=== PATIENT | female | born 1985 | race Caucasian/White ===

== ENCOUNTER 2020-11-16 13:54 | Outpatient (REF) | payer OTHER, SELFPAY | END 2020-11-16 13:55 | disposition home or self-care (01) | LOC: HO.LAB 13:54 | PROVIDERS: PCP Internal Medicine; Visit Provider Internal Medicine | DX: Z20.822 Contact with and (suspected) exposure to COVID-19 (principal) | CPT/HCPCS: 36415; C9803; U0003 ==

== ENCOUNTER 2021-06-13 11:34 | Outpatient (REF) | payer OTHER, SELFPAY ==
--- NOTE | ~2021-06-13 | XR_ITS ---
EXAMINATION: XR LUMBOSACRAL SPINE CLINICAL INFORMATION: Low back pain. COMPARISON: None TECHNIQUE: Three views of the lumbosacral spine. FINDINGS: No significant scoliosis. No listhesis or compression injury. The disc heights and vertebral heights are fairly well preserved. Some mild early degeneration at the thoracolumbar junction. The SI joints are grossly patent. XR/XR lumbar spine 2-3V IMPRESSION: No acute finding. No listhesis or compression injury. Vertebral heights and disc heights are fairly well preserved. Some mild degeneration at the thoracolumbar junction.
[2021-06-13 13:20] LABS: Alanine Aminotransferase 16 U/L (0-31); Albumin Level 4.4 g/dL (3.5-5.0); Alkaline Phosphatase 98 U/L (39-117); Anion Gap 11 (12-20); Aspartate Amino Transferase 15 U/L (5-31); Bilirubin Total < 0.2 mg/dL (0.0-1.0); Blood Urea Nitrogen 9 mg/dL (9-16); Calcium 9.5 mg/dL (8.4-10.2); Carbon Dioxide 26 mmol/L (22-29); Chloride 107 mmol/L (96-108); Cholesterol 145 mg/dL; Estimated Glomerular Filt Rate > 60; Glucose Fasting 92 mg/dL (60-99); HDL Cholesterol 42 mg/dL; LDL Cholesterol Calculated 92 mg/dl; Potassium 4.4 mmol/L (3.3-5.1); Sodium 140 mmol/L (135-145); Total Protein 7.4 g/dL (6.5-8.0); Triglycerides 59 mg/dL
== END 2021-06-13 11:35 | disposition home or self-care (01) ==
LOC: HO.XRAY 11:34
PROVIDERS: PCP Internal Medicine; Visit Provider Internal Medicine
DX: M54.5 Low back pain (principal); E66.9 Obesity, unspecified; R21 Rash and other nonspecific skin eruption; E78.5 Hyperlipidemia, unspecified
CPT/HCPCS: 36415; 72100; 80053; 80061

== ENCOUNTER 2021-07-13 09:00 | Outpatient (RCR) | payer OTHER, SELFPAY ==
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
--- NOTE | 2021-09-07 08:39 | MHC.PT.DC ---
[facility] [place] Office [place] Office [place] Office [address] Karyn Marcus [address] [phone] F: [phone] F: [phone] F: [phone] F: [phone] Physical Therapy Discharge Report Diagnosis: LUMBAR PAIN Date of Surgery: NA Date of Evaluation: 07/06/21 Date of Discharge: 09/07/21 Treatments to Date: 2 Cancellations to Date: No Shows to Date: Discharge Status: Patient Elected to Stop Visit Non-compliance Discharge Summary: Pt SEEN FOR INIT EVAL AND 1 FU VISIT THEN NO SHOWED. Pt THEN RESTARTED PT AT ANOTHER CLINIC ([place] [facility]) WILL DC THIS RECORD/ACCOUNT. AT LAST VISIT HERE IN [place] [facility] ON 07/20/21 PER ASSESSMENT 'NEEDED CUES FOR PROP EX PERF (HAD NOT STARTED THEM BUT REPORTS IS GOING TO WORK ON THEM NOW)RELIEF WITH MH AND ST WORK CHALLENGED WITH ABD BRACING' Electronically signed by: AURORA LEE PT Please sign and return to therapist. Thank you for your referral.
== END 2021-09-07 08:39 | disposition home or self-care (01) ==
LOC: HO.PTWFD 09:00
PROVIDERS: PCP Internal Medicine; Visit Provider Internal Medicine
DX: M54.5 Low back pain (principal)
CPT/HCPCS: 97110; 97140; 97162

== ENCOUNTER 2021-09-26 14:00 | Outpatient (RCR) | payer OTHER, SELFPAY ==
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
--- NOTE | 2021-09-26 15:13 | MHC.PT.DC ---
[facility] [place] Office [place] Office [place] Office [address] Karyn Marcus [address] [phone] F: [phone] F: [phone] F: [phone] F: [phone] Physical Therapy Discharge Report Diagnosis: low back pain Date of Surgery: n/a Date of Evaluation: 08/24/21 Date of Discharge: 09/26/21 Treatments to Date: 6 Cancellations to Date: 3 No Shows to Date: 1 Discharge Status: Achieved Goals Improved Function Discharge Summary: Pt has made some progress since beginning skilled PT in pain, lumbar ROM, core strength, and hip strength. She continues to have some pain at times with activities but also first thing in the morning. She continues to have some functional limitations at times as a result of some continued pain but overall this is better. Advised pt on changes to sleeping posture to help reduce pain further as well as continue with HEP. Pt with good understanding. At this point max benefits of PT have been provided and skilled PT is no longer indicated at this time. Pt is in agreement with d/c today. Electronically signed by: Chely Wakefield, PT, DPT, ATC Please sign and return to therapist. Thank you for your referral.
== END 2021-09-26 15:13 | disposition home or self-care (01) ==
LOC: HO.PT 14:00
PROVIDERS: PCP Internal Medicine; Visit Provider Internal Medicine
DX: M54.50 Low back pain, unspecified (principal)
CPT/HCPCS: 97110; 97140; 97161; 97530

== ENCOUNTER 2021-11-25 12:23 | Outpatient (REF) | payer OTHER, SELFPAY ==
--- NOTE | ~2021-11-25 | XR_ITS ---
EXAMINATION: XR KNEE, LEFT CLINICAL INFORMATION: M25.562 - Pain in left knee COMPARISON: None TECHNIQUE: Three views of the left knee. FINDINGS: There is no fracture or dislocation or destructive process. No focal joint narrowing or erosive change or chondrocalcinosis. No suprapatellar effusion. Hoffa's fat pad appears normal. There is normal bony mineralization. Axial view patella shows no lateralization. XR/XR knee LT 3V IMPRESSION: Normal left knee.
== END 2021-11-25 12:24 | disposition home or self-care (01) ==
LOC: HO.XRAY 12:23
PROVIDERS: PCP Internal Medicine; Visit Provider Nurse Practitioner Family
DX: M25.562 Pain in left knee (principal)
CPT/HCPCS: 73562

== ENCOUNTER 2022-01-10 13:07 | Outpatient (REF) | payer OTHER, SELFPAY ==
--- NOTE | ~2022-01-10 | XR_ITS ---
EXAMINATION: XR THORACOLUMBAR SPINE CLINICAL INFORMATION: Thoracic pain COMPARISON: None TECHNIQUE: Thoracic spine is imaged in 3 views. FINDINGS: There is normal thoracic segmentation with 12 rib-bearing thoracic vertebrae of normal height and normal thoracic kyphosis. There is a borderline levocurvature upper thoracic spine. No thoracic vertebral body compression is present. There is no destructive process or paraspinal soft tissue swelling. No spondylolisthesis or disc narrowing or erosive changes. XR/XR thoracic spine 2V IMPRESSION: -Borderline levocurvature upper thoracic region. -No vertebral compression, spondylolisthesis, disc narrowing, destructive process.
== END 2022-01-10 13:08 | disposition home or self-care (01) ==
LOC: HO.XRAY 13:07
PROVIDERS: PCP Internal Medicine
DX: M54.6 Pain in thoracic spine (principal); M99.02 Segmental and somatic dysfunction of thoracic region; M47.814 Spondylosis without myelopathy or radiculopathy, thoracic region
CPT/HCPCS: 72070

== ENCOUNTER 2022-04-22 17:08 | Emergency (ER) | payer OTHER, SELFPAY ==
[2022-04-22 18:28] VITALS: BP 147/88; PULSE 74; RESP 18; TEMP 36.7; O2SAT 99
[2022-04-22 19:09] VITALS: BP 147/88; PULSE 74; RESP 16; TEMP 36.6; O2SAT 99; BMI 29.4
[2022-04-22 20:26] VITALS: PULSE 63; RESP 16; TEMP 36.1; O2SAT 100
--- NOTE | 2022-04-22 21:43 | ED_ITS ---
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 No associated numbness, tingling. No bowel or bladder incontinence. No saddle anesthesia. No fevers or chills. Patient is ambulatory Related Data Previous Rx's Medication Instructions Recorded ibuprofen 800 mg tablet 800 mg PO Q8H PRN pain 30 days #90 06/22/21 tabs azithromycin 250 mg tablet See Rx Instructions PO .COMPLEX #6 11/25/21 tabs diclofenac sodium 1 % topical gel 2 g topical QID PRN pain 14 days 11/25/21 (Arthritis Pain (diclofenac)) #100 grams cyclobenzaprine 10 mg tablet 10 mg PO TID PRN muscle spasm #15 04/22/22 tabs naproxen 500 mg tablet 500 mg PO BID PRN pain #30 tabs 04/22/22 prednisone 20 mg tablet 40 mg PO DAILY #10 tabs 04/22/22 Allergies Allergy/AdvReac Type Severity Reaction Status Date / Time No Known Allergies Allergy Verified 11/25/21 11:58 [No Known Allergies*] Review of Systems Review of Systems: Yes all other systems are reviewed and are negative Constitutional: Constitutional: Reports no additional constitutional complaints, Denies body ache(s), Denies chills, Denies fever(s), Denies headache(s) and Denies weakness Eyes: Eyes: Reports no additional eye complaints and Denies change in vision ENT: Reports system reviewed and no additional complaints, except as documented, Denies dizziness, Denies headache(s), Denies nasal congestion, Denies nasal discharge and Denies neck pain Cardiovascular: Cardiovascular: Reports no additional cardiovascular complaints, Denies chest pain, Denies leg edema and Denies dyspnea Respiratory: Respiratory: Reports no additional respiratory complaints, Denies cough and Denies dyspnea Gastrointestinal: Gastrointestinal: Reports no additional gastrointestinal complaints, Denies abdominal pain, Denies diarrhea, Denies nausea and Denies vomiting Genitourinary: Genitourinary: Reports no additional female genitourinary complaints and Denies urinary incontinence Musculoskeletal: Musculoskeletal: Reports no additional musculoskeletal complaints, Reports back pain, Denies arthralgias, Denies joint swelling, Denies neck pain, Denies numbness and Denies tingling Integumentary/Breasts: Skin/Breast: Reports system reviewed and no additional complaints, except as docu and Denies rash Neurologic: Reports system reviewed and no additional complaints, except as documented, Denies Abnormal speech present, Denies dizziness, Denies headache(s), Denies numbness, Denies tingling and Denies weakness [facility] Past Medical History Attestation statement: The following information was validated with the patient. Source: old records reviewed and nursing notes reviewed Surgical History History of hand surgery History of tubal ligation S/P ligament repair Family History Family History Father No problems noted. Mother Diabetes Hypertension Paternal Aunt Breast cancer Family/Other Chronic mental illness Brother No problems noted. Brother No problems noted. Brother No problems noted. Sister No problems noted. Sister No problems noted. Son In good health Daughter In good health Social History Social History Housing: Apartment Alcohol intake: current Alcohol intake frequency: holidays/special occasions only Alcohol type: wine and other Patient Tobacco Use Status: Never used Tobacco e-Cigarette/Vaping Use: Never Used Second Hand Smoke Exposure: No Advance Directives: No Advance Directives Information Provided: No service: No Current occupational status: unemployed Physical Exam 2 Vital Signs: Vital Signs: Last Vital Signs Temp 96.9 F 04/22/22 20:26 Pulse 63 04/22/22 20:26 Resp 16 04/22/22 20:26 BP 147/88 H 04/22/22 19:09 Pulse Ox 100 04/22/22 20:26 O2 Del Method 04/22/22 20:26 BMI result Body Mass Index 29.4 Const: General: cooperative, healthy appearing, comfortable and no acute distress Orientation/consciousness: patient oriented x3 Limitations: no limitations HEENT: Head: Yes normal to inspection Ears: hearing grossly normal bilaterally General nose exam: Normal external nose present Face and sinus: Yes normal facial exam Mouth: Normal oral and palatal mucosa present Throat: Yes posterior oropharynx normal Eyes: General: appearance normal, both eyes and all related structures Pupils: Equal, round and reactive pupils present Neck: Neck: Yes normal visual inspection Chest: Chest palpation & inspection: normal inspection of the chest Resp: Effort & Inspection: normal respiratory effort Auscultation: clear to auscultation bilaterally Cardio: Rate: regular rate Rhythm: regular rhythm Peripheral pulses: Peripheral pulses 2+ throughout GI: Inspection: Yes normal to inspection Palpation (GI): Soft to palpation and nontender Auscultation: normal bowel sounds : General: Yes no CVA tenderness Back/Spine/Pelvis: Other: There is tenderness over the right lumbar soft tissue area into the right buttocks. No mid spine tenderness, step-offs deformities. Back: no CVA te nderness Thoracic/Lumbar Spine: thoracic and lumbar spine normal to inspection Skin: General skin exam: no rashes or lesions noted Neuro: General: patient oriented x3, no focal motor deficits and normal sensation to monofilament Cranial nerves: Yes CN's II-XII intact bilaterally, Yes Equal, round and reactive pupils present, Yes Bilaterally intact EOM present, Yes Nystagmus not present, Yes Normal facial strength present and Yes Midline tongue present Cognition (Neuro): normal cognition Speech: No Abnormal speech present Gait exam (Neuro): Normal gait present Motor exam (neuro): 5/5 motor strength present throughout Sensory Exam: Normal double simultaneous stimulation for sensation Deep tendon reflexes (DTR's): Right patellar reflex intensity grade: 2+ and Left patellar reflex intensity grade: 2+ Extrem: General: Yes normal to inspection MDM - Back Pain/Injury MDM Narrative Medical decision making narrative: 36-year-old female with history of chronic back pain here with right lower back pain with radiation down the right leg after moving some furniture 3 days ago. No neurological deficits or red flag symptoms. -low concern for caude equina with no neuro deficits/red flag symptoms -low concern for epidural abscess with no reports of IV drug abuse, immunocompromise state, fever and normal neurologic exam Exam c/w with sciatica. Will treat with course of prednisone, low-dose muscle relaxant NSAID. Reviewed worrisome signs and symptoms when to return to the emergency department. Comfortable discharge home. Differential Diagnosis Differential diagnosis: Likely lumbar radiculopathy, sciatica and strain of lumbar region Medical Records Attestation: I reviewed the patient's medical records. Lab Data Attestation: I reviewed the patient's lab results. Discharge Plan Discharge Clinical Impression: Sciatica Patient Disposition: Home, Self-Care Instructions: Sciatica (ED) Additional Instructions: Heat or ice Gentle stretching No heavy lifting or bending Follow-up with your doctor in 7 days for persistent symptoms Return for incontinence, numbness in the groin, weakness, fever Prescriptions: New cyclobenzaprine 10 mg tablet 10 mg PO TID PRN (Reason: muscle spasm) Qty: 15 0RF naproxen 500 mg tablet 500 mg PO BID PRN (Reason: pain) Qty: 30 0RF prednisone 20 mg tablet 40 mg PO DAILY Qty: 10 0RF No Action ibuprofen 800 mg tablet 800 mg PO Q8H PRN (Reason: pain) 30 Days Qty: 90 3RF azithromycin 250 mg tablet See Rx Instructions PO .COMPLEX Qty: 6 0RF Rx Instructions: take 500 mg today (day 1), then 250 mg for 4 days (days 2-5) PO diclofenac sodium [Arthritis Pain (diclofenac)] 1 % gel 2 g topical QID PRN (Reason: pain) 14 Days Qty: 100 0RF Rx Instructions: apply to single elbow, wrist or hand; for hand includes palm/fingers/back of hand Referrals: Dorothea Domínguez MD [Primary Care Provider] - Interventions: ED Discharge Assessment Last Done: 04/22/22 21:50 Discharge Date/Time: 04/22/22 21:50 Print Language: Occitan
== END 2022-04-22 21:50 | disposition home or self-care (01) ==
PROVIDERS: Emergency Provider Emergency Medicine; PCP Internal Medicine
DX: M54.41 Lumbago with sciatica, right side (principal); Z79.899 Other long term (current) drug therapy
CPT/HCPCS: 99282; 99283

== ENCOUNTER 2022-05-30 11:44 | Outpatient (REF) | payer OTHER, SELFPAY ==
--- NOTE | 2022-05-30 11:47 | ECG_ITS ---
Test Reason : HTN Blood Pressure : / mmHG Vent. Rate : 058 BPM Atrial Rate : 058 BPM P-R Int : 156 ms QRS Dur : 084 ms QT Int : 448 ms P-R-T Axes : 064 028 023 degrees QTc Int : 439 ms Sinus bradycardia Otherwise normal ECG When compared with ECG of 09-MAY-2018 19:19, No significant change was found Referred By: Dorothea Carey Electronically Signed By:KATARINA RODRIGUEZ
[2022-05-30 15:59] LABS: Alanine Aminotransferase 14 U/L (0-31); Albumin Level 4.4 g/dL (3.5-5.0); Alkaline Phosphatase 90 U/L (39-117); Anion Gap 10 (12-20); Aspartate Amino Transferase 15 U/L (5-31); Bilirubin Total 0.5 mg/dL (0.0-1.0); Blood Urea Nitrogen 16 mg/dL (9-16); Calcium 9.4 mg/dL (8.4-10.2); Carbon Dioxide 28 mmol/L (22-29); Chloride 105 mmol/L (96-108); Cholesterol 151 mg/dL; Estimated Glomerular Filt Rate > 60; Glucose Fasting 85 mg/dL (60-99); HDL Cholesterol 44 mg/dL; LDL Cholesterol Calculated 94 mg/dl; Potassium 4.1 mmol/L (3.3-5.1); Sodium 139 mmol/L (135-145); Total Protein 7.3 g/dL (6.5-8.0); Triglycerides 68 mg/dL
[2022-05-30 16:09] LABS: Vitamin D 25-OH Total 25.4 ng/mL (>30)
== END 2022-05-30 11:45 | disposition home or self-care (01) ==
LOC: HO.LAB 11:44
PROVIDERS: PCP Internal Medicine; Visit Provider Internal Medicine
DX: Z00.00 Encounter for general adult medical examination without abnormal findings (principal); I10 Essential (primary) hypertension; E55.9 Vitamin D deficiency, unspecified; E78.5 Hyperlipidemia, unspecified
CPT/HCPCS: 36415; 80053; 80061; 82306; 93005

== ENCOUNTER → 2022-06-16 14:24 | Outpatient (BNVA) | payer OTHER, SELFPAY | PROVIDERS: PCP Internal Medicine; Visit Provider Surgery | DX: L91.0 Hypertrophic scar (principal) | CPT/HCPCS: 99202 ==

== ENCOUNTER 2022-07-21 14:09 | Outpatient (REF) | payer OTHER, SELFPAY ==
[2022-07-21 18:29] LABS: CT PCR NOT DETECTED (Not Detect.); NG PCR NOT DETECTED (Not Detect.)
[2022-07-22 13:13] LABS: BV Int Neg Control Negative (Negative); BV Int Pos Control Positive (Positive)
[2022-07-26 22:26] LABS: HPV mRNA E6/E7 rflx Not Detected (Not Detected)
== END 2022-07-21 14:10 | disposition home or self-care (01) ==
LOC: HO.LNP 14:09
PROVIDERS: Visit Provider Advanced Practice Midwife
DX: Z01.419 Encounter for gynecological examination (general) (routine) without abnormal findings (principal); Z11.51 Encounter for screening for human papillomavirus (HPV); Z11.3 Encounter for screening for infections with a predominantly sexual mode of transmission
CPT/HCPCS: 87480; 87491; 87510; 87591; 87624; 87660; 88142

== ENCOUNTER 2022-08-03 08:09 | Outpatient (REF) | payer OTHER, SELFPAY ==
[2022-08-03 08:15] VITALS: BP 149/76; PULSE 64; RESP 16; TEMP 36.6; O2SAT 100
[2022-08-03 08:16] VITALS: BMI 33.5
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
== END 2022-08-03 08:10 | disposition home or self-care (01) ==
LOC: HO.MS 08:09
PROVIDERS: PCP Internal Medicine; Visit Provider Surgery
PROC: (CPT 11403; principal; 2022-08-03 08:00)
DX: L91.0 Hypertrophic scar (principal)
CPT/HCPCS: 11403; 12032; 88304

== ENCOUNTER → 2022-11-28 09:39 | Outpatient (BNVA) | payer OTHER, SELFPAY | PROVIDERS: PCP Internal Medicine; Visit Provider Student in an Organized Health Care Education/Training Program | DX: M25.641 Stiffness of right hand, not elsewhere classified (principal); M25.642 Stiffness of left hand, not elsewhere classified | CPT/HCPCS: 99202 ==

== ENCOUNTER 2022-12-04 09:46 | Outpatient (REF) | payer OTHER, SELFPAY ==
--- NOTE | ~2022-12-04 | XR_ITS ---
EXAMINATION: XR hand wrist LT, XR hand wrist RT CLINICAL INFORMATION: Rheumatoid arthritis COMPARISON: Right hand radiograph 06/28/2018. Left hand radiograph 07/10/2018. Left wrist radiograph 08/29/2018 and selected images of the MRI left wrist 12/10/2018 and MRI bilateral wrist with contrast 12/16/2018. TECHNIQUE: Left hand and wrist 4 views including navicular view. Right hand and wrist 4 views including navicular view. FINDINGS: Left hand and wrist: No focal soft tissue swelling. The mineralization is normal. The alignment is normal. No significant joint space narrowing. No focal erosions or significant changes. The carpal bones are unremarkable. Right hand and wrist: No focal soft tissue swelling. The mineralization is normal. The alignment is normal. No significant joint space narrowing. No focal erosions or significant changes. The carpal bones are unremarkable. XR/XR hand wrist RT IMPRESSION: No significant joint space narrowing or focal erosions are seen. The alignment is maintained.
--- NOTE | ~2022-12-04 | XR_ITS ---
EXAMINATION: XR hand wrist LT, XR hand wrist RT CLINICAL INFORMATION: Rheumatoid arthritis COMPARISON: Right hand radiograph 06/28/2018. Left hand radiograph 07/10/2018. Left wrist radiograph 08/29/2018 and selected images of the MRI left wrist 12/10/2018 and MRI bilateral wrist with contrast 12/16/2018. TECHNIQUE: Left hand and wrist 4 views including navicular view. Right hand and wrist 4 views including navicular view. FINDINGS: Left hand and wrist: No focal soft tissue swelling. The mineralization is normal. The alignment is normal. No significant joint space narrowing. No focal erosions or significant changes. The carpal bones are unremarkable. Right hand and wrist: No focal soft tissue swelling. The mineralization is normal. The alignment is normal. No significant joint space narrowing. No focal erosions or significant changes. The carpal bones are unremarkable. XR/XR hand wrist LT IMPRESSION: No significant joint space narrowing or focal erosions are seen. The alignment is maintained.
[2022-12-04 10:14] LABS: MANUAL DIFF FLAG NO
[2022-12-04 10:27] LABS: Basophils Absolute Auto 0.1 X10*3/uL (0.0-0.2); Basophils Percent Auto 0.5 % (0-2); Eosinophils Absolute Auto 0.1 X10*3/uL (0.0-0.4); Eosinophils Percent Auto 1.1 % (0-4); Hematocrit 38.2 % (37.0-47.0); Hemoglobin 12.3 g/dl (12.0-16.0); Imm Gran Abs Auto 0.03 X10*3/uL (0.00-0.03); Imm Gran Pct Auto 0.3 % (0.0-0.4); Lymphocytes Absolute Auto 2.8 X10*3/uL (1.2-4.9); Lymphocytes Percent Auto 27.3 % (20-40); Mean Corpuscular HGB Conc 32.2 g/dl (31.0-35.0); Mean Corpuscular Hemoglobin 30.6 pg (27.0-33.0); Mean Platelet Volume 9.7 fL (9.4-12.3); Monocytes Absolute Auto 0.6 X10*3/uL (0.1-1.2); Monocytes Percent Auto 5.4 % (2-11); Neutrophils Absolute Auto 6.7 x10*3/uL (2.0-8.3); Neutrophils Percent Auto 65.4 % (45-73); Platelet Count 331 X10*3/uL (160-400); Red Blood Count 4.02 X10*6/uL (4.20-5.50); White Blood Count 10.2 X10*3/uL (4.8-10.8)
[2022-12-04 10:48] LABS: Appearance Urine Clear; Color Urine Yellow; Glucose Urine UA Negative (Negative); Leukocyte Esterase Urine Negative (Negative); Nitrite Urine Negative (Negative); PH 7.5 (5.0-9.0); UMIC TRIGGER UA YES; Urine Blood Moderate (2+) (Negative); Urine Ketones Negative (Negative); Urine Protein Negative (Neg-Trace)
[2022-12-04 10:55] LABS: Estimated Average Glucose 91 mg/dL; Hemoglobin A1c % 4.8 %
[2022-12-04 11:00] LABS: Bacteria Urine None Seen (None Seen); Hyaline Casts Urine 0-2 /LPF (0-2); Squamous Epithelial Cell Urine 0-2 /HPF (0-2); WBC Urine 0-5 /HPF (0-5)
[2022-12-04 11:15] LABS: Creatinine Urine 113.93 mg/dL; Total Protein Urine Random < 7 mg/dL (<12)
[2022-12-04 11:15] LABS: Erythrocyte Sedimentation Rate 12 MM/HR (0-20)
[2022-12-04 11:31] LABS: Alanine Aminotransferase 10 U/L (0-31); Albumin Level 4.3 g/dL (3.5-5.0); Alkaline Phosphatase 98 U/L (39-117); Anion Gap 9 (12-20); Aspartate Amino Transferase 13 U/L (5-31); Bilirubin Total 0.3 mg/dL (0.0-1.0); Blood Urea Nitrogen 13 mg/dL (9-16); C Reactive Protein 0.35 mg/dL (< or = 0.50); Calcium 9.6 mg/dL (8.4-10.2); Carbon Dioxide 28 mmol/L (22-29); Chloride 108 mmol/L (96-108); Estimated Glomerular Filt Rate > 60; Glucose Random 87 mg/dL (60-115); Potassium 4.2 mmol/L (3.3-5.1); Rheumatoid Factor < 13.0 IU/mL (<15.0); Sodium 141 mmol/L (135-145); Total Protein 7.1 g/dL (6.5-8.0)
[2022-12-04 11:36] LABS: HBS Num1 0.87 mIU/mL (0-7.99); HBc Num1 0.08 S/CO (0.00-0.79); Hepatitis A Antibody IgM 0.17 Index (0-0.79); Hepatitis B Core Antibody Nonreactive (Nonreactive); Hepatitis B Surface Antigen Negative (Negative); ~HepC Num1 0.11 S/CO (0.00-0.79); ~Hepatitis A Antibody IgM Nonreactive (Nonreactive); ~Hepatitis B Surface Antibody NONREACTIVE (Nonreactive); ~Hepatitis C Antibody Nonreactive (Nonreactive)
[2022-12-04 11:39] LABS: Thyroid Stimulating Hormone 2.18 uIU/mL (0.32-4.0)
[2022-12-05 13:40] LABS: Anti Nuclear Antibody Screen NEGATIVE (NEGATIVE)
[2022-12-05 15:22] LABS: Cyclic Citrullinated Peptide <16 UNITS
[2022-12-05 15:29] LABS: Complement C3 140 mg/dL (83-193)
[2022-12-06 13:43] LABS: Anti-Centromere B Antibodies <1.0 NEG AI (<1.0 NEG)
[2022-12-06 15:22] LABS: Prot Elec - Albumin 4.2 g/dL (3.8-4.8); Prot Elec - Alpha1 0.3 g/dL (0.2-0.3); Prot Elec - Alpha2 0.6 g/dL (0.5-0.9); Prot Elec - Beta 1 0.5 g/dL (0.4-0.6); Prot Elec - Beta 2 0.5 g/dL (0.2-0.5); Prot Elec - Total Protein 7.1 g/dL (6.1-8.1)
[2022-12-06 15:28] LABS: TS Negative Control Passed; TS Panel A 0; TS Panel B 0; TS Positive Control Passed; TSpotTB Negative (Negative)
[2022-12-07 07:09] LABS: Anti DNA DS Antibody <1 IU/mL; Antibody to SS-A Antigen <1.0 NEG AI (<1.0 NEG); Antibody to SS-B Antigen <1.0 NEG AI (<1.0 NEG); SM/Ribonucleoprotein Ab <1.0 NEG AI (<1.0 NEG); Scleroderma 70 Antibody <1.0 NEG AI (<1.0 NEG); Smith Protein <1.0 NEG AI (<1.0 NEG)
[2022-12-07 14:57] LABS: IgA 333 mg/dL (47-310); IgG 1096 mg/dL (600-1640); IgM 111 mg/dL (50-300)
[2022-12-08 15:09] LABS: DNAds, Crithidia Antibody Negative (Negative)
== END 2022-12-04 09:47 | disposition home or self-care (01) ==
LOC: HO.XRAY 09:46
PROVIDERS: PCP Internal Medicine; Visit Provider Student in an Organized Health Care Education/Training Program
DX: Z11.7 Encounter for testing for latent tuberculosis infection (principal); Z13.1 Encounter for screening for diabetes mellitus; Z11.59 Encounter for screening for other viral diseases; M32.9 Systemic lupus erythematosus, unspecified; M06.9 Rheumatoid arthritis, unspecified; R53.83 Other fatigue
CPT/HCPCS: 36415; 73110; 73130; 80053; 81001; 82550; 82784; 83036; 83735; 84156; 84165; 84443; 85025; 85652; 86038; 86039; 86140; 86160; 86200; 86225; 86235; 86255; 86334; 86431; 86481; 86704; 86706; 86709; 86803; 87340

== ENCOUNTER → 2023-03-29 14:00 | Outpatient (BNVA) | payer OTHER, SELFPAY | PROVIDERS: PCP Internal Medicine; Visit Provider Student in an Organized Health Care Education/Training Program | DX: M25.641 Stiffness of right hand, not elsewhere classified (principal); M25.642 Stiffness of left hand, not elsewhere classified | CPT/HCPCS: 99212 ==

== ENCOUNTER 2023-07-05 08:47 | Outpatient (REF) | payer OTHER, SELFPAY ==
--- NOTE | ~2023-07-05 | MR_ITS ---
EXAMINATION: MRI of the left hand without contrast and high field MRI scanner. CLINICAL INFORMATION: Pain in the joints of the left hand patient reports prior surgery 2018 of the wrist COMPARISON: X-ray left hand and wrist November 2022 TECHNIQUE: MRI of the left hand is performed without contrast and high field MRI scanner FINDINGS: Subcutaneous soft tissues: Normal. Muscles Ligaments and capsular structures: Normal. Bone/joints: Normal. Neurovascular structures: MR/MR hand LT wo con IMPRESSION: Normal MRI of the left hand.
== END 2023-07-05 08:48 | disposition home or self-care (01) ==
LOC: HO.MRI 08:47
PROVIDERS: PCP Internal Medicine; Visit Provider Student in an Organized Health Care Education/Training Program
DX: M25.542 Pain in joints of left hand (principal)
CPT/HCPCS: 73218

== ENCOUNTER 2023-09-03 09:54 | Outpatient (REF) | payer OTHER, SELFPAY ==
[2023-09-03 10:08] LABS: MANUAL DIFF FLAG NO
[2023-09-03 10:29] LABS: Basophils Percent Auto 0.4 % (0-2); Eosinophils Absolute Auto 0.1 X10*3/uL (0.0-0.4); Eosinophils Percent Auto 1.3 % (0-4); Hematocrit 40.1 % (37.0-47.0); Hemoglobin 12.8 g/dl (12.0-16.0); Imm Gran Abs Auto 0.02 X10*3/uL (0.00-0.03); Imm Gran Pct Auto 0.3 % (0.0-0.4); Lymphocytes Absolute Auto 2.1 X10*3/uL (1.2-4.9); Lymphocytes Percent Auto 27.2 % (20-40); Mean Corpuscular HGB Conc 31.9 g/dl (31.0-35.0); Mean Corpuscular Hemoglobin 30.5 pg (27.0-33.0); Mean Corpuscular Volume 95.7 fL (80.0-98.0); Mean Platelet Volume 9.9 fL (9.4-12.3); Monocytes Absolute Auto 0.4 X10*3/uL (0.1-1.2); Monocytes Percent Auto 4.9 % (2-11); Neutrophils Percent Auto 65.9 % (45-73); Platelet Count 319 X10*3/uL (160-400); Red Blood Count 4.19 X10*6/uL (4.20-5.50); Red Cell Distribution Width 12.9 % (11.0-16.0); White Blood Count 7.6 X10*3/uL (4.8-10.8)
[2023-09-03 11:10] LABS: Erythrocyte Sedimentation Rate 6 MM/HR (0-20)
[2023-09-03 11:36] LABS: Alanine Aminotransferase 17 U/L (0-31); Albumin Level 4.2 g/dL (3.5-5.0); Alkaline Phosphatase 85 U/L (39-117); Anion Gap 13 (12-20); Aspartate Amino Transferase 19 U/L (5-31); Bilirubin Total 0.5 mg/dL (0.0-1.0); Blood Urea Nitrogen 7 mg/dL (9-16); Calcium 9.8 mg/dL (8.4-10.2); Carbon Dioxide 25 mmol/L (22-29); Chloride 107 mmol/L (96-108); Estimated Glomerular Filt Rate > 60; Glucose Random 64 mg/dL (60-115); Potassium 3.8 mmol/L (3.3-5.1); Sodium 141 mmol/L (135-145); T4 Thyroxine 5.4 ug/dL (4.5-12.0); Thyroid Stimulating Hormone 0.97 uIU/mL (0.32-4.0); Total Protein 7.3 g/dL (6.5-8.0); Vitamin D 25-OH Total 14.8 ng/mL (>30)
[2023-09-03 11:43] LABS: Vitamin B12 331 pg/mL (200-900)
[2023-09-03 11:59] LABS: Rheumatoid Factor < 13.0 IU/mL (<15.0)
[2023-09-05 01:33] LABS: Triiodothyronine T3 Total 113 ng/dL (76-181)
[2023-09-06 05:23] LABS: Lyme Abs Screen <0.90 index
== END 2023-09-03 09:55 | disposition home or self-care (01) ==
LOC: HO.LAB 09:54
PROVIDERS: Visit Provider Physical Medicine & Rehabilitation
DX: M79.7 Fibromyalgia (principal)
CPT/HCPCS: 36415; 80053; 82306; 82607; 84436; 84443; 84480; 85025; 85652; 86431; 86617; 86618

== ENCOUNTER 2023-09-20 08:05 | Outpatient (REF) | payer OTHER, SELFPAY ==
--- NOTE | ~2023-09-20 | XR_ITS ---
EXAMINATION: XR PELVIS CLINICAL INFORMATION: Pain. COMPARISON: None available. TECHNIQUE: AP view of the pelvis. FINDINGS: Bony alignment and mineralization are normal. The acetabular joint spaces show slight superolateral narrowing, right greater than left. There is mild subchondral sclerosis of the acetabular roofs. The femoral heads are smooth. There is no fracture or dislocation. No foreign body is seen. XR/XR pelvis 1-2V IMPRESSION: There is mild right hip and very mild left hip degenerative change. No fracture is seen.
== END 2023-09-20 08:06 | disposition home or self-care (01) ==
LOC: HO.HOSX 08:05
PROVIDERS: Visit Provider Orthopaedic Surgery
DX: M16.11 Unilateral primary osteoarthritis, right hip (principal); M25.552 Pain in left hip; M54.50 Low back pain, unspecified; M25.50 Pain in unspecified joint
CPT/HCPCS: 72170; 99202

== ENCOUNTER 2023-09-20 08:39 | Outpatient (AMB) | payer OTHER, SELFPAY ==
--- NOTE | 2023-09-20 08:41 | A.OFFVIS_ITS ---
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 She has previously been seen at [facility] for her lower back and was instructed to follow up with PCP for further treatment of fibromyalgia. Patient reports that her pain starts in the lower back and radiates down the right leg. She also has pain in the feet at night. 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 She complains of pain that begins in her lower back and occasionally ( Bur rarely)radiates down her right leg. She also complains of pain in her feet at night. She has been seen previously at [facility] for back pain. She has a hx of polyarthralgia and follows with Rheumatology. She is scheduled to see Dr. Delacruz on 09/26/23 in regards to LBP. [facility] Medical History High blood pressure Lumbar pain Obese Rash Surgical History History of hand surgery History of local excision of skin lesion (08/03/22) History of tubal ligation S/P ligament repair Family History Father No problems noted. Mother Diabetes Hypertension Paternal Aunt Breast cancer Family/Other Chronic mental illness Brother No problems noted. Brother No problems noted. Brother No problems noted. Sister No problems noted. Sister No problems noted. Son In good health Daughter In good health Social History Housing: Apartment Alcohol intake: current Alcohol intake frequency: holidays/special occasions only Alcohol type: wine and other Patient Tobacco Use Status: Never used Tobacco e-Cigarette/Vaping Use: Never Used Second Hand Smoke Exposure: No service: No Current occupational status: unemployed Cognitive needs: No Hearing needs: No Vision needs: Yes Female Reproductive History Menstrual Age of Menarche: 14 Review of Systems Const All systems reviewed & are unremarkable except as noted in HPI and below Physical Exam Vital Signs: BMI result Body Mass Index 33.7 Const General: no acute distress, alert and awake Orientation/consciousness: patient oriented x3 HEENT Head: Yes normocephalic and Yes atraumatic Mouth: moist mucous membranes Eyes General: appearance normal, both eyes and all related structures EOM: EOMs intact bilaterally Chest Other: no audible wheezing. Resp Other: No audible wheezing Effort & Inspection: normal respiratory effort and able to speak in complete sentences Cardio Other: Radial pulse palpable with no rythmic abnormalities Jugular venous distension: no JVD Back/Spine/Pelvis Cervical Spine: normal cervical lordosis Skin General skin exam: turgor normal Rashes: no rashes Neuro General: patient oriented x3 Extrem Other: Mildly positive impingement test on the right. Negative on the left. Tenderness to palpation right SI joint. Negative straight leg raise Negative Stinchfield Mild tenderness over the greater trochanteric bursa on the right Psych Appearance: grossly normal Mental Status: mental status grossly normal Speech and movement: Normal speech and movement present Affect: normal affect Attitude: cooperative Results Reviewed Results Reviewed: I personally reviewed relevant radiographs Pincer type acetabular over coverage right hip with mild OA Assessment & Plan Assessment & Plan (1) Lumbar pain: Code(s): M54.5 - Low back pain Plan: Low back pain with minimal radicular symptoms. Refer to pain management as she feels pain is not tolerable. I described that her hip arthritis and/impingement may be contributing but it does not seem to be a primary pain generator at this time. (2) Polyarthralgia: Code(s): M25.50 - Pain in unspecified joint (3) Osteoarthritis of right hip: Code(s): M16.11 - Unilateral primary osteoarthritis, right hip Plan: This is a 38-year-old with mild right tensor type impingement and mild arthritis. Her symptoms are mild. I discussed this with. If her hip symptoms worsen she will return to see me. At this time however no treatment warranted. Orders: Orders XR pelvis 1-2V Today M25.559 - Pain in unspecified hip Referrals Pain Management Referral M54.9 - Dorsalgia, unspecified Coding Level of Care Code New Pt Level 4 (64499) Diagnoses Lumbar pain M54.5 Polyarthralgia M25.50 Osteoarthritis of right hip M16.11
[2023-09-20 08:48] VITALS: BMI 33.7
== END 2023-09-20 09:23 | disposition home or self-care (01) ==
PROVIDERS: PCP Internal Medicine; Visit Provider Orthopaedic Surgery
DX: M54.50 Low back pain, unspecified (principal); M25.50 Pain in unspecified joint; M16.11 Unilateral primary osteoarthritis, right hip
CPT/HCPCS: 99203

== ENCOUNTER 2023-09-26 11:27 | Outpatient (AMB) | payer OTHER, SELFPAY ==
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
[2023-09-26 11:39] VITALS: BMI 33.7
== END 2023-09-26 12:03 | disposition home or self-care (01) ==
PROVIDERS: PCP Internal Medicine; Visit Provider Physical Medicine & Rehabilitation
DX: M54.50 Low back pain, unspecified (principal); G89.29 Other chronic pain; M79.7 Fibromyalgia; M54.59 Other low back pain
CPT/HCPCS: 99203

== ENCOUNTER → 2023-09-26 11:27 | Outpatient (BNVA) | payer OTHER, SELFPAY | PROVIDERS: PCP Internal Medicine; Visit Provider Physical Medicine & Rehabilitation | DX: M54.41 Lumbago with sciatica, right side (principal); M79.7 Fibromyalgia; G89.29 Other chronic pain | CPT/HCPCS: 99202 ==

== ENCOUNTER 2023-10-09 11:06 | Outpatient (AMB) | payer OTHER, SELFPAY ==
--- NOTE | 2023-10-09 11:14 | A.OFFVIS_ITS ---
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 S he was followed by [facility] up until 09/13/2023. Patient was also seen by [facility] for back and hip pain. She reports upcoming surgery for neurogenic thoracic outlet syndrome with Dr. Meyers at [facility] early next year. Patient was also seen at [facility] for ankle pain, by Dr. De La O for hand pain and by Rheumatology for hand pain. Patient was referred to us by Dr. Dario ziegler at [facility] for low back pain. She had underwent bilateral L3-L4-L5 medial branch blocks and interlaminar epidural injections at L5-S1 and completed physical and chiropractic therapies without much relief at [facility]. Patient reports back pain that radiates upward to her upper thoracic, between shoulder blades and down into her sacral regions bilaterally but not into her lower extremities. Patient also reports widespread body pain with multiple tender points of upper and lower extremities and torso which is consistent with fibromyalgia. Patient has been managing amitriptyline and Lyrica, and also tried gabapentin without relief. Per Physiatry notes, MRI 06/05/2022 reported no significant spinal stenosis, spondylosis L4-5 and L5-S1. EMG reported to be normal lower extremity. Pain negatively affects her daily functioning, mood, sleep and quality of life. Patient denies any fever, weight loss, abdominal or groin pain, weakness, bladder or bowel dysfunction or saddle anesthesia. Location Chronic pain in lower back and sacral, between shoulder blades, mid back Duration Chronic pain for > 3 years Characteristics of symptom or complaint Aching, spasms, numbness, tingling, dull, shooting, pulling, radiating Aggravating or associated factors Movements, walking, standing, cold weather Relieving factors Sitting, resting, heat therapy, Gabapentin/Lyrica, Ibuprofen, lidocaine Treatment PT, injections at [facility], chiropractic therapy-minimal relief [facility] Medical History Fibromyalgia High blood pressure Rash Lumbar pain Obese Surgical History History of local excision of skin lesion (08/03/22) S/P ligament repair History of hand surgery History of tubal ligation Family History Father No problems noted. Mother Diabetes Hypertension Paternal Aunt Breast cancer Family/Other Chronic mental illness Brother No problems noted. Brother No problems noted. Brother No problems noted. Sister No problems noted. Sister No problems noted. Son In good health Daughter In good health Social History Housing: Apartment Alcohol intake: current Alcohol intake frequency: holidays/special occasions only Alcohol type: wine and other Patient Tobacco Use Status: Never used Tobacco e-Cigarette/Vaping Use: Never Used Second Hand Smoke Exposure: No service: No Current occupational status: unemployed Cognitive needs: No Hearing needs: No Vision needs: Yes Female Reproductive History Menstrual Age of Menarche: 14 Review of Systems Const All systems reviewed & are unremarkable except as noted in HPI and below Physical Exam Vital Signs: Last Vital Signs Pulse 82 10/09/23 11:17 Resp 18 10/09/23 11:17 BP 146/71 H 10/09/23 11:17 Pulse Ox 99 10/09/23 11:17 Oxygen Delivery Method Room Air 10/09/23 11:17 BMI result Body Mass Index 34.6 General: Appears afebrile. Alert and oriented. Mood and affect appropriate. Follows and participates in conversation appropriately. Respiratory effort is unlabored. No cough. No nasal discharge. Able to transition from sit to stand unassisted. Ambulates with bilaterally normal heel strike and toe off. Back/Spine/Pelvis Other: Patient is able to walk and stand on heels and tip toes with no difficulties demonstrating good motor tone. No limping. Can flex forward to 65-75 degrees and extend to 5-10 degrees before experiencing lumbar pain. Demonstrates 5/5 strength of quadriceps bilaterally as well as flexion/dorsiflexion of bilateral feet against resistance. 2+ pedal pulses bilaterally. Seated straight leg rise with dorsiflexion negative bilaterally. +2 patellar and achilles reflexes bilaterally. Facet loading test positive bilaterally. Bienvenido sign positive bilaterally, Etienne?s test reproduces bilateral hip pain, no groin or low back pain. No groin pain with I/E hip rotations. Multiple widespread TTPs 16/16 bilaterally, including upper and lower extremities. Cervical Spine: cervical ROM normal, cervical muscular tenderness, pain with cervical ROM, No Cervical spine scars present and No Cervical spine tenderness Thoracic/Lumbar Spine: thoracic and lumbar spine normal to inspection, No Thoracic/lumbar spine scar(s), Lasegue's sign negative, straight leg raise negative bilaterally, pain with thoraco-lumbar ROM, paraspinal muscle tenderness, thoracic spinal tenderness and lumbar spinal tenderness at L4 and at L5 Pelvis: no buttock tenderness Sacroiliac joints: bilaterally tender to palpation Results Reviewed Results Reviewed: XR PELVIS 09/20/23 FINDINGS: Bony alignment and mineralization are normal. The acetabular joint spaces show slight superolateral narrowing, right greater than left. There is mild subchondral sclerosis of the acetabular roofs. The femoral heads are smooth. There is no fracture or dislocation. No foreign body is seen. IMPRESSION: There is mild right hip and very mild left hip degenerative change. No fracture is seen. XR THORACOLUMBAR SPINE 01/10/22 CLINICAL INFORMATION: Thoracic pain FINDINGS: There is normal thoracic segmentation with 12 rib-bearing thoracic vertebrae of normal height and normal thoracic kyphosis. There is a borderline levocurvature upper thoracic spine. No thoracic vertebral body compression is present. There is no destructive process or paraspinal soft tissue swelling. No spondylolisthesis or disc narrowing or erosive changes. IMPRESSION: -Borderline levocurvature upper thoracic region. -No vertebral compression, spondylolisthesis, disc narrowing, destructive process. XR LUMBOSACRAL SPINE 06/13/21 CLINICAL INFORMATION: Low back pain. FINDINGS: No significant scoliosis. No listhesis or compression injury. The disc heights and vertebral heights are fairly well preserved. Some mild early degeneration at the thoracolumbar junction. The SI joints are grossly patent. IMPRESSION: No acute finding. No listhesis or compression injury. Vertebral heights and disc heights are fairly well preserved. Some mild degeneration at the thoracolumbar junction. Assessment & Plan Assessment & Plan (1) Lumbar facet joint pain: Code(s): M54.59 - Other low back pain (2) Fibromyalgia: Code(s): M79.7 - Fibromyalgia (3) Polyarthralgia: Code(s): M25.50 - Pain in unspecified joint (4) Cervical spine pain: Code(s): M54.2 - Cervicalgia (5) Lumbar spondylosis: Code(s): M47.816 - Spondylosis without myelopathy or radiculopathy, lumbar region Plan Lumbar spine imaging to assess degree of degenerative changes, any subluxation, listhesis, compression fractures or pars defects. We will also reach out to [facility] for past injections, specifically patient's response to lumbar MBB injections and full lumbar spine MRI report. Discussed peripheral nerve stimulation vs RFA for axial low back pain. Informational pamphlets were provided to patient in Ghanaian. All questions and concerns have been answered and patient agreed with the plan. Follow up for xray results and sooner if needed. Orders: Orders XR lumbar spine 6V w bending 10/09/23 G89.29 - Other chronic pain, M54.59 - Other low back pain, M54.9 - Dorsalgia, unspecified Coding Level of Care Code New Pt Level 4 (54142) Diagnoses Lumbar facet joint pain M54.59 Fibromyalgia M79.7 Polyarthralgia M25.50 Cervical spine pain M54.2 Lumbar spondylosis M47.816
[2023-10-09 11:17] VITALS: BP 146/71; PULSE 82; RESP 18; O2SAT 99; BMI 34.6
== END 2023-10-09 11:43 | disposition home or self-care (01) ==
PROVIDERS: PCP Internal Medicine; Referring Provider Internal Medicine; Visit Provider Nurse Practitioner Family
DX: M54.59 Other low back pain (principal); M79.7 Fibromyalgia; M25.50 Pain in unspecified joint; M54.2 Cervicalgia; M47.816 Spondylosis without myelopathy or radiculopathy, lumbar region
CPT/HCPCS: 99204

== ENCOUNTER 2023-10-09 11:06 | Outpatient (REF) | payer OTHER, SELFPAY ==
--- NOTE | ~2023-10-09 | XR_ITS ---
EXAMINATION: XR LUMBOSACRAL SPINE WITH OBLIQUES CLINICAL INFORMATION: Low back pain COMPARISON: Lumbar spine radiograph from 06/13/2021 TECHNIQUE: 7 views of the lumbar spine FINDINGS: No acute visible fracture or dislocation. Slight lower lumbar spine facet arthropathy. Suggestion of L5-S1 neuroforaminal narrowing. Vertebral body heights and disc spaces are maintained. Posterior elements are intact. Paraspinal soft tissues are unremarkable. Visualized bowel gas is unremarkable. XR/XR lumbar spine 6V w bending IMPRESSION: 1. No acute visible fracture or dislocation. 2. Slight lower lumbar spine facet arthropathy. 3. Suggestion of L5-S1 neuroforaminal narrowing.
== END 2023-10-09 11:07 | disposition home or self-care (01) ==
LOC: HO.XRAY 11:06
PROVIDERS: PCP Internal Medicine; Referring Provider Internal Medicine; Visit Provider Nurse Practitioner Family
DX: M54.59 Other low back pain (principal); M54.9 Dorsalgia, unspecified; M79.7 Fibromyalgia; M54.2 Cervicalgia; M47.816 Spondylosis without myelopathy or radiculopathy, lumbar region; G89.29 Other chronic pain
CPT/HCPCS: 72114; 99202

== ENCOUNTER 2023-10-22 09:17 | Outpatient (AMB) | payer OTHER, SELFPAY ==
--- NOTE | 2023-10-22 09:20 | MHC.OFFVIS ---
Intake Vital Signs 10/22/23 09:29 Height 5 ft 3 in Weight 191 lb 2 oz BMI 33.9 BP 151/94 H Blood Pressure Location Lt brachial Position Sitting Pulse 75 Pulse Source Pulse Oximeter Pulse Oximetry (%) 100 Oxygen Delivery Method Room Air Intake Visit Reasons: Follow Up/Back & Hip Pain Allergies No Known Allergies [No Known Allergies*] Allergy (Verified 10/22/23 09:30) Medication List - Last Reconciled 10/22/23 by Pat Babb RN blood pressure monitor As directed gabapentin 400 mg PO TID 30 days ibuprofen 800 mg PO Q8H PRN 30 days lidocaine 5% 1 patch topical DAILY PRN 30 days lisinopril 5 mg PO DAILY 90 days lorazepam 1 mg PO naproxen 500 mg PO BID PRN 90 days pregabalin 75 mg PO BEDTIME sertraline 50 mg PO DAILY sumatriptan succinate 25 mg PO Q2-4H PRN 30 days trazodone 25 - 50 mg PO BEDTIME HPI HPI Comments History of Present Illness Details Patient presents today for follow up to review lumbar spine xray results. She continues to endorse neck and mid thoracic back pain as well as low back pain on the right with radiation into her right buttock and right lateral hips. She reports bilateral leg in L5 distribution with prolonged sitting or driving, bending or flexing forward. Denies any fever, abdominal or groin pain, weakness, foot drop, gait imbalances, bladder or bowel dysfunction or saddle anesthesia. She rates her pain 6-8/10. Patient reports minimal sleep improvement with amitriptyline and had partial good benefit and good tolerance with pregabalin in the summer. She does not have refills at this time as she is no longer seeing providers at [facility]. Reports minimal effectiveness with gabapentin. PRIOR: Patient is a pleasant 38 year old Bangladeshi speaking female with history of fibromyalgia, arthritis, polyarthralgia and chronic neck, thoracic and lumbar pain presents today for initial evaluation for chronic mid and low back pain. She was followed by [facility] up until 09/13/2023. Patient was also seen by [facility] for back and hip pain. She reports upcoming surgery for neurogenic thoracic outlet syndrome with Dr. Meyers at [facility] early next year. Patient was also seen at [facility] for ankle pain, by Dr. De La O for hand pain and by Rheumatology for hand pain. Patient was referred to us by Dr. Natarajan at [facility] for low back pain. She had underwent bilateral L3-L4-L5 medial branch blocks and interlaminar epidural injections at L5-S1 and completed physical and chiropractic therapies without much relief at [facility]. Patient reports back pain that radiates upward to her upper thoracic, between shoulder blades and down into her sacral regions bilaterally but not into her lower extremities. Patient also reports widespread body pain with multiple tender points of upper and lower extremities and torso which is consistent with fibromyalgia. Patient has been managing amitriptyline and Lyrica, and also tried gabapentin without relief. Per Physiatry notes, MRI 06/05/2022 reported no significant spinal stenosis, spondylosis L4-5 and L5-S1. EMG reported to be normal lower extremity. Pain negatively affects her daily functioning, mood, sleep and quality of life. Patient denies any fever, weight loss, abdominal or groin pain, weakness, bladder or bowel dysfunction or saddle anesthesia. Location Chronic pain in lower back and sacral, between shoulder blades, mid back Duration Chronic pain for > 3 years Characteristics of symptom or complaint Aching, spasms, numbness, tingling, dull, shooting, pulling, radiating Aggravating or associated factors Movements, walking, standing, cold weather Relieving factors Sitting, resting, heat therapy, Gabapentin/Lyrica, Ibuprofen, lidocaine Treatment PT, injections at [facility], chiropractic therapy-minimal relief [facility] Medical History Fibromyalgia High blood pressure Rash Lumbar pain Obese Surgical History History of local excision of skin lesion (08/03/22) S/P ligament repair History of hand surgery History of tubal ligation Family History Father No problems noted. Mother Diabetes Hypertension Paternal Aunt Breast cancer Family/Other Chronic mental illness Brother No problems noted. Brother No problems noted. Brother No problems noted. Sister No problems noted. Sister No problems noted. Son In good health Daughter In good health Social History Housing: Apartment Alcohol intake: current Alcohol intake frequency: holidays/special occasions only Alcohol type: wine and other Patient Tobacco Use Status: Never used Tobacco e-Cigarette/Vaping Use: Never Used Second Hand Smoke Exposure: No service: No Current occupational status: unemployed Cognitive needs: No Hearing needs: No Vision needs: Yes Female Reproductive History Menstrual Age of Menarche: 14 Review of Systems Const All systems reviewed & are unremarkable except as noted in HPI and below Physical Exam Vital Signs: Last Vital Signs Pulse 75 10/22/23 09:29 BP 151/94 H 10/22/23 09:29 Pulse Ox 100 10/22/23 09:29 Oxygen Delivery Method Room Air 10/22/23 09:29 BMI result Body Mass Index 33.9 General: Appears afebrile. Alert and oriented. Mood and affect appropriate. Follows and participates in conversation appropriately. Respiratory effort is unlabored. No cough. Able to transition from sit to stand unassisted. Ambulates with bilaterally normal heel strike and toe off. Back/Spine/Pelvis Other: Limited thoracolumbar ROM due to pain. Can flex forward to 65-70 degrees and extend to 5-10 degrees before experiencing lumbar pain. Demonstrates 5/5 strength of quadriceps bilaterally as well as flexion/dorsiflexion of bilateral feet against resistance. 2+ pedal pulses bilaterally. Seated straight leg rise with dorsiflexion negative bilaterally. +2 patellar and achilles reflexes bilaterally. Facet loading test positive bilaterally. Bienvenido sign positive bilaterally, Etienne?s test reproduces bilateral hip pain and low back pain, worse on the right, but not groin pain. No groin pain with I/E hip rotations. Multiple widespread TTPs 16/16 bilaterally, including upper and lower extremities. Cervical Spine: cervical ROM normal, cervical muscular tenderness, pain with cervical ROM and No Cervical spine tenderness Thoracic/Lumbar Spine: thoracic and lumbar spine normal to inspection, No Thoracic/lumbar spine scar(s), Lasegue's sign negative, straight leg raise negative bilaterally, pain with thoraco-lumbar ROM, paraspinal muscle tenderness, thoracic spinal tenderness and lumbar spinal tenderness at L4 and at L5 Pelvis: no buttock tenderness Sacroiliac joints: bilaterally tender to palpation Results Reviewed Results Reviewed: XR LUMBOSACRAL SPINE WITH OBLIQUES 10/09/23 CLINICAL INFORMATION: Low back pain COMPARISON: Lumbar spine radiograph from 06/13/2021 TECHNIQUE: 7 views of the lumbar spine FINDINGS: No acute visible fracture or dislocation. Slight lower lumbar spine facet arthropathy. Suggestion of L5-S1 neuroforaminal narrowing. Vertebral body heights and disc spaces are maintained. Posterior elements are intact. Paraspinal soft tissues are unremarkable. Visualized bowel gas is unremarkable. IMPRESSION: 1. No acute visible fracture or dislocation. 2. Slight lower lumbar spine facet arthropathy. 3. Suggestion of L5-S1 neuroforaminal narrowing. Assessment & Plan Assessment & Plan (1) Lumbar facet joint pain: Code(s): M54.59 - Other low back pain (2) Lumbar radiculopathy: Code(s): M54.16 - Radiculopathy, lumbar region (3) Lumbar degenerative disc disease: Code(s): M51.36 - Other intervertebral disc degeneration, lumbar region (4) Fibromyalgia: Code(s): M79.7 - Fibromyalgia (5) Sacroiliac joint pain: Code(s): M53.3 - Sacrococcygeal disorders, not elsewhere classified Plan MRI of the lumbar spine to assess for neural integrity and compression and follow up on previous MRI findings. Schedule bilateral diagnostic sacroiliac joint injections with local and fluoroscopy. Discussed longer term treatments with therapeutic injections, PNS trial, SI joint stabilization and RFA procedure if positive response to nerve blocks. Expectations, risks and benefits were reviewed. Patient is aware she will be contacted to schedule this procedure. We also reviewed [facility] PNS and RFA for axial low back pain. However, she reports minimal pain relief with previous lumbar MBBs and facet blocks through [facility] in 2021. Short script provided for tramadol for acute on chronic pain. Refill send for pregabalin as well. All questions and concerns have been answered and patient agreed with the plan. Follow up after injections/MRI results review and sooner as needed. Orders: Orders MR lumbar spine wo con Today M51.36 - Other intervertebral disc degeneration, lumbar region, M54.16 - Radiculopathy, lumbar region, M54.59 - Other low back pain Medications: New tramadol 50 mg PO BID 15 days PRN 30 tabs 0RF pain M51.36 - Other intervertebral disc degeneration, lumbar region, M54.16 - Radiculopathy, lumbar region, M54.59 - Other low back pain, M79.7 - Fibromyalgia Changed From pregabalin 75 mg PO BEDTIME M51.36 - Other intervertebral disc degeneration, lumbar region, M54.16 - Radiculopathy, lumbar region, M79.7 - Fibromyalgia To pregabalin 75 mg PO BEDTIME 30 days 30 caps 1RF pain M51.36 - Other intervertebral disc degeneration, lumbar region, M54.16 - Radiculopathy, lumbar region, M79.7 - Fibromyalgia Coding Level of Care Code Est Pt Level 4 (80010) Diagnoses Lumbar facet joint pain M54.59 Lumbar radiculopathy M54.16 Lumbar degenerative disc disease M51.36 Fibromyalgia M79.7 Sacroiliac joint pain M53.3
[2023-10-22 09:29] VITALS: BP 151/94; PULSE 75; O2SAT 100; BMI 33.9
== END 2023-10-22 10:07 | disposition home or self-care (01) ==
PROVIDERS: PCP Internal Medicine; Visit Provider Nurse Practitioner Family
DX: M54.59 Other low back pain (principal); M54.16 Radiculopathy, lumbar region; M51.36 Other intervertebral disc degeneration, lumbar region; M79.7 Fibromyalgia; M53.3 Sacrococcygeal disorders, not elsewhere classified
CPT/HCPCS: 99214

== ENCOUNTER → 2023-10-22 09:17 | Outpatient (BNVA) | payer OTHER, SELFPAY | PROVIDERS: PCP Internal Medicine; Visit Provider Nurse Practitioner Family | DX: M54.59 Other low back pain (principal); M54.16 Radiculopathy, lumbar region; M51.36 Other intervertebral disc degeneration, lumbar region; M79.7 Fibromyalgia; M53.3 Sacrococcygeal disorders, not elsewhere classified | CPT/HCPCS: 99212 ==

== ENCOUNTER 2023-11-06 06:00 | Outpatient (REF) | payer OTHER, SELFPAY ==
--- NOTE | ~2023-11-06 | FL_ITS ---
EXAMINATION: XR FLUOROSCOPY WITH IMAGES CLINICAL INFORMATION: Sacrococcygeal disorders, not elsewhere classified. COMPARISON: None available. TECHNIQUE: Fluoroscopy Supervised By: Dr. Estrada Padilla. Fluoroscopy Time: 0.3 minutes. Cumulative Dose: 4.66 mGy. DAP: 0.0424 Gycm2. Images: 2. FINDINGS: Images demonstrate needle placement and contrast injection over the bilateral sacroiliac joints FL/FL guidance in treatment room IMPRESSION: Fluoroscopy guidance for bilateral sacroiliac joint injection.
== END 2023-11-06 06:01 | disposition home or self-care (01) ==
LOC: CF 06:00
PROVIDERS: Visit Provider Anesthesiology
DX: M53.3 Sacrococcygeal disorders, not elsewhere classified (principal); M54.16 Radiculopathy, lumbar region; M51.36 Other intervertebral disc degeneration, lumbar region; M79.7 Fibromyalgia; M54.59 Other low back pain
CPT/HCPCS: 27096; J2795; Q9967

== ENCOUNTER 2023-11-06 07:47 | Outpatient (AMB) | payer OTHER, SELFPAY ==
--- NOTE | 2023-11-06 07:52 | MHC.OFFVIS ---
Intake Vital Signs 11/06/23 07:53 11/06/23 08:46 Height 5 ft 3 in 5 ft 3 in Weight 191 lb 191 lb BMI 33.8 33.8 BP 134/74 126/80 Blood Pressure Location Lt brachial Lt brachial Position Sitting Sitting Respiration 18 16 Pulse 86 88 Pulse Source Pulse Oximeter Pulse Oximeter Pulse Oximetry (%) 96 98 Oxygen Delivery Method Room Air Room Air Comment Pre-op Post-op Intake Visit Reasons: BILATERAL DIAGNOSTIC SIJ INJECTIONS Allergies No Known Allergies [No Known Allergies*] Allergy (Verified 11/06/23 07:52) PFSH Medical History Fibromyalgia High blood pressure Rash Lumbar pain Obese Surgical History History of local excision of skin lesion (08/03/22) S/P ligament repair History of hand surgery History of tubal ligation Family History Father No problems noted. Mother Diabetes Hypertension Paternal Aunt Breast cancer Family/Other Chronic mental illness Brother No problems noted. Brother No problems noted. Brother No problems noted. Sister No problems noted. Sister No problems noted. Son In good health Daughter In good health Social History Housing: Apartment Alcohol intake: current Alcohol intake frequency: holidays/special occasions only Alcohol type: wine and other Patient Tobacco Use Status: Never used Tobacco e-Cigarette/Vaping Use: Never Used Second Hand Smoke Exposure: No service: No Current occupational status: unemployed Cognitive needs: No Hearing needs: No Vision needs: Yes Female Reproductive History Menstrual Age of Menarche: 14 Physical Exam Vital Signs: Last Vital Signs Pulse 88 11/06/23 08:46 Resp 16 11/06/23 08:46 BP 126/80 11/06/23 08:46 Pulse Ox 98 11/06/23 08:46 Oxygen Delivery Method Room Air 11/06/23 08:46 BMI result Body Mass Index 33.8 Assessment & Plan Assessment & Plan (1) Lumbar facet joint pain: Code(s): M54.59 - Other low back pain (2) Lumbar radiculopathy: Code(s): M54.16 - Radiculopathy, lumbar region (3) Lumbar degenerative disc disease: Code(s): M51.36 - Other intervertebral disc degeneration, lumbar region (4) Fibromyalgia: Code(s): M79.7 - Fibromyalgia (5) Sacroiliac joint pain: Code(s): M53.3 - Sacrococcygeal disorders, not elsewhere classified Plan: Bilateral diagnostic sacroiliac joint injection Informed consent was explained thoroughly to the patient. All questions about benefits and risks for the procedure were answered. Patient came to the operating room and was positioned prone on the operating table with the pillow under the pelvis. Time out was performed delineating name and of the patient, allergies and the nature of the procedure. The lower back and buttocks of the patient were prepped with ChloraPrep prepped and draped with sterile utility towels. C-arm was brought over the operating field and sq picture of patient's pelvis was demonstrated on the screen. For the right joint tilting C-arm contralateral to the site of the joint the most posterior portion of the joints was superimposed with anterior silhouette of the joint. Skin was injected in the projection of the joint slightly medial to the location of the joint with 25 gauge 1/2 inch needle using local lidocaine 2% .After that 22 gauge 3 and 1/2 inch needle was driven to the right joint in tunnel vision fashion. When needle entered the joint capsule injection of the contrast was performed demonstrating intra-articular and minimally periarticular spread of the contrast. After that 4 cc. of ropivacaine 0.5% was injected into the joint. Upon completion of the injections the needle was removed Sterile dressing was applied. Upon completion of the injection The needle was redirected toward the left SI joint and the procedure was performed in the mirroring fashion. After that the patient was taken outside of the operating room to the recovery room where recovered uneventfully. Plan MRI of the lumbar spine to assess for neural integrity and compression and follow up on previous MRI findings. Schedule bilateral diagnostic sacroiliac joint injections with local and fluoroscopy. Discussed longer term treatments with therapeutic injections, PNS trial, SI joint stabilization and RFA procedure if positive response to nerve blocks. Expectations, risks and benefits were reviewed. Patient is aware she will be contacted to schedule this procedure. We also reviewed Sprint PNS and RFA for axial low back pain. However, she reports minimal pain relief with previous lumbar MBBs and facet blocks through [facility] in 2021. Short script provided for tramadol for acute on chronic pain. Refill send for pregabalin as well. All questions and concerns have been answered and patient agreed with the plan. Follow up after injections/MRI results review and sooner as needed. Orders: Orders FL guidance in treatment room Today M53.3 - Sacrococcygeal disorders, not elsewhere classified Coding Level of Care Code Procedure Only Diagnoses Lumbar facet joint pain M54.59 Lumbar radiculopathy M54.16 Lumbar degenerative disc disease M51.36 Fibromyalgia M79.7 Sacroiliac joint pain M53.3
[2023-11-06 07:53] VITALS: BP 134/74; PULSE 86; RESP 18; O2SAT 96; BMI 33.8
[2023-11-06 08:46] VITALS: BP 126/80; PULSE 88; RESP 16; O2SAT 98; BMI 33.8
== END 2023-11-06 08:39 | disposition home or self-care (01) ==
LOC: HO.PMCPRC 07:47
PROVIDERS: PCP Internal Medicine; Visit Provider Anesthesiology
DX: M53.3 Sacrococcygeal disorders, not elsewhere classified (principal)
CPT/HCPCS: 27096

== ENCOUNTER 2023-11-12 10:08 | Outpatient (AMB) | payer OTHER, SELFPAY ==
--- NOTE | 2023-11-12 10:06 | MHC.OFFVIS ---
Intake Vital Signs 11/12/23 10:11 Height 5 ft 3 in Weight 190 lb 6 oz BMI 33.7 BP 145/82 H Blood Pressure Location Lt brachial Position Sitting Pulse 74 Pulse Source Pulse Oximeter Pulse Oximetry (%) 98 Oxygen Delivery Method Room Air Intake Visit Reasons: BILATERAL DIAGNOSTIC SIJ INJECTIONS/11/06/23 Intake Note: Pain today 0/10 Sign Writer Letterer Or Painter Required: Yes Sign Writer Letterer Or Painter Language: Supervisor Paint Roller Covers Name: Family Accompanied by: Family/Other Allergies No Known Allergies [No Known Allergies*] Allergy (Verified 11/12/23 10:12) HPI HPI Comments History of Present Illness Details Patient presents today to assess response to Bilateral Diagnostic SIJ injections on 11/06/[address] Padilla. Patient reports 100% pain relief for 10 hours on left side and 100% pain relief for 4-5 hours on the right side on the day of procedure. Reports partially improved functioning and sleep. Today she reports no pain in the projection of bilateral sacroiliac joints. She continues to endorse constant neck pain with spasms, and intermittent mid and low back pain that radiates into her lower extremities with numbness and tingling. Pain is rated at 0/10 today. There is a pending lumbar spine MRI exam to be scheduled. She is interested to undergo bilateral therapeutic SIJ injections as next steps after MRI is complete. Denies any recent cough, cold, infection, fever, weakness, foot drop, bladder or bowel dysfunction, saddle anesthesia, or other significant changes in medical history since last office visit. Past Procedures: 11/06/23: Bilateral Diagnostic SIJ injections-100% ongoing pain relief PRIOR: Patient presents today for follow up to review lumbar spine xray results. She continues to endorse neck and mid thoracic back pain as well as low back pain on the right with radiation into her right buttock and right lateral hips. She reports bilateral leg in L5 distribution with prolonged sitting or driving, bending or flexing forward. Denies any fever, abdominal or groin pain, weakness, foot drop, gait imbalances, bladder or bowel dysfunction or saddle anesthesia. She rates her pain 6-8/10. Patient reports minimal sleep improvement with amitriptyline and had partial good benefit and good tolerance with pregabalin in the summer. She does not have refills at this time as she is no longer seeing providers at [facility]. Reports minimal effectiveness with gabapentin. PRIOR: Patient is a pleasant 38 year old Telugu speaking female with history of fibromyalgia, arthritis, polyarthralgia and chronic neck, thoracic and lumbar pain presents today for initial evaluation for chronic mid and low back pain. She was followed by [facility] up until 09/13/2023. Patient was also seen by [facility] [place] [place] [facility] for back and hip pain. She reports upcoming surgery for neurogenic thoracic outlet syndrome with Dr. Meyers at [facility] early next year. Patient was also seen at [facility] for ankle pain, by Dr. De La O for hand pain and by Rheumatology for hand pain. Patient was referred to us by Dr. Natarajan at [facility] [place] [place] [facility] for low back pain. She had underwent bilateral L3-L4-L5 medial branch blocks and interlaminar epidural injections at L5-S1 and completed physical and chiropractic therapies without much relief at [facility]. Patient reports back pain that radiates upward to her upper thoracic, between shoulder blades and down into her sacral regions bilaterally but not into her lower extremities. Patient also reports widespread body pain with multiple tender points of upper and lower extremities and torso which is consistent with fibromyalgia. Patient has been managing amitriptyline and Lyrica, and also tried gabapentin without relief. Per Physiatry notes, MRI 06/05/2022 reported no significant spinal stenosis, spondylosis L4-5 and L5-S1. EMG reported to be normal lower extremity. Pain negatively affects her daily functioning, mood, sleep and quality of life. Patient denies any fever, weight loss, abdominal or groin pain, weakness, bladder or bowel dysfunction or saddle anesthesia. Location Chronic pain in lower back and sacral, between shoulder blades, mid back Duration Chronic pain for > 3 years Characteristics of symptom or complaint Aching, spasms, numbness, tingling, dull, shooting, pulling, radiating Aggravating or associated factors Movements, walking, standing, cold weather Relieving factors Sitting, resting, heat therapy, Gabapentin/Lyrica, Ibuprofen, lidocaine Treatment PT, injections at [facility], chiropractic therapy-minimal relief [facility] Medical History Fibromyalgia High blood pressure Rash Lumbar pain Obese Surgical History History of local excision of skin lesion (08/03/22) S/P ligament repair History of hand surgery History of tubal ligation Family History Father No problems noted. Mother Diabetes Hypertension Paternal Aunt Breast cancer Family/Other Chronic mental illness Brother No problems noted. Brother No problems noted. Brother No problems noted. Sister No problems noted. Sister No problems noted. Son In good health Daughter In good health Social History Housing: Apartment Alcohol intake: current Alcohol intake frequency: holidays/special occasions only Alcohol type: wine and other Patient Tobacco Use Status: Never used Tobacco e-Cigarette/Vaping Use: Never Used Second Hand Smoke Exposure: No service: No Current occupational status: unemployed Cognitive needs: No Hearing needs: No Vision needs: Yes Female Reproductive History Menstrual Age of Menarche: 14 Review of Systems Const All systems reviewed & are unremarkable except as noted in HPI and below Physical Exam Vital Signs: Last Vital Signs Pulse 74 11/12/23 10:11 BP 145/82 H 11/12/23 10:11 Pulse Ox 98 11/12/23 10:11 Oxygen Delivery Method Room Air 11/12/23 10:11 BMI result Body Mass Index 33.7 General: Appears afebrile. Alert and oriented. Mood and affect appropriate. Follows and participates in conversation appropriately. Respiratory effort is unlabored. No cough. Able to transition from sit to stand unassisted. Ambulates with bilaterally normal heel strike and toe off. Neck Neck: Yes full ROM, Yes no lymphadenopathy, Yes supple, No anterior neck swelling, Yes no JVD and Yes prominent dorsocervical fat pad Back/Spine/Pelvis Other: Limited thoracolumbar ROM due to pain. Lumbar flexion and extension reproduce mild to moderate pain. Demonstrates 5/5 strength of quadriceps bilaterally as well as flexion/dorsiflexion of bilateral feet against resistance. 2+ pedal pulses bilaterally. Seated straight leg rise with dorsiflexion negative bilaterally. +2 patellar and achilles reflexes bilaterally. Facet loading test positive bilaterally. Bienvenido sign positive bilaterally, Etienne?s test reproduces bilateral hip pain and low back pain, worse on the right, but not groin pain. No groin pain with I/E hip rotations. Multiple widespread TTPs 16/16 bilaterally, including upper and lower extremities. Cervical Spine: cervical muscular tenderness, pain with cervical ROM and No Cervical spine tenderness Thoracic/Lumbar Spine: thoracic and lumbar spine normal to inspection, No Thoracic/lumbar spine scar(s), Lasegue's sign negative, straight leg raise negative bilaterally, pain with thoraco-lumbar ROM, paraspinal muscle tenderness, thoracic spinal tenderness and lumbar spinal tenderness at L4 and at L5 Pelvis: no buttock tenderness Sacroiliac joints: bilaterally tender to palpation Results Reviewed Results Reviewed: XR LUMBOSACRAL SPINE WITH OBLIQUES 10/09/23 CLINICAL INFORMATION: Low back pain COMPARISON: Lumbar spine radiograph from 06/13/2021 TECHNIQUE: 7 views of the lumbar spine FINDINGS: No acute visible fracture or dislocation. Slight lower lumbar spine facet arthropathy. Suggestion of L5-S1 neuroforaminal narrowing. Vertebral body heights and disc spaces are maintained. Posterior elements are intact. Paraspinal soft tissues are unremarkable. Visualized bowel gas is unremarkable. IMPRESSION: 1. No acute visible fracture or dislocation. 2. Slight lower lumbar spine facet arthropathy. 3. Suggestion of L5-S1 neuroforaminal narrowing. Assessment & Plan Assessment & Plan (1) Lumbar facet joint pain: Code(s): M54.59 - Other low back pain (2) Lumbar radiculopathy: Code(s): M54.16 - Radiculopathy, lumbar region (3) Lumbar degenerative disc disease: Code(s): M51.36 - Other intervertebral disc degeneration, lumbar region (4) Fibromyalgia: Code(s): M79.7 - Fibromyalgia (5) Sacroiliac joint pain: Code(s): M53.3 - Sacrococcygeal disorders, not elsewhere classified Plan Patient is status post bilateral diagnostic SIJ injections with good results. Plan to proceed with therapeutic injections once MRI complete. We also reviewed PNS trial, SI joint stabilization and RFA procedures for a longer term pain relief. Pending MRI of the lumbar spine to assess for neural integrity and compression. All questions and concerns have been answered and patient agreed with the plan. Follow up for MRI results review and sooner as needed. Coding Level of Care Code Est Pt Level 3 (03170) Diagnoses Lumbar facet joint pain M54.59 Lumbar radiculopathy M54.16 Lumbar degenerative disc disease M51.36 Fibromyalgia M79.7 Sacroiliac joint pain M53.3
[2023-11-12 10:11] VITALS: BP 145/82; PULSE 74; O2SAT 98; BMI 33.7
== END 2023-11-12 10:23 | disposition home or self-care (01) ==
PROVIDERS: PCP Internal Medicine; Visit Provider Nurse Practitioner Family
DX: M54.59 Other low back pain (principal); M54.16 Radiculopathy, lumbar region; M51.36 Other intervertebral disc degeneration, lumbar region; M79.7 Fibromyalgia; M53.3 Sacrococcygeal disorders, not elsewhere classified
CPT/HCPCS: 99213

== ENCOUNTER → 2023-11-12 10:08 | Outpatient (BNVA) | payer OTHER, SELFPAY | PROVIDERS: PCP Internal Medicine; Visit Provider Nurse Practitioner Family | DX: M54.59 Other low back pain (principal); M54.16 Radiculopathy, lumbar region; M51.36 Other intervertebral disc degeneration, lumbar region; M79.7 Fibromyalgia; M53.3 Sacrococcygeal disorders, not elsewhere classified | CPT/HCPCS: 99212 ==

== ENCOUNTER 2023-12-20 20:15 | Outpatient (REF) | payer OTHER, SELFPAY ==
--- NOTE | ~2023-12-20 | MR_ITS ---
MR LUMBAR SPINE WITHOUT CONTRAST CLINICAL INFORMATION: Low back pain. COMPARISON: Lumbar spine radiographs 10/09/2023. TECHNIQUE: MRI of the lumbar spine was obtained using routine sequences without contrast. FINDINGS: Transitional anatomy. For the purposes of this report there are articulating transverse processes bilaterally at L1 and S1 shares a rudimentary disc with S2. Please correlate with plain films prior to any percutaneous or surgical intervention. There is no bone marrow edema. There are no acute fractures. The vertebral body heights are maintained. The disc volumes are preserved and the discs remain well-hydrated. Conus terminates at the L1 level. Partially imaged fibroid uterus. L1-L2: Disc contour is normal. No central canal stenosis and no foraminal stenosis. L2-L3: Disc contour is normal. Mild bilateral facet arthropathy. No central canal stenosis and no foraminal stenosis. L3-L4: There is a small diffuse annular disc bulge and there is mild bilateral hypertrophic facet arthropathy. No central canal stenosis and no foraminal stenosis. L4-L5: There is a small diffuse annular disc bulge and there is mild bilateral facet arthropathy. There is no central canal stenosis. There is mild foraminal encroachment bilaterally. L5-S1: There is a diffuse annular disc bulge and there is moderate bilateral hypertrophic facet arthropathy. No central canal stenosis. Moderate to severe bilateral foraminal stenosis with mass effect on the exiting L5 nerve roots bilaterally. MR/MR lumbar spine wo con IMPRESSION: - At L5-S1, multifactorial degenerative changes result in moderate to severe bilateral foraminal stenosis with mass effect on the exiting L5 nerve roots bilaterally. Additional mild spondylitic changes as discussed in detail above. - There is transitional anatomy with articulating transverse processes bilaterally at L1 and a rudimentary disc at S1-S2. - Partially imaged fibroid uterus.
== END 2023-12-20 20:16 | disposition home or self-care (01) ==
LOC: HO.MRI 20:15
PROVIDERS: PCP Internal Medicine; Visit Provider Nurse Practitioner Family
DX: M54.59 Other low back pain (principal); M54.16 Radiculopathy, lumbar region; M51.36 Other intervertebral disc degeneration, lumbar region
CPT/HCPCS: 72148

== ENCOUNTER 2023-12-21 13:33 | Outpatient (AMB) | payer OTHER, SELFPAY ==
--- NOTE | 2023-12-21 13:38 | MHC.OFFVIS ---
Intake Vital Signs 12/21/23 13:43 Height 5 ft 3 in Weight 190 lb BMI 33.7 BP 183/87 H Blood Pressure Location Rt brachial Position Sitting Pulse 77 Pulse Source Pulse Oximeter Pulse Oximetry (%) 99 Oxygen Delivery Method Room Air Intake Visit Reasons: MRI follow up Intake Note: Pain today 03/14 Cutter Brake Lining Required: Yes Cutter Brake Lining Language: Vocational Psychologist Name: Bo #[id number] Accompanied by: Self / Same As Patient Allergies No Known Allergies [No Known Allergies*] Allergy (Verified 12/21/23 13:44) HPI HPI Comments History of Present Illness Details Patient presents today for follow up to discuss recent lumbar spine MRI results. Patient continues to endorse lower back pain exacerbated with movements, extension and flexion. Reports back pain radiates to both legs with heaviness, numbness and tingling in her calves and feet. Patient also reports her neck pain is much better after recent surgery for neurogenic thoracic outlet syndrome with Dr. Meyers at [facility]. Denies any recent cough, cold, infection, fever, weakness, foot drop, bladder or bowel dysfunction, saddle anesthesia, or other significant changes in medical history since last office visit. Past Procedures: 11/06/23: Bilateral Diagnostic SIJ injections-100% ongoing pain relief PRIOR: Patient presents today for follow up to review lumbar spine xray results. She continues to endorse neck and mid thoracic back pain as well as low back pain on the right with radiation into her right buttock and right lateral hips. She reports bilateral leg in L5 distribution with prolonged sitting or driving, bending or flexing forward. Denies any fever, abdominal or groin pain, weakness, foot drop, gait imbalances, bladder or bowel dysfunction or saddle anesthesia. She rates her pain 6-8/10. Patient reports minimal sleep improvement with amitriptyline and had partial good benefit and good tolerance with pregabalin in the summer. She does not have refills at this time as she is no longer seeing providers at [facility]. Reports minimal effectiveness with gabapentin. PRIOR: Patient is a pleasant 38 year old Tamazight speaking female with history of fibromyalgia, arthritis, polyarthralgia and chronic neck, thoracic and lumbar pain presents today for initial evaluation for chronic mid and low back pain. She was followed by [facility] up until 09/13/2023. Patient was also seen by [facility] [place] [facility] for back and hip pain. She reports upcoming surgery for neurogenic thoracic outlet syndrome with Dr. Meyers at [facility] next year. Patient was also seen at [facility] for ankle pain, by Dr. De La O for hand pain and by Rheumatology for hand pain. Patient was referred to us by Dr. Natarajan at [facility] [place] [facility] for low back pain. She had underwent bilateral L3-L4-L5 medial branch blocks and interlaminar epidural injections at L5-S1 and completed physical and chiropractic therapies without much relief at [facility]. Patient reports back pain that radiates upward to her upper thoracic, between shoulder blades and down into her sacral regions bilaterally but not into her lower extremities. Patient also reports widespread body pain with multiple tender points of upper and lower extremities and torso which is consistent with fibromyalgia. Patient has been managing amitriptyline and Lyrica, and also tried gabapentin without relief. Per Physiatry notes, MRI 06/05/2022 reported no significant spinal stenosis, spondylosis L4-5 and L5-S1. EMG reported to be normal lower extremity. Pain negatively affects her daily functioning, mood, sleep and quality of life. Patient denies any fever, weight loss, abdominal or groin pain, weakness, bladder or bowel dysfunction or saddle anesthesia. Location Chronic pain in lower back and sacral, between shoulder blades, mid back Duration Chronic pain for > 3 years Characteristics of symptom or complaint Aching, spasms, numbness, tingling, dull, shooting, pulling, radiating Aggravating or associated factors Movements, walking, standing, cold weather Relieving factors Sitting, resting, heat therapy, Gabapentin/Lyrica, Ibuprofen, lidocaine Treatment PT, injections at [facility], chiropractic therapy-minimal relief [facility] Medical History Fibromyalgia High blood pressure Rash Lumbar pain Obese Surgical History History of local excision of skin lesion (08/03/22) S/P ligament repair History of hand surgery History of tubal ligation Family History Father No problems noted. Mother Diabetes Hypertension Paternal Aunt Breast cancer Family/Other Chronic mental illness Brother No problems noted. Brother No problems noted. Brother No problems noted. Sister No problems noted. Sister No problems noted. Son In good health Daughter In good health Social History Housing: Apartment Alcohol intake: current Alcohol intake frequency: holidays/special occasions only Alcohol type: wine and other Patient Tobacco Use Status: Never used Tobacco e-Cigarette/Vaping Use: Never Used Second Hand Smoke Exposure: No service: No Current occupational status: unemployed Cognitive needs: No Hearing needs: No Vision needs: Yes Female Reproductive History Menstrual Age of Menarche: 14 Review of Systems Const All systems reviewed & are unremarkable except as noted in HPI and below Physical Exam Vital Signs: Last Vital Signs Pulse 77 12/21/23 13:43 BP 183/87 H 12/21/23 13:43 Pulse Ox 99 12/21/23 13:43 Oxygen Delivery Method Room Air 12/21/23 13:43 BMI result Body Mass Index 33.7 General: Appears afebrile. Alert and oriented. Mood and affect appropriate. Follows and participates in conversation appropriately. Respiratory effort is unlabored. No cough. Able to transition from sit to stand unassisted. Ambulates with bilaterally normal heel strike and toe off. Neck Neck: Yes full ROM, Yes no lymphadenopathy, Yes supple, No anterior neck swelling, Yes no JVD and Yes prominent dorsocervical fat pad Back/Spine/Pelvis Other: Limited thoracolumbar ROM due to pain. Lumbar flexion and extension reproduce moderate pain. Seated straight leg rise with dorsiflexion positive bilaterally. +2 patellar and achilles reflexes bilaterally. Facet loading test positive bilaterally. Bienvenido sign positive bilaterally, Etienne?s test reproduces bilateral hip pain and low back pain, worse on the right, but not groin pain. No groin pain with I/E hip rotations. Multiple widespread TTPs bilaterally, including upper and lower extremities. Cervical Spine: cervical ROM normal and No Cervical spine tenderness Thoracic/Lumbar Spine: thoracic and lumbar spine normal to inspection, Lasegue's sign positive bilateral and diffuse, pain with thoraco-lumbar ROM, paraspinal muscle tenderness, No thoracic spinal tenderness and lumbar spinal tenderness at L4 and at L5 Pelvis: buttock tenderness Sacroiliac joints: bilaterally tender to palpation Results Reviewed Results Reviewed: XR LUMBOSACRAL SPINE WITH OBLIQUES 10/09/23 CLINICAL INFORMATION: Low back pain COMPARISON: Lumbar spine radiograph from 06/13/2021 TECHNIQUE: 7 views of the lumbar spine FINDINGS: No acute visible fracture or dislocation. Slight lower lumbar spine facet arthropathy. Suggestion of L5-S1 neuroforaminal narrowing. Vertebral body heights and disc spaces are maintained. Posterior elements are intact. Paraspinal soft tissues are unremarkable. Visualized bowel gas is unremarkable. IMPRESSION: 1. No acute visible fracture or dislocation. 2. Slight lower lumbar spine facet arthropathy. 3. Suggestion of L5-S1 neuroforaminal narrowing. MR LUMBAR SPINE WITHOUT CONTRAST 12/20/23 CLINICAL INFORMATION: Low back pain. COMPARISON: Lumbar spine radiographs 10/09/2023. FINDINGS: Transitional anatomy. For the purposes of this report there are articulating transverse processes bilaterally at L1 and S1 shares a rudimentary disc with S2. Please correlate with plain films prior to any percutaneous or surgical intervention. There is no bone marrow edema. There are no acute fractures. The vertebral body heights are maintained. The disc volumes are preserved and the discs remain well-hydrated. Conus terminates at the L1 level. Partially imaged fibroid uterus. L1-L2: Disc contour is normal. No central canal stenosis and no foraminal stenosis. L2-L3: Disc contour is normal. Mild bilateral facet arthropathy. No central canal stenosis and no foraminal stenosis. L3-L4: There is a small diffuse annular disc bulge and there is mild bilateral hypertrophic facet arthropathy. No central canal stenosis and no foraminal stenosis. L4-L5: There is a small diffuse annular disc bulge and there is mild bilateral facet arthropathy. There is no central canal stenosis. There is mild foraminal encroachment bilaterally. L5-S1: There is a diffuse annular disc bulge and there is moderate bilateral hypertrophic facet arthropathy. No central canal stenosis. Moderate to severe bilateral foraminal stenosis with mass effect on the exiting L5 nerve roots bilaterally. IMPRESSION: - At L5-S1, multifactorial degenerative changes result in moderate to severe bilateral foraminal stenosis with mass effect on the exiting L5 nerve roots bilaterally. Additional mild spondylitic changes as discussed in detail above. - There is transitional anatomy with articulating transverse processes bilaterally at L1 and a rudimentary disc at S1-S2. - Partially imaged fibroid uterus Assessment & Plan Assessment & Plan (1) Lumbar degenerative disc disease: Code(s): M51.36 - Other intervertebral disc degeneration, lumbar region (2) Lumbar radiculopathy: Code(s): M54.16 - Radiculopathy, lumbar region (3) Lumbar spondylosis: Code(s): M47.816 - Spondylosis without myelopathy or radiculopathy, lumbar region (4) Fibromyalgia: Code(s): M79.7 - Fibromyalgia (5) Sacroiliac joint pain: Code(s): M53.3 - Sacrococcygeal disorders, not elsewhere classified Plan Lumbar spine MRI results reviewed with patient in greater detail with assitance of certified medical gage designer. Discussed treatment options for both his axial low back as well as radicular pain. 1. For axial low back pain will schedule for diagnostic bilateral L3-L4 DR L5 medial branch blocks with local and fluoroscopy. If she has significant relief from the diagnostic blocks for her axial low back pain, will consider either therapeutic injections, Sprint PNS or RFA depending on her preference. Expectations, risks and benefits were reviewed. Patient is aware she will be contacted to schedule this procedure. 2. For ongoing radicular pain, we will tentatively plan for Bilateral L5-S1 TFESI with sedation and fluoroscopy. Patient was recommended to follow up with her Gynecology provider re: fibroid uterus. This report is also sent to patient's PCP. All questions and concerns have been addressed and patient agreed with the plan. Follow up after injections and sooner as needed. Medications: Discontinued amoxicillin Discontinued Reason: Patient Completed Course 500 mg PO BID 5 days 10 tabs 0RF Coding Level of Care Code Est Pt Level 4 (51820) Diagnoses Lumbar degenerative disc disease M51.36 Lumbar radiculopathy M54.16 Lumbar spondylosis M47.816 Fibromyalgia M79.7 Sacroiliac joint pain M53.3
[2023-12-21 13:43] VITALS: BP 183/87; PULSE 77; O2SAT 99; BMI 33.7
== END 2023-12-21 13:59 | disposition home or self-care (01) ==
PROVIDERS: PCP Internal Medicine; Visit Provider Nurse Practitioner Family
DX: M51.36 Other intervertebral disc degeneration, lumbar region (principal); M54.16 Radiculopathy, lumbar region; M47.816 Spondylosis without myelopathy or radiculopathy, lumbar region; M79.7 Fibromyalgia; M53.3 Sacrococcygeal disorders, not elsewhere classified
CPT/HCPCS: 99214

== ENCOUNTER → 2023-12-21 13:33 | Outpatient (BNVA) | payer OTHER, SELFPAY | PROVIDERS: PCP Internal Medicine; Visit Provider Nurse Practitioner Family | DX: M51.36 Other intervertebral disc degeneration, lumbar region (principal); M54.16 Radiculopathy, lumbar region; M47.816 Spondylosis without myelopathy or radiculopathy, lumbar region; M79.7 Fibromyalgia; M53.3 Sacrococcygeal disorders, not elsewhere classified | CPT/HCPCS: 99212 ==

== ENCOUNTER 2023-12-27 14:10 | Outpatient (AMB) | payer OTHER, SELFPAY ==
--- NOTE | 2023-12-27 14:17 | MHC.OFFVIS ---
Intake Vital Signs 12/27/23 14:24 Height 5 ft 3 in Weight 194 lb BMI 34.4 BP 128/70 Intake Visit Reasons: Leiomyma of uterus Central Services Tech Required: No Information Interpreted: clinical only Exhibition Organiser: Exhibition Organiser Present Allergies No Known Allergies [No Known Allergies*] Allergy (Verified 12/27/23 14:17) Is last menstrual period known: Yes Last menstrual period: 12/19/23 Do you need a note to return to daycare/school/sports/work: No HPI Leiomyma of uterus HPI Details Patient is here because she was being evaluated for her spine and her back pain at [facility] and she had an MRI that showed an incidental finding of fibroid uterus. She is in the midst of many treatments and evaluations including surgery that she has already had as well as injections for her spine and the treatment plan is ongoing. She does get regular heavy periods they last about 7 days sometimes they are quite heavy and she has to come back into the house to change her pad quickly she does get clots with them. [facility] Medical History Fibromyalgia High blood pressure Rash Lumbar pain Obese Surgical History History of local excision of skin lesion (08/03/22) S/P ligament repair History of hand surgery History of tubal ligation Family History Father No problems noted. Mother Diabetes Hypertension Paternal Aunt Breast cancer Family/Other Chronic mental illness Brother No problems noted. Brother No problems noted. Brother No problems noted. Sister No problems noted. Sister No problems noted. Son In good health Daughter In good health Social History Housing: Apartment Alcohol intake: current Alcohol intake frequency: holidays/special occasions only Alcohol type: wine and other Patient Tobacco Use Status: Never used Tobacco e-Cigarette/Vaping Use: Never Used Second Hand Smoke Exposure: No service: No Current occupational status: unemployed Cognitive needs: No Hearing needs: No Vision needs: Yes Female Reproductive History Menstrual Age of Menarche: 14 Duration of menses: 3-5 days Date of last menstrual period: 12/19/23 control method: permanent sterilization Total pregnancies: 2 Full term: 2 Date of last pap smear: 08/03/22 (negative) History of abnormal pap smear: No Physical Exam Vital Signs: Last Vital Signs BP 128/70 12/27/23 14:24 BMI result Body Mass Index 34.4 Results Reviewed Results Reviewed: [address] [address] Magnetic Resonance Report Signed Patient: Liliya Aguirre MR#: [id number] : 1985 Acct:[id number] Age/Sex: 38 / F ADM Date: 12/20/23 Loc: HO.MRI Attending Dr: Yari ROGERS Ordering Physician: Yari Malcolm Date of Service: 12/20/23 Procedure(s): MR lumbar spine wo con Accession Number(s): [id number] cc: Yari Malcolm; Dorothea Domínguez MD~ MR LUMBAR SPINE WITHOUT CONTRAST CLINICAL INFORMATION: Low back pain. COMPARISON: Lumbar spine radiographs 10/09/2023. TECHNIQUE: MRI of the lumbar spine was obtained using routine sequences without contrast. FINDINGS: Transitional anatomy. For the purposes of this report there are articulating transverse processes bilaterally at L1 and S1 shares a rudimentary disc with S2. Please correlate with plain films prior to any percutaneous or surgical intervention. There is no bone marrow edema. There are no acute fractures. The vertebral body heights are maintained. The disc volumes are preserved and the discs remain well-hydrated. Conus terminates at the L1 level. Partially imaged fibroid uterus. L1-L2: Disc contour is normal. No central canal stenosis and no foraminal stenosis. L2-L3: Disc contour is normal. Mild bilateral facet arthropathy. No central canal stenosis and no foraminal stenosis. L3-L4: There is a small diffuse annular disc bulge and there is mild bilateral hypertrophic facet arthropathy. No central canal stenosis and no foraminal stenosis. L4-L5: There is a small diffuse annular disc bulge and there is mild bilateral facet arthropathy. There is no central canal stenosis. There is mild foraminal encroachment bilaterally. L5-S1: There is a diffuse annular disc bulge and there is moderate bilateral hypertrophic facet arthropathy. No central canal stenosis. Moderate to severe bilateral foraminal stenosis with mass effect on the exiting L5 nerve roots bilaterally. MR/MR lumbar spine wo con IMPRESSION: - At L5-S1, multifactorial degenerative changes result in moderate to severe bilateral foraminal stenosis with mass effect on the exiting L5 nerve roots bilaterally. Additional mild spondylitic changes as discussed in detail above. - There is transitional anatomy with articulating transverse processes bilaterally at L1 and a rudimentary disc at S1-S2. - Partially imaged fibroid uterus. Dictated By: Justin Serrato MD Signed By: <Electronically signed by Justin Serrato MD in OV> 12/20/232124 DD/ 09 TD/TT: Production Proofreader: RORO Assessment & Plan Assessment & Plan (1) Uterine fibroid: Code(s): D25.9 - Leiomyoma of uterus, unspecified (2) Lumbar degenerative disc disease: Code(s): M51.36 - Other intervertebral disc degeneration, lumbar region (3) Sacroiliac joint pain: Code(s): M53.3 - Sacrococcygeal disorders, not elsewhere classified (4) Lumbar radiculopathy: Code(s): M54.16 - Radiculopathy, lumbar region (5) Cervical cancer screening: Comment: 07/21/2022 Pap is negative with negative HPV Code(s): Z12.4 - Encounter for screening for malignant neoplasm of cervix Plan Reviewed her MRI that was done at [facility] of her spine showing changes and incidentally showed of fibroid uterus partially visualized. Discussed her back concerns and what follow-up she is getting done for that and we will schedule of pelvic ultrasound and then schedule her for her annual exam after that so we can review the ultrasound at that visit and meanwhile discussed possible options if it turns out that the fibroids are large then they would have her meet with Dr. Quinones to discuss options and some options might be surgical and some might be referral to a site for other options for care. Discussed the symptoms of fibroid uterus including heavier menses more painful menses blood clots etc.. She does get heavy periods they last about 7 days they are regular she has not worried at all about control because her partner's female. She has not working right now because of all of the issues going on with her back and she is going through lots of musculoskeletal challenges Orders: Orders US pelvic and transvaginal Today D25.9 - Leiomyoma of uterus, unspecified, M51.36 - Other intervertebral disc degeneration, lumbar region, M53.3 - Sacrococcygeal disorders, not elsewhere classified, M54.16 - Radiculopathy, lumbar region, Z12.4 - Encounter for screening for malignant neoplasm of cervix Coding Level of Care Code Est Pt Level 3 (44776) Diagnoses Uterine fibroid D25.9 Lumbar degenerative disc disease M51.36 Sacroiliac joint pain M53.3 Lumbar radiculopathy M54.16 Cervical cancer screening Z12.4
[2023-12-27 14:24] VITALS: BP 128/70; BMI 34.4
== END 2023-12-27 16:12 | disposition home or self-care (01) ==
LOC: HO.HWSM 14:10
PROVIDERS: PCP Internal Medicine; Visit Provider Advanced Practice Midwife
DX: D25.9 Leiomyoma of uterus, unspecified (principal); M51.36 Other intervertebral disc degeneration, lumbar region; M53.3 Sacrococcygeal disorders, not elsewhere classified; M54.16 Radiculopathy, lumbar region; Z12.4 Encounter for screening for malignant neoplasm of cervix
CPT/HCPCS: 99213

== ENCOUNTER → 2023-12-27 14:10 | Outpatient (BNVA) | payer OTHER, SELFPAY | PROVIDERS: PCP Internal Medicine; Visit Provider Advanced Practice Midwife | DX: Z12.4 Encounter for screening for malignant neoplasm of cervix (principal); D25.9 Leiomyoma of uterus, unspecified; M51.36 Other intervertebral disc degeneration, lumbar region; M53.3 Sacrococcygeal disorders, not elsewhere classified; M54.16 Radiculopathy, lumbar region | CPT/HCPCS: 99212 ==

== ENCOUNTER 2024-01-09 14:40 | Outpatient (REF) | payer OTHER, SELFPAY ==
--- NOTE | ~2024-01-09 | US_ITS ---
EXAMINATION: US PELVIS CLINICAL INFORMATION: Leiomyoma. LMP 12/19/2023. COMPARISON: None available. TECHNIQUE: Ultrasound of the pelvis is performed using both transabdominal and transvaginal transducers along with Doppler. Transvaginal imaging is performed due to inadequate visualization transabdominally. FINDINGS: The uterus is anteverted and anteflexed measuring 7.5 x 6.3 x 5.5 cm. There is a 2.4 x 3.2 x 2.1 cm posterior intramural lesion. The endometrium measures 1.2 cm in thickness with a small amount of anechoic fluid, most likely physiologic. Nabothian cysts are visualized in the cervix. The right ovary is normal in morphology with preserved flow at the moment of this examination measuring 2.3 x 1.2 x 1.1 cm, 1.6 mL. There is a 1.9 x 1.4 x 1.6 cm cystic appearing lesion in the left ovary with low level internal echoes and no flow on color Doppler. The ovarian parenchyma itself is not well delineated, limiting accurate measurement of the left ovary. No free fluid. US/US pelvic and transvaginal IMPRESSION: 1. There is a 3.2 cm posterior intramural uterine lesion likely representing a fibroid. 2. There is a 1.9 cm cystic lesion in the left ovary with low level internal echoes and no flow on color Doppler. This could represent a hemorrhagic cyst or endometrioma. Recommend a follow-up ultrasound in 6-12 weeks. 3. Normal appearance of the right ovary.
== END 2024-01-09 14:41 | disposition home or self-care (01) ==
LOC: HO.US 14:40
PROVIDERS: PCP Internal Medicine; Visit Provider Advanced Practice Midwife
DX: D25.9 Leiomyoma of uterus, unspecified (principal); M51.36 Other intervertebral disc degeneration, lumbar region; M53.3 Sacrococcygeal disorders, not elsewhere classified; M54.16 Radiculopathy, lumbar region; Z12.4 Encounter for screening for malignant neoplasm of cervix
CPT/HCPCS: 76830; 76856

== ENCOUNTER 2024-01-23 13:54 | Outpatient (AMB) | payer OTHER, SELFPAY ==
[2024-01-23 13:56] VITALS: BP 140/80; BMI 34.4
--- NOTE | 2024-01-23 13:56 | A.OFFVIS_ITS ---
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 per [facility] Note: Would like results for ultrasound not annual at the moment Cooperative Extension Agent Required: Yes Cooperative Extension Agent Language: South Korean Information Interpreted: non-clinical & clinical Plastic Frame Inserter: Plastic Frame Inserter Present (Jarrett) Allergies No Known Allergies [No Known Allergies*] Allergy (Verified 01/23/24 13:58) Medication List - Last Reconciled 01/23/24 by Wendy Pineda CNM amitriptyline 10 mg PO BEDTIME blood pressure monitor As directed gabapentin 400 mg PO TID 30 days ibuprofen 800 mg PO Q8H PRN 30 days lidocaine 5% 1 patch topical DAILY PRN 30 days lisinopril 5 mg PO DAILY 90 days lorazepam 1 mg PO meloxicam 15 mg PO DAILY naproxen 500 mg PO BID PRN 90 days pregabalin 75 mg PO BEDTIME 30 days sertraline 50 mg PO DAILY sumatriptan succinate 25 mg PO Q2-4H PRN 30 days tramadol 50 mg PO BID PRN 15 days trazodone 25 - 50 mg PO BEDTIME triamcinolone acetonide 0.5% 1 appl topical DAILY 2 weeks Is last menstrual period known: Yes Last menstrual period: 01/16/24 Post menopausal: No 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 She is tried in a recover from other injuries and they are getting better been a bit by bit but it still very hard. Her last period was regular. [facility] Medical History Fibromyalgia High blood pressure Rash Lumbar pain Obese Surgical History History of local excision of skin lesion (08/03/22) S/P ligament repair History of hand surgery History of tubal ligation Family History Father No problems noted. Mother Diabetes Hypertension Paternal Aunt Breast cancer Family/Other Chronic mental illness Brother No problems noted. Brother No problems noted. Brother No problems noted. Sister No problems noted. Sister No problems noted. Son In good health Daughter In good health Social History Housing: Apartment Alcohol intake: current Alcohol intake frequency: holidays/special occasions only Alcohol type: wine and other Patient Tobacco Use Status: Never used Tobacco e-Cigarette/Vaping Use: Never Used Second Hand Smoke Exposure: No service: No Current occupational status: unemployed Cognitive needs: No Hearing needs: No Vision needs: Yes Female Reproductive History Menstrual Age of Menarche: 14 Date of last menstrual period: 01/16/24 Physical Exam Vital Signs: Last Vital Signs BP 140/80 H 01/23/24 13:56 BMI result Body Mass Index 34.4 Results Reviewed Results Reviewed: Patient: Liliya Aguirre MR#: [id number] : 1985 Acct:[id number] Age/Sex: 38 / F ADM Date: 01/09/24 Loc: HO.US Attending Dr: Wendy Pineda CNM Ordering Physician: Wendy Pineda CNM Date of Service: 01/09/24 Procedure(s): US pelvic and transvaginal Accession Number(s): [id number] cc: Wendy Pineda CNM; Dorothea Domínguez MD~ EXAMINATION: US PELVIS CLINICAL INFORMATION: Leiomyoma. LMP 12/19/2023. COMPARISON: None available. TECHNIQUE: Ultrasound of the pelvis is performed using both transabdominal and transvaginal transducers along with Doppler. Transvaginal imaging is performed due to inadequate visualization transabdominally. FINDINGS: The uterus is anteverted and anteflexed measuring 7.5 x 6.3 x 5.5 cm. There is a 2.4 x 3.2 x 2.1 cm posterior intramural lesion. The endometrium measures 1.2 cm in thickness with a small amount of anechoic fluid, most likely physiologic. Nabothian cysts are visualized in the cervix. The right ovary is normal in morphology with preserved flow at the moment of this examination measuring 2.3 x 1.2 x 1.1 cm, 1.6 mL. There is a 1.9 x 1.4 x 1.6 cm cystic appearing lesion in the left ovary with low level internal echoes and no flow on color Doppler. The ovarian parenchyma itself is not well delineated, limiting accurate measurement of the left ovary. No free fluid. US/US pelvic and transvaginal IMPRESSION: 1. There is a 3.2 cm posterior intramural uterine lesion likely representing a fibroid. 2. There is a 1.9 cm cystic lesion in the left ovary with low level internal echoes and no flow on color Doppler. This could represent a hemorrhagic cyst or endometrioma. Recommend a follow-up ultrasound in 6-12 weeks. 3. Normal appearance of the right ovary. Dictated By: Patti Montes Signed By: <Electronically signed by Patti Montes in OV> 01/11/24 1635 DD/ 1543 TD/TT: Cook Dinner: Assessment & Plan Assessment & Plan (1) Uterine fibroid: Code(s): D25.9 - Leiomyoma of uterus, unspecified (2) Ovarian cyst: Code(s): N83.209 - Unspecified ovarian cyst, unspecified side Plan Reviewed the ultrasound with her and the recommendation for follow-up of the left ovarian cyst. Reviewed with her that the 3 cm fibroid is fairly small but every Women's experience a fibroids can be different and sometimes other things can be done to help with periods if they all become too heavy. For now we will repeat the ultrasound as recommended and we will schedule her follow-up was annual after that. Orders: Orders US pelvic and transvaginal 2 Months D25.9 - Leiomyoma of uterus, unspecified, N83.209 - Unspecified ovarian cyst, unspecified side Coding Level of Care Code Est Pt Level 3 (39643) Diagnoses Uterine fibroid D25.9 Ovarian cyst N83.209
== END 2024-01-23 14:33 | disposition home or self-care (01) ==
PROVIDERS: PCP Internal Medicine; Visit Provider Advanced Practice Midwife
DX: D25.9 Leiomyoma of uterus, unspecified (principal); N83.209 Unspecified ovarian cyst, unspecified side
CPT/HCPCS: 99213

== ENCOUNTER → 2024-01-23 13:54 | Outpatient (BNVA) | payer OTHER, SELFPAY | PROVIDERS: PCP Internal Medicine; Visit Provider Advanced Practice Midwife | DX: D25.9 Leiomyoma of uterus, unspecified (principal); N83.202 Unspecified ovarian cyst, left side; Z98.51 Tubal ligation status | CPT/HCPCS: 99212 ==

== ENCOUNTER → 2024-01-25 09:19 | Outpatient (REF) | payer OTHER, SELFPAY ==
--- NOTE | 2024-01-25 09:23 | CA_ITS ---
Acquisition Time: 2024-01-25 09:59:24 Total Exercise Time: 00:05:00 Test Indications: CP Medications: SEE H Protocol: BEHZAD Max HR: 164 BPM 90% of Pred: 181 BPM Max BP: 152/084 mmHG Max Work Load: 7.0 METS Exercise stress test exercise 5 min of Behzad protocol achieving 89% MPHR, with 6/10 chest tightness, with mild to moderate SOB, with isolated PVCs, with normotenisve response to exercise, with brisk HR response, without EKG changes. Chest pain resolved with rest and breathing returned to normal. Test reviewed with Dr. Whiting. Referred By: Dorothea Carey Overread By: Rocío Dunn
--- NOTE | 2024-01-25 09:23 | ECG_ITS ---
Test Reason : chest pain Blood Pressure : / mmHG Vent. Rate : 066 BPM Atrial Rate : 066 BPM P-R Int : 158 ms QRS Dur : 084 ms QT Int : 422 ms P-R-T Axes : 027 025 019 degrees QTc Int : 442 ms Normal sinus rhythm Normal ECG When compared with ECG of 30-MAY-2022 11:51, No significant change was found Referred By: Dorothea Carey Electronically Signed By:KATARINA RODRIGUEZ
== END ==
LOC: HO.CARD 09:19
PROVIDERS: PCP Internal Medicine; Visit Provider Internal Medicine
DX: R07.9 Chest pain, unspecified (principal)
CPT/HCPCS: 93005; 93017

== ENCOUNTER → 2024-01-25 09:23 | Outpatient (BNV) | payer OTHER, SELFPAY | PROVIDERS: PCP Internal Medicine; Visit Provider Nurse Practitioner | DX: I49.3 Ventricular premature depolarization (principal); R07.9 Chest pain, unspecified | CPT/HCPCS: 93010; 93016; 93018 ==

== ENCOUNTER 2024-01-29 06:18 | Outpatient (REF) | payer OTHER, SELFPAY ==
--- NOTE | ~2024-01-29 | FL_ITS ---
EXAMINATION: XR FLUOROSCOPY WITH IMAGES CLINICAL INFORMATION: Spondylosis without myelopathy or radiculopathy, lumbar region. COMPARISON: None available. TECHNIQUE: Fluoroscopy Supervised By: Dr. Padilla. Fluoroscopy Time: 0.7 Min. Cumulative Dose: 9.44 mGy. DAP: 0.164 Gycm2. Images: 6. FINDINGS: Imaging demonstrates a needle at multiple locations in the spine with contrast injected. Please see Dr. Padilla's report for full details. FL/FL guidance in treatment room IMPRESSION: Fluoroscopy and spot films provided during lumbar procedure.
== END 2024-01-29 06:19 | disposition home or self-care (01) ==
LOC: CF 06:18
PROVIDERS: Visit Provider Anesthesiology
DX: M47.26 Other spondylosis with radiculopathy, lumbar region (principal); M51.36 Other intervertebral disc degeneration, lumbar region; M79.7 Fibromyalgia; M53.3 Sacrococcygeal disorders, not elsewhere classified
CPT/HCPCS: 64493; 64494; J2795; Q9967

== ENCOUNTER 2024-01-29 14:42 | Outpatient (AMB) | payer OTHER, SELFPAY ==
--- NOTE | 2024-01-29 15:03 | MHC.OFFVIS ---
Intake Vital Signs 01/29/24 15:33 01/29/24 15:34 Height 5 ft 3 in Weight 194 lb BMI 34.4 BP 142/90 H 140/88 H Blood Pressure Location Lt brachial Lt brachial Position Sitting Sitting Respiration 20 16 Pulse 69 70 Pulse Source Pulse Oximeter Pulse Oximeter Pulse Oximetry (%) 100 97 Oxygen Delivery Method Room Air Room Air Comment Pre-Op Post-Op Intake Visit Reasons: BILATERAL DIAGNOSTIC L3, L4, DRL5 MBB Allergies No Known Allergies [No Known Allergies*] Allergy (Verified 01/23/24 13:58) PFSH Medical History Fibromyalgia High blood pressure Rash Lumbar pain Obese Surgical History History of local excision of skin lesion (08/03/22) S/P ligament repair History of hand surgery History of tubal ligation Family History Father No problems noted. Mother Diabetes Hypertension Paternal Aunt Breast cancer Family/Other Chronic mental illness Brother No problems noted. Brother No problems noted. Brother No problems noted. Sister No problems noted. Sister No problems noted. Son In good health Daughter In good health Social History Housing: Apartment Alcohol intake: current Alcohol intake frequency: holidays/special occasions only Alcohol type: wine and other Patient Tobacco Use Status: Never used Tobacco e-Cigarette/Vaping Use: Never Used Second Hand Smoke Exposure: No service: No Current occupational status: unemployed Cognitive needs: No Hearing needs: No Vision needs: Yes Female Reproductive History Menstrual Age of Menarche: 14 Physical Exam Vital Signs: Last Vital Signs Pulse 70 01/29/24 15:34 Resp 16 01/29/24 15:34 BP 140/88 H 01/29/24 15:34 Pulse Ox 97 01/29/24 15:34 Oxygen Delivery Method Room Air 01/29/24 15:34 BMI result Body Mass Index 34.4 Assessment & Plan Assessment & Plan (1) Lumbar degenerative disc disease: Code(s): M51.36 - Other intervertebral disc degeneration, lumbar region (2) Lumbar radiculopathy: Code(s): M54.16 - Radiculopathy, lumbar region (3) Lumbar spondylosis: Code(s): M47.816 - Spondylosis without myelopathy or radiculopathy, lumbar region Plan: Diagnostic medial branch block L3,L4 dorsal ramus L5 bilateral.? ? ?Informed consent was explained to the patient. All questions were explained and? answered.? The patient was taken inside the operating room where she was positioned prone on the operating table. Time-out was performed delineating correct site, side, the nature of the procedure, patient's allergy, . All operating room staff was participating in OR time-out procedure. ? ? The lower back was prepped with ChloraPrep and draped with sterile towels.? C-arm was brought over the operating field and sq picture of L4-, L5 vertebra and S1 AREA were delineated on the screen.? Point of interest were delineated as confluence of superior articular process of L4 and L5 vertebra bilaterally with corresponding transverse processes as well as confluence of the sacral alae bilaterally with superior articular process of S1.? The projection of the point of interest to the skin were injected with the small amount of local anesthetic lidocaine 2% 1-1.5 cc.? After that 22 gauge 3.5 inch spinal needle was driven sequentially to the points of interest in tunnel vision fashion. After needles gently contacted the bone at the point of interests the needle was injected with small amount of the contrast.? The injection of the contrast did not demonstrate any intravascular or intrathecal spread of the contrast.? After that injection of the? ropivacaine 0.5%-1cc was performed at each needle location.??after that the needles were removed and Bandaids were applied. ? Upon completion of the injections? needle was? removed and sterile Band-Aids were applied.? The patient tolerated procedure very well. (4) Fibromyalgia: Code(s): M79.7 - Fibromyalgia (5) Sacroiliac joint pain: Code(s): M53.3 - Sacrococcygeal disorders, not elsewhere classified Plan Lumbar spine MRI results reviewed with patient in greater detail with assitance of certified medical sales enablement manager. Discussed treatment options for both his axial low back as well as radicular pain. 1. For axial low back pain will schedule for diagnostic bilateral L3-L4 DR L5 medial branch blocks with local and fluoroscopy. If she has significant relief from the diagnostic blocks for her axial low back pain, will consider either therapeutic injections, Sprint PNS or RFA depending on her preference. Expectations, risks and benefits were reviewed. Patient is aware she will be contacted to schedule this procedure. 2. For ongoing radicular pain, we will tentatively plan for Bilateral L5-S1 TFESI with sedation and fluoroscopy. Patient was recommended to follow up with her Gynecology provider re: fibroid uterus. This report is also sent to patient's PCP. All questions and concerns have been addressed and patient agreed with the plan. Follow up after injections and sooner as needed. Orders: Orders FL guidance in treatment room Today M47.816 - Spondylosis without myelopathy or radiculopathy, lumbar region Coding Level of Care Code Procedure Only Diagnoses Lumbar degenerative disc disease M51.36 Lumbar radiculopathy M54.16 Lumbar spondylosis M47.816 Fibromyalgia M79.7 Sacroiliac joint pain M53.3
[2024-01-29 15:33] VITALS: BP 142/90; PULSE 69; RESP 20; O2SAT 100; BMI 34.4
[2024-01-29 15:34] VITALS: BP 140/88; PULSE 70; RESP 16; O2SAT 97
== END 2024-01-29 15:36 | disposition home or self-care (01) ==
LOC: HO.PMCPRC 14:42
PROVIDERS: PCP Internal Medicine; Visit Provider Anesthesiology
DX: M51.36 Other intervertebral disc degeneration, lumbar region (principal); M54.16 Radiculopathy, lumbar region; M47.816 Spondylosis without myelopathy or radiculopathy, lumbar region; M79.7 Fibromyalgia; M53.3 Sacrococcygeal disorders, not elsewhere classified
CPT/HCPCS: 64493; 64494

== ENCOUNTER 2024-02-14 13:50 | Outpatient (AMB) | payer OTHER, SELFPAY ==
--- NOTE | 2024-02-14 13:55 | A.OFFVIS_ITS ---
Intake Vital Signs 02/14/24 14:09 Height 5 ft 3 in Weight 192 lb BMI 34.0 BP 160/85 H Blood Pressure Location Rt brachial Position Sitting Pulse 66 Pulse Source Pulse Oximeter Pulse Oximetry (%) 97 Oxygen Delivery Method Room Air Intake Visit Reasons: BILATERAL DIAGNOSTIC L3, L4, DRL5 MBB Intake Note: Pain today 03/14 Windows Consultant Required: Yes Windows Consultant Language: Taker Off Braker Machine Name: Luz #[id number] Accompanied by: Self / Same As Patient Allergies No Known Allergies [No Known Allergies*] Allergy (Verified 01/23/24 13:58) HPI HPI Comments History of Present Illness Details Patient presents today to assess response to Bilateral Diagnostic L3-L4 DR L5 MBB on 01/29/[address] Padilla. Patient reports no pain relief since procedure and no improvement in her daily functioning, mobility, ROM or sleep. Patient reports ongoing significant pain in her radiating legs and hip pain with daily activities, prolonged sitting or driving, numbness and tingling in her lower legs posterior. Pain has been resistant to conservative treatments. Patient also reports flare up in her fibromyalgia symptoms. Denies any recent cough, cold, infection, fever, weakness, foot drop, bladder or bowel dysfunction, saddle anesthesia, or other significant changes in medical history since last office visit. Past Procedures: 01/29/24: Bilateral Diagnostic L3 L4 DR L5 MBB-0% pain relief 11/06/23: Bilateral Diagnostic SIJ injec tions-100% ongoing pain relief PRIOR: Patient presents today for follow up to review lumbar spine xray results. She continues to endorse neck and mid thoracic back pain as well as low back pain on the right with radiation into her right buttock and right lateral hips. She reports bilateral leg in L5 distribution with prolonged sitting or driving, bending or flexing forward. Denies any fever, abdominal or groin pain, weakness, foot drop, gait imbalances, bladder or bowel dysfunction or saddle anesthesia. She rates her pain 6-8/10. Patient reports minimal sleep improvement with amitriptyline and had partial good benefit and good tolerance with pregabalin in the summer. She does not have refills at this time as she is no longer seeing providers at [facility]. Reports minimal effectiveness with gabapentin. PRIOR: Patient is a pleasant 38 year old Grenadian speaking female with history of fibromyalgia, arthritis, polyarthralgia and chronic neck, thoracic and lumbar pain presents today for initial evaluation for chronic mid and low back pain. She was followed by [facility] up until 09/13/2023. Patient was also seen by [facility] for back and hip pain. She reports upcoming surgery for neurogenic thoracic outlet syndrome with Dr. Meyers at [facility] early next year. Patient was also seen at [facility] for ankle pain, by Dr. De La O for hand pain and by Rheumatology for hand pain. Patient was referred to us by Dr. Natarajan at [facility] Physiat[facility] for low back pain. She had underwent bilateral L3-L4-L5 medial branch blocks and interlaminar epidural injections at L5-S1 and completed physical and chiropractic therapies without much relief at [facility]. Patient reports back pain that radiates upward to her upper thoracic, between shoulder blades and down into her sacral regions bilaterally but not into her lower extremities. Patient also reports widespread body pain with multiple tender points of upper and lower extremities and torso which is consistent with fibromyalgia. Patient has been managing amitriptyline and Lyrica, and also tried gabapentin without relief. Per Physiatry notes, MRI 06/05/2022 reported no significant spinal stenosis, spondylosis L4-5 and L5-S1. EMG reported to be normal lower extremity. Pain negatively affects her daily functioning, mood, sleep and quality of life. Patient denies any fever, weight loss, abdominal or groin pain, weakness, bladder or bowel dysfunction or saddle anesthesia. Location Chronic pain in lower back and sacral, between shoulder blades, mid back Duration Chronic pain for > 3 years Characteristics of symptom or complaint Aching, spasms, numbness, tingling, dull, shooting, pulling, radiating Aggravating or associated factors Movements, walking, standing, cold weather Relieving factors Sitting, resting, heat therapy, Gabapentin/Lyrica, Ibuprofen, lidocaine Treatment PT, injections at [facility], chiropractic therapy-minimal relief [facility] Medical History Fibromyalgia High blood pressure Rash Lumbar pain Obese Surgical History History of local excision of skin lesion (08/03/22) S/P ligament repair History of hand surgery History of tubal ligation Family History Father No problems noted. Mother Diabetes Hypertension Paternal Aunt Breast cancer Family/Other Chronic mental illness Brother No problems noted. Brother No problems noted. Brother No problems noted. Sister No problems noted. Sister No problems noted. Son In good health Daughter In good health Social History Housing: Apartment Alcohol intake: current Alcohol intake frequency: holidays/special occasions only Alcohol type: wine and other Patient Tobacco Use Status: Never used Tobacco e-Cigarette/Vaping Use: Never Used Second Hand Smoke Exposure: No service: No Current occupational status: unemployed Cognitive needs: No Hearing needs: No Vision needs: Yes Female Reproductive History Menstrual Age of Menarche: 14 Review of Systems Const All systems reviewed & are unremarkable except as noted in HPI and below Physical Exam Vital Signs: Last Vital Signs Pulse 66 02/14/24 14:09 BP 160/85 H 02/14/24 14:09 Pulse Ox 97 02/14/24 14:09 Oxygen Delivery Method Room Air 02/14/24 14:09 BMI result Body Mass Index 34.0 General: Appears afebrile. Alert and oriented. Mood and affect appropriate. Follows and participates in conversation appropriately. Respiratory effort is unlabored. No cough. Able to transition from sit to stand unassisted. Ambulates with bilaterally normal heel strike and toe off. Neck Neck: Yes full ROM, Yes no lymphadenopathy, Yes supple, No anterior neck swelling, Yes no JVD and Yes prominent dorsocervical fat pad Back/Spine/Pelvis Other: Limited thoracolumbar ROM due to pain. Lumbar flexion and extension reproduce moderate pain. Seated straight leg rise with dorsiflexion positive bilaterally. +2 patellar and achilles reflexes bilaterally. Facet loading test positive bilaterally. Bienvenido sign positive bilaterally, Etienne?s test reproduces bilateral hip pain and low back pain, worse on the right, but not groin pain. No groin pain with I/E hip rotations. Multiple widespread TTPs 16/16 bilaterally, including upper and lower extremities. Cervical Spine: cervical ROM normal and No Cervical spine tenderness Thoracic/Lumbar Spine: thoracic and lumbar spine normal to inspection, Lasegue's sign positive bilateral and diffuse, pain with thoraco-lumbar ROM, paraspinal muscle tenderness, No thoracic spinal tenderness and lumbar spinal tenderness at L4 and at L5 Pelvis: buttock tenderness Sacroiliac joints: bilaterally tender to palpation Results Reviewed Results Reviewed: XR LUMBOSACRAL SPINE WITH OBLIQUES 10/09/23 CLINICAL INFORMATION: Low back pain COMPARISON: Lumbar spine radiograph from 06/13/2021 FINDINGS: No acute visible fracture or dislocation. Slight lower lumbar spine facet arthropathy. Suggestion of L5-S1 neuroforaminal narrowing. Vertebral body heights and disc spaces are maintained. Posterior elements are intact. Paraspinal soft tissues are unremarkable. Visualized bowel gas is unremarkable. IMPRESSION: 1. No acute visible fracture or dislocation. 2. Slight lower lumbar spine facet arthropathy. 3. Suggestion of L5-S1 neuroforaminal narrowing. MR LUMBAR SPINE WITHOUT CONTRAST 12/20/23 CLINICAL INFORMATION: Low back pain. COMPARISON: Lumbar spine radiographs 10/09/2023. FINDINGS: Transitional anatomy. For the purposes of this report there are articulating transverse processes bilaterally at L1 and S1 shares a rudimentary disc with S2. Please correlate with plain films prior to any percutaneous or surgical intervention. There is no bone marrow edema. There are no acute fractures. The vertebral body heights are maintained. The disc volumes are preserved and the discs remain well-hydrated. Conus terminates at the L1 level. Partially imaged fibroid uterus. L1-L2: Disc contour is normal. No central canal stenosis and no foraminal stenosis. L2-L3: Disc contour is normal. Mild bilateral facet arthropathy. No central canal stenosis and no foraminal stenosis. L3-L4: There is a small diffuse annular disc bulge and there is mild bilateral hypertrophic facet arthropathy. No central canal stenosis and no foraminal stenosis. L4-L5: There is a small diffuse annular disc bulge and there is mild bilateral facet arthropathy. There is no central canal stenosis. There is mild foraminal encroachment bilaterally. L5-S1: There is a diffuse annular disc bulge and there is moderate bilateral hypertrophic facet arthropathy. No central canal stenosis. Moderate to severe bilateral foraminal stenosis with mass effect on the exiting L5 nerve roots bilaterally. IMPRESSION: - At L5-S1, multifactorial degenerative changes result in moderate to severe bilateral foraminal stenosis with mass effect on the exiting L5 nerve roots bilaterally. Additional mild spondylitic changes as discussed in detail above. - There is transitional anatomy with articulating transverse processes bilaterally at L1 and a rudimentary disc at S1-S2. - Partially imaged fibroid uterus Assessment & Plan Assessment & Plan (1) Lumbar degenerative disc disease: Code(s): M51.36 - Other intervertebral disc degeneration, lumbar region (2) Lumbar radiculopathy: Code(s): M54.16 - Radiculopathy, lumbar region (3) Lumbar spondylosis: Code(s): M47.816 - Spondylosis without myelopathy or radiculopathy, lumbar region (4) Fibromyalgia: Code(s): M79.7 - Fibromyalgia (5) Sacroiliac joint pain: Code(s): M53.3 - Sacrococcygeal disorders, not elsewhere classified Plan Patient had no pain relief with recent diagnostic lumbar medial branch blocks. Her most troublesome pain generator is consistent with bilateral shooting leg pain. Per her recent MRI, at L5-S1, multifactorial degenerative changes result in moderate to severe bilateral foraminal stenosis with mass effect on the exiting L5 nerve roots bilaterally. Additional mild spondylitic changes as discussed in detail above. She also has transitional anatomy with articulating transverse processes bilaterally at L1 and a rudimentary disc at S1-S2. We will proceed with addressing her ongoing radicular pain with Bilateral L5-S1 TFESI with sedation and fluoroscopy. Expectations, risks and benefits were reviewed. Patient is aware she will be contacted to schedule this procedure. Refills provided for naproxen and lidocaine patches. Patient requesting opioids to control her pain. I have informed patient our office does not offer continuos opioid prescribing at this time. All questions and concerns have been addressed and patient agreed with the plan. Follow up after injections and sooner as needed. Medications: Refilled naproxen 500 mg PO BID 90 days PRN 180 tabs 1RF pain lidocaine 5% leave on most painful area for up to 12 hrs 1 patch topical DAILY 30 days PRN 30 ea 0RF pain Discontinued tramadol Discontinued Reason: Patient Completed Course 50 mg PO BID 15 days PRN 30 tabs 0RF pain M51.36 - Other intervertebral disc degeneration, lumbar region, M54.16 - Radiculopathy, lumbar region, M54.59 - Other low back pain, M79.7 - Fibromyalgia Coding Level of Care Code Est Pt Level 4 (10123) Diagnoses Lumbar degenerative disc disease M51.36 Lumbar radiculopathy M54.16 Lumbar spondylosis M47.816 Fibromyalgia M79.7 Sacroiliac joint pain M53.3
[2024-02-14 14:09] VITALS: BP 160/85; PULSE 66; O2SAT 97; BMI 34.0
== END 2024-02-14 14:36 | disposition home or self-care (01) ==
PROVIDERS: PCP Internal Medicine; Visit Provider Nurse Practitioner Family
DX: M51.36 Other intervertebral disc degeneration, lumbar region (principal); M54.16 Radiculopathy, lumbar region; M47.816 Spondylosis without myelopathy or radiculopathy, lumbar region; M79.7 Fibromyalgia; M53.3 Sacrococcygeal disorders, not elsewhere classified
CPT/HCPCS: 99214

== ENCOUNTER → 2024-02-14 13:50 | Outpatient (BNVA) | payer OTHER, SELFPAY | PROVIDERS: PCP Internal Medicine; Visit Provider Nurse Practitioner Family | DX: M51.36 Other intervertebral disc degeneration, lumbar region (principal); M54.16 Radiculopathy, lumbar region; M47.816 Spondylosis without myelopathy or radiculopathy, lumbar region; M79.7 Fibromyalgia; M53.3 Sacrococcygeal disorders, not elsewhere classified | CPT/HCPCS: 99212 ==

== ENCOUNTER 2024-05-13 13:54 | Outpatient (AMB) | payer OTHER, SELFPAY ==
[2024-05-13 14:09] VITALS: BP 130/80; PULSE 72; BMI 34.4
--- NOTE | 2024-05-13 14:09 | A.OFFVIS_ITS ---
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 Intake Note: New patient dx chest pain with ekg c/o chest pain sometimes Independent Film Maker Required: Yes Independent Film Maker Name: Anyi sims Adjunct Instructor Chemistry: Adjunct Instructor Chemistry Present Accompanied by: Friend Allergies No Known Allergies [No Known Allergies*] Allergy (Verified 01/23/24 13:58) Medication List - Last Reconciled 05/13/24 by Ang Dejesus MD amitriptyline 10 mg PO BEDTIME blood pressure monitor As directed gabapentin 400 mg PO TID 30 days ibuprofen 800 mg PO Q8H PRN 30 days lidocaine 5% 1 patch topical DAILY PRN lisinopril 5 mg PO DAILY 90 days lorazepam 1 mg PO naproxen 500 mg PO BID PRN 90 days pregabalin 75 mg PO BEDTIME 30 days sertraline 50 mg PO DAILY sumatriptan succinate 25 mg PO Q2-4H PRN 30 days trazodone 25 - 50 mg (0.5 - 1 x 50 mg) PO BEDTIME PRN 30 days triamcinolone acetonide 0.5% 1 appl topical DAILY 2 weeks HPI Comments Details: Loli was referred here for evaluation of chest discomfort. History was obtained with help of court supervisor. Patient has history of fibromyalgia and lumbar disc disease with chronic low back pain, obesity, hypertension. Patient for the last 4-5 months ago although she has not sure has been having retrosternal chest discomfort. She is not very descriptive about discomfort but says that she gets tightness/pressure in the retrosternal area. This is not always exertional related. Symptoms can happen at rest as well. She says this is not related to anxiety and not always related to exercise. Symptoms can then last for several hours. Although she has not able to quantify duration which is surprising. She says the pain would get worse when she takes a deep breath. However she has not tried pressing on it when she gets the pain. She denies any associated symptoms of shortness of breath, nausea, vomiting, diaphoresis. She underwent a stress test in January for the similar chest discomfort which at moderate workload at 5 minutes and 90% age maximum heart rate was negative for ischemia but positive for chest discomfort. No strong family history for premature coronary artery disease. She says when she is having chest pressure sometimes she checks her blood pressure and this is sometimes elevated. However she does not regularly check her blood pressure at all times. [facility] Medical History Fibromyalgia High blood pressure Rash Lumbar pain Obese Surgical History History of local excision of skin lesion (08/03/22) S/P ligament repair History of hand surgery History of tubal ligation Family History Father No problems noted. Mother Diabetes Hypertension Paternal Aunt Breast cancer Family/Other Chronic mental illness Brother No problems noted. Brother No problems noted. Brother No problems noted. Sister No problems noted. Sister No problems noted. Son In good health Daughter In good health Social History Housing: Apartment Alcohol intake: current Alcohol intake frequency: holidays/special occasions only Alcohol type: wine and other Patient Tobacco Use Status: Never used Tobacco e-Cigarette/Vaping Use: Never Used Second Hand Smoke Exposure: No service: No Current occupational status: unemployed Cognitive needs: No Hearing needs: No Vision needs: Yes Female Reproductive History Menstrual Age of Menarche: 14 Review of Systems Const Denies chills, Denies daytime sleepiness, Denies fatigue, Denies fever(s), Denies frequent falls, Denies poor appetite, Denies snoring, Denies stops breathing during sleep, Denies weakness, Denies weight gain and Denies weight loss Eyes Denies loss of vision ENT Denies dizziness and Denies hearing loss Card Denies chest pain, Denies claudication, Denies leg edema, Denies lightheadedness, Denies palpitations, Denies dyspnea, Denies dyspnea on exertion and Denies orthopnea Resp Denies cough, Denies excessive phlegm production, Denies dyspnea, Denies dyspnea on exertion, Denies snoring and Denies wheezing GI Denies abdominal pain, Denies hematochezia, Denies change in bowel habits, Denies nausea and Denies vomiting Denies urinary frequency and Denies dysuria Musc Denies arthralgias, Denies muscle weakness, Denies numbness and Denies other (frequent falls) Skin/Breast Denies nail changes and Denies rash Neuro Denies Abnormal speech present, Denies dizziness, Denies frequent falls, Denies loss of vision, Denies memory loss, Denies numbness and Denies weakness Psych Denies depression and Denies memory loss Endo Denies fatigue and Denies palpitations [place]/Lymph Reports easy bruising and Reports other (anemia) Aller/Immun Denies wheezing Physical Exam Vital Signs: Last Vital Signs Pulse 72 05/13/24 14:09 BP 130/80 05/13/24 14:09 BMI result Body Mass Index 34.4 Const General: cooperative, comfortable, no acute distress, alert and awake Nutritional Appearance: obese Orientation/consciousness: patient oriented x3 Limitations: no limitations HEENT Head: Yes normocephalic and Yes atraumatic Neck Neck: Yes trachea midline, Yes supple and Yes no JVD Resp Effort & Inspection: normal respiratory effort Auscultation: clear to auscultation bilaterally Cardio Jugular venous distension: no JVD Palpation: normal PMI Rate: regular rate Rhythm: regular rhythm Heart sounds: S1 normal heart sound present, S2 normal heart sound present, no click, no gallops, no murmurs and no rubs GI Auscultation: normal bowel sounds Skin General skin exam: no rashes or lesions noted Neuro General: patient oriented x3 and no focal motor deficits Speech: No Abnormal speech present Extrem General: Yes no clubbing, cyanosis or edema Office Procedures EKG Details: EKG shows normal sinus rhythm with poor R-wave progression most likely due to lead placement otherwise normal EKG [id number], Complete Assessment & Plan Assessment & Plan (1) Chest pain: Code(s): R07.9 - Chest pain, unspecified Category: Medical Plan: Chest pain which appears to be nonischemic, noncardiac in origin. Most likely musculoskeletal chest discomfort probably related to fibromyalgia. Her stress test at moderate workload was negative for ischemia. Unlikely that she has significant coronary artery disease at her age with no other significant risk factors except for hypertension. Concerning finding on the stress testing was her exercise capacity. This needs to be improved lb with increase exercise activity. (2) Essential hypertension: Code(s): I10 - Essential (primary) hypertension Category: Medical Plan: Hypertension which on today's exam is well optimized. I have advised her to monitor blood pressure more regular basis even when she is not having chest pain to see if she is adequately controlled. 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 She will need to participate in regular physical activity and weight loss program. Low-salt diet. Will follow up in the clinic if need be. Thank you for allowing me to partake in her care Coding Level of Care Code New Pt Level 3 (63213) Diagnoses Chest pain R07.9 Essential hypertension I10 CPT Codes EKG - CPT: 47406-[id number], Complete ([id number])
== END 2024-05-13 14:55 | disposition home or self-care (01) ==
PROVIDERS: PCP Internal Medicine; Visit Provider Internal Medicine Cardiovascular Disease
DX: R07.9 Chest pain, unspecified (principal); I10 Essential (primary) hypertension
CPT/HCPCS: 93010; 99203

== ENCOUNTER → 2024-05-13 13:54 | Outpatient (BNVA) | payer OTHER, SELFPAY | PROVIDERS: PCP Internal Medicine; Visit Provider Internal Medicine Cardiovascular Disease | DX: R07.9 Chest pain, unspecified (principal); I10 Essential (primary) hypertension | CPT/HCPCS: 93005; 99202 ==

== ENCOUNTER 2024-07-20 11:32 | Emergency (ER) | payer OTHER, SELFPAY ==
--- NOTE | ~2024-07-20 | XR_ITS ---
EXAMINATION: XR CHEST CLINICAL INFORMATION: pleurisy COMPARISON: Chest radiograph 06/28/2018 TECHNIQUE: 2 views of the chest FINDINGS: Lines and tubes: None. Clear lungs. No pleural effusion. No pneumothorax. Normal cardiomediastinal silhouette. XR/XR chest 2V IMPRESSION: * Clear lungs. Electronically signed by: Karishma Padilla MD 07/20/2024 07:30 PM EDT RP
--- NOTE | 2024-07-20 11:34 | ED_ITS ---
HPI - Back Pain/Injury General Chief Complaint: Back Pain/Injury Stated Complaint: back pain Time Seen by Provider: 07/20/24 15:20 Source: patient Mode of arrival: ambulatory Limitations: no limitations History of Present Illness ED Provider: Sorin LLANES HPI Narrative: 38-year-old female past medical history fibromyalgia presents to the ED for left upper back pain no rib pain with pleurisy body so weak. Patient states back pain is worse with movement. Patient states she was seen yesterday at [facility] and had an x-ray of the lumbar thoracic and lumbar area which were normal. Patient was not discharged with any pain medication. Patient denies any IV drug use or history of any HIV or hepatitis. Patient denies any urinary/bowel incontinence. Patient denies any trauma. patient denies any lower extremity weakness. 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 Related Data Home Medications ?Medication ?Instructions ?Recorded ?Confirmed lorazepam 1 mg tablet 1 mg PO 11/28/22 05/13/24 sertraline 50 mg tablet 50 mg PO DAILY 03/29/23 05/13/24 amitriptyline 10 mg tablet 10 mg PO BEDTIME 11/06/23 05/13/24 Previous Rx's ?Medication ?Instructions ?Recorded blood pressure monitor #1 ea 05/22/22 sumatriptan succinate 25 mg tablet 25 mg PO Q2-4H PRN migraine 05/25/22 headache 30 days #9 tabs gabapentin 400 mg capsule 400 mg PO TID 30 days #90 caps 08/22/22 pregabalin 75 mg capsule 75 mg PO BEDTIME pain 30 days #30 10/22/23 caps trazodone 50 mg tablet 25 - 50 mg (0.5 - 1 x 50 mg) PO 02/17/24 BEDTIME PRN insomnia 30 days #45 tabs naproxen 500 mg tablet 500 mg PO BID PRN pain 90 days 02/24/24 #180 tabs lisinopril 5 mg tablet 5 mg PO DAILY 90 days #30 tabs 04/03/24 triamcinolone acetonide 0.5 % 1 appl topical DAILY 2 weeks #15 04/04/24 topical cream grams lidocaine 5 % topical patch 1 patch topical DAILY PRN for pain 06/17/24 #30 patches ibuprofen 800 mg tablet 800 mg PO Q8H PRN pain 30 days #90 08/20/24 tabs cyclobenzaprine 10 mg tablet 10 mg PO BEDTIME PRN muscle spasm 07/20/24 70 days #7 tabs naproxen 500 mg tablet 500 mg PO BID PRN pain 7 days #14 07/20/24 tabs prednisone 20 mg tablet 40 mg (2 x 20 mg) PO DAILY 5 days 07/20/24 #10 tabs Allergies Allergy/AdvReac Type Severity Reaction Status Date / Time No Known Allergies Allergy Verified 07/20/24 11:40 [No Known Allergies*] Review of Systems 2 Review of Systems: Left sided back pain with pleurisy Yes all other systems are reviewed and are negative [facility] Past Medical History Medical History Fibromyalgia High blood pressure Rash Lumbar pain Obese Surgical History History of local excision of skin lesion (08/03/22) S/P ligament repair History of hand surgery History of tubal ligation Family History Family History Father No problems noted. Mother Diabetes Hypertension Paternal Aunt Breast cancer Family/Other Chronic mental illness Brother No problems noted. Brother No problems noted. Brother No problems noted. Sister No problems noted. Sister No problems noted. Son In good health Daughter In good health Social History Social History Housing: Apartment Alcohol intake: current Alcohol intake frequency: holidays/special occasions only Alcohol type: wine and other Patient Tobacco Use Status: Never used Tobacco e-Cigarette/Vaping Use: Never Used Second Hand Smoke Exposure: No Advance Directives: No Advance Directives Information Provided: No Do you have a plan to hurt others: No Plan service: No Current occupational status: unemployed Cognitive needs: No Hearing needs: No Vision needs: Yes Physical Exam 2 Vital Signs: Vital Signs: Last Vital Signs Temp 97.9 F 07/20/24 19:49 Pulse 72 07/20/24 19:49 Resp 19 07/20/24 19:49 BP 149/91 H 07/20/24 19:49 Pulse Ox 100 07/20/24 19:49 O2 Del Method Room Air 07/20/24 19:49 BMI result Body Mass Index 34.0 Const: General: cooperative, healthy appearing, comfortable, no acute distress, well developed, alert, awake and Physically active O rientation/consciousness: patient oriented x3 HEENT: Head: Yes normal to inspection, Yes No palpable skull fracture present, Yes normocephalic, Yes atraumatic and No abrasion Throat: Yes posterior oropharynx normal, Yes tonsils normal and Yes uvula midline Eyes: General: appearance normal, both eyes and all related structures Neck: Neck: Yes normal visual inspection, Yes full ROM, Yes no lymphadenopathy, Yes no meningeal signs, Yes trachea midline, Yes supple, No anterior neck swelling and No tender Chest: Chest palpation & inspection: normal inspection of the chest and normal palpation of entire chest wall Resp: Effort & Inspection: normal respiratory effort and able to speak in complete sentences Auscultation: clear to auscultation bilaterally Cardio: Jugular venous distension: no JVD Heart sounds: S1 normal heart sound present and S2 normal heart sound present GI: Inspection: Yes normal to inspection Palpation (GI): Soft to palpation, not firm, nontender, no guarding and not rigid : General: Yes no CVA tenderness Back/Spine/Pelvis: Other: Negative spine tenderness Back: no CVA tenderness Back/spine/pelvis image: 1. Positive for tenderness on palpation and pain on range of motion. Negative for spine tenderness. Negative for erythema. Negative ecchymosis. Negative for crepitus. Negative for rash Skin: General skin exam: no rashes or lesions noted, elasticity normal and turgor normal Neuro: General: patient oriented x3, gait normal, tone normal, moves all extremities, Normal light touch and pain sensation, no meningeal signs, no focal motor deficits, CN's II-XI intact bilaterally and normal sensation to monofilament Extrem: General: Yes normal to inspection, Yes full ROM and Yes capillary refill normal Psych: Appearance: grossly normal, well kempt and not disheveled Course Course Course Narrative: This is an RME performed by Rehana Hughes CNP: Additional HPI, ROS, PE not included below will be deferred to primary provider. Patient is a 38-year-old female pmhx fibromyalgia who presents emergency department for evaluation of mid/lower back pain bilaterally left is worse than right. Denies any precipitating injury. Reports that she was seen 2 days ago at [facility], states she had negative x-rays, given tylenol with no relief. Attempted to review records from [facility]; patient not found. Medications Administered Discontinued Medications Generic Name Dose Route Start Last Admin Trade Name Luiza PRN Reason Stop Dose Admin Cyclobenzaprine HCl 10 mg 07/20/24 17:19 07/20/24 17:49 Cyclobenzaprine Hcl 10 Mg Tablet PO 07/20/24 17:20 10 mg ONCE ONE Administration Ketorolac Tromethamine 30 mg 07/20/24 17:19 07/20/24 17:48 Ketorolac Tromethamine 30 Mg/Ml Vial IM 07/20/24 17:20 30 mg ONCE ONE Administration Prednisone 60 mg 07/20/24 17:19 07/20/24 17:49 Prednisone 20 Mg Tablet PO 07/20/24 17:20 60 mg ONCE ONE Administration Medical Decision Making Medical Decision Making [facility] Narrative: 38-year-old female presents to the ED for left back lower rib pain that is worse on movement and causes pleurisy for 1 week. Patient went to [facility] last night had normal x-ray of the back. Patient denies any trauma. Patient denies any fever or chills. Patient denies any urinary/bowel incontinence. Patient denies any IV drug use. Patient denies any history of epidural abscess. Patient denies any trauma. Due to patient stating pleurisy and stating having surgery 4 months ago. D-dimer was ordered which came back negative. Troponin EKG negative. Waiting for two-view chest x-ray. Toradol prednisone muscle relaxer ordered. 19:05. Troponin negative. EKG negative STEMI. D-dimer negative. UA negative for infection or blood. Waiting for chest x-ray two-view signed out to PA whose needed. Not suspecting epidural abscess or cauda equinus. Not suspecting kidney stones or pyelonephritis. not suspecting renal artery stenosis. Not suspecting UTI. Differential Diagnosis Differential Diagnoses: The differential diagnosis associated with the presentation includes (Muscular back pain) Admission/Observation Consideration of admission/observation: Escalation of care including admission/observation considered Lab Data 07/20/24 17:58 07/20/24 17:58 Labs: Lab Results 07/20/24 07/20/24 07/20/24 Range/Units 17:16 17:57 17:58 WBC 10.3 (4.8-10.8) X10*3/uL RBC 4.27 (4.20-5.50) X10*6/uL Hgb 13.0 (12.0-16.0) g/dl Hct 40.2 (37.0-47.0) % MCV 94.1 (80.0-98.0) fL MCH 30.4 (27.0-33.0) pg MCHC 32.3 (31.0-35.0) g/dl RDW 12.8 (11.0-16.0) % Plt Count 325 (160-400) X10*3/uL MPV 9.6 (9.4-12.3) fL Immature Gran % (Auto) 0.4 (0.0-0.4) % Neut % (Auto) 65.8 (45-73) % Lymph % (Auto) 26.7 (20-40) % [place] % (Auto) 4.8 (2-11) % Eos % (Auto) 1.9 (0-4) % Baso % (Auto) 0.4 (0-2) % Lymph # (Auto) 2.8 (1.2-4.9) X10*3/uL [place] # (Auto) 0.5 (0.1-1.2) X10*3/uL Eos # (Auto) 0.2 (0.0-0.4) X10*3/uL Baso # (Auto) 0.0 (0.0-0.2) X10*3/uL Abs Immat Gran (auto) 0.04 H (0.00-0.03) X10*3/uL Absolute Neuts (auto) 6.8 (2.0-8.3) x10*3/uL Absolute Nucleated RBC 0.000 (0.0-0.012) X10*3/uL Nucleated RBC % (auto) 0.0 (0.0-0.2) /100WBC PT 11.5 (11.1-13.3) SEC INR 0.9 (0.9-1.1) APTT 30.5 (26.0-36.8) SEC D-Dimer High Sensitivty < 150 NG/ML Sodium 140 (135-145) mmol/L Potassium 4.2 (3.3-5.1) mmol/L Chloride 107 (96-108) mmol/L Carbon Dioxide 26 (22-29) mmol/L Anion Gap 11 L (12-20) BUN 8 L (9-16) mg/dL Creatinine 0.78 (0.5-1.4) mg/dL Estim Creat Clear Calc 105.1 Estimated GFR > 60 Random Glucose 110 (60-115) mg/dL Calcium 9.3 (8.4-10.2) mg/dL Total Bilirubin 0.2 (0.0-1.0) mg/dL AST 15 (5-31) U/L ALT 16 (0-31) U/L Alkaline Phosphatase 90 (39-117) U/L Troponin I High Sens < 2.7 (<3.5-17.0) ng/L Total Protein 7.1 (6.5-8.0) g/dL Albumin 4.2 (3.5-5.0) g/dL Urine Color Yellow Urine Appearance Clear Urine pH 8.0 (5.0-9.0) Ur Specific Krypton 1.020 (1.005-1.025) Urine Protein Negative (Neg-Trace) mg/dL Urine Glucose (UA) Negative (Negative) mg/dL Urine Ketones Negative (Negative) mg/dL Urine Blood Negative (Negative) Urine Nitrite Negative (Negative) Ur Leukocyte Esterase Small (1+) H (Negative) Urine RBC 0-2 (0-2) /HPF Urine WBC 0-5 (0-5) /HPF Ur Squamous Epith Cells 3-5 (0-2) /HPF Urine Bacteria None Seen (None Seen) Hyaline Casts 0-2 (0-2) /LPF Urine Test NEGATIVE (NEGATIVE) Independent Interpretation I performed an independent interpretation of an: EKG (Normal sinus rhythm) Independent Historian Clinical information obtained from an independent historian. History obtained from or confirmed by: Other (patient) External Record Review External record reviewed: Other (prior visit) Prescription Management I considered prescription management with: Pain Medication Discharge Plan Discharge Clinical Impression: Back pain Patient Disposition: Home, Self-Care Instructions: Back Pain (ED), Warm Compress or Soak (ED) Additional Instructions: Recommend follow-up with primary care provider. Return to the ED immediately for any urinary/bowel incontinence, severe pack pain, flank pain, fever, chills, nausea, vomiting, dysuria, hematuria, paralysis of lower extremities, inability to walk, or any other concerning symptoms. Prescriptions: New cyclobenzaprine 10 mg tablet 10 mg PO BEDTIME PRN (Reason: muscle spasm) 70 Days Qty: 7 0RF Rx Instructions: side effect is drowsiness. Do not take at work or while driving. naproxen 500 mg tablet 500 mg PO BID PRN (Reason: pain) 7 Days Qty: 14 0RF prednisone 20 mg tablet 40 mg PO DAILY 5 Days Qty: 10 0RF No Action (DME) blood pressure monitor Kit See Rx Instructions .Route Qty: 1 0RF Rx Instructions: As directed sumatriptan succinate 25 mg tablet 25 mg PO Q2-4H PRN (Reason: migraine headache) 30 Days Qty: 9 1RF Rx Instructions: do not exceed 8 doses per 24 hrs trazodone 50 mg tablet 25 - 50 mg PO BEDTIME PRN (Reason: insomnia) 30 Days Qty: 45 3RF naproxen 500 mg tablet 500 mg PO BID PRN (Reason: pain) 90 Days Qty: 180 1RF lisinopril 5 mg tablet 5 mg PO DAILY 90 Days Qty: 30 3RF triamcinolone acetonide 0.5 % cream 1 appl topical DAILY 14 Days Qty: 15 1RF lidocaine 5 % adhesive patch,medicated 1 patch topical DAILY PRN (Reason: for pain) Qty: 30 0RF ibuprofen 800 mg tablet 800 mg PO Q8H PRN (Reason: pain) 30 Days Qty: 90 0RF gabapentin 400 mg capsule 400 mg PO TID 30 Days Qty: 90 2RF sertraline 50 mg tablet 50 mg PO DAILY lorazepam 1 mg tablet 1 mg PO amitriptyline 10 mg tablet 10 mg PO BEDTIME pregabalin 75 mg capsule 75 mg PO BEDTIME 30 Days Qty: 30 1RF Stand Alone Forms: Work/School Release Interventions: ED Discharge Assessment Last Done: 07/20/24 19:49 Discharge Date/Time: 07/20/24 19:50 Print Language: Citizen Of [place]
[2024-07-20 11:35] VITALS: BP 144/100; PULSE 85; RESP 16; TEMP 36.5; O2SAT 100; BMI 34.0
[2024-07-20 17:26] LABS: Appearance Urine Clear; Color Urine Yellow; Glucose Urine UA Negative (Negative); Leukocyte Esterase Urine Small (1+) (Negative); Nitrite Urine Negative (Negative); UMIC TRIGGER UACC YES; Urine Blood Negative (Negative); Urine Ketones Negative (Negative); Urine Protein Negative (Neg-Trace)
[2024-07-20 17:29] LABS: UPreg QC Valid YES; Urine Pregnancy NEGATIVE (NEGATIVE)
[2024-07-20 17:44] LABS: Bacteria Urine None Seen (None Seen); Hyaline Casts Urine 0-2 /LPF (0-2); RBC Urine 0-2 /HPF (0-2); UACC Culture Trigger YES; WBC Urine 0-5 /HPF (0-5)
--- NOTE | 2024-07-20 17:47 | ECG_ITS ---
Test Reason : BACK PAIN Blood Pressure : / mmHG Vent. Rate : 070 BPM Atrial Rate : 070 BPM P-R Int : 158 ms QRS Dur : 086 ms QT Int : 400 ms P-R-T Axes : 041 016 010 degrees QTc Int : 432 ms Normal sinus rhythm with sinus arrhythmia Normal ECG When compared with ECG of 25-JAN-2024 09:28, No significant change was found Referred By: Sorin Sales Electronically Signed By:THERON JENNINGS
[2024-07-20] MEDS: Ketorolac Tromethamine 30 MG/ML VIAL IM (17:48)
[2024-07-20] MEDS: predniSONE 20 MG TABLET 60 MG PO (17:49)
[2024-07-20] MEDS: Cyclobenzaprine HCl 10 MG TABLET PO (17:49)
[2024-07-20 18:08] LABS: MANUAL DIFF FLAG NO
[2024-07-20 18:21] LABS: Basophils Percent Auto 0.4 % (0-2); Eosinophils Absolute Auto 0.2 X10*3/uL (0.0-0.4); Eosinophils Percent Auto 1.9 % (0-4); Hematocrit 40.2 % (37.0-47.0); Imm Gran Abs Auto 0.04 X10*3/uL (0.00-0.03); Imm Gran Pct Auto 0.4 % (0.0-0.4); Lymphocytes Absolute Auto 2.8 X10*3/uL (1.2-4.9); Lymphocytes Percent Auto 26.7 % (20-40); Mean Corpuscular HGB Conc 32.3 g/dl (31.0-35.0); Mean Corpuscular Hemoglobin 30.4 pg (27.0-33.0); Mean Corpuscular Volume 94.1 fL (80.0-98.0); Mean Platelet Volume 9.6 fL (9.4-12.3); Monocytes Absolute Auto 0.5 X10*3/uL (0.1-1.2); Monocytes Percent Auto 4.8 % (2-11); Neutrophils Absolute Auto 6.8 x10*3/uL (2.0-8.3); Neutrophils Percent Auto 65.8 % (45-73); Platelet Count 325 X10*3/uL (160-400); Red Blood Count 4.27 X10*6/uL (4.20-5.50); Red Cell Distribution Width 12.8 % (11.0-16.0); White Blood Count 10.3 X10*3/uL (4.8-10.8)
[2024-07-20 18:29] LABS: INTERNATIONAL NORM RATIO 0.9 (0.9-1.1); Prothrombin Time 11.5 SEC (11.1-13.3)
[2024-07-20 18:31] LABS: Partial Thromboplastin Time 30.5 SEC (26.0-36.8)
[2024-07-20 18:32] LABS: D Dimer High Sensitivity < 150 NG/ML
[2024-07-20 18:35] LABS: Alanine Aminotransferase 16 U/L (0-31); Albumin Level 4.2 g/dL (3.5-5.0); Alkaline Phosphatase 90 U/L (39-117); Anion Gap 11 (12-20); Aspartate Amino Transferase 15 U/L (5-31); Bilirubin Total 0.2 mg/dL (0.0-1.0); Blood Urea Nitrogen 8 mg/dL (9-16); Calcium 9.3 mg/dL (8.4-10.2); Carbon Dioxide 26 mmol/L (22-29); Chloride 107 mmol/L (96-108); Creatinine Clr Calc Pharmacy 105.1; Estimated Glomerular Filt Rate > 60; Glucose Random 110 mg/dL (60-115); Potassium 4.2 mmol/L (3.3-5.1); Sodium 140 mmol/L (135-145); Total Protein 7.1 g/dL (6.5-8.0)
[2024-07-20 18:44] LABS: Troponin-I High Sensitivity < 2.7 ng/L (<3.5-17.0)
[2024-07-20 19:49] VITALS: BP 149/91; PULSE 72; RESP 19; TEMP 36.6; O2SAT 100
== END 2024-07-20 19:50 | disposition home or self-care (01) ==
PROVIDERS: Nurse Practitioner Family; Physician Assistant; Emergency Provider Emergency Medicine
DX: R09.1 Pleurisy (principal); M79.10 Myalgia, unspecified site; M54.6 Pain in thoracic spine; I49.8 Other specified cardiac arrhythmias; M54.50 Low back pain, unspecified; Z79.899 Other long term (current) drug therapy
CPT/HCPCS: 36415; 71046; 80053; 81001; 81025; 84484; 85025; 85379; 85610; 85730; 87086; 93005; 96372; 99284; J1885

== ENCOUNTER 2024-07-29 14:24 | Outpatient (AMB) | payer OTHER, SELFPAY ==
--- NOTE | 2024-07-29 14:30 | A.OFFPC_ITS ---
Vital Signs 07/29/24 14:31 Height 5 ft 4 in Weight 202 lb BMI 34.7 BP 130/80 Blood Pressure Location Lt brachial Position Sitting Intake Visit Reasons: EDF [facility] 07/17 Back Pain Intake Note: Patient is here to follow-up after a visit the emergency department at [facility] on 07/17/24 Remote Sensing Technician Required: Yes Remote Sensing Technician Language: Bus And Rail Operator Name: Alma ([id number]) Information Interpreted: non-clinical & clinical Pole Classifier: Not Required per policy Accompanied by: Self / Same As Patient Allergies No Known Allergies [No Known Allergies*] Allergy (Verified 07/29/24 14:31) Tobacco use date assessed: 07/29/24 Dental Screening Dental Screen Date: 07/29/24 Did you have a dental visit in the last 12 months?: No Did you have a dental problem in the last 6 months where you did not have access to dental care?: No Was dental information given to patient?: Patient has dentist HPI HPI Comments History of Present Illness Details 38 y/o female patient who presents to e clinic today for EDF. She was admitted at [facility] on 07/17/24 for Back pain and discharged home the same day. She has chronic L5-S1 back pain for years now, and currently being managed by [facility] Pain clinic. She was last seen by them 02/14/24, where TFESI under Fluoroscopy was ordered pending Insurance coverage and Pt was to be contacted back. According to Patient, no one called her back for an appointment. Pain clinic discontinued Tramadol that she was taking continuously to manage her chronic back problems. Per patient only Tramadol has shown to work well and now asking to be put back on it for everyday use. Reports that Acetaminophen, NSAIDs, Flexeril and Lidocaine patches do not work. Gabapentin causes GI issues and Drowsiness. Pt reports that she was told that PCP will be able to continue Prescribing Tramadol on continuos basis for pain control. [facility] Medical History Fibromyalgia High blood pressure Rash Lumbar pain Obese Surgical History History of local excision of skin lesion (08/03/22) S/P ligament repair History of hand surgery History of tubal ligation Family History Father No problems noted. Mother Diabetes Hypertension Paternal Aunt Breast cancer Family/Other Chronic mental illness Brother No problems noted. Brother No problems noted. Brother No problems noted. Sister No problems noted. Sister No problems noted. Son In good health Daughter In good health Social History Housing: Apartment Alcohol intake: current Alcohol intake frequency: holidays/special occasions only Alcohol type: wine and other Patient Tobacco Use Status: Never used Tobacco e-Cigarette/Vaping Use: Never Used Second Hand Smoke Exposure: No service: No Current occupational status: unemployed Cognitive needs: No Hearing needs: No Vision needs: Yes (Glasses) Female Reproductive History Menstrual Age of Menarche: 14 Questionnaire PHQ-9 Over the last 2 weeks, how often have you been bothered by any of the following problems? 1. Little interest or pleasure in doing things: not at all 2. Feeling down, depressed, or hopeless: not at all 3. Trouble falling or staying asleep, or sleeping too much: not at all 4. Feeling tired or having little energy: not at all 5. Poor appetite or overeating: not at all 6. Feeling bad about yourself - or that you are a failure or have let yourself or your family down: not at all 7. Trouble concentrating on things, such as reading the newspaper or watching television: not at all 8. Moving or speaking so slowly that other people could have noticed. Or the opposite - being so fidgety or restless that you have been moving around a lot more than usual: not at all 9. Thoughts that you would be better off or of hurting yourself in some way: not at all Total score: 0 Depression Screening Interpretation: Negative Depression Screening Done: Yes Source: Developed by Drs. Compa Berger, Patti Moore, Lucas Diaz and colleagues, with an educational stefania from [employer]. Thrive Questionnaire Date Thrive assessed: 07/29/24 I am a: Patient What is your living situation today?: I have a steady place to live Within the past 12 months, did the food you bought not last and you didn't have the money to get more?: Never true Within the past 12 months, did you worry whether your food would run out before you got money to buy more?: Never true Do you have trouble paying for medicines?: No Do you have trouble getting transportation to medical appointments?: No Do you have trouble paying your heating and electricity bill?: No Do you have trouble taking care of your child, family member or friend?: No Do you have trouble with day-to-day activities such as bathing, preparing meals, shopping, managing finances, etc.?: No Are you currently unemployed and looking for a job?: No Are you interested in more education?: No Currently or been in a relationship where the following occur: No concerns reported THRIVE Score: 0 AUDIT C Alcohol Use Questionnaire (AUDIT-C) 1. How often do you have a drink containing alcohol?: Monthly or less 2. How many drinks containing alcohol do you have on a typical day when you are drinking?: 1 or 2 Total Score: 1 NANDO-7 AMB Questionnaire NANDO-7 Date NANDO - 7 assessed: 07/29/24 Feeling nervous, anxious, or on edge: 0 = Not at all Not being able to stop or control worryin = Not at all Worrying too much about different things: 0 = Not at all Trouble relaxin = Not at all Being so restless that it is hard to sit still: 0 = Not at all Becoming easily annoyed or irritable: 0 = Not at all Feeling afraid as if something awful might happen: 0 = Not at all Total NANDO-7 score (0-4 normal; 5-9 mild; 10-14 moderate; 15-21 severe): 0 Source: Developed by Drs. Compa Berger, Patti Moore, Lucas Diaz and colleagues, with an educational stefania from [employer]. Review of Systems Const All systems reviewed & are unremarkable except as noted in HPI and below Physical exam (Primary Care) Vital Signs: Last Vital Signs BP 130/80 07/29/24 14:31 BMI result Body Mass Index 34.7 Tobacco/Smoking Status: Tobacco use Status Tobacco use date assessed 07/29/24 07/29/24 14:35 Patient Tobacco Use Status Never used Tobacco 07/29/24 14:35 e-Cigarette/Vaping Use Never Used 09/24/24 14:35 PHQ-9: PHQ-9 Score PHQ-9: Total score 0 07/29/24 14:35 Depression Screening Interpretation: Negative Thrive Assessment: Date of Thrive Assessment Date Thrive assessed 07/29/24 07/29/24 14:35 Currently or been in a relationship where the following occur: No concerns reported Const General: cooperative; No comfortable Nutritional Appearance: obese Orientation/consciousness: patient oriented x3 Limitations: language barrier (Used american sign language interpreter) Resp Effort & Inspection: normal respiratory effort Cardio Heart sounds: S1 normal heart sound present and S2 normal heart sound present Back/Spine/Pelvis Back: back tenderness Thoracic/Lumbar Spine: pain with thoraco-lumbar ROM, paraspinal muscle tenderness, thoraco-lumbar spasm, thoracic spinal tenderness and lumbar spinal tenderness Skin General skin exam: no rashes or lesions noted Neuro General: patient oriented x3, gait normal and moves all extremities Psych Speech and movement: Normal speech and movement present Assessment and Plan Assessment & Plan (1) Lumbar degenerative disc disease: Code(s): M51.36 - Other intervertebral disc degeneration, lumbar region Plan: Continue f/u with Pain clinic Advised Patient to call the Pain clinic for f/u appointment Will ask front counter clerk schedule Patient with PCP for F/U. Has not been seen since 2021. D/C Flexeril, and prescribed Metaxalone TID 800 mg Informed Patient that I will not prescribe Tramadol for continuous pain management. (2) Lumbar radiculopathy: Code(s): M54.16 - Radiculopathy, lumbar region Plan: Continue f/u with Pain clinic Advised Patient to call the Pain clinic for f/u appointment Will ask front counter clerk schedule Patient with PCP for F/U. Has not been seen since 2021. D/C Flexeril, and prescribed Metaxalone TID 800 mg Informed Patient that I will not prescribe Tramadol for continuous pain management. Medications: New metaxalone 800 mg PO TID 20 tabs 0RF M51.36 - Other intervertebral disc degeneration, lumbar region, M54.16 - Radiculopathy, lumbar region Changed From lisinopril 5 mg PO DAILY 90 days 30 tabs 3RF I10 - Essential (primary) hypertension To lisinopril 5 mg PO DAILY 30 days 30 tabs 0RF I10 - Essential (primary) hypertension Discontinued cyclobenzaprine side effect is drowsiness. Do not take at work or while driving. Discontinued Reason: Patient Completed Course 10 mg PO BEDTIME 70 days PRN 7 tabs 0RF muscle spasm Coding Level of Care Code Est Pt Level 4 (99607) Diagnoses Lumbar degenerative disc disease M51.36 Lumbar radiculopathy M54.16 Time Spent (min) 20 Comment Spent reviewing Hospital notes and patient education
[2024-07-29 14:31] VITALS: BP 130/80; BMI 34.7
== END 2024-07-29 15:44 | disposition home or self-care (01) ==
PROVIDERS: Visit Provider Nurse Practitioner Family
DX: M51.36 Other intervertebral disc degeneration, lumbar region (principal); M54.16 Radiculopathy, lumbar region

== ENCOUNTER → 2024-07-29 14:24 | Outpatient (BNVA) | payer OTHER, SELFPAY | PROVIDERS: Visit Provider Nurse Practitioner Family | DX: M51.36 Other intervertebral disc degeneration, lumbar region (principal); M54.16 Radiculopathy, lumbar region | CPT/HCPCS: 99212 ==

== ENCOUNTER 2024-07-31 13:23 | Outpatient (AMB) | payer OTHER, SELFPAY ==
--- NOTE | 2024-07-31 13:29 | A.OFFVIS_ITS ---
Vital Signs 3 07/31/24 13:34 Height 5 ft 4 in Weight 198 lb BMI 34.0 BP 160/92 H Blood Pressure Location Lt brachial Position Sitting Pulse 84 Pulse Source Pulse Oximeter Pulse Oximetry (%) 98 Oxygen Delivery Method Room Air Intake Visit Reasons: F/U still waiting for inj Intake Note: Pain today 04/14 Debit Agent Required: Yes Debit Agent Language: [employer] Services: Debit Agent Offered & Declined Debit Agent Name: Family translates per patient Accompanied by: Spouse Allergies No Known Allergies [No Known Allergies*] Allergy (Verified 07/31/24 13:33) HPI Comments Details: Patient presents today for follow-up chronic mid and lower back pain. gi tech was offered, patient declined. She requests her family to assists in translation. She is scheduled for B/L L5-S1 TFESI on 08/15/24 and was made aware of this during today's visit. Reports recent [place] [facility] [place] and [facility] on 07/20/24 for left mid back pain and low back pain with radiculopathy. She was told thoracic and lumbar x-rays [place] [facility] [place]. These reports are not available today for review. She completed recent prednisone trial for 5 days, cyclobenzaprine, ketorolac, and opioid medication with partial pain relief. She tried gabapentin but had to discontinue due to GI upset pregabalin and lidocaine patches were not effective. She has difficulty performing her daily activities, work, difficulty sleeping and walking due to pain. She continues to endorse left mid back pain that radiates to her left flank and abdomen. Denies any fever or chills, cold symptoms or cuff, dizziness, shortness of breath, chest pain, weakness, bladder or bowel dysfunction or saddle anesthesia. Past Procedures: 01/29/24: Bilateral Diagnostic L3 L4 DR L5 MBB-0% pain relief 11/06/23: Bilateral Diagnostic SIJ injections-100% ongoing pain relief PRIOR: Patient is a pleasant 38 year old Belarusian speaking female with history of fibromyalgia, arthritis, polyarthralgia and chronic neck, thoracic and lumbar pain presents today for initial evaluation for chronic mid and low back pain. She was followed by [facility] up until 09/13/2023. Patient was also seen by [facility] Orth[facility] for back and hip pain. She reports upcoming surgery for neurogenic thoracic outlet syndrome with Dr. Meyers at [facility] early next year. Patient was also seen at [facility] for ankle pain, by Dr. De La O for hand pain and by Rheumatology for hand pain. Patient was referred to us by Dr. Natarajan at [facility] Physiat[facility] for low back pain. She had underwent bilateral L3-L4-L5 medial branch blocks and interlaminar epidural injections at L5-S1 and completed physical and chiropractic therapies without much relief at [facility]. Patient reports back pain that radiates upward to her upper thoracic, between shoulder blades and down into her sacral regions bilaterally but not into her lower extremities. Patient also reports widespread body pain with multiple tender points of upper and lower extremities and torso which is consistent with fibromyalgia. Patient has been managing amitriptyline and Lyrica, and also tried gabapentin without relief. Per Physiatry notes, MRI 06/05/2022 reported no significant spinal stenosis, spondylosis L4-5 and L5-S1. EMG reported to be normal lower extremity. Pain negatively affects her daily functioning, mood, sleep and quality of life. Patient denies any fever, weight loss, abdominal or groin pain, weakness, bladder or bowel dysfunction or saddle anesthesia. Location Chronic pain in lower back and sacral, between shoulder blades, mid back Duration Chronic pain for > 3 years Characteristics of symptom or complaint Aching, spasms, numbness, tingling, dull, shooting, pulling, radiating Aggravating or associated factors Movements, walking, standing, cold weather Relieving factors Sitting, resting, heat therapy, Gabapentin/Lyrica, Ibuprofen, lidocaine Treatment PT, injections at [facility], chiropractic therapy-minimal relief [facility] Medical History Fibromyalgia High blood pressure Rash Lumbar pain Obese Surgical History History of local excision of skin lesion (08/03/22) S/P ligament repair History of hand surgery History of tubal ligation Family History Father No problems noted. Mother Diabetes Hypertension Paternal Aunt Breast cancer Family/Other Chronic mental illness Brother No problems noted. Brother No problems noted. Brother No problems noted. Sister No problems noted. Sister No problems noted. Son In good health Daughter In good health Social History Housing: Apartment Alcohol intake: current Alcohol intake frequency: holidays/special occasions only Alcohol type: wine and other Patient Tobacco Use Status: Never used Tobacco e-Cigarette/Vaping Use: Never Used Second Hand Smoke Exposure: No service: No Current occupational status: unemployed Cognitive needs: No Hearing needs: No Vision needs: Yes (Glasses) Female Reproductive History Menstrual Age of Menarche: 14 Review of Systems Const All systems reviewed & are unremarkable except as noted in HPI and below Physical Exam Vital Signs: Last Vital Signs Pulse 84 07/31/24 13:34 BP 160/92 H 07/31/24 13:34 Pulse Ox 98 07/31/24 13:34 Oxygen Delivery Method Room Air 07/31/24 13:34 BMI result Body Mass Index 34.0 General: Appears afebrile. Alert and oriented. Mood and affect appropriate. Follows and participates in conversation appropriately. Respiratory effort is unlabored. No cough. Able to transition from sit to stand unassisted. Ambulates with bilaterally normal heel strike and toe off. Neck Neck: Yes full ROM, Yes no lymphadenopathy, Yes supple, No anterior neck swelling, Yes no JVD and Yes prominent dorsocervical fat pad Back/Spine/Pelvis Other: Limited thoracolumbar ROM due to pain. Lumbar flexion and extension reproduce moderate pain. Seated straight leg rise with dorsiflexion positive bilaterally with radiation of pain in L5-S1 distribution. +2 patellar and achilles reflexes bilaterally. Facet loading test positive bilaterally. Bienvenido sign positive bilaterally, Etienne?s test reproduces bilateral hip pain and low back pain, worse on the right. No groin pain with I/E hip rotations. Multiple widespread TTPs 16/16 bilaterally, including upper and lower extremities. Reports thoracic radicular symptoms in T8-T9 distribution. No thoracic spine tenderness. Reports mild midline TTP in the lower spine. Cervical Spine: cervical ROM normal and No Cervical spine tenderness Thoracic/Lumbar Spine: thoracic and lumbar spine normal to inspection, No Thoracic/lumbar spine scar(s), Lasegue's sign positive bilateral and diffuse, pain with thoraco-lumbar ROM, paraspinal muscle tenderness, thoraco-lumbar ROM limited, No thoracic spinal tenderness and lumbar spinal tenderness at L4 and at L5 Pelvis: buttock tenderness Sacroiliac joints: bilaterally tender to palpation Results Reviewed Results Reviewed: XR LUMBOSACRAL SPINE WITH OBLIQUES 10/09/23 CLINICAL INFORMATION: Low back pain COMPARISON: Lumbar spine radiograph from 06/13/2021 FINDINGS: No acute visible fracture or dislocation. Slight lower lumbar spine facet arthropathy. Suggestion of L5-S1 neuroforaminal narrowing. Vertebral body heights and disc spaces are maintained. Posterior elements are intact. Paraspinal soft tissues are unremarkable. Visualized bowel gas is unremarkable. IMPRESSION: 1. No acute visible fracture or dislocation. 2. Slight lower lumbar spine facet arthropathy. 3. Suggestion of L5-S1 neuroforaminal narrowing. MR LUMBAR SPINE WITHOUT CONTRAST 12/20/23 CLINICAL INFORMATION: Low back pain. COMPARISON: Lumbar spine radiographs 10/09/2023. FINDINGS: Transitional anatomy. For the purposes of this report there are articulating transverse processes bilaterally at L1 and S1 shares a rudimentary disc with S2. Please correlate with plain films prior to any percutaneous or surgical intervention. There is no bone marrow edema. There are no acute fractures. The vertebral body heights are maintained. The disc volumes are preserved and the discs remain well-hydrated. Conus terminates at the L1 level. Partially imaged fibroid uterus. L1-L2: Disc contour is normal. No central canal stenosis and no foraminal stenosis. L2-L3: Disc contour is normal. Mild bilateral facet arthropathy. No central canal stenosis and no foraminal stenosis. L3-L4: There is a small diffuse annular disc bulge and there is mild bilateral hypertrophic facet arthropathy. No central canal stenosis and no foraminal stenosis. L4-L5: There is a small diffuse annular disc bulge and there is mild bilateral facet arthropathy. There is no central canal stenosis. There is mild foraminal encroachment bilaterally. L5-S1: There is a diffuse annular disc bulge and there is moderate bilateral hypertrophic facet arthropathy. No central canal stenosis. Moderate to severe bilateral foraminal stenosis with mass effect on the exiting L5 nerve roots bilaterally. IMPRESSION: - At L5-S1, multifactorial degenerative changes result in moderate to severe bilateral foraminal stenosis with mass effect on the exiting L5 nerve roots bilaterally. Additional mild spondylitic changes as discussed in detail above. - There is transitional anatomy with articulating transverse processes bilaterally at L1 and a rudimentary disc at S1-S2. 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 She continues to reports bilateral radicular symptoms in L5-S1 distribution. Per most recent MRI, at L5-S1, multifactorial degenerative changes result in moderate to severe bilateral foraminal stenosis with mass effect on the exiting L5 nerve roots bilaterally. Additional mild spondylitic changes as discussed in detail above. She also has transitional anatomy with articulating transverse processes bilaterally at L1 and a rudimentary disc at S1-S2. Proceed with Bilateral L5-S1 TFESI with sedation and fluoroscopy as scheduled. Tentatively plan for left diagnostic T8-T9 intercostal nerve blocks for chronic left mid back pain with radicular symptoms. Expectations, risks and benefits were reviewed. Short script provided for morphine for moderate-severe pain only while patient awaits for injections on 08/15/24. Patient reports significant pain relief with morphine during [facility] ER visit. Narcan script provided. Side effects and precautions discussed with patient and her family. All questions and concerns have been addressed and patient agreed with the plan. Follow up after injections and sooner as needed. Medications: New 2 morphine Partial Fill upon patient request. 15 mg PO BID 7 days PRN 14 tabs 0RF pain (scale score 7-10) G58.8 - Other specified mononeuropathies, M51.36 - Other intervertebral disc degeneration, lumbar region, M54.16 - Radiculopathy, lumbar region naloxone 4 mg/actuation (Narcan) spray 1 dose into ONE nostril; alternate nostrils w each dose until help arrives 4 mg intranasal Q2M PRN 2 ea 0RF opioid overdose Discontinued 2 prednisone Discontinued Reason: Patient Completed Course 40 mg (2 x 20 mg) PO DAILY 5 days 10 tabs 0RF pregabalin Discontinued Reason: Patient Completed Course 75 mg PO BEDTIME 30 days 30 caps 1RF pain M51.36 - Other intervertebral disc degeneration, lumbar region, M54.16 - Radiculopathy, lumbar region, M79.7 - Fibromyalgia Coding Level of Care Code Est Pt Level 4 (19719) Complex EM visit Add On G2211 Diagnoses Lumbar radiculopathy M54.16 Lumbar degenerative disc disease M51.36 Intercostal neuralgia G58.8 Lumbar spondylosis M47.816 Fibromyalgia M79.7 Sacroiliac joint pain M53.3
[2024-07-31 13:34] VITALS: BP 160/92; PULSE 84; O2SAT 98; BMI 34.0
== END 2024-07-31 14:02 | disposition home or self-care (01) ==
PROVIDERS: Visit Provider Nurse Practitioner Family
DX: M51.36 Other intervertebral disc degeneration, lumbar region (principal); G58.8 Other specified mononeuropathies; M47.816 Spondylosis without myelopathy or radiculopathy, lumbar region; M53.3 Sacrococcygeal disorders, not elsewhere classified
CPT/HCPCS: 99214; G2211

== ENCOUNTER → 2024-07-31 13:23 | Outpatient (BNVA) | payer OTHER, SELFPAY | PROVIDERS: Visit Provider Nurse Practitioner Family | DX: M79.7 Fibromyalgia (principal); M51.36 Other intervertebral disc degeneration, lumbar region; G58.8 Other specified mononeuropathies; M47.26 Other spondylosis with radiculopathy, lumbar region; M53.3 Sacrococcygeal disorders, not elsewhere classified | CPT/HCPCS: 99212 ==

== ENCOUNTER 2024-08-15 10:38 | Day surgery (SDC) | payer OTHER, SELFPAY ==
[2024-08-13 10:29] VITALS: BMI 34.0
--- NOTE | 2024-08-13 14:24 | HO.ANESPROP2 ---
Documented by User: Tiffanie Mclain NP 08/13/24 14:26 HPI - Anesthesia Eval Consult details Narrative: 39yo F for Bilateral L5-S1 Transforaminal Epidural Steroid Injection PMFSH Active Problems Active Problems: All Active Problems Intercostal neuralgia (Acute) Fracture of one rib, unspecified side, initial encounter for open fracture (Acute) Ovarian cyst (Acute) Chest pain (Acute) Uterine fibroid (Acute) Sacroiliac joint pain (Acute) Lumbar degenerative disc disease (Acute) Lumbar radiculopathy (Acute) Lumbar spondylosis (Acute) Lumbar facet joint pain (Acute) Chronic back pain (Acute) Osteoarthritis of right hip (Acute) Back pain (Acute) Joint pain in fingers of left hand (Acute) Stiffness of joints of both hands (Acute) Migraine (Acute) Screen for sexually transmitted diseases (Acute) Cervical cancer screening (Acute) Well woman exam with routine gynecological exam (Acute) Polyarthralgia (Acute) Hair loss (Acute) Keloid scar (Acute) Essential hypertension (Acute) Encounter for physical examination (Acute) Thoracic spine pain (Acute) Upper back pain (Acute) Cervical spine pain (Acute) Left otitis media (Acute) Left knee pain (Acute) Fibromyalgia (Acute) Rash (Acute) Lumbar pain (Acute) Obese (Acute) Past Medical History Medical History Polyarthralgia Fibromyalgia High blood pressure Rash Lumbar pain Obese Family History Family History Father No problems noted. Mother Diabetes Hypertension Paternal Aunt Breast cancer Family/Other Chronic mental illness Brother No problems noted. Brother No problems noted. Brother No problems noted. Sister No problems noted. Sister No problems noted. Son In good health Daughter In good health Surgical History Surgical History History of local excision of skin lesion (08/03/22) S/P ligament repair History of hand surgery History of tubal ligation Social History Social History Housing: Apartment Alcohol intake: current Alcohol intake frequency: holidays/special occasions only Alcohol type: wine and other Patient Tobacco Use Status: Never used Tobacco e-Cigarette/Vaping Use: Never Used Second Hand Smoke Exposure: No Use of substances other than those prescribed or required for medical reasons: No Have you been hit, kicked, punched, or otherwise hurt by someone within the past year? If so, by whom?: No Advance Directives: No Advance Directives Information Provided: Yes Recently lost weight without trying: No service: No Current occupational status: unemployed Cognitive needs: No Hearing needs: No Vision needs: Yes (Glasses) Meds Allergies Allergy/AdvReac Type Severity Reaction Status Date / Time No Known Allergies Allergy Verified 08/15/24 11:07 [No Known Allergies*] Home Medications ?Medication ?Instructions ?Recorded ?Confirmed ?Last Taken ?Type lorazepam 1 mg tablet 1 mg PO BID PRN Anxiety 11/28/22 08/13/24 Unknown History sertraline 50 mg tablet 50 mg PO DAILY 03/29/23 08/13/24 Unknown History amitriptyline 10 mg tablet 10 mg PO BEDTIME 11/06/23 08/13/24 Unknown History Exam Height,Weight and Vital Signs: Height 5 ft 4 in Weight 89.811 kg Pertinent Lab Results Pertinent Lab Results: Laboratory Tests 07/20/24 17:58 WBC 10.3 Hgb 13.0 Hct 40.2 Plt Count 325 Sodium 140 Potassium 4.2 Chloride 107 Carbon Dioxide 26 BUN 8 L Creatinine 0.78 Narrative Narrative: EKG 07/2024 Vent. Rate : 070 BPM Atrial Rate : 070 BPM P-R Int : 158 ms QRS Dur : 086 ms QT Int : 400 ms P-R-T Axes : 041 016 010 degrees QTc Int : 432 ms Normal sinus rhythm with sinus arrhythmia Normal ECG When compared with ECG of 25-JAN-2024 09:28, No significant change was found Exercise 01/2024 Protocol: JARED Max HR: 164 BPM 90% of Pred: 181 BPM Max BP: 152/084 mmHG Max Work Load: 7.0 METS Exercise stress test exercise 5 min of Jared protocol achieving 89% MPHR, with 6/10 chest tightness, with mild to moderate SOB, with isolated PVCs, with normotenisve response to exercise, with brisk HR response, without EKG changes. Chest pain resolved with rest and breathing returned to normal. Test reviewed with Dr. Whiting. Assessment and Plan Assessment Anesthesia Assessment: Chart Reviewed Documented by User: Debra Salmeron MD 08/15/24 11:07 PMFSH Past Medical History Medical History Polyarthralgia Fibromyalgia High blood pressure Rash Lumbar pain Obese Family History Family History Father No problems noted. Mother Diabetes Hypertension Paternal Aunt Breast cancer Family/Other Chronic mental illness Brother No problems noted. Brother No problems noted. Brother No problems noted. Sister No problems noted. Sister No problems noted. Son In good health Daughter In good health Family history of problems with anesthesia: No Surgical History Surgical History History of local excision of skin lesion (08/03/22) S/P ligament repair History of hand surgery History of tubal ligation History of Problems with Anesthesia: No Social History Social History Housing: Apartment Alcohol intake: current Alcohol intake frequency: holidays/special occasions only Alcohol type: wine and other Patient Tobacco Use Status: Never used Tobacco e-Cigarette/Vaping Use: Never Used Second Hand Smoke Exposure: No Use of substances other than those prescribed or required for medical reasons: No Have you been hit, kicked, punched, or otherwise hurt by someone within the past year? If so, by whom?: No Advance Directives: No Advance Directives Information Provided: Yes Recently lost weight without trying: No service: No Current occupational status: unemployed Cognitive needs: No Hearing needs: No Vision needs: Yes (Glasses) Meds Allergies Allergy/AdvReac Type Severity Reaction Status Date / Time No Known Allergies Allergy Verified 08/15/24 11:07 [No Known Allergies*] Home Medications ?Medication ?Instructions ?Recorded ?Confirmed ?Last Taken ?Type lorazepam 1 mg tablet 1 mg PO BID PRN Anxiety 11/28/22 08/13/24 Unknown History sertraline 50 mg tablet 50 mg PO DAILY 03/29/23 08/13/24 Unknown History amitriptyline 10 mg tablet 10 mg PO BEDTIME 11/06/23 08/13/24 Unknown History Exam Airway Mallampati Class: II TM Dist: >3cm Neck ROM: Full Heart: rrr Lungs: cta Assessment and Plan Assessment Anesthesia Assessment: Anesthesia Plan Discussed Final Anesthetic Review Family History of Problems with Anesthesia: No History of Problems with Anesthesia: No NPO: Yes ASA Class: III (anxiety, depression , multiple somatic complaints, migraines) Final Preanesthetic Review: No Changes in Pt Med Stat, Meds/Allgs Chart Reviewed, Consent Obtained/Reviewed and Anes Risks/Benef Reviewed Patient Risk: Intermediate Procedure Risk: Low Anesthetic Plan Anesthetic Plan: MAC: Disposition: Standard PACU
--- NOTE | 2024-08-15 10:57 | MHC.SHP ---
Pre-Procedural Eval Section A - 24 Hr Update-Section A only Date of Service: 08/15/24 The patient is an INPATIENT: No Changes since office visit: Yes Patient answered all questions The patient has been examined within 24 hours of the surgical procedure. The History & Physical has been completed within 30 days and I have reviewed it.: No Section B - Complete if H&P > 30 days Chief Complaint: Spondylosis without myelopathy or radiculopathy, Details of Present Illness: As above Relevant Family History (Specify if Yes): No Relevant Social History: None Present Medications: None Medical History: No relevant PMH History of Previous Operations: No relevant previous surgery Allergies: Allergies Allergy/AdvReac Type Severity Reaction Status Date / Time No Known Allergies Allergy Verified 07/31/24 13:33 [No Known Allergies*] Review of Systems Sugical H&P ROS: Negative: Constitution, Cardiovascular, Respiratory, Neurological, Psychiatric, Hem-Onc, Allergic/Immunologic, Gastrointestinal, Genitourinary, Musculoskeletal, Integumentary, Endocrine and Eyes/Ears/Nose/Throat Exam Surgical H&P Exam: Normal: HEENT, Normal: Heart, Normal: Lungs, Normal: Extremities, Normal: Abdomen, Normal: Skin and Normal: Neurological Plan Diagnosis/Plan: Unchanged I have reviewed the history and physical and performed a pertinent physical examination on my patient. No changes have occurred unless specified. Time Spent With Patient Time: Total time managing care of this patient today ____ minutes.
[2024-08-15 10:58] VITALS: BMI 34.0
[2024-08-15 11:12] VITALS: BP 149/91; PULSE 77; RESP 16; TEMP 36.2; O2SAT 100
[2024-08-15] MEDS: Lactated Ringers 1,000 ML 100 ML IVCONT (11:14)
[2024-08-15 13:22] VITALS: BP 149/84; PULSE 69; RESP 16; TEMP 36.6; O2SAT 98
--- NOTE | 2024-08-15 13:24 | P.BOP_ITS ---
Brief Operative Note Date of Service: 08/15/24 Pre-op diagnosis: Radiculopathy lumbar Post-op diagnosis: same Procedure: Bilateral transforaminal L5-S1 epidural steroid injection. Surgeon: Estrada Padilla MD Anesthesia: local Was an Gas Well Drilling Manager used for this Procedure?: No Estimated blood loss (mL): 0 Condition: stable Disposition: PACU
--- NOTE | 2024-08-15 13:25 | W.PM.OPN ---
Operative Note Operative Note Date of Service: 08/15/24 Narrative: Bilateral L5-S1 Transforaminal epidural steroid injection Informed consent was thoroughly explained to the patient before the procedure.? The patient came to the operating room. She was positioned prone on operating table with a pillow under her abdomen.? Time-out was performed delineating correct site and side of the procedure, nature of the injection, name and date of of the patient. ASA monitors were applied and patient was moderately sedated. The lower back of the patient was prepped with ChloraPrep and draped with sterile utility towels.? C-arm was brought over the operating field and sq picture of L5 vertebra were demonstrated on the screen.? Transitional anatomy was noted. Partial fusion of the L5 and S1 vertebra forming extended sacral bone was noted. The right side was chosen as the side of the injection.? Tilting machine ipsilateral to the right at the level of L5 1st the most prominent picture of the right pedicle was obtained on the screen.? 3 mm below the level of the lowest point of the pedicle projection to the skin small amount of lidocaine 1% 3-4 cc was injected to anesthetize the skin.? After that 5 in 22 gauge Quincke point needle was inserted through the skin wheal and was advanced to were the L5-S1 foramina on anterior posterior and oblique views intermittently.? When tip of the needle entered foramina projection on AP view injection of the contrast was performed demonstrating epidural and perineural spread of the contrast.? After that injection of the treatment medicine 4 cc of lidocaine 1% mixed with Kenalog 40 mg was injected into the foramina.? Injection of the contrast and injection of the treatment medicine was observed live on the screen.? No intrathecal and no intravascular spread of the contrast was noted. After that the procedure was attempted to performed in the same very fashion on L5-S1 level on the left. However the foramina appear to be much smaller on the left side and difficulty was met with advancing the needle toward the foramina. Each time the advancement was made it met bony resistance even the on x-ray view the area where the needle tip would be positioned appeared to be lucid. Most likely severe widespread adhesions were preventing the needle advancement.. Periarticular injection of the projection of the L5-S1 facet joint on the left was performed. Same dose NSAID medication as above was used. Upon completion of the procedure sterile Band-Aids were applied. Patient tolerated procedure well she was taken outside of the operating room where she recovered uneventfully.? She went home without immediate complications.
== END 2024-08-15 13:35 | disposition home or self-care (01) ==
PROVIDERS: Visit Provider Anesthesiology
PROC: (CPT 64483; principal; 2024-08-15 12:40)
DX: M47.816 Spondylosis without myelopathy or radiculopathy, lumbar region (principal); M54.16 Radiculopathy, lumbar region; M51.369 Other intervertebral disc degeneration, lumbar region without mention of lumbar back pain or lower extremity pain; G89.29 Other chronic pain; R26.2 Difficulty in walking, not elsewhere classified; M79.7 Fibromyalgia; M53.3 Sacrococcygeal disorders, not elsewhere classified; M19.90 Unspecified osteoarthritis, unspecified site; I10 Essential (primary) hypertension; R21 Rash and other nonspecific skin eruption; Z98.890 Other specified postprocedural states; Z56.0 Unemployment, unspecified
CPT/HCPCS: 64483; 64493; J2003; J2795; J3301; Q9965; Q9967

== ENCOUNTER → 2024-08-15 10:38 | Outpatient (BNV) | payer OTHER, SELFPAY | PROVIDERS: Visit Provider Anesthesiology | DX: M54.16 Radiculopathy, lumbar region (principal) | CPT/HCPCS: 64483; 64493 ==

== ENCOUNTER 2024-09-19 09:48 | Outpatient (AMB) | payer OTHER, SELFPAY ==
--- NOTE | 2024-09-19 09:56 | A.OFFVIS_ITS ---
Vital Signs 3 09/19/24 10:00 Height 5 ft 4 in Weight 198 lb BMI 34.0 BP 182/102 H Blood Pressure Location Lt brachial Position Sitting Pulse 71 Pulse Source Pulse Oximeter Pulse Oximetry (%) 98 Oxygen Delivery Method Room Air Comment Pt states that she did not take bp meds today Intake Visit Reasons: S/p B/l L5-S1 TFESI 08/15/24 Intake Note: Pain today 05/14 Final Inspector Paper Required: Yes Final Inspector Paper Language: Scottish Accompanied by: Family/Other Allergies No Known Allergies [No Known Allergies*] Allergy (Verified 09/19/24 10:02) HPI Comments Details: Patient presents today to assess response to Bilateral L5-S1 TFESI on 08/15/[address] Padilla. transmission and protection engineer was offered, patient declined. She requests her family to assists in translation. Patient reports 0% pain relief since procedure with no improvement in her daily activities and functioning, mobility, sleep, mood, and social interactions. Unfortunately she had no pain relief with diagnostic lumbar medial branch blocks as well. Patient continues to report lower back pain radiating to her buttocks and into lower extremities, mostly posteriorly with associated burning, numbness, and tingling. Reports lateral hip pain radiating to her thighs and groins. Patient reports pain with prolonged sitting. We discussed repeating SI joint injections with steroid and proceed with Neurosurgical evaluation to address her radicular symptoms due to neuroforaminal stenosis. She has difficulty performing her daily activities, especially house chores. Denies any fever or chills, cold symptoms or cuff, dizziness, shortness of breath, chest pain, weakness, bladder or bowel dysfunction or saddle anesthesia. Past Procedures: 08/15/24: Bilateral L5-S1 TFESI injection-0% pain relief 01/29/24: Bilateral Diagnostic L3 L4 DR L5 MBB-0% pain relief 11/06/23: Bilateral Diagnostic SIJ injections-100% ongoing pain relief PRIOR: Patient is a pleasant 38 year old Scottish speaking female with history of fibromyalgia, arthritis, polyarthralgia and chronic neck, thoracic and lumbar pain presents today for initial evaluation for chronic mid and low back pain. She was followed by [facility] up until 09/13/2023. Patient was also seen by [facility] for back and hip pain. She reports upcoming surgery for neurogenic thoracic outlet syndrome with Dr. Meyers at [facility] next year. Patient was also seen at [facility] for ankle pain, by Dr. De La O for hand pain and by Rheumatology for hand pain. Patient was referred to us by Dr. Natarajan at [facility] for low back pain. She had underwent bilateral L3-L4-L5 medial branch blocks and interlaminar epidural injections at L5-S1 and completed physical and chiropractic therapies without much relief at [facility]. Patient reports back pain that radiates upward to her upper thoracic, between shoulder blades and down into her sacral regions bilaterally but not into her lower extremities. Patient also reports widespread body pain with multiple tender points of upper and lower extremities and torso which is consistent with fibromyalgia. Patient has been managing amitriptyline and Lyrica, and also tried gabapentin without relief. Per Physiatry notes, MRI 06/05/2022 reported no significant spinal stenosis, spondylosis L4-5 and L5-S1. EMG reported to be normal lower extremity. Pain negatively affects her daily functioning, mood, sleep and quality of life. Patient denies any fever, weight loss, abdominal or groin pain, weakness, bladder or bowel dysfunction or saddle anesthesia. Location Chronic pain in lower back and sacral, between shoulder blades, mid back Duration Chronic pain for > 3 years Characteristics of symptom or complaint Aching, spasms, numbness, tingling, dull, shooting, pulling, radiating Aggravating or associated factors Movements, walking, standing, cold weather Relieving factors Sitting, resting, heat therapy, Gabapentin/Lyrica, Ibuprofen, lidocaine Treatment PT, injections at [facility], chiropractic therapy-minimal relief COUNT INCLUDES THE [facility] Medical History Polyarthralgia Fibromyalgia High blood pressure Rash Lumbar pain Obese Surgical History History of local excision of skin lesion (08/03/22) S/P ligament repair History of hand surgery History of tubal ligation Family History Father No problems noted. Mother Diabetes Hypertension Paternal Aunt Breast cancer Family/Other Chronic mental illness Brother No problems noted. Brother No problems noted. Brother No problems noted. Sister No problems noted. Sister No problems noted. Son In good health Daughter In good health Social History Housing: Apartment Alcohol intake: current Alcohol intake frequency: holidays/special occasions only Alcohol type: wine and other Patient Tobacco Use Status: Never used Tobacco e-Cigarette/Vaping Use: Never Used Second Hand Smoke Exposure: No service: No Current occupational status: unemployed Cognitive needs: No Hearing needs: No Vision needs: Yes (Glasses) Female Reproductive History Menstrual Age of Menarche: 14 Review of Systems Const All systems reviewed & are unremarkable except as noted in HPI and below Physical Exam Vital Signs: Last Vital Signs Pulse 71 09/19/24 10:00 BP 182/102 H 09/19/24 10:00 Pulse Ox 98 09/19/24 10:00 Oxygen Delivery Method Room Air 09/19/24 10:00 BMI result Body Mass Index 34.0 General: Appears afebrile. Alert and oriented. Mood and affect appropriate. Follows and participates in conversation appropriately. Respiratory effort is unlabored. No cough. Able to transition from sit to stand unassisted. Ambulates with bilaterally normal heel strike and toe off. Neck Neck: Yes full ROM, Yes no lymphadenopathy, Yes supple, No anterior neck swelling, Yes no JVD and Yes prominent dorsocervical fat pad General: Yes no CVA tenderness Back/Spine/Pelvis Other: Limited thoracolumbar ROM due to pain. Lumbar flexion and extension reproduce moderate pain. Seated straight leg rise with dorsiflexion positive bilaterally. +2 patellar and +1 achilles reflexes bilaterally. Facet loading test positive bilaterally. Bienvenido sign positive bilaterally, Etienne?s test reproduces bilateral hip pain and low back pain, worse on the right. Minimal groin pain with I/E hip rotations bilaterally. Multiple widespread TTPs 16/16 bilaterally, including upper and lower extremities. Back: no CVA tenderness Cervical Spine: cervical ROM normal, cervical muscular tenderness, pain with cervical ROM and No Cervical spine tenderness Thoracic/Lumbar Spine: thoracic and lumbar spine normal to inspection, No Thoracic/lumbar spine scar(s), Lasegue's sign positive bilateral and diffuse, pain with thoraco-lumbar ROM, paraspinal muscle tenderness, thoraco-lumbar ROM limited, No thoracic spinal tenderness and lumbar spinal tenderness at L4 and at L5 Pelvis: buttock tenderness Sacroiliac joints: bilaterally tender to palpation Extrem General: Yes capillary refill normal, Yes no clubbing, cyanosis or edema and Yes no calf tenderness Results Reviewed Results Reviewed: XR LUMBOSACRAL SPINE WITH OBLIQUES 10/09/23 CLINICAL INFORMATION: Low back pain COMPARISON: Lumbar spine radiograph from 06/13/2021 FINDINGS: No acute visible fracture or dislocation. Slight lower lumbar spine facet arthropathy. Suggestion of L5-S1 neuroforaminal narrowing. Vertebral body heights and disc spaces are maintained. Posterior elements are intact. Paraspinal soft tissues are unremarkable. Visualized bowel gas is unremarkable. IMPRESSION: 1. No acute visible fracture or dislocation. 2. Slight lower lumbar spine facet arthropathy. 3. Suggestion of L5-S1 neuroforaminal narrowing. MR LUMBAR SPINE WITHOUT CONTRAST 12/20/23 CLINICAL INFORMATION: Low back pain. COMPARISON: Lumbar spine radiographs 10/09/2023. FINDINGS: Transitional anatomy. For the purposes of this report there are articulating transverse processes bilaterally at L1 and S1 shares a rudimentary disc with S2. Please correlate with plain films prior to any percutaneous or surgical intervention. There is no bone marrow edema. There are no acute fractures. The vertebral body heights are maintained. The disc volumes are preserved and the discs remain well-hydrated. Conus terminates at the L1 level. Partially imaged fibroid uterus. L1-L2: Disc contour is normal. No central canal stenosis and no foraminal stenosis. L2-L3: Disc contour is normal. Mild bilateral facet arthropathy. No central canal stenosis and no foraminal stenosis. L3-L4: There is a small diffuse annular disc bulge and there is mild bilateral hypertrophic facet arthropathy. No central canal stenosis and no foraminal stenosis. L4-L5: There is a small diffuse annular disc bulge and there is mild bilateral facet arthropathy. There is no central canal stenosis. There is mild foraminal encroachment bilaterally. L5-S1: There is a diffuse annular disc bulge and there is moderate bilateral hypertrophic facet arthropathy. No central canal stenosis. Moderate to severe bilateral foraminal stenosis with mass effect on the exiting L5 nerve roots bilaterally. IMPRESSION: - At L5-S1, multifactorial degenerative changes result in moderate to severe bilateral foraminal stenosis with mass effect on the exiting L5 nerve roots bilaterally. Additional mild spondylitic changes as discussed in detail above. - There is transitional anatomy with articulating transverse processes bilaterally at L1 and a rudimentary disc at S1-S2. - Partially imaged fibroid uterus Assessment & Plan Assessment & Plan (1) Lumbar radiculopathy: Code(s): M54.16 - Radiculopathy, lumbar region Category: Medical (2) Lumbar degenerative disc disease: Code(s): M51.36 - Other intervertebral disc degeneration, lumbar region Category: Medical (3) Lumbar spondylosis: Code(s): M47.816 - Spondylosis without myelopathy or radiculopathy, lumbar region Category: Medical (4) Fibromyalgia: Code(s): M79.7 - Fibromyalgia Category: Medical (5) Sacroiliac joint pain: Code(s): M53.3 - Sacrococcygeal disorders, not elsewhere classified Category: Medical (6) Neural foraminal stenosis of lumbosacral spine: Code(s): M48.07 - Spinal stenosis, lumbosacral region Category: Medical (7) Bilateral hip pain: Code(s): M25.551 - Pain in right hip; M25.552 - Pain in left hip Category: Medical Plan Patient had no pain relief with diagnostic lumbar medial branch blocks and bilateral L5-S1 TFESI injections. Per most recent MRI, at L5-S1, multifactorial degenerative changes result in moderate to severe bilateral foraminal stenosis with mass effect on the exiting L5 nerve roots bilaterally. She also has transitional anatomy with articulating transverse processes bilaterally at L1 and a rudimentary disc at S1-S2. We will proceed with Neurosurgical evaluation to further address her back pain with radiculopathy. We also discussed repeating SIJ injections with steroids if normal hip xray. All questions and concerns have been addressed and patient agreed with the plan. Follow up for xray results and sooner as needed. Orders: Orders 2 XR hip BI w PEL1V Today M25.551 - Pain in right hip, M25.552 - Pain in left hip, M53.3 - Sacrococcygeal disorders, not elsewhere classified Referrals 2 Neuro Spine Referral M48.07 - Spinal stenosis, lumbosacral region, M51.36 - Other intervertebral disc degeneration, lumbar region, M54.16 - Radiculopathy, lumbar region Medications: Discontinued 2 morphine Partial Fill upon patient request. Discontinued Reason: Patient Completed Course 15 mg PO BID 7 days PRN 14 tabs 0RF pain (scale score 7-10) G58.8 - Other specified mononeuropathies, M51.36 - Other intervertebral disc degeneration, lumbar region, M54.16 - Radiculopathy, lumbar region Coding Level of Care Code Est Pt Level 4 (80754) Complex EM visit Add On G2211 Diagnoses Lumbar radiculopathy M54.16 Lumbar degenerative disc disease M51.36 Lumbar spondylosis M47.816 Fibromyalgia M79.7 Sacroiliac joint pain M53.3 Neural foraminal stenosis of lumbosacral spine M48.07 Bilateral hip pain M25.551; M25.552
[2024-09-19 10:00] VITALS: BP 182/102; PULSE 71; O2SAT 98; BMI 34.0
== END 2024-09-19 10:35 | disposition home or self-care (01) ==
PROVIDERS: Visit Provider Nurse Practitioner Family
DX: M54.16 Radiculopathy, lumbar region (principal); M51.369 Other intervertebral disc degeneration, lumbar region without mention of lumbar back pain or lower extremity pain; M47.816 Spondylosis without myelopathy or radiculopathy, lumbar region; M79.7 Fibromyalgia; M53.3 Sacrococcygeal disorders, not elsewhere classified; M48.07 Spinal stenosis, lumbosacral region; M25.551 Pain in right hip; M25.552 Pain in left hip
CPT/HCPCS: 99214; G2211

== ENCOUNTER → 2024-09-19 09:48 | Outpatient (BNVA) | payer OTHER, SELFPAY | PROVIDERS: Visit Provider Nurse Practitioner Family | DX: M54.16 Radiculopathy, lumbar region (principal); M51.360 Other intervertebral disc degeneration, lumbar region with discogenic back pain only; M47.816 Spondylosis without myelopathy or radiculopathy, lumbar region; M79.7 Fibromyalgia; M53.3 Sacrococcygeal disorders, not elsewhere classified; M48.07 Spinal stenosis, lumbosacral region; M25.551 Pain in right hip; M25.552 Pain in left hip | CPT/HCPCS: 99212 ==

== ENCOUNTER 2024-09-24 11:04 | Outpatient (REF) | payer OTHER, SELFPAY ==
--- NOTE | ~2024-09-24 | XR_ITS ---
EXAMINATION: XR BILATERAL HIPS WITH AP PELVIS CLINICAL INFORMATION: M53.3 - Sacrococcygeal disorders, not elsewhere classified. Pain, no known injury. COMPARISON: None available. TECHNIQUE: AP view of the pelvis and single views of each hip were obtained. FINDINGS: Normal mineralization. No fractures, dislocation, or suspicious bone lesions. Normal alignment of the bilateral hip joints. Femoral heads maintain normal contour. No evidence of AVN. Somewhat overriding acetabula are noted bilaterally, finding which can be associated with pincer-type ASHVIN. Sacrum and SI joints appear normal. Lower lumbar spine appears normal. Soft tissues appear normal. XR/XR hip BI w PEL1V IMPRESSION: 1. No acute findings in the joints or SI joints. 2. Somewhat overriding posterior acetabula are noted bilaterally, finding which can be associated with pincer-type ASHVIN. Electronically signed by: Maehndra Dunn MD 10/16/2024 01:04 [facility]
== END 2024-09-24 11:05 | disposition home or self-care (01) ==
LOC: HO.XRAY 11:04
PROVIDERS: Absent Provider Nurse Practitioner Family; PCP Internal Medicine; Visit Provider Internal Medicine
DX: M53.3 Sacrococcygeal disorders, not elsewhere classified (principal); M25.551 Pain in right hip; M25.552 Pain in left hip; M25.521 Pain in right elbow
CPT/HCPCS: 73070; 73521

== ENCOUNTER → 2024-09-24 11:10 | Outpatient (BNV) | payer OTHER, SELFPAY | PROVIDERS: Absent Provider Nurse Practitioner Family; PCP Internal Medicine; Visit Provider Radiology Diagnostic Radiology | DX: M24.851 Other specific joint derangements of right hip, not elsewhere classified (principal); M24.852 Other specific joint derangements of left hip, not elsewhere classified | CPT/HCPCS: 73521 ==

== ENCOUNTER 2024-11-11 14:55 | Outpatient (AMB) | payer OTHER, SELFPAY ==
--- NOTE | 2024-11-11 14:59 | A.OFFVIS_ITS ---
Vital Signs 11/11/24 15:07 Height 5 ft 4 in Weight 202 lb 6 oz BMI 34.7 BP 186/96 H Blood Pressure Location Lt brachial Position Sitting Pulse 68 Pulse Source Pulse Oximeter Pulse Oximetry (%) 98 Oxygen Delivery Method Room Air Intake Visit Reasons: Xray results Intake Note: Pain today 04/14 Accompanied by: Other Relationship Allergies No Known Allergies [No Known Allergies*] Allergy (Verified 11/11/24 15:09) HPI Comments Details: Patient presents today for follow up to discuss recent bilateral hip with pelvic views imaging results. Denies any recent cough, cold, infection, fever, any significant changes in her medical history, medications or recent hospitalizations. PRIOR: Patient presents today to assess response to Bilateral L5-S1 TFESI on 08/15/[address] Padilla. electronic prepress operator was offered, patient declined. She requests her family to assists in translation. Patient reports 0% pain relief since procedure with no improvement in her daily activities and functioning, mobility, sleep, mood, and social interactions. Unfortunately she had no pain relief with diagnostic lumbar medial branch blocks as well. Patient continues to report lower back pain radiating to her buttocks and into lower extremities, mostly posteriorly with associated burning, numbness, and tingling. Reports lateral hip pain radiating to her thighs and groins. Patient reports pain with prolonged sitting. We discussed repeating SI joint injections with steroid and proceed with Neurosurgical evaluation to address her radicular symptoms due to neuroforaminal stenosis. She has difficulty performing her daily activities, especially house chores. Denies any fever or chills, cold symptoms or cuff, dizziness, shortness of breath, chest pain, weakness, bladder or bowel dysfunction or saddle anesthesia. Past Procedures: 08/15/24: Bilateral L5-S1 TFESI injection-0% pain relief 01/29/24: Bilateral Diagnostic L3 L4 DR L5 MBB-0% pain relief 11/06/23: Bilateral Diagnostic SIJ injections-100% ongoing pain relief PRIOR: Patient is a pleasant 38 year old Tanzanian speaking female with history of fibromyalgia, arthritis, polyarthralgia and chronic neck, thoracic and lumbar pain presents today for initial evaluation for chronic mid and low back pain. She was followed by [facility] up until 09/13/2023. Patient was also seen by [facility] for back and hip pain. She reports upcoming surgery for neurogenic thoracic outlet syndrome with Dr. Meyers at [facility] next year. Patient was also seen at [facility] for ankle pain, by Dr. De La O for hand pain and by Rheumatology for hand pain. Patient was referred to us by Dr. Natarajan at [facility] Physiat[facility] for low back pain. She had underwent bilateral L3-L4-L5 medial branch blocks and interlaminar epidural injections at L5-S1 and completed physical and chiropractic therapies without much relief at [facility]. Patient reports back pain that radiates upward to her upper thoracic, between shoulder blades and down into her sacral regions bilaterally but not into her lower extremities. Patient also reports widespread body pain with multiple tender points of upper and lower extremities and torso which is consistent with fibromyalgia. Patient has been managing amitriptyline and Lyrica, and also tried gabapentin without relief. Per Physiatry notes, MRI 06/05/2022 reported no significant spinal stenosis, spondylosis L4-5 and L5-S1. EMG reported to be normal lower extremity. Pain negatively affects her daily functioning, mood, sleep and quality of life. Patient denies any fever, weight loss, abdominal or groin pain, weakness, bladder or bowel dysfunction or saddle anesthesia. Location Chronic pain in lower back and sacral, between shoulder blades, mid back Duration Chronic pain for > 3 years Characteristics of symptom or complaint Aching, spasms, numbness, tingling, dull, shooting, pulling, radiating Aggravating or associated factors Movements, walking, standing, cold weather Relieving factors Sitting, resting, heat therapy, Gabapentin/Lyrica, Ibuprofen, lidocaine Treatment PT, injections at [facility], chiropractic therapy-minimal relief [facility] Medical History Polyarthralgia Fibromyalgia High blood pressure Rash Lumbar pain Obese Surgical History History of local excision of skin lesion (08/03/22) S/P ligament repair History of hand surgery History of tubal ligation Family History Father No problems noted. Mother Diabetes Hypertension Paternal Aunt Breast cancer Family/Other Chronic mental illness Brother No problems noted. Brother No problems noted. Brother No problems noted. Sister No problems noted. Sister No problems noted. Son In good health Daughter In good health Social History Housing: Apartment Alcohol intake: current Alcohol intake frequency: holidays/special occasions only Alcohol type: wine and other Patient Tobacco Use Status: Never used Tobacco e-Cigarette/Vaping Use: Never Used Second Hand Smoke Exposure: No service: No Current occupational status: unemployed Cognitive needs: No Hearing needs: No Vision needs: Yes (Glasses) Female Reproductive History Menstrual Age of Menarche: 14 Review of Systems Const All systems reviewed & are unremarkable except as noted in HPI and below Physical Exam Vital Signs: Last Vital Signs Pulse 68 11/11/24 15:07 BP 186/96 H 11/11/24 15:07 Pulse Ox 98 11/11/24 15:07 Oxygen Delivery Method Room Air 11/11/24 15:07 BMI result Body Mass Index 34.7 General: Appears afebrile. Alert and oriented. Mood and affect appropriate. Follows and participates in conversation appropriately. Respiratory effort is unlabored. No cough. Able to transition from sit to stand unassisted. Ambulates with bilaterally normal heel strike and toe off. General: Yes no CVA tenderness Back/Spine/Pelvis Other: Limited thoracolumbar ROM due to pain. Lumbar flexion and extension reproduce moderate pain. Seated straight leg rise with dorsiflexion negative bilaterally. +2 patellar and +1 achilles reflexes bilaterally. Facet loading test positive bilaterally. Bienvenido sign positive bilaterally, Etienne?s test reproduces bilateral hip pain and low back pain, worse on the right. Moderate groin pain with I/E hip rotations bilaterally, left worse than right. +FADIR, left>right. Multiple widespread TTPs 16/16 bilaterally, including upper and lower extremities. Back: no CVA tenderness Cervical Spine: cervical ROM normal, cervical muscular tenderness, pain with cervical ROM and No Cervical spine tenderness Thoracic/Lumbar Spine: thoracic and lumbar spine normal to inspection, No Thoracic/lumbar spine scar(s), Lasegue's sign negative, straight leg raise negative bilaterally, pain with thoraco-lumbar ROM, paraspinal muscle tenderness, thoraco-lumbar ROM limited, No thoracic spinal tenderness and lumbar spinal tenderness at L4 and at L5 Pelvis: buttock tenderness bilaterally Sacroiliac joints: bilaterally tender to palpation Extrem General: Yes capillary refill normal, Yes no clubbing, cyanosis or edema and Yes no calf tenderness Results Reviewed Results Reviewed: XR BILATERAL HIPS WITH AP PELVIS 09/24/24 CLINICAL INFORMATION: M53.3 - Sacrococcygeal disorders, not elsewhere classified. Pain, no known injury. FINDINGS: Normal mineralization. No fractures, dislocation, or suspicious bone lesions. Normal alignment of the bilateral hip joints. Femoral heads maintain normal contour. No evidence of AVN. Somewhat overriding acetabula are noted bilaterally, finding which can be associated with pincer-type ASHVIN. Sacrum and SI joints appear normal. Lower lumbar spine appears normal. Soft tissues appear normal. IMPRESSION: 1. No acute findings in the joints or SI joints. 2. Somewhat overriding posterior acetabula are noted bilaterally, finding which can be associated with pincer-type ASHVIN. Assessment & Plan Assessment & Plan (1) Lumbar spondylosis: Code(s): M47.816 - Spondylosis without myelopathy or radiculopathy, lumbar region Category: Medical (2) Bilateral hip pain: Code(s): M25.551 - Pain in right hip; M25.552 - Pain in left hip Category: Medical (3) Femoral acetabular impingement: Code(s): M25.859 - Other specified joint disorders, unspecified hip Category: Medical (4) Osteoarthritis of right hip: Code(s): M16.11 - Unilateral primary osteoarthritis, right hip Category: Medical (5) Fibromyalgia: Code(s): M79.7 - Fibromyalgia Category: Medical Plan Bilateral hip with pelvic view imaging reports were reviewed with patient today. She was referred to Orthopedics and was recommended to trial fluoroscopy guided hip injections. Schedule left hip intra-articular steroid injection with local and fluoroscopy. Expectations, risks and benefits were reviewed. Patient is aware she will be contacted to schedule this procedure. Subsequently will schedule right hip injection one month apart. All questions were answered and the patient is in agreement of plan. Follow-up after injections and sooner as needed. Coding Level of Care Code Est Pt Level 4 (20811) Complex EM visit Add On G2211 Diagnoses Lumbar spondylosis M47.816 Bilateral hip pain M25.551; M25.552 Femoral acetabular impingement M25.859 Osteoarthritis of right hip M16.11 Fibromyalgia M79.7
[2024-11-11 15:07] VITALS: BP 186/96; PULSE 68; O2SAT 98; BMI 34.7
== END 2024-11-11 15:17 | disposition home or self-care (01) ==
PROVIDERS: PCP Internal Medicine; Visit Provider Nurse Practitioner Family
DX: M47.816 Spondylosis without myelopathy or radiculopathy, lumbar region (principal); M25.551 Pain in right hip; M25.552 Pain in left hip; M25.859 Other specified joint disorders, unspecified hip; M16.11 Unilateral primary osteoarthritis, right hip; M79.7 Fibromyalgia
CPT/HCPCS: 99214; G2211

== ENCOUNTER → 2024-11-11 14:55 | Outpatient (BNVA) | payer OTHER, SELFPAY | PROVIDERS: PCP Internal Medicine; Visit Provider Nurse Practitioner Family | DX: M79.7 Fibromyalgia (principal); M47.816 Spondylosis without myelopathy or radiculopathy, lumbar region; M25.552 Pain in left hip; M16.11 Unilateral primary osteoarthritis, right hip | CPT/HCPCS: 99212 ==

== ENCOUNTER 2024-12-08 12:26 | Outpatient (AMB) | payer OTHER, SELFPAY ==
--- NOTE | 2024-12-08 12:33 | MHC.PC.OV ---
Vital Signs 12/08/24 12:34 Height 5 ft 4 in BMI Reason not done Patient refused/unable BP 140/88 H Blood Pressure Location Lt brachial Position Sitting Intake Visit Reasons: medication follow up Acquisitions Editor Required: Yes Acquisitions Editor Language: Medical Coder Name: Dorothea Carey MD Information Interpreted: non-clinical & clinical Accompanied by: Friend Allergies No Known Allergies [No Known Allergies*] Allergy (Verified 12/08/24 12:46) Medication List - Last Reconciled 12/08/24 by Dorothea Carey MD acetaminophen 500 mg PO Q6H PRN 30 days amitriptyline 10 mg PO BEDTIME blood pressure monitor As directed cane As directed [hand held showerhead As directed] lisinopril 5 mg PO DAILY 90 days naloxone 4 mg/actuation (Narcan) 4 mg intranasal Q2M PRN sertraline 50 mg PO DAILY Shower Chair As directed trazodone 25 - 50 mg (0.5 - 1 x 50 mg) PO BEDTIME PRN 30 days Tobacco use date assessed: 12/08/24 Dental Screening Dental Screen Date: 12/08/24 Did you have a dental visit in the last 12 months?: No Did you have a dental problem in the last 6 months where you did not have access to dental care?: No Was dental information given to patient?: Patient has dentist HPI HPI Comments History of Present Illness Details This is a 39-year-old female with hypertension that comes accompanied by significant other complaining of chronic low back pain due to lumbar degenerative disc disease and is asking for oxycodone. She tried morphine which did not work out for her. Oxycodone did relieved the pain. Tramadol does helps with the pain but cause her a headache. Gabapentin did not work for her. Apparently she had pregabalin at some point and did not work for her either. I will start her on tramadol and patient is well aware that is on opiate which can cause addiction and sedation. She follows with pain management. She also has elevated blood pressure today and did took lisinopril therefore I will increase lisinopril from 5 mg to 10 mg. She does have mild depression with anxiety and insomnia follow by Psychiatry. [facility] Medical History (Updated 12/08/24 @ 13:08 by Dorothea Carey MD) Polyarthralgia Fibromyalgia High blood pressure Rash Lumbar pain Obese Surgical History (Updated 12/08/24 @ 12:51 by Dorothea Carey MD) H/O eye surgery S/P tendon repair History of local excision of skin lesion (08/03/22) S/P ligament repair History of hand surgery History of tubal ligation Family History Father No problems noted. Mother Diabetes Hypertension Paternal Aunt Breast cancer Family/Other Chronic mental illness Brother No problems noted. Brother No problems noted. Brother No problems noted. Sister No problems noted. Sister No problems noted. Son In good health Daughter In good health Social History Housing: Apartment Alcohol intake: current Alcohol intake frequency: holidays/special occasions only Alcohol type: wine and other Patient Tobacco Use Status: Never used Tobacco e-Cigarette/Vaping Use: Never Used Second Hand Smoke Exposure: No service: No Current occupational status: unemployed Cognitive needs: No Hearing needs: No Vision needs: Yes (Glasses) Female Reproductive History Menstrual Age of Menarche: 14 Questionnaire PHQ-9 Over the last 2 weeks, how often have you been bothered by any of the following problems? 1. Little interest or pleasure in doing things: not at all 2. Feeling down, depressed, or hopeless: not at all 3. Trouble falling or staying asleep, or sleeping too much: not at all 4. Feeling tired or having little energy: not at all 5. Poor appetite or overeating: not at all 6. Feeling bad about yourself - or that you are a failure or have let yourself or your family down: not at all 7. Trouble concentrating on things, such as reading the newspaper or watching television: not at all 8. Moving or speaking so slowly that other people could have noticed. Or the opposite - being so fidgety or restless that you have been moving around a lot more than usual: not at all 9. Thoughts that you would be better off or of hurting yourself in some way: not at all Total score: 0 Depression Screening Interpretation: Negative Depression Screening Done: Yes 48813 - PHQ-9 Billing: Yes Source: Developed by Drs. Compa Berger, Lucas Palomo and colleagues, with an educational stefania from [employer]. Thrive Questionnaire Date Thrive assessed: 12/08/24 I am a: Patient What is your living situation today?: I have a steady place to live Within the past 12 months, did the food you bought not last and you didn't have the money to get more?: Never true Within the past 12 months, did you worry whether your food would run out before you got money to buy more?: Never true Do you have trouble paying for medicines?: No Do you have trouble getting transportation to medical appointments?: No Do you have trouble paying your heating and electricity bill?: No Do you have trouble taking care of your child, family member or friend?: No Do you have trouble with day-to-day activities such as bathing, preparing meals, shopping, managing finances, etc.?: No Are you currently unemployed and looking for a job?: No Are you interested in more education?: No Please select the resources that you would like help with: None Currently or been in a relationship where the following occur: No concerns reported THRIVE Score: 0 AUDIT C Alcohol Use Questionnaire (AUDIT-C) 1. How often do you have a drink containing alcohol?: Monthly or less 2. How many drinks containing alcohol do you have on a typical day when you are drinking?: 1 or 2 3. How often do you have six or more drinks on one occasion?: Never Total Score: 1 Score Reviewed/Action Taken: No NANDO-7 AMB Questionnaire NANDO-7 Date NANDO - 7 assessed: 12/08/24 Feeling nervous, anxious, or on edge: 1 = Several days Not being able to stop or control worryin = Not at all Worrying too much about different things: 1 = Several days Trouble relaxin = Several days Being so restless that it is hard to sit still: 0 = Not at all Becoming easily annoyed or irritable: 1 = Several days Feeling afraid as if something awful might happen: 0 = Not at all Total NANDO-7 score (0-4 normal; 5-9 mild; 10-14 moderate; 15-21 severe): 4 Source: Developed by Patti Segura Kurt Kroenke and colleagues, with an educational stefania from [employer]. NANDO-7 Assessment Billing NANDO-7 Assessment Tool: NANDO-7 Assessment 36617 Review of Systems Const All systems reviewed & are unremarkable except as noted in HPI and below Card Denies chest pain at rest, Denies chest pain with activity, Denies edema, Denies irregular heart rhythm, Denies claudication, Denies dyspnea, Denies dyspnea on exertion, Denies orthopnea, Denies paroxysmal nocturnal dyspnea and Denies slow heart rate Resp Denies cough, Denies dyspnea and Denies dyspnea on exertion Physical exam (Primary Care) Vital Signs: Last Vital Signs BP 140/88 H 12/08/24 12:34 Tobacco/Smoking Status: Tobacco use Status Tobacco use date assessed 12/08/24 12/08/24 12:42 Patient Tobacco Use Status Never used Tobacco 12/08/24 12:42 e-Cigarette/Vaping Use Never Used 12/08/24 12:42 PHQ-9: PHQ-9 Score PHQ-9: Total score 0 12/08/24 12:43 Depression Screening Interpretation: Negative Thrive Assessment: Date of Thrive Assessment Date Thrive assessed 12/08/24 12/08/24 12:42 Currently or been in a relationship where the following occur: No concerns reported Const Limitations: ambulation with cane Resp Effort & Inspection: normal respiratory effort Auscultation: clear to auscultation bilaterally Cardio Jugular venous distension: no JVD Rate: regular rate Rhythm: regular rhythm Heart sounds: S1 normal heart sound present and S2 normal heart sound present Extrem Other: Left foot cast Coding Level of Care Code Est Pt Level 4 (48917) Complex EM visit Add On G2211 Diagnoses Essential hypertension I10 Mild major depression F32.0 NANDO (generalized anxiety disorder) F41.1 Degeneration of intervertebral disc of lumbar region with discogenic back pain M51.360 Disc-related pain type: discogenic back pain only Additional Codes PHQ-9 - 79397 - PHQ-9 Billing: Yes ([id number]) NANDO-7 Assessment Billing - NANDO-7 Assessment Tool: NANDO-7 Assessment 59447 ([id number]) Time Spent (min) 22 Assessment & Plan Assessment & Plan (1) Essential hypertension: Code(s): I10 - Essential (primary) hypertension Category: Medical (2) Mild major depression: Code(s): F32.0 - Major depressive disorder, single episode, mild Category: Medical (3) NANDO (generalized anxiety disorder): Code(s): F41.1 - Generalized anxiety disorder Category: Medical (4) Lumbar degenerative disc disease: Code(s): M51.36 - Other intervertebral disc degeneration, lumbar region Category: Medical Qualifiers: Disc-related pain type: discogenic back pain only Qualified Code(s): M51.360 - Other intervertebral disc degeneration, lumbar region with discogenic back pain only Plan I will increase lisinopril from 5 mg to 10 mg. Blood pressure goal is equal or less than 130/80. Recheck blood pressure with nurse navigator in 3 weeks. For depression with anxiety and insomnia follow with Psychiatry. Follow-up with pain management for her lumbar degenerative disc disease. I will start her on tramadol. Orders: Orders Vitamin D 25-OH Total Today E55.9 - Vitamin D deficiency, unspecified Comprehensive [place]. Panel Fast Today M25.551 - Pain in right hip, M25.552 - Pain in left hip Lipid Panel Today E78.5 - Hyperlipidemia, unspecified Vitamin B12 and Folate Today E53.8 - Deficiency of other specified B group vitamins Complete Blood Count Auto Diff Today D64.9 - Anemia, unspecified IRON PROFILE Today D64.9 - Anemia, unspecified Medications: New tramadol 50 mg PO DAILY 30 days PRN 30 tabs 0RF pain lisinopril 10 mg PO DAILY 90 days 90 tabs 1RF Discontinued lisinopril Discontinued Reason: Order 5 mg PO DAILY 90 days 90 tabs 0RF I10 - Essential (primary) hypertension Patient Instructions: Do not take any other opiates while being on tramadol. Follow-up with pain management. Follow-up with psychiatry. Be compliant with your medications.
[2024-12-08 12:34] VITALS: BP 140/88
--- OUTSIDE RECORDS SUMMARY | 2024-12-08 13:44 | XMS_ITS | Encounter Summary ---
Author Organization [employer] Address [address] [place] [address] Care Team Providers Care Midlevel Provider Name Role Phone Dorothea Carey MD Primary Care Provider [phone] Encounter Details Date Type Department Care Team (Late st Contact Info) Description 09/01/2024 3:00 PM EDT Hospital Encounter TH HISTORIC ENCOUNTERS EASTERN CONVERSION ONLY Nichelle De La O MD [address] [facility] [address] [place] [address] Social History Tobacco Use Types Packs/Day Years Used Date Smoking Tobacco: Never Smokeless Tobacco: Never Alcohol Use Standard Drinks/Week Comments Yes 0 (1 standard drink = 0.6 oz pur e alcohol) Sex and Gender Information Value Date Recorded Sex Assigned at Not on file Gender Identity Not on file Sexual Orientation Not on file Job Start Date Occupation Industry Not on file Not on file Not on file documented as of this [...] UPON REACH MET 10/13 #4 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 60 POUNDS = 75 PERCENT OF THR RIGHT / REMAINS 40 POUNDS #5 INCORPORATE ROM AND STRETCHING INTO DAILY REGIME MET PT LTG General No Jada Stapleton, PT Note: Pt will be I with HEP to demonstrate compliance with POC Pt will report pain </= 3/10 Pt will demonstrate improved tolerance to navigating stairs, especially with descending Pt will demonstrate SL heel raise >/= 6 reps on L Pt will demonstrate L ankle DF ROM >/= 5* Pt will demonstrate improved gait mechanics and tolerance to 6 MWT, improving to >/= 1300 feet documented as of this encounter Visit Diagnoses Not on filedocumented in this encounter Care Teams Midlevel Provider Relationship Specialty Start Date End Date Dorothea Carey MD [address] [place] [address] , [address] [facility] Physician Associ D/B/A: [facility] RUBIN Rowley PCP - General Internal Medicine 08/15/21 documented as of this encounter
--- OUTSIDE RECORDS SUMMARY | 2024-12-08 13:45 | XMS_ITS | Clinical Summary ---
Author Organization Patient Business [facility] Address [address] [place] [address] Care Team Providers Care Housing Counselor Name Role Phone Dorothea Carey MD Primary Care Provider [phone] Medications Medication Sig Dispensed Refills Start Date End Date Status amitriptyline (ELAVIL) 10 mg tablet Take 1 tablet (10 mg total) by mouth at bedtime. 01/14/2024 Active cyclobenzaprine (FLEXERIL) 10 mg tablet TAKE 1 TABLET BY MOUTH EVERY DAY AT BEDTIME NEEDED FOR MUSLCE SPASM 07/21/2024 Active Active Problems Problem Noted Date Diagnosed Date Tibialis posterior tendonitis, left 09/16/2024 Left hand pain 09/15/2024 Encounters Date Type Department Care Team Description 11/12/2024 Telephone Orthopedic Surgery [facility] [address] [facility] [address] [place] [address] Nichelle De La O MD Neurology referral 10/14/2024 1:15 PM EST Office Visit Orthopedic Surgery [facility] [address] [facility] [address] [place] [address] Nichelle De La O MD Left hand pain (Primary Dx) 10/13/2024 3:[address] [facility] [address] [facility] [address] [place] [address] Brenda Arechiga, OT Left hand pain (Primary Dx) 10/07/2024 3:00 PM EST Treatment [facility] [address] [phone] Jada Stapleton, PT Tibialis posterior tendonitis, left (Primary Dx) 10/06/2024 3:[address] [facility] Occupational [facility] [address] [phone] Brenda Arechiga, OT Left hand pain (Primary Dx) 09/30/2024 2:30 PM EST Treatment [facility] [address] [address] Jada Stapleton, PT Tibialis posterior tendonitis, left (Primary Dx) 09/29/2024 3:[address] [facility] Occupational [facility] [address] [phone] Brenda Arechiga, OT Left hand pain (Primary Dx) 09/25/2024 3:30 PM EST Treatment [facility] [address] [phone] Reed Price, [employer] Tibialis posterior tendonitis, left (Primary Dx) 09/22/2024 3:15 PM EST Treatment [facility] [address] [phone] Brenda Arechiga, OT Left hand pain (Primary Dx) 09/16/2024 3:00 PM EST Evaluation [facility] [address] [phone] Jada Stapleton, PT Tibialis posterior tendonitis, left (Primary Dx) 09/15/2024 3:[address] [facility] Occupational [facility] [address] [phone] Brenda Arechiga, OT Left hand pain (Primary Dx) from Last 3 Months Surgical History Surgery Date Site/Laterality Comments ANKLE FRACTURE SURGERY Left PROCEDURE: DC OPEN TREATMENT MEDIAL MALLEOLUS FRACTURE OTHER SURGICAL HISTORY Left PROCEDURE: DC ARTHRS WRST EXC&/RPR TRIANG FIBROCART&/JOINT Social History Tobacco Use Types Packs/Day Years [...] file Not on file Not on file Obstetrics History Last Filed Vital Signs Vital Sign Reading Time Taken Comments Blood Pressure 146/100 01/18/2024 9:54 AM EDT Sit ting L Arm Pulse 73 01/18/2024 9:54 AM EDT Temperature - - Respiratory Rate - - Oxygen Saturation - - Inhaled Oxygen Concentration - - Weight 90.7 kg (200 lb) 10/14/2024 1:11 PM EST Height 162.6 cm (5' 4 ) 10/14/2024 1:11 PM EST Body Mass Index 34.33 10/14/2024 1:11 PM EST Plan of Treatment Health Maintenance Due Date Last Done Comments Breast Cancer Screening 1984 DTaP,Tdap,and Td Vaccines (1 - Tdap) 2003 Hepatitis B Vaccines (1 of 3 - 19+ 3-dose series) 2003 Cervical Cancer Screening: P ap Smear 2005 Depression Screening 05/28/2022 HIV Screening 05/28/2022 Hepatitis C Screening 05/28/2022 Social Influencers of Health Screening 05/28/2022 COVID-19 Vaccine ( - 2023-2 5 season) 2024 Influenza Vaccine (#1) 2024 HIB Vaccines Aged Out No longer eligi ble based on patient's age to complete this topic HPV Vaccines Aged Out No longer eligi ble based on patient's age to complete this topic Hepatitis A Vaccines Aged Out No long er eligible based on patient's age to complete this topic IPV Vaccines Aged Out No longer eligi ble based on patient's age to complete this topic MMR Vaccines Aged Out No longer eligi ble based on patient's age to complete this topic Meningococcal ACWY Vaccine Aged Out N o longer eligible based on patient's age to complete this topic Pneumococcal Vaccine: Pediat rics (0 to 5 Years) and At-Risk Patients (6 to 64 Years) Aged Out No longer eligible b ased on patient's age to complete this topic RSV Immunization Patients Un michelle 20 months Aged Out No longer eligible b ased on patient's age to complete this topic Varicella Vaccines Aged Out No longer eligible based on patient's age to complete this topic Goals Goal Patient Goal Type Associated Problems [...] UPON REACH MET 10/13 #4 IMPROVE LEFT BIOMEDICAL MANAGER FROM 40 TO 60 POUNDS = [...] 6 MWT, improving to >/= 1300 feet Care Teams Housing Counselor Relationship Specialty Start Date End Date Dorothea Carey MD [address] [place] [address] Dr[address] [facility] Physician Associ D/B/A: [facility] RUBIN Rowley PCP - General Internal Medicine 08/15/21
--- OUTSIDE RECORDS SUMMARY | 2024-12-08 13:45 | XMS_ITS | Encounter Summary ---
Author Organization [facility] Address [address] [place] [address] Care Team Providers Care Windows Security Engineer Name Role Phone Dorothea Carey MD Primary Care Provider [phone] Reason for Visit * Reason Onset Date Comments Neurology referral 11/12/2024 Encounter Details Date Type Department Care Team ([facility] st Contact Info) Description 11/12/2024 Telephone Orthopedic Surgery - [place] [address] [facility] 250 [place] [address] Nichelle De La O MD 175 [facility] [address] [place] [address] Neurology referral Social History Tobacco Use Types Packs/Day Years [...] on file documented as of this encounter Progress Notes * Shyanne Lopes - 11/12/2024 10:39 AM EST Patient is calling office stating that Dr De La O referred her for a Neurology appt @ her last OV in October, but she stilt has not been contacted. With an appt date and time. Augustine advisjn. She would like a call back @! [phone] . documented in this encounter Plan of Treatment Not on [...] UPON REACH MET 10/13 #4 IMPROVE LEFT KILN CHARGER FROM 40 TO 60 POUNDS = 75 PERCENT OF THR RIGHT / REMAINS 40 POUNDS #5 INCORPORATE ROM AND STRETCHING INTO DAILY REGIME MET PT LTG General No aJda Stapleton, PT Note: Pt will be I [...] on filedocumented in this encounter Care Teams Windows Security Engineer Relationship Specialty Start Date End Date Dorothea Carey MD [address] [place] [address] , [address] [facility] Physician Associ D/B/A: [facility] RUBIN Rowley PCP - General Internal Medicine 08/15/21 documented as of this encounter
== END 2024-12-08 13:03 | disposition home or self-care (01) ==
PROVIDERS: PCP Internal Medicine; Visit Provider Internal Medicine
DX: I10 Essential (primary) hypertension (principal); F32.0 Major depressive disorder, single episode, mild; F41.1 Generalized anxiety disorder; M51.360 Other intervertebral disc degeneration, lumbar region with discogenic back pain only; Z23 Encounter for immunization

== ENCOUNTER → 2024-12-08 12:26 | Outpatient (BNVA) | payer OTHER, SELFPAY | PROVIDERS: PCP Internal Medicine; Visit Provider Internal Medicine | DX: I10 Essential (primary) hypertension (principal); F32.0 Major depressive disorder, single episode, mild; F41.1 Generalized anxiety disorder; M51.360 Other intervertebral disc degeneration, lumbar region with discogenic back pain only | CPT/HCPCS: 90471; 96127; 99212 ==

== ENCOUNTER 2025-02-18 15:11 | Outpatient (REF) | payer OTHER, SELFPAY ==
--- OUTSIDE RECORDS SUMMARY | 2025-02-18 17:44 | XMS_ITS | Encounter Summary ---
Author Organization [employer] Address [address] [place] [address] Care Team Providers Care Mine Inspector Federal Name Role Phone Dorothea Carey MD Primary Care Provider [phone] Reason for Visit * Reason Comments Follow-up Numbness/tingling; f ingers locking Encounter Details Date Type Department Care Team (Late st Contact Info) Description 02/17/2025 1:30 PM EDT Office Visit Orthopedic Surgery - [place] 175 [facility] [address] [place] [phone] Nichelle De La O MD [address] [address] Joint locking (Primary Dx); Left hand pain Social History Tobacco Use Types Packs/Day Years [...] on file documented as of this encounter Last Filed Vital Signs Vital Sign Reading Time Taken Comments Blood Pressure - - Pulse - - Temperature - - Respiratory Rate - - Oxygen Saturation - - Inhaled Oxygen Concentration - - Weight 90.7 kg (200 lb) 02/17/2025 1:36 PM EDT Height 162.6 cm (5' 4 ) 02/17/2025 1:36 PM EDT Body Mass Index 34.33 02/17/2025 1:36 PM EDT documented in this encounter Progress Notes * Nichelle De La O MD - 02/17/2025 1:30 PM EDT CHIEF COMPLAINT/REASON FOR VISIT: Continued problems with the left hand SUBJECTIVE: Patient is here today with her family member. The patient is Romanian-speaking and we have Jo #[id number] assisting us today. The patient was last seen in October. She continues to have a sense of locking and cramping in the wrist and hand on the left. This comes up when she uses the hand. She cannotopen bottles or hold things for very long. This problem goes back quite a ways. She was not helped by any carpal tunnel injections. She did have surgery with thoracic and had a thoracic outlet decompression. She thinks maybe that helped a little bit but she continues to have this locking sensation.It comes on with use of the hand. She is not having numbness and tingling at rest. The use of a splint does not seem to matter. OBJECTIVE: On exam looking at the 2 hands there is perhaps a little faint redness more noticeable on the left than on the right. She is able to flex extend abduct and adduct the fingers and circumduct the thumbs bilaterally. To light touch grossly she has intact sensation on both the palmar and dorsal aspect of the fingers and of the palms. Tinel's test does not seem to bother her nor does Phalen's. The scratch collapse test is negative wrist range of motion is 70 of flexion 65 of extension on the right and 60 and 60 on the left. Both hands are warm and well- perfused and she has palpable radial pulses bilaterally. There is good capillary refill in the digits. There is no tenderness to palpation that is localized over the dorsum of either wrist. She has 55 pounds of conference producer strength on her right and 35 pounds on the left. It is after doing the conference producer testing that she just feels like the hand does not move. She holds it somewhat stiffly and the thumb becomes slightly adducted but I do not see any contractures or fibrillations in the muscles. She can still move it but she says it just feels different after use. ASSESSMENT: 1. Joint locking 2. Left hand pain Patient with some persistent sense of locking in the hand. This seems to be brought on by use. She has not had any of the usual positive provocative signs to indicate compression. The EMG nerve conduction study she had in November did not reveal any measurable focal compression. The hand appears to be well-vascularized. I am really at a loss as to how to explain her symptoms. 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 We will send word over to neurology and I will try to connect with Dr. Real to see what his thoughts are. Perhaps he knows of someone in his neurologic community that has a particular interest inthis condition. PLAN: We will work on this on our end and patient will call within the week if she does not get a messageback from her office. 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 Thoracic outlet syndrome associated with cervical rib TFCC (triangular fibrocartilage complex) injury, left, sequela Current Outpatient Medications: amitriptyline (ELAVIL) 10 mg tablet, Take 1 tablet (10 mg total) by mouth at bedtime., Disp: , Rfl: cyclobenzaprine (FLEXERIL) 10 mg tablet, TAKE 1 TABLET BY MOUTH EVERY DAY AT BEDTIME NEEDED FOR MUSLCE SPASM, Disp: , Rfl: documented in this encounter Plan of Treatment Upcoming Encounters Date Type Department Care Team (Late st Contact Info) Description 02/23/2025 3:30 PM EDT Treatment [facility] [address] [phone] Brijesh Alvarado, ADEN 02/25/2025 3:30 PM EDT Treatment [facility] [address] [phone] Brijesh Alvarado, ADEN 03/03/2025 3:30 PM EDT Treatment [address] [phone] Brijesh Alvarado, TECHNICAL ADVISOR 03/05/2025 3:00 PM EDT Treatment [facility] [address] [phone] Jenny Brijesh, TECHNICAL ADVISOR 03/09/2025 3:00 PM EDT Treatment [facility] [address] [phone] Brijesh Alvarado, TECHNICAL ADVISOR 03/11/2025 3:30 PM EDT Treatment [facility] [address] [phone] Brijesh Alvarado, TECHNICAL ADVISOR 03/16/2025 3:30 PM EDT Treatment [address] [phone] Brijesh Alvarado, TECHNICAL ADVISOR 03/18/2025 3:30 PM EDT Treatment [address] [phone] Jenny Brijesh, TECHNICAL ADVISOR 03/23/2025 3:30 PM EDT Treatment [address] [phone] Jenny Brijesh, TECHNICAL ADVISOR 03/25/2025 4:00 PM EDT Treatment [address] [phone] Compa Haney, PT documented as of this encounter Goals [...] UPON REACH MET 10/13 #4 IMPROVE LEFT ENERGY CONSULTANT FROM 40 TO 60 POUNDS = 75 PERCENT OF THR RIGHT / REMAINS 40 POUNDS #5 INCORPORATE ROM AND STRETCHING INTO DAILY REGIME MET PT LTGs General No Compa Haney, PT Note: Pt will ambulate x6 minutes with no left foot ankle pain Pt will ascend/descend 4 steps with reciprocal stepping pattern and no Left foot/ankle pain Pt will increase Left ankle AROM to WNL Pt will increase left ankle DF, InV and EV strength to 5/5 Pt will complete 2 reps LLE Single-leg heel raise Pt will be independent with HEP documented as of this encounter Visit Diagnoses Diagnosis Joint locking- Primary Unspecified derangement, joint, site unspecified Left hand pain Pain in soft tissues of limb documented in this encounter Care Teams Mine Inspector Federal Relationship Specialty Start Date End Date Dorothea Carey MD 2 [facility] , [address] [facility] D/B/A: [facility] RUBIN Rowley PCP - General Internal Medicine 08/15/21 documented as of this encounter
--- OUTSIDE RECORDS SUMMARY | 2025-02-18 17:44 | XMS_ITS | Clinical Summary ---
Author Organization [facility] [employer] [facility] Address [address] [place] [address] Care Team Providers Care Van Driver Helper Name Role Phone Dorothea Carey MD Primary Care Provider Allergies No known active allergies Medications amitriptyline (ELAVIL) 10 mg tablet Take 1 tablet (10 mg total) by mouth at bedtime. 01/14/2024 Active cyclobenzaprine (FLEXERIL) 10 mg tablet TAKE 1 TABLET BY MOUTH EVERY DAY AT BEDTIME NEEDED FOR MUSLCE SPASM 07/21/2024 Active Active Problems Problem Noted Date Diagnosed Date Closed fracture of medial malleolus 12/02/2024 Instability of left ankle joint 12/02/2024 Tibialis posterior tendonitis, left 09/16/2024 Left hand pain 09/15/2024 Cervical spondylosis 06/01/2022 Overview (02/17/2025): Last Assessment & Plan: I reviewed this information in detail with the patient and her family member. I believe her neck pain and headaches are due to mild spondylosis and a change in normal alignment. There is no clear explanation for the left arm symptoms based on the cervical MRI, brachial plexus MRI and EMG but she is very clear that she has been suffering with this for quite some time. I recommended trying cervical traction at physical therapy first to see how she tolerates it. I believe trying to straighten her back into lordosis will relieve some of the headache. She was given a referral slip to PT as well as a prescription for a home traction unit if it helps her. Thoracic outlet syndrome associated with cervica l rib 12/01/2021 Overview (02/17/2025): Last Assessment & Plan: She reports that the pain in her neck and since surgery has improved significantly but she still has some left shoulder pain that goes down her arm. She did have weakness prior to operation which she does not complain of now but also does not seem to have any weakness on exam where she did previously. Looking into her shoulder symptoms and numbness in her shoulder further she says this happens when she is more active like walking fast. I told her I will review this specifically with her primary care soon as possible for any potential further workup. We will send her to the pain specialist for some pain she still has occasionally in an intercostal pattern along her chest. Joint locking 10/07/2021 TFCC (triangular fibrocartil age complex) injury, left, sequela 10/07/2021 Encounters Date Type Department Care Team Description 02/17/2025 1:30 PM EDT Office Visit Orthopedic Surgery [address] [place] [address] Nichelle De La O MD Joint locking (Primary Dx); Left hand pain 02/12/2025 3:30 PM EDT Treatment [address] [phone] Compa Haney, PT Pain in left ankle and joints of left foot (Primary Dx) 02/06/2025 11:00 AM EDT Treatment [address] [phone] Lluvia Donald, PT Pain in left ankle and joints of left foot (Primary Dx) 01/28/2025 3:30 PM EDT Treatment [address] [phone] Brijesh Alvarado, ADEN Pain in left ankle and joints of left foot (Primary Dx); Tibialis posterior tendonitis, left 01/15/2025 5:00 PM EDT Evaluation [address] [phone] Compa Haney, PT Pain in left ankle and joints of left foot from Last 3 Months Surgical History Surgery Date Site/Laterality Comments ANKLE FRACTURE SURGERY Left PROCEDURE: [place] OPEN TREATMENT MEDIAL MALLEOLUS FRACTURE OTHER SURGICAL HISTORY Left PROCEDURE: [place] ARTHRS WRST EXC&/RPR TRIANG FIBROCART&/JOINT Social History [...] on file Sexual Orientation Not on file Obstetrics History Last Filed [...] Mass Index 34.33 02/17/2025 1:36 PM EDT Plan of Treatment Upcoming Encounters Date Type Department Care Team (Late st Contact Info) Description 02/23/2025 3:30 PM EDT Treatment [address] [phone] Brijesh Alvarado PTA 02/25/2025 3:30 PM EDT Treatment [address] [phone] Brijesh Alvarado PTA 03/03/2025 3:30 PM EDT Treatment [address] [phone] Brijesh Alvarado PTA 03/05/2025 3:00 PM EDT Treatment [facility] [address] [phone] Brijesh Alvarado, PILLOWCASE FOLDER 03/09/2025 3:00 PM EDT Treatment [address] [phone] Brijesh Alvarado, PILLOWCASE FOLDER 03/11/2025 3:30 PM EDT Treatment [address] [phone] Brijesh Alvarado, PILLOWCASE FOLDER 03/16/2025 3:30 PM EDT Treatment [address] [phone] Brijesh Alvarado, PILLOWCASE FOLDER 03/18/2025 3:30 PM EDT Treatment [address] [phone] Brijesh Alvarado, PILLOWCASE FOLDER 03/23/2025 3:30 PM EDT Treatment [address] [phone] Brijesh Alvarado, PILLOWCASE FOLDER 03/25/2025 4:00 PM EDT Treatment [address] [phone] Compa Haney, PT Health Maintenance Due Date Last Done Comments Breast Cancer Screening 1984 DTaP,Tdap,and Td Vaccines (1 - Tdap) 2003 Hepatitis B Vaccines (1 of 3 - 19+ 3-dose series) 2003 Cervical Cancer Screening: P ap Smear 2005 Depression Screening 05/28/2022 HIV Screening 05/28/2022 Hepatitis C Screening 05/28/2022 Social Influencers of Health Screening 05/28/2022 COVID-19 Vaccine ( - 2023-2 5 season) 2024 Influenza Vaccine (Season Ended) 2025 HIB Vaccines Aged Out No longer eligi [...] patient's age to complete this topic Meningococcal B Vaccine Aged Out No l onger eligible based on patient's age to complete [...] UPON REACH MET 10/13 #4 IMPROVE LEFT INSTRUMENTATION INSTRUCTOR FROM 40 TO 60 POUNDS = 75 [...] raise Pt will be independent with HEP Insurance [facility] [employer] PL[employer] Care Teams Van Driver Helper Relationship Specialty Start Date End Date Dorothea Carey MD 2 [facility] , [address] [facility] Physician Associ D/B/A: [facility] [place] PCP - General Internal Medicine 08/15/21
--- OUTSIDE RECORDS SUMMARY | 2025-02-18 17:44 | XMS_ITS | Encounter Summary ---
Author Organization [facility] Address [address] [place] [address] Care Team Providers Care Armor Reconnaissance Vehicle Driver Name Role Phone Dorothea Carey MD Primary Care Provider [phone] Encounter Details Date Type Department Care Team (Late st Contact Info) Description 09/01/2024 3:00 PM EDT Hospital Encounter TH HISTORIC ENCOUNTERS EASTERN CONVERSION ONLY Nichelle De La O MD 175 [facility] [address] [place] [address] Social History Tobacco Use Types [...] Department Care Team (Late Contact Info) Description 02/23/2025 3:30 PM EDT Treatment [facility] [address] [phone] Brijesh Alvarado PTA 02/25/2025 3:30 PM EDT Treatment [facility] [address] [phone] Brijesh Alvarado, LEARNING SPECIALIST 03/03/2025 3:30 PM EDT Treatment [facility] [address] [phone] Brijesh Alvarado, LEARNING SPECIALIST 03/05/2025 3:00 PM EDT Treatment [facility] [address] [phone] Brijesh Alvarado, LEARNING SPECIALIST 03/09/2025 3:00 PM EDT Treatment [facility] [address] [phone] Brijesh Alvarado, LEARNING SPECIALIST 03/11/2025 3:30 PM EDT Treatment [facility] [address] [phone] Brijesh Alvarado, LEARNING SPECIALIST 03/16/2025 3:30 PM EDT Treatment [facility] [address] [phone] Brijesh Alvarado, LEARNING SPECIALIST 03/18/2025 3:30 PM EDT Treatment [facility] [address] [phone] Brijesh Alvarado, LEARNING SPECIALIST 03/23/2025 3:30 PM EDT Treatment [address] [phone] Brijesh Alvarado, LEARNING SPECIALIST 03/25/2025 4:00 PM EDT Treatment [facility] [address] [phone] Compa Haney, PT documented as of this encounter Goals Goal Patient Goal Type Associated Problems Recent Progress Patient-Stated? Author <enter goal here> General On track( 3:25 PM EST) Yes Brenda Arechiga OT Note: I AM WEAK STGS 6 VISITS General On track(12/09/2 024 3:25 PM EST) No Brenda Arechiga, OT Note: #1 IMPROVE LEFT SUPINATION FROM 45 TO 60 DEGREES TO RECEIVE ITEMS INTO PALM MET 10/13 #2 IMPROVE LEFT WRIST EXTENSION FROM 45 TO 60 DEGREES WITH GOOD STRENGTH TO WEIGHTBEAR MET 10/13 #3 IMPROVE LEFT THUMB EXTENSION FROM 45 TO 55 DEGREES UPON REACH MET 10/13 #4 IMPROVE LEFT WATER CARTER FROM 40 TO 60 POUNDS = 75 [...] on filedocumented in this encounter Care Teams Armor Reconnaissance Vehicle Driver Relationship Specialty Start Date End Date Dorothea Carey MD [address] [place] [address] , [address] [facility] Physician Associ D/B/A: [facility] RUBIN Rowley PCP - General Internal Medicine 08/15/21 documented as of this encounter
--- OUTSIDE RECORDS SUMMARY | 2025-02-18 17:44 | XMS_ITS | Data Portability ---
Author Organization [facility], [facility] Address [address] [place] [address] Assessment Encounter Date Assessment Date Assessment LastModified by Organization Details LastModified Time 10/14/2024 10/14/2024 CHIEF COMPLAINT: Left medial ankle pain and swelling HISTORY OF PRESENT ILLNESS: Loli is a 39-year-old woman seen today with a friend who serves as computational biologist who is status post previous left ankle arthroscopy, synovectomy, microfracture of lateral talar osteochondral defect and Brostrom reconstruction. She did well following surgery. I last saw her in late August 2024 after having not seeing her for 4 years. She has been having chronic left medial ankle pain and swelling. She has tried bracing and physical therapy. She is referred by Josiane KENNEDY. Her pain is worse with activity. She has lost some weight. Pain level is 6/10. She has had an MRI. Past family, medical, social history and review of systems has been reviewed, updated and is located in the patient? s chart. PHYSICAL EXAM: General: obese, healthy appearing, in no acute distress Psych: alert and oriented x3, normal mood Skin: intact without ulceration or lesion, normal turgor Lungs: respirations unlabored Cardiac: heart rate regular, normal peripheral pulses Musculoskeletal: On standing exam, she has normal and symmetric foot and ankle alignment. There is mild medial ankle swelling. She has difficulty and pain with single limb heel rise. On seated exam, she is tender over the left medial ankle over the medial malleolus and deltoid ligament. There is minimal tenderness over the posterior tibial tendon. Her ankle is stable. There is no lateral ankle tenderness. There is some anterior ankle joint line tenderness and synovitic change. There is no pain or crepitus with sagittal plane range of motion. She has a gastrocnemius contracture. She is distally neurovascularly intact. X-RAYS: Previous x-ray images were reviewed, demonstrating normal alignment. I reviewed her recent MRI images from April 2024, demonstrating mild distal posterior tibial tendinopathy without tear. There is some mild ankle synovitis. The lateral talar osteochondral lesion appears improved with less subchondral edema when compared to her previous MRI. 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 IMPRESSION: Left medial malleolar avulsion fracture-nonunion, ankle synovitis, posterior tibial tendinitis, gastrocnemius contracture, obesity PLAN: I discussed these findings with the patient in the presence of a computational biologist. She has failed to improve with appropriate conservative measures. We will plan to proceed in 2024 with left ankle arthroscopy, synovectomy, excision of medial malleolar nonunion fragment, possible deltoid repair and gastrocnemius recession. She will be nonweightbearing for 2 weeks following surgery followed by 4 weeks of weightbearing immobilization in a tall CAM boot. I discussed this with her today. All questions were answered. She understands and agrees with this plan. Risks include, but are not limited to, wound healing problems, deep infection, persistent pain, stiffness, nerve injury/neuritis, need for further surgery. The expected postoperative course was outlined in detail. The patient understands the nature and magnitude of this surgery and wishes to proceed. All questions were answered. [email or web address] Not available 10/14/2024 14:28:39 12/02/2024 12/02/2024 39-year-old fema tiffany returns today in follow-up status post left ankle arthroscopy with synovectomy, gastroc recession, medial malleolus avulsion fracture excision, and deltoid ligament reconstruction on November 17, 2024 who is overall doing well. Sutures removed Steri-Strips were reapplied. She will transition to a short leg walking cast weightbearing as tolerated on the left lower extremity. She will follow-up as previously arranged, sooner if required Not available 12/02/2024 10:35:16 Plan of Treatment Reminders Order Date Submit Date Provider Last Modified By Organization Details Last Modified Time Details Appointments SPINE BLOCK 2024 12:45P Halle Montoya PA-C Not available Not available Not available Lab None recorded. Referral physical therapist referral - start 2 weeks left ankle rom stabiliza tion 2024 025 Not available 01/01/2025 13:41:44 Procedures None recorded. Surgeries ankle arthrosco py (SURG) 2023 025 [email or web address] [facility] [place], [address], [place], [address], 10/16/2024 08:36:06 Imaging XR, ankle, 3 or more view - RM 301 RIGHT ANKLE 2024 025 [email or web address] [facility], [address], [place], [address], 01/27/2025 07:01:38 XR, ankle, 3 or more view - rm 303 left ankle 3v after cast off please 2024 025 [email or web address] [facility], [address], [place], [address], 01/01/2025 13:41:44 Medication Orders None recorded. Patient TargetsNo targets recorded. Patient Instructions Encounter Date Encounter Id Patient Instructions Last Modified By Organization Details Last Modified Time 12/02/[id number] application of cast, short leg walking cast* - room 117 [facility] Not available 12/02/2024 11:55:54 01/01/[id number] cast removal* - cast off then xray please :) Not available 01/01/2025 13:41:44 Reason for Referral Physical Therapist Referral for Acute ankle pain start 2 weeks left ankle rom stabilization Referring Physician: Sara Montoya, Orthopedic Surgery, Encounter Date: 01/01/2025 Results Created Date Observation Date Name Description Value Unit Range Abnormal Flag Note LastModifiedBy Organization Detail LastModifiedTime 01/01/2001/01/2025 XR, ankle , 3 or more view [email or web address] ?Encry pted=s hATejao YD8dLq bEUv6g %2BXZw aYqtaq 0bqfl% 2Fg9IQ a4ajBk vP9nXo QUaueC m3YtLR FvZlgJ JJ8mAn HZtai3 2d0245 AC0Kqb XiEU6K iKiQtr MwF INTERFACE [facility] [address], [place], [address], 01/01/2025 12:58:48 01/01/20 25 01/01/2025 XR, ankle , 3 or more view [email or web address] ?Encry pted=s hAaTro YD8dLq bEUv6g %2BXZw aYqtaq 0bqfl% 2Fg9IQ a4ajBk vP9nXo QUaueC m3YtLR FvZlgJ JJ8mAn HZtai3 5r3842 AC0Kqb XiEU6K iKiQtr MwF INTERFACE [facility] [address] [facility] [address], [place], [address], 01/01/2025 12:58:50 01/24/20 25 01/01/2025 XR, ankle , 3 or more view [email or web address] ?Encry pted=s hAaTro YD8dLq bEUv6g %2BXZw aYqtaq 0bqfl% 2Fg9IQ a4ajBk vP9nXo QUaueC m3YtLR FvZl JJ8mAn HZtai3 5s2154 AC0Kqb XiEU6K iKiQtr MwF INTERFACE [facility] [address] [facility] [address], [place], [address], 01/23/2025 10:17:06 01/27/20 25 01/26/2025 XR, ankle , 3 or more view [email or web address] ?Encry pted=s hAaTro YD8dLq bEUv6g %2BXZw aYqtaq 0bqfl% 2Fg9IQ a4ajBk vP9nXo QUaueC m3YtLR FvZlgJ JJ8mAn HZtai3 5e4872 AC0KqY nuGUKK mKiQtr MwF INTERFACE [facility] [address], [place], [address], 01/26/2025 14:12:43 01/27/20 25 01/26/2025 XR, ankle , 3 or more view [email or web address]:/ [email or web address] ?Encry pted=s hAaTro YD8dLq bEUv6g %2BXZw aYqtaq 0bqfl% 2Fg9IQ a4ajBk vP9nXo QUaueC m3YtLR FvZlgJ JJ8mAn HZtai3 7q2122 AC0KqY nuGUKK mKiQtr MwF INTERFACE [facility] [address], [place], [address], 01/26/2025 14:12:45 Result Notes None recorded. Problems Name Problem SNOMED Code Status Onset Date Resolution Date Notes Provider Name and Address Organization Details Recorded Time No complaints 317431766 Active Status : 'A'; Not Available [facility] 4 09:10:59 Instabilit y of joint of left ankle 9855409139908 100 Active 2024 Moncho Ramírez PA-C [address], [place], [address] , [facility] 5 08:23:15 Tightness of left gastrocnem ius muscle 6433485959793 9106 Active 2024 Moncho Ramírez PA-C [address], [place], [address] , [facility] - [facility] 5 08:23:15 Synovitis of left ankle joint 7341097750797 105 Active 2024 Moncho Ramírez PA-C [address], [place], [address] , [facility] 5 08:23:15 Closed fracture of medial malleolus 81122384 Active 2024 Moncho Ramírez PA-C [address], [place], [address] , [facility] - [facility] 5 08:23:15 Problem Notes None recorded. Procedures Surgical History Date Name Laterality Status Provider Name and Address Organization Details Recorded Time 5 Cast_Short Leg Walking Cast_11+ completed RAYMOND TONIA [facility] 12/23/2024 13:57:08 5 Cast Removal completed RAYMOND RANDALL [facility] 12/23/2024 13:55:26 4 Other completed Kj Lobo [facility] 01/01/2025 12:30:45 Imaging Results Imaging Date Name Status LastModified by Organiz ation Details LastModified Time 01/01/2025 XR, ankle, 3 or more view completed [facility] [address], [place], [address], 01/01/2025 12:58:48 01/01/2025 XR, ankle, 3 or more view completed [facility] [address], [place], [address], 01/01/2025 12:58:50 01/01/2025 XR, ankle, 3 or more view completed [facility] [address], [place], [address], 01/23/2025 10:17:06 01/26/2025 XR, ankle, 3 or more view completed [facility] [address], [place], [address], 01/26/2025 14:12:43 01/26/2025 XR, ankle, 3 or more view completed [facility] [address], [place], [address], 01/26/2025 14:12:45 Procedure Notes None recorded. Medical Equipment None Reported. Allergies No known drug allergies Medications Name Sig Start Date Stop Date Status Note LastModified by Organization Details LastModified Time celecoxib 200 mg capsule Take 1 capsule every day by oral route for 30 days. active Not Available Not Available No t Available cyclobenzap rine 10 mg tablet TAKE 1 TABLET BY MOUTH EVERY DAY AT BEDTIME NEEDED FOR MUSLCE SPASM active Not Available Not Available No t Available acetaminoph en 325 mg tablet TAKE 3 TABLETS BY MOUTH EVERY 6 HOURS active Not Available Not Available No t Available trazodone 50 mg tablet TAKE 1 TABLET BY MOUTH EVERYDAY AT BEDTIME active Not Available Not Available No t Available triamcinolo ne acetonide 0.5 % topical cream USE 1 APPL TOPICALLY DAILY FOR 2 WEEKS active Not Available Not Available No t Available ibuprofen 800 mg tablet TAKE 1 TABLET ORALLY EVERY 8 HOURS NEEDED FOR PAIN FOR 30 DAYS active Not Available Not Available No t Available hydrocodone 5 mg-acetamin ophen 325 mg tablet TAKE 1 TABLET BY MOUTH EVERY 6 (SIX) HOURS NEEDED FOR PAIN active Not Available Not Available No t Available senna 8.6 mg tablet TAKE 2 TABLETS BY MOUTH EVERY DAY AT BEDTIME *HOLD FOR DIARRHEA* active Not Available Not Available No t Available meloxicam 15 mg tablet TAKE 1 TABLET EVERY DAY BY ORAL ROUTE WITH MEAL(S) FOR 30 DAYS. active Not Available Not Available No t Available prednisone 20 mg tablet TAKE 2 TABLETS BY MOUTH EVERY DAY FOR 5 DAYS active Not Available Not Available No t Available gabapentin 400 mg capsule TAKE 1 CAPSULE BY MOUTH THREE TIMES A DAY active Not Available Not Available No t Available tramadol 50 mg tablet TAKE 1 TABLET BY MOUTH EVERY DAY NEEDED FOR PAIN FOR 30 DAYS active Not Available Not Available No t Available acetaminoph en 500 mg tablet TAKE 2 TABLETS BY MOUTH EVERY 8 HOURS FOR 15 DAYS. active Not Available Not Available No t Available amoxicillin 500 mg tablet TAKE 1 TABLET BY MOUTH TWICE A DAY FOR 5 DAYS active Not Available Not Available No t Available prednisolon e acetate 1 % eye drops,suspe nsion INSTILL 1 DROP INTO LEFT EYE 4 TIMES A DAY active Not Available Not Available No t Available aspirin 325 mg tablet,judith yed release TAKE 1 TABLET BY MOUTH EVERY DAY FOR 30 DAYS active Not Available Not Available No t Available amitriptyli ne 10 mg tablet TAKE 1 TABLET BY MOUTH EVERYDAY AT BEDTIME active Not Available Not Available No t Available benzonatate 100 mg capsule TAKE 1 CAPSULE BY MOUTH 3 TIMES DAILY NEEDED FOR COUGH FOR UP TO 5 DAYS. (*NOT CVRD*) active Not Available Not Available No t Available erythromyci n 5 mg/gram (0.5 %) eye ointment PLACE 0.5 INCHES INTO THE LEFT EYE NIGHTLY AT BEDTIME. active Not Available Not Available No t Available tobramycin 0.3 % eye drops INSTILL 1 DROP EVERY 4 HOURS INTO AFFECTED EYES FOR 7 DAYS active Not Available Not Available No t Available lisinopril 10 mg tablet TAKE 1 TABLET BY MOUTH EVERY DAY FOR 90 DAYS active Not Available Not Available No t Available lidocaine 5 % topical patch PLACE 1 PATCH TOPICALLY AND WEAR FOR UP TO 12 HOURS DAILY NEEDED FOR PAIN active Not Available Not Available No t Available docusate sodium 100 mg capsule TAKE 1 CAPSULE BY MOUTH TWICE A DAY FOR CONSTIPAT ION active Not Available Not Available No t Available lisinopril 5 mg tablet TAKE 1 TABLET BY MOUTH EVERY DAY active Not Available Not Available No t Available lorazepam 1 mg tablet TAKE 1 TABLET BY MOUTH NEEDED FOR ANXIETY 20 MINUTES PRIOR TO SURGERY active Not Available Not Available No t Available methylpredn isolone 4 mg tablets in a dose pack TAKE DIRECTED active Not Available Not Available No t Available hydromorpho ne 4 mg tablet TAKE 1/2 TO 1 TABLET BY MOUTH EVERY 4 HOURS NEEDED FOR PAIN active Not Available Not Available No t Available morphine 15 mg immediate release tablet TAKE 1 TABLET BY MOUTH TWICE A DAY NEEDED FOR PAIN FOR 7 DAYS active Not Available Not Available No t Available sertraline 50 mg tablet TAKE 1 TABLET BY MOUTH EVERY DAY active Not Available Not Available No t Available naproxen 500 mg tablet TAKE 1 TABLET BY MOUTH TWICE A DAY FOR 7 DAYS NEEDED FOR PAIN active Not Available Not Available No t Available oxycodone 5 mg tablet TAKE 1 TABLET BY MOUTH THREE TIMES A DAY NEEDED FOR 7 DAYS active Not Available Not Available No t Available moxifloxaci n 0.5 % eye drops INSTILL 1 DROP INTO LEFT EYE 4 TIMES A DAY active Not Available Not Available No t Available pregabalin 75 mg capsule TAKE 1 CAPSULE BY MOUTH EVERY DAY AT BEDTIME NEEDED FOR PAIN active Not Available Not Available No t Available oxycodone HCl-oxycodo ne-ASA 1Q 4-[address] WHILE ON THIS MEDICATIO N 01/31 completed Statu s: 'Disc ontin ued'; Not Available Not Available Not Available naloxone 4 mg/actuatio n nasal spray PLEASE SEE ATTACHED FOR DETAILED DIRECTION S active Not Available Not Available No t Available Vitals Date Recorded Body height Body mass index (BMI) Body weight Provider Name and Address Organization Details Last Updated DateTime 10/14/2024 160.02 cm 33.5 kg/m2 71058.96 g ZAK CASTILLOABRAHAM Aldrich [facility] 10/14/2024 13:59:45 Date Recorded Body height Body mass index (BMI) Body weight Provider Name and Address Organization Details Last Updated DateTime 12/02/2024 160.02 cm 33.5 kg/m2 79753.96 g Toshia melendez [facility] 12/02/2024 10:00:38 Date Recorded Body height Body mass index (BMI) Body weight Provider Name and Address Organization Details Last Updated DateTime 01/01/2025 160.02 cm 33.5 kg/m2 26521.96 g Kj Lobo [facility] 01/01/2025 12:30:53 Date Recorded Body height Provider Name an d Address Organization Details Last Updated DateTime 12/26/2024 160.02 cm Carri Gomez [facility] 01/13/2025 16:41:34 Date Recorded Body height Body mass index (BMI) Body weight Provider Name and Address Organization Details Last Updated DateTime 01/26/2025 160.02 cm 33.5 kg/m2 93624.96 g Kj Lobo [facility] 01/26/2025 14:01:50 Social History None recorded. Functional Status None recorded. Mental Status None recorded. Family History Nothing Reported. Medical History Condition Response Anxiety/Depression N Arthritis N Gynecological HistoryNo gynecological history recorded. Obstetrics History GPAL:G 0 P 0 0 0 0 Past Encounters Encounter ID Performer Location Encounter Start Date Encounter Closed Date Diagnosis/Indication Diagnosis SNOMED-CT Code Diagnosis ICD10 Code Diagnosis Note [id number] MD [facility] [address] [place] [address] 01/30/2024 09:19:24 02/13/2024 09:38:39 Pain in left arm 526787203 M79.169 [id number] Josianejudy Liu PA-C [facility] [address] [place], [place] [address] 02/07/2024 13:24:25 02/27/2024 12:39:07 Impingement of right ankle joint 4519953511 1480218 M25.799 [id number] Josiane RAFAEL [facility] [address] [place] [address] 04/22/2024 12:55:36 05/20/2024 13:37:41 Impingement of right ankle joint 1634411272 9554137 M25.871 Pain of le ft ankle joint 6080901070 5813971 M25.101 [id number] Josianejudy Liu PA-C [facility] [address] [place] , [place] [address] 05/15/2024 13:17:48 06/12/2024 08:20:08 Tibialis posterior tendinitis 071656214 M76.640 [id number] Josianejudy Liu PA-C [facility] [address] [place] [address] 07/15/2024 11:02:18 08/07/2024 10:36:41 Tibialis posterior tendinitis 238071943 M76.658 [id number] [facility] [address] [address] [place] [address] 08/26/2024 12:58:28 09/18/2024 08:24:56 Tendinitis of left posterior tibial tendon 9245579647 40774 M76.822 Tightness of left gastrocnemius muscle 1370620711 4475521 M62.89 [id number] Michael Gibbs MD [facility] [address] [place] [address] 10/14/2024 13:52:40 11/11/2024 09:43:29 Instability of joint of left ankle 4692466687 647200 M25.372 Closed fra cture of medial malleolus 76912502 S82.52XS Tightness of left gastrocnemius muscle 2900043480 2403390 M62.89 Synovitis of left ankle joint 5585103614 391988 M65.694 [id number] Moncho Ramírez PA-C [facility] [address] [place] [address] 12/02/2024 08:53:08 12/24/2024 14:44:34 Instability of joint of left ankle 8192485652 603309 M25.372 Closed fra cture of medial malleolus 08043887 S82.52XS Tightness of left gastrocnemius muscle 1251176238 8196467 M62.89 Synovitis of left ankle joint 3795569149 952234 M65.146 [id number] Inés Craig PA-C [facility] [address] [place] [address] 12/23/2024 13:16:32 12/23/2024 13:58:24 Instability of joint of left ankle 5981410326 477520 M25.793 [id number] Sara Montoya PA-C [facility] [address] [place] [address] 01/01/2025 12:27:08 01/15/2025 09:52:34 Acute ankle pain 6762287589 9105 M25.572 Closed fra cture of medial malleolus 17461638 S82.52XS [id number] Sara Montoya PA-C [facility] [address] [place] [address] 01/26/2025 13:57:07 02/10/2025 14:14:36 Acute ankle pain 9548368938 9105 M25.571 Open fract ure of medial malleolus 19810796 S82.52XB Health Concerns Section Related Observation LastModified by Organization Detai ls LastModified Time None Recorded Concern Status LastModified by Organization Details LastModified Time None Recorded Advance Directives Directive None Recorded Payers Encounter Date Sequence Insurance Name Policy Number Policy Marie Covered Member ID Marie Member ID Guarantor Name 10/14/2024 1 [facility] HEALTH NET PLAN (MEDICAID HMO) TAMIKA Aguirre [id number] Liliya Aguirre 12/02/2024 1 [facility] PLAN (MEDICAID HMO) TAMIKA Galindomin Aguirre [id number] Liliya Aguirre 01/01/2025 1 [facility] PLAN (MEDICAID HMO) TAMIKA Galindomin Aguirre [id number] Liliya Aguirre 01/26/2025 1 [facility] PLAN (MEDICAID HMO) TAMIKA Galindomin Aguirre [id number] Liliya Aguirre Notes Date Note Type Note Provider Name and Address Organization Details Recorded Time 12/02/2024 text/html I am seeing the patient today under the supervision of Dr. Thompson who was available but who did not see the patient. Surgeon: Dr. BaltazaruProcedure: Left ankle arthroscopy with synovectomy, gastroc recession, medial malleolus avulsion fracture excision, and deltoid reconstructionDate of procedure: November 17, 2024 HPI: 39-year-old female returns today in follow-up status post left ankle arthroscopy with synovectomy, gastroc recession, medial malleolus avulsion fracture excision, and deltoid ligament reconstruction on November 17, 2024. Overall she appears to be improving in regards to her pain. No complaints of fevers chills or drainage. She has been compliant with her nonweightbearing Moncho Ramírez PA-C [address] [facility] [address], [place], [address], [facility] [place] [facility] 12/02/2024 10:35:29 01/01/2025 text/html I am seeing the patient today under the supervision of Dr. Gibbs who was available but who did not see the patient. HPI:_19-aupl-mdc Iraqi speaking female presents 6 weeks status post left ankle arthroscopy with synovectomy, excision of medial malleoli are avulsion fracture fragment, gastrocnemius recession, and deltoid ligament reconstruction. Date of surgery 11/17/[address] Gibbs. Patient reports mild discomfort only. She has been in a walking cast. Eager to progress. Here with family today who translate for her. Past family, medical, social history and review of systems has been reviewed, updated and signed by me and is located in the patient's chart. Examination: The patient is well appearing, alert and oriented x3 and in no acute distress. Inspection reveals nicely healed surgical incisions without signs of infection. Mild edema only. Range of motion is appropriately stiff coming out of a cast. No dystrophic skin changes. Neurovascularly intact distally. Calf is supple and non-tender. Skin is without lesions. Impression/Plan: Postop, stable. Patient transitioned into a tall cam boot weightbearing as tolerated. ASO brace prescribed today as well. She will transition into the brace and sneaker in 2 weeks. PT ordered for ankle rehab. She may remove the boot for range of motion at the ankle a few times a day. _Follow-up in 4-6 weeks. [employer] speech recognition clinic manager software was used to create portions of this document. An attempt at proofreading has been made to minimize errors. Please call for corrections. Sara Montoya PA-C [address] [facility] [address] [facility], [place], [address], [facility] [place] 01/01/2025 13:39:21 01/26/2025 text/html I am seeing the patient today under the supervision of Dr. Gibbs who was available but who did not see the patient. HPI:_30-ihct-vuj Iraqi speaking female presents status post left ankle arthroscopy with synovectomy, excision of medial malleoli are avulsion fracture fragment, gastrocnemius recession, and deltoid ligament reconstruction. Date of surgery 11/17/[address] Gibbs. Patient reports mild discomfort only. She has been in a walking boot. Eager to progress. PT is scheduled. Here with family today who translate for her. Past family, medical, social history and review of systems has been reviewed, updated and signed by me and is located in the patient's chart. Examination: The patient is well appearing, alert and oriented x3 and in no acute distress. Inspection reveals nicely healed surgical incisions without signs of infection. Mild edema only. Range of motion is supple at the ankle. Strength intact. No dystrophic skin changes. Neurovascularly intact distally. Calf is supple and non-tender. Skin is without lesions. X-rays ordered obtained and reviewed today with patient at [facility] 3 views of the left ankle reveal stable ankle mortise. No fractures. Impression/Plan: Postop, stable. Patient transitioned into a ASO brace. She will attend PT and follow-up in 6 weeks. Activity progression discussed. [facility] speech recognition clinic manager software was used to create portions of this document. An attempt at proofreading has been made to minimize errors. Please call for corrections. Sara Montoya PA-C [address] [facility] [address], [place], [address], [facility] 02/05/2025 12:47:45 OBGyn Episode No OBEpisode recorded.
== END 2025-02-18 15:12 | disposition home or self-care (01) ==
LOC: HO.XRAY 15:11
PROVIDERS: PCP Internal Medicine; Visit Provider Internal Medicine
DX: M25.561 Pain in right knee (principal)
CPT/HCPCS: 73560

== ENCOUNTER → 2025-02-18 15:15 | Outpatient (BNV) | payer OTHER, SELFPAY | PROVIDERS: PCP Internal Medicine; Visit Provider Radiology Diagnostic Radiology | DX: M25.461 Effusion, right knee (principal) | CPT/HCPCS: 73560 ==

== ENCOUNTER 2025-02-24 06:40 | Outpatient (REF) | payer OTHER, SELFPAY ==
--- NOTE | ~2025-02-24 | FL_ITS ---
EXAMINATION: XR FLUOROSCOPY WITH IMAGES CLINICAL INFORMATION: Right hip pain management injection COMPARISON: None available. TECHNIQUE: Fluoroscopy provided to: Dr. Padilla Fluoroscopy time: 0.3 minutes DAP: 0.207 mGycm2 Images: 1 FINDINGS: Solitary image obtained during left hip intra-articular injection for pain management. Please refer to the full procedural report for detail. FL/FL guidance in treatment room IMPRESSION: Fluoroscopic guidance. Electronically signed by: Mahendra Dunn MD 02/25/2025 01:53 PM EDT
--- OUTSIDE RECORDS SUMMARY | 2025-02-24 06:43 | XMS_ITS | Encounter Summary ---
Author Organization [employer] Address [address] [place] [address] Care Team Providers Care Type Casting Machine Operator Name Role Phone Dorothea Carey MD Primary Care Provider [phone] Reason for Visit * Consultation (Routine) - Authorized Specialty Diagnoses / Procedures Referred By Contviviana t Referred To Contact Physical Therapy Diagnoses Pain in left ankle and joints of left foot Sara Montoya, BRENT [address] [facility] [address] [place] [address] Phone: tel: fax: Referral ID Status Reason Start Date Expiration Date Visits Requested Visits Authorized [id number] Authorized Specialty Services Required 01/14/2025 01/14/2026 21 21 Encounter Details Date Type Department Care Team (Late st Contact Info) Description 02/23/2025 3:30 PM EDT Treatment [facility] Outpatient Rehabilitation [facility] [address] [facility] [address] [place] [address] Brijesh Alvarado PTA Pain in left ankle and joints of left foot (Primary Dx) Social History Tobacco Use Types Packs/Day Years [...] as of this encounter Progress Notes * Brijesh Alvarado PTA - 02/23/2025 3:30 PM EDT [facility] - Outpatient PHYSICAL THERAPY DAILY TREATMENT NOTE - OP Date: 02/23/2025 Visit Number: [id number] Patient Name: Liliya Aguirre : 1985 Age: 39 y.o. Gender: female Diagnosis: ICD-10-CM ICD-9-CM 1. Pain in left ankle and joints of left foot M25.572 719.47 Date of Onset/Surgery: 01/15/2025 Referring Provider: Sara Montoya PA Insurance: Payor: [employer] PL[employer] / Plan: [employer] MEDICAID / Product Type: *No Product type* / Patient Identified by: Brijesh Alvarado PTA Language: Pt. speaks Frisian as preferred language, however declines ship engineer treating Medications: Current Outpatient Medications on File Prior to Visit Medication Sig Dispense Refill amitriptyline (ELAVIL) 10 mg tablet Take 1 tablet (10 mg total) by mouth at bedtime. cyclobenzaprine (FLEXERIL) 10 mg tablet TAKE 1 TABLET BY MOUTH EVERY DAY AT BEDTIME NEEDED FOR MUSLCE SPASM No current facility-administered medications on file prior to visit. Allergies: has No Known Allergies. Precautions: none Fall risk: No SUBJECTIVE Subjective Report: Patient reports ankle continues to swell often. Chart Reviewed: Yes Pain: 7/10 with activity. It hurts more when she starts walking. TREATMENT INTERVENTION: LLE Therex Rocker board for Ant/post x10 x2 sets Level 2 BAPS board for CW anfd CCW ROM x10 x2 sets each Standing gastroc stretch with 30 sec hold x3 Green t-band ankle DF, InV, EV each x10 x2 sets Long-sit with bolster under knee for soleus stretch with towel with 30 sec hold x3 ASSESSMENT/Response to Treatment Good Patient going for Cortisone shot tomorrow. Canceled visit for Sunday this week. Educated onobtaining cold pack to help with edema management at home. Patient Education: Education provided: yes Education Provided To: Patient utilizing Explanation and Demonstration mode(s) of education Response to Education: Applied Knowledge PLAN POC Development/Review: No Change in the Plan of Care; Participants: Patient Interventions Time Entry: Modalities: Therapeutic procedures: Therapeutic Exercise Time Entry: 35 Total Treatment Time: 35 mins Documentation completed by Brijesh Alvarado PTA documented in this encounter Plan of Treatment Upcoming Encounters Date Type Department Care Team (Late st Contact Info) Description 02/25/2025 3:30 PM EDT Treatment [address] [address] Brijesh Alvarado, CHAINSTITCH ELASTIC ATTACHER 03/03/2025 3:30 PM EDT Treatment [address] [address] Brijesh Alvarado, CHAINSTITCH ELASTIC ATTACHER 03/05/2025 3:00 PM EDT Treatment [address] [address] Brijesh Alvarado, CHAINSTITCH ELASTIC ATTACHER 03/09/2025 3:00 PM EDT Treatment [address] [address] Brijesh Alvarado, CHAINSTITCH ELASTIC ATTACHER 03/11/2025 3:30 PM EDT Treatment [address] [address] Brijesh Alvarado, CHAINSTITCH ELASTIC ATTACHER 03/16/2025 3:30 PM EDT Treatment [address] [address] Brijesh Alvarado, CHAINSTITCH ELASTIC ATTACHER 03/18/2025 3:30 PM EDT Treatment [address] [address] Brijesh Alvarado, CHAINSTITCH ELASTIC ATTACHER 03/23/2025 3:30 PM EDT Treatment [address] [address] Brijesh Alvarado, CHAINSTITCH ELASTIC ATTACHER 03/25/2025 4:00 PM EDT Treatment [facility] [address] [place] [address] [place] [address] Compa Haney, PT documented as of this [...] UPON REACH MET 10/13 #4 IMPROVE LEFT PIANO SOUNDING BOARD MATCHER FROM 40 TO 60 POUNDS = 75 [...] as of this encounter Visit Diagnoses Diagnosis Pain in left ankle and joints of left foot- Primary documented in this encounter Care Teams Type Casting Machine Operator Relationship Specialty Start Date End Date Dorothea Carey MD [address] [place] [address] , [address] [facility] D/B/A: [facility] Internal Medicine RUBIN Rowley PCP - General Internal Medicine 08/15/21 documented as of this encounter
--- OUTSIDE RECORDS SUMMARY | 2025-02-24 06:43 | XMS_ITS | Encounter Summary ---
Author Organization [facility] Address [address] [place] [address] Care Team Providers Care Bench Assembler Operator Name Role Phone Dorothea Carey MD Primary Care Provider [phone] Encounter Details Date Type Department Care Team (Late st Contact Info) Description 09/01/2024 3:00 PM EDT Hospital Encounter TH HISTORIC ENCOUNTERS EASTERN CONVERSION ONLY Nichelle De La O MD 175 [facility] [address] [place] [address] Social History Tobacco Use Types [...] Department Care Team (Late Contact Info) Description 02/25/2025 3:30 PM EDT Treatment [facility] [address] [phone] Brijesh Alvarado PTA 03/03/2025 3:30 PM EDT Treatment [facility] [address] [address] Brijesh Alvarado, INDUSTRIAL ROOFER HELPER 03/05/2025 3:00 PM EDT Treatment [facility] [address] [address] Brijesh Alvarado, INDUSTRIAL ROOFER HELPER 03/09/2025 3:00 PM EDT Treatment [facility] [address] [address] Brijesh Alvarado, INDUSTRIAL ROOFER HELPER 03/11/2025 3:30 PM EDT Treatment [facility] [address] [address] Brijesh Alvarado, INDUSTRIAL ROOFER HELPER 03/16/2025 3:30 PM EDT Treatment [facility] [address] [address] Brijesh Alvarado, INDUSTRIAL ROOFER HELPER 03/18/2025 3:30 PM EDT Treatment [facility] [address] [address] Brijesh Alvarado, INDUSTRIAL ROOFER HELPER 03/23/2025 3:30 PM EDT Treatment [facility] [address] [address] Brijesh Alvarado, INDUSTRIAL ROOFER HELPER 03/25/2025 4:00 PM EDT Treatment [facility] [address] [address] Compa Haney, PT documented as of this [...] UPON REACH MET 10/13 #4 IMPROVE LEFT INCINERATOR PLANT SUPERVISOR FROM 40 TO 60 POUNDS = [...] on filedocumented in this encounter Care Teams Bench Assembler Operator Relationship Specialty Start Date End Date Dorothea Carey MD [address] [place] [address] , [address] [facility] Physician Associ D/B/A: [facility] RUBIN Rowley PCP - General Internal Medicine 08/15/21 documented as of this encounter
--- OUTSIDE RECORDS SUMMARY | 2025-02-24 06:43 | XMS_ITS | Clinical Summary ---
Author Organization [facility] [employer] [facility] Address [address] [place] [address] Care Team Providers Care Class A Truck Driver Name Role Phone Dorothea Carey MD Primary Care Provider [phone] Allergies No known active allergies Medications amitriptyline [...] Encounters Date Type Department Care Team Description 02/23/2025 3:30 PM EDT Treatment [address] [address] Brijesh Alvarado PTA Pain in left ankle and joints of left foot (Primary Dx) 02/17/2025 1:30 PM EDT Office Visit Orthopedic Surgery [address] [place] [phone] Nichelle De La O MD Joint locking (Primary Dx); Left hand pain 02/12/2025 3:30 PM EDT Treatment [address] [phone] Compa Haney, PT Pain in left ankle and joints of left foot (Primary Dx) 02/06/2025 11:00 AM EDT Treatment [address] [address] Lluvia Donald, PT Pain in left ankle and joints of left foot (Primary Dx) 01/28/2025 3:30 PM EDT Treatment [address] [phone] Brijesh Alvarado PTA Pain in left ankle and joints of left foot (Primary Dx); Tibialis posterior tendonitis, left 01/15/2025 5:00 PM EDT Evaluation [address] [phone] Compa Haney, PT Pain in left ankle and joints of left foot from Last 3 Months Surgical History Surgery Date Site/Laterality Comments ANKLE FRACTURE SURGERY Left PROCEDURE: MD OPEN TREATMENT MEDIAL MALLEOLUS FRACTURE OTHER SURGICAL HISTORY Left PROCEDURE: MD ARTHRS WRST EXC&/RPR TRIANG FIBROCART&/JOINT Social History [...] Info) Description 02/25/2025 3:30 PM EDT Treatment [address] [phone] Brijesh Alvarado PTA 03/03/2025 3:30 PM EDT Treatment [address] [phone] Brijesh Alvarado, MECHANICS HANDYMAN 03/05/2025 3:00 PM EDT Treatment [address] [address] Brijesh Alvarado, MECHANICS HANDYMAN 03/09/2025 3:00 PM EDT Treatment [address] [address] Brijesh Alvarado, MECHANICS HANDYMAN 03/11/2025 3:30 PM EDT Treatment [address] [address] Brijesh Alvarado, MECHANICS HANDYMAN 03/16/2025 3:30 PM EDT Treatment [address] [address] Brijesh Alvarado, MECHANICS HANDYMAN 03/18/2025 3:30 PM EDT Treatment [address] [address] Brijesh Alvarado, MECHANICS HANDYMAN 03/23/2025 3:30 PM EDT Treatment [address] [address] Brijesh Alvarado, MECHANICS HANDYMAN 03/25/2025 4:00 PM EDT Treatment [address] [address] Compa Haney, PT Health Maintenance Due Date Last Done Comments Breast Cancer Screening 1985 DTaP,Tdap,and Td Vaccines (1 - Tdap) 2003 Hepatitis B Vaccines (1 of 3 - 19+ 3-dose series) 2003 Cervical Cancer Screening: P ap Smear 2005 Depression Screening 05/28/2022 HIV Screening 05/28/2022 Hepatitis C Screening 05/28/2022 Social Influencers of Health Screening 05/28/2022 COVID-19 Vaccine (1 - 2023-2 5 season) 2024 Influenza Vaccine [...] UPON REACH MET 10/13 #4 IMPROVE LEFT TRANSLITERATOR FROM 40 TO 60 POUNDS = 75 [...] Pt will be independent with HEP Insurance [facility] [employer] PLAN Care Teams Class A Truck Driver Relationship Specialty Start Date End Date Dorothea Carey MD [address] [place] [address] , [address] [facility] Associ D/B/A: [facility] RUBIN Rowley PCP - General Internal Medicine 08/15/21
--- OUTSIDE RECORDS SUMMARY | 2025-02-24 06:43 | XMS_ITS | Data Portability ---
Author Organization [facility], [facility] Address [address] [place] [address] Assessment Encounter Date Assessment Date Assessment LastModified by Organization Details LastModified Time 10/14/2024 10/14/2024 CHIEF COMPLAINT: Left medial ankle pain and swelling HISTORY OF PRESENT ILLNESS: Loli is a 39-year-old woman seen today with a friend who serves as cloth dyeing range tender who is status post previous left ankle [...] the patient in the presence of a cloth dyeing range tender. She has failed to improve with appropriate [...] Surgeries ankle arthrosco py (SURG) 2023 025 [email or web address] [facility], [address], [place], [address], 10/16/2024 08:36:06 Imaging XR, ankle, 3 or more view - RM 301 RIGHT ANKLE 2024 025 [email or web address] [facility], [address], [place], [address], 01/27/2025 07:01:38 XR, ankle, 3 or more view - rm 303 left ankle 3v after cast off please 2024 025 [email or web address] [facility], [address], [place], [address], 01/01/2025 13:41:44 Medication Orders None recorded. Patient TargetsNo targets recorded. Patient Instructions Encounter Date Encounter Id Patient Instructions Last Modified By Organization Details Last Modified Time 12/02/[id number] application of cast, short leg walking cast* - room 117 [facility] Not available 12/02/2024 11:55:54 01/01/[id number] cast removal* - cast off then xray [...] a4ajBk vP9nXo QUaueC m3YtLR FvZlgJ JJ8mAn HZtai3 3z5695 AC0Kqb XiEU6K iKiQtr MwF INTERFACE [facility] [address] [facility] [address], [place], [address], 01/01/2025 12:58:48 01/01/20 25 01/01/2025 XR, ankle , 3 or more view [email or web address] ?Encry pted=s hAaTro YD8dLq bEUv6g %2BXZw aYqtaq 0bqfl% 2Fg9IQ a4ajBk vP9nXo QUaueC m3YtLR FvZlgJ JJ8mAn HZtai3 9z5033 AC0Kqb XiEU6K iKiQtr MwF INTERFACE [facility] [address] [facility], [place], [address], 01/01/2025 12:58:50 01/24/20 25 01/01/2025 XR, ankle , 3 or more view [email or web address] ?Encry pted=s hAaTro YD8dLq bEUv6g %2BXZw aYqtaq 0bqfl% 2Fg9IQ a4ajBk vP9nXo QUaueC m3YtLR FvZl JJ8mAn HZtai3 9f6892 AC0Kqb XiEU6K iKiQtr MwF INTERFACE [facility] [address] [facility] [address] [facility] [address], [place], [address], 01/23/2025 10:17:06 01/27/20 25 01/26/2025 XR, ankle , 3 or more view [email or web address] ?Encry pted=s hAaTro YD8dLq bEUv6g %2BXZw aYqtaq 0bqfl% 2Fg9IQ a4ajBk vP9nXo QUaueC m3YtLR FvZlgJ JJ8mAn HZtai3 1d3878 AC0KqY nuGUKK mKiQtr MwF INTERFACE [facility] [address], [place], [address], 01/26/2025 14:12:43 01/27/20 25 01/26/2025 XR, ankle , 3 or more view [email or web address]:/ [email or web address] ?Encry pted=s hAaTro YD8dLq bEUv6g %2BXZw aYqtaq 0bqfl% 2Fg9IQ a4ajBk vP9nXo QUaueC m3YtLR FvZlgJ JJ8mAn HZtai3 9t9955 AC0KqY nuGUKK mKiQtr MwF INTERFACE [facility] [address], [place], [address], 01/26/2025 14:12:45 Result Notes None recorded. 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 3225819739774 100 Active 2024 Moncho Ramírez PA-C [address], [place], [address] , [facility] 5 08:23:15 Tightness of left gastrocnem ius muscle 5037364224153 9106 Active 2024 Moncho Ramírze PA-C [address], [place], [address] , [facility] 5 08:23:15 Synovitis of left ankle joint 7702077566503 105 Active 2024 Moncho Ramírez PA-C [address], [place], [address] , [facility] 5 08:23:15 Closed fracture of medial malleolus 60482865 Active 2024 Moncho Ramírez PA-C [address], [place], [address] , [facility] 5 08:23:15 Problem Notes None recorded. Procedures Surgical History Date Name Laterality Status Provider Name and Address Organization Details Recorded Time 5 Cast_Short Leg Walking Cast_11+ completed RAYMOND TONIA [facility] 12/23/2024 13:57:08 5 Cast Removal completed RAYMOND RANADLL [facility] 12/23/2024 13:55:26 4 Other completed Kj Lobo [facility] 01/01/2025 12:30:45 Imaging Results Imaging Date Name Status LastModified by Organiz ation Details LastModified Time 01/01/2025 XR, ankle, 3 or more view completed [facility] [address], [place], [address], 01/01/2025 12:58:48 01/01/2025 XR, ankle, 3 or more view completed [facility] [address], [place], [address], 01/01/2025 12:58:50 01/01/2025 XR, ankle, 3 or more view completed [facility] [address], [place], [address], 01/23/2025 10:17:06 01/26/2025 XR, ankle, 3 or more view completed INTERFACE [facility] [address], [place], [address], 01/26/2025 14:12:43 01/26/2025 XR, ankle, 3 or more view completed [facility] [address], [place], [address], 01/26/2025 14:12:45 Procedure Notes None recorded. Medical [...] Updated DateTime 10/14/2024 160.02 cm 33.5 kg/m2 58935.96 g ZAK CASTILLOABRAHAM Aldrich [facility] 10/14/2024 13:59:45 Date Recorded Body height Body mass index (BMI) Body weight Provider Name and Address Organization Details Last Updated DateTime 12/02/2024 160.02 cm 33.5 kg/m2 20570.96 g Toshia melendez [facility] 12/02/2024 10:00:38 Date Recorded Body height Body mass index (BMI) Body weight Provider Name and Address Organization Details Last Updated DateTime 01/01/2025 160.02 cm 33.5 kg/m2 91304.96 g Kj Lobo [facility] 01/01/2025 12:30:53 Date Recorded Body height Provider Name an d Address Organization Details Last Updated DateTime 12/26/2024 160.02 cm Carri Gomez [facility] 01/13/2025 16:41:34 Date Recorded Body height Body mass index (BMI) Body weight Provider Name and Address Organization Details Last Updated DateTime 01/26/2025 160.02 cm 33.5 kg/m2 60087.96 g Kj Lobo [facility] 01/26/2025 14:01:50 Social History None recorded. Functional Status None recorded. Mental Status None recorded. Family History Nothing Reported. Medical History Condition Response Anxiety/Depression N Arthritis N Gynecological HistoryNo gynecological history recorded. Obstetrics History GPAL:G 0 P 0 0 0 0 Past Encounters Encounter ID Performer Location Encounter Start Date Encounter Closed Date Diagnosis/Indication Diagnosis SNOMED-CT Code Diagnosis ICD10 Code Diagnosis Note [id number] MD [facility] [address] [place] [address] 01/30/2024 09:19:24 02/13/2024 09:38:39 Pain in left arm 873433812 M79.857 [id number] Josianejudy Liu PA-C [facility] [address] [place], [place] [address] 02/07/2024 13:24:25 02/27/2024 12:39:07 Impingement of right ankle joint 0866708877 5004418 M25.934 [id number] Josiane RAFAEL Liu [facility] [address] [place] [address] 04/22/2024 12:55:36 05/20/2024 13:37:41 Impingement of right ankle joint 7281599078 5720445 M25.871 Pain of le ft ankle joint 2198002875 6235515 M25.693 [id number] Josianejudy Liu PA-C [facility] [address] [place] , [place] [address] 05/15/2024 13:17:48 06/12/2024 08:20:08 Tibialis posterior tendinitis 002774733 M76.555 [id number] Josianejudy Liu PA-C [facility] [address] [place] [address] 07/15/2024 11:02:18 08/07/2024 10:36:41 Tibialis posterior tendinitis 341929913 M76.106 [id number] Michael Gibbs [facility] [address] [place] [address] 08/26/2024 12:58:28 09/18/2024 08:24:56 Tendinitis of left posterior tibial tendon 7025343119 01987 M76.822 Tightness of left gastrocnemius muscle 7544959443 2042841 M62.89 [id number] Michael Gibbs MD [facility] [address] [place] [address] 10/14/2024 13:52:40 11/11/2024 09:43:29 Instability of joint of left ankle 9908518571 193517 M25.372 Closed fra cture of medial malleolus 88161351 S82.52XS Tightness of left gastrocnemius muscle 4346291518 0008675 M62.89 Synovitis of left ankle joint 2635902070 919346 M65.195 [id number] Moncho Ramírez PA-C [facility] [address] [place] [address] 12/02/2024 08:53:08 12/24/2024 14:44:34 Instability of joint of left ankle 5548364056 583624 M25.372 Closed fra cture of medial malleolus 46820343 S82.52XS Tightness of left gastrocnemius muscle 5662745299 5215096 M62.89 Synovitis of left ankle joint 2341286256 811580 M65.968 [id number] Inés Craig PA-C [facility] [address] [place] [address] 12/23/2024 13:16:32 12/23/2024 13:58:24 Instability of joint of left ankle 7197898221 663950 M25.300 [id number] Sara Montoya PA-C [facility] [address] [place] [address] 01/01/2025 12:27:08 01/15/2025 09:52:34 Acute ankle pain 9558247534 9105 M25.572 Closed fra cture of medial malleolus 59739068 S82.52XS [id number] Sara Montoya PA-C [facility] [address] [place] [address] 01/26/2025 13:57:07 02/10/2025 14:14:36 Acute ankle pain 5314629446 9105 M25.571 Open fract ure of medial malleolus 07997031 S82.52XB Health Concerns Section Related Observation LastModified by Organization Detai ls LastModified Time None Recorded Concern Status LastModified by Organization Details LastModified Time None Recorded Advance Directives Directive None Recorded Payers Encounter Date Sequence Insurance Name Policy Number Policy Marie Covered Member ID Marie Member ID Guarantor Name 10/14/2024 1 [facility] PLAN (MEDICAID HMO) TAMIKA Aguirre [id number] Liliya Aguirre 12/02/2024 1 [employer] PLAN (MEDICAID HMO) TAMIKA Galindomin Aguirre [id number] Liliya Aguirre 01/01/2025 1 [employer] PLAN (MEDICAID HMO) TAMIKA Galindomin Aguirre [id number] Liliya Aguirre 01/26/2025 1 [employer] PLAN (MEDICAID HMO) TAMIKA Galindomin Aguirre [id number] Liliya Aguirre Notes Date Note Type Note [...] with her nonweightbearing Moncho Ramírez PA-C [address] [facility] [address], [place], [address], [facility] 12/02/2024 10:35:29 01/01/2025 text/html I am seeing the patient today under the supervision of Dr. Gibbs who was available but who did not see the patient. HPI:_[id number] Honduran speaking female presents 6 weeks status post [...] times a day. _Follow-up in 4-6 weeks. [employer] speech recognition circular knife machine cutter software was used to create portions of this document. An attempt at proofreading has been made to minimize errors. Please call for corrections. Sara Montoya PA-C [address] [facility] [address] [facility][note 3], [place], [address], [facility] 01/01/2025 13:39:21 01/26/2025 text/html I am seeing the patient today under the supervision of Dr. Gibbs who was available but who did not see the patient. HPI:_[id number] Honduran speaking female presents status post left ankle [...] obtained and reviewed today with patient at [facility] 3 views of the left ankle reveal stable ankle mortise. No fractures. Impression/Plan: Postop, stable. Patient transitioned into a ASO brace. She will attend PT and follow-up in 6 weeks. Activity progression discussed. [facility] speech recognition circular knife machine cutter software was used to create portions of this document. An attempt at proofreading has been made to minimize errors. Please call for corrections. Sara Montoya PA-C [address] [facility] [address], [place], [address], [facility] 02/05/2025 12:47:45 OBGyn Episode No OBEpisode recorded.
== END 2025-02-24 06:41 | disposition home or self-care (01) ==
LOC: CF 06:40
PROVIDERS: Visit Provider Anesthesiology
DX: M25.552 Pain in left hip (principal); M25.551 Pain in right hip; M16.12 Unilateral primary osteoarthritis, left hip
CPT/HCPCS: 20610; J2003; J2795; J3301; Q9967

== ENCOUNTER 2025-02-24 14:29 | Outpatient (AMB) | payer OTHER, SELFPAY ==
[2025-02-24 14:38] VITALS: BP 136/85; PULSE 82; RESP 16; O2SAT 98
--- NOTE | 2025-02-24 14:38 | A.OFFVIS_ITS ---
Vital Signs 02/24/25 14:38 02/24/25 15:03 BP 136/85 172/77 H Blood Pressure Location Lt brachial Lt brachial Position Sitting Sitting Respiration 16 16 Pulse 82 88 Pulse Source Pulse Oximeter Pulse Oximeter Pulse Oximetry (%) 98 100 Oxygen Delivery Method Room Air Room Air Intake Visit Reasons: LEFT INTRA-ARTICULAR HIP INJECTION Fleet Driver Required: Yes Fleet Driver Services: Fleet Driver Offered & Declined Fleet Driver Name: Prefers friend to translate Allergies No Known Allergies [No Known Allergies*] Allergy (Verified 02/24/25 14:39) Medication List - Last Reconciled 02/24/25 by Esha Ocampo LPN acetaminophen 500 mg PO Q6H PRN 30 days blood pressure monitor As directed cane As directed Grab bar As directed [hand held showerhead As directed] lisinopril 10 mg PO DAILY 90 days naloxone 4 mg/actuation (Narcan) 4 mg intranasal Q2M PRN Shower Chair As directed tobramycin 0.3% 1 drp ophthalmic (eye) Q4H 7 days tramadol 50 mg PO DAILY PRN 30 days trazodone 25 - 50 mg (0.5 - 1 x 50 mg) PO BEDTIME PRN 30 days PFSH Medical History (Updated 02/25/25 @ 08:09 by Estrada Padilla MD) Polyarthralgia Fibromyalgia High blood pressure Rash Lumbar pain Obese Surgical History (Updated 12/08/24 @ 12:51 by Dorothea Carey MD) H/O eye surgery S/P tendon repair History of local excision of skin lesion (08/03/22) S/P ligament repair History of hand surgery History of tubal ligation Family History Father No problems noted. Mother Diabetes Hypertension Paternal Aunt Breast cancer Family/Other Chronic mental illness Brother No problems noted. Brother No problems noted. Brother No problems noted. Sister No problems noted. Sister No problems noted. Son In good health Daughter In good health Social History Housing: Apartment Alcohol intake: current Alcohol intake frequency: holidays/special occasions only Alcohol type: wine and other Patient Tobacco Use Status: Never used Tobacco e-Cigarette/Vaping Use: Never Used Second Hand Smoke Exposure: No service: No Current occupational status: unemployed Cognitive needs: No Hearing needs: No Vision needs: Yes (Glasses) Female Reproductive History Menstrual Age of Menarche: 14 Physical Exam Vital Signs: Last Vital Signs Pulse 88 02/24/25 15:03 Resp 16 02/24/25 15:03 BP 172/77 H 02/24/25 15:03 Pulse Ox 100 02/24/25 15:03 Oxygen Delivery Method Room Air 02/24/25 15:03 Assessment & Plan Assessment & Plan (1) Left hip pain: Code(s): M25.552 - Pain in left hip Category: Medical (2) Osteoarthritis of left hip: Code(s): M16.12 - Unilateral primary osteoarthritis, left hip Category: Medical Plan Left intra-articular hip steroid injection. Patient came to the operating room after informed consent was thoroughly explained to the patient. She was positioned on the right lateral decubitus position on the operating table with the nondependent left hip area exposed. Time-out was performed delineating name and date of of the patient, nature of the procedure side and site of the procedure. The patient's nondependent left hip was prepped with ChloraPrep and draped with sterile utility towels. C-arm was brought over the operating field and picture of the right hip joint was demonstrated on the screen. In the projection of the right trochanter 5 mm above the most superior point of right trochanter projection to the skin injection of the local anesthetic mixture of lidocaine 2% and ropivacaine 0.5% was performed forming a skin wheal. After that 22 gauge 5 in needle was inserted through the skin wheal and advanced to were the joint and the anterior posterior and lateral views intermittently. When the tip of the needle entered the silhouette of the joint injection of the contrast was performed demonstrating arthrogram. After that 4 cc of ropivacaine 0.5% mixed with Kenalog 40 mg was performed into the joint. The needle was removed sterile Band-Aid was applied. Patient tolerated procedure well. Orders: Orders: Orders FL guidance in treatment room 02/24/25 M25.551 - Pain in right hip, M25.552 - Pain in left hip Coding Level of Care Code Procedure Only Diagnoses Left hip pain M25.552 Osteoarthritis of left hip M16.12
[2025-02-24 15:03] VITALS: BP 172/77; PULSE 88; RESP 16; O2SAT 100
--- OUTSIDE RECORDS SUMMARY | 2025-02-24 17:19 | XMS_ITS | Encounter Summary ---
Author Organization [employer] Address [address] [place] [address] Care Team Providers Care Water Resource Engineer Name Role Phone Dorothea Carey MD Primary Care Provider [phone] Reason for Visit * Consultation (Routine) - Authorized Specialty Diagnoses / Procedures Referred By Contviviana t Referred To Contact Physical Therapy Diagnoses Pain in left ankle and joints of left foot Sara Montoya, BRENT [address] [facility] [address] [place] [address] Phone: tel: fax: Referral ID Status Reason Start Date Expiration Date Visits Requested Visits Authorized [id number] Authorized Specialty Services Required 01/14/2025 01/14/2026 21 21 Encounter Details Date Type Department Care Team (Late st Contact Info) Description 02/23/2025 3:30 PM EDT Treatment [facility] [address] [facility] [address] [place] [address] Brijesh Alvarado PTA Pain in [...] Alvarado PTA - 02/23/2025 3:30 PM EDT [facility] - Outpatient PHYSICAL THERAPY DAILY TREATMENT NOTE - OP Date: 02/23/2025 Visit Number: 5 Patient Name: Liliya Aguirre : 1985 Age: 39 y.o. Gender: female Diagnosis: ICD-10-CM ICD-9-CM 1. Pain in left ankle and joints of left foot M25.572 719.47 Date of Onset/Surgery: 01/15/2025 Referring Provider: Sara Montoya PA Insurance: Payor: [employer] PLAN / Plan: [employer] MEDICAID / Product Type: *No Product type* / Patient Identified by: Brijesh Alvarado PTA Language: Pt. speaks Albanian as preferred language, however declines healthcare interpreter treating Medications: Current Outpatient Medications on File [...] Info) Description 02/25/2025 3:30 PM EDT Treatment [address] [address] Brijesh Alvarado, LEAD APPLICATIONS DEVELOPER 03/03/2025 3:30 PM EDT Treatment [address] [address] Brijesh Alvarado, LEAD APPLICATIONS DEVELOPER 03/05/2025 3:00 PM EDT Treatment [address] [address] Brijesh Alvarado, LEAD APPLICATIONS DEVELOPER 03/09/2025 3:00 PM EDT Treatment [address] [address] Brijesh Alvarado, LEAD APPLICATIONS DEVELOPER 03/11/2025 3:30 PM EDT Treatment [address] [address] Brijesh Alvarado, LEAD APPLICATIONS DEVELOPER 03/16/2025 3:30 PM EDT Treatment [address] [address] Brijesh Alvarado, LEAD APPLICATIONS DEVELOPER 03/18/2025 3:30 PM EDT Treatment [address] [address] Brijesh Alvarado, LEAD APPLICATIONS DEVELOPER 03/23/2025 3:30 PM EDT Treatment [address] [address] Brijesh Alvarado, LEAD APPLICATIONS DEVELOPER 03/25/2025 4:00 PM EDT Treatment [facility] [address] [place] [address] [place] [address] Compa Haney, PT documented as [...] UPON REACH MET 10/13 #4 IMPROVE LEFT WINE CELLAR STOCK CLERK FROM 40 TO 60 POUNDS = 75 [...] Primary documented in this encounter Care Teams Water Resource Engineer Relationship Specialty Start Date End Date Dorothea Carey MD [address] [place] [address] , [address] [facility] D/B/A: [facility] In Internal Medicine [place] Rowley PCP - General Internal Medicine 08/15/21 documented as of this encounter
--- OUTSIDE RECORDS SUMMARY | 2025-02-24 17:19 | XMS_ITS | Clinical Summary ---
Author Organization Patient Business Ser [facility] Address [address] [place] [address] Care Team Providers Care Food Court Team Member Name Role Phone Dorothea Carey MD Primary Care Provider [phone] Allergies No known active allergies Medications amitriptyline [...] Team Description 02/23/2025 3:30 PM EDT Treatment [address] [address] Brijesh Alvarado PTA Pain in left ankle and joints of left foot (Primary Dx) 02/17/2025 1:30 PM EDT Office Visit Orthopedic Surgery [address] [place] [address] Nichelle De La O MD Joint locking (Primary Dx); Left hand pain 02/12/2025 3:30 PM EDT Treatment [address] [address] Compa Haney, PT Pain in left ankle and joints of left foot (Primary Dx) 02/06/2025 11:00 AM EDT Treatment [address] [address] Lluvia Donald, PT Pain in left ankle and joints of left foot (Primary Dx) 01/28/2025 3:30 PM EDT Treatment [address] [address] Brijesh Alvarado PTA Pain in left ankle and joints of left foot (Primary Dx); Tibialis posterior tendonitis, left 01/15/2025 5:00 PM EDT Evaluation [address] [address] Compa Haney, PT Pain in left ankle and joints of left foot from Last 3 Months Surgical History Surgery Date Site/Laterality Comments ANKLE FRACTURE SURGERY Left PROCEDURE: [place] OPEN TREATMENT MEDIAL MALLEOLUS FRACTURE OTHER SURGICAL HISTORY Left PROCEDURE: NC ARTHRS WRST EXC&/RPR TRIANG FIBROCART&/JOINT Social History [...] Info) Description 02/25/2025 3:30 PM EDT Treatment [address] [phone] Brijesh Alvarado PTA 03/03/2025 3:30 PM EDT Treatment [address] [phone] Brijesh Alvarado, DIRECTOR OF DISTRIBUTION 03/05/2025 3:00 PM EDT Treatment [address] [address] Brijesh Alvarado, DIRECTOR OF DISTRIBUTION 03/09/2025 3:00 PM EDT Treatment [address] [address] Brijesh Alvarado, DIRECTOR OF DISTRIBUTION 03/11/2025 3:30 PM EDT Treatment [address] [address] Brijesh Alvarado, DIRECTOR OF DISTRIBUTION 03/16/2025 3:30 PM EDT Treatment [address] [address] Brijesh Alvarado, DIRECTOR OF DISTRIBUTION 03/18/2025 3:30 PM EDT Treatment [address] [address] Brijesh Alvarado, DIRECTOR OF DISTRIBUTION 03/23/2025 3:30 PM EDT Treatment [address] [address] Brijesh Alvarado, DIRECTOR OF DISTRIBUTION 03/25/2025 4:00 PM EDT Treatment [address] [address] Compa Haney, PT Health Maintenance Due Date [...] UPON REACH MET 10/13 #4 IMPROVE LEFT SENIOR NATIONAL ACCOUNT MANAGER FROM 40 TO 60 POUNDS = [...] Pt will be independent with HEP Insurance [facility] Homeschool [employer] PLAN Care Teams Food Court Team Member Relationship Specialty Start Date End Date Dorothea Carey MD [address] [place] [address] , [address] [facility] Physician Associ D/B/A: [facility] [place] Rowley PCP - General Internal Medicine 08/15/21
--- OUTSIDE RECORDS SUMMARY | 2025-02-24 17:19 | XMS_ITS | Encounter Summary ---
Author Organization [facility] Address [address] [place] [address] Care Team Providers Care Instructional Technology Instructor Name Role Phone Dorothea Carey MD Primary Care Provider Encounter Details Date Type Department Care Team (Late st Contact Info) Description 09/01/2024 3:00 PM EDT Hospital Encounter TH HISTORIC ENCOUNTERS EASTERN CONVERSION ONLY Nichelle De La O MD 175 [facility] [address] [place] [address] Social History Tobacco Use Types [...] Info) Description 02/25/2025 3:[address] [facility] [address] [phone] Brijesh Alvarado PTA 03/03/2025 3:[address] [facility] [address] [phone] Brijesh Alvarado, CROWN AND BRIDGE TECHNICIAN 03/05/2025 3:[address] [facility] [address] [phone] Brijesh Alvarado, CROWN AND BRIDGE TECHNICIAN 03/09/2025 3:[address] [facility] [address] [address] Brijesh Alvarado, CROWN AND BRIDGE TECHNICIAN 03/11/2025 3:[address] [facility] [address] [address] Brijesh Alvarado, CROWN AND BRIDGE TECHNICIAN 03/16/2025 3:[address] [facility] [address] [phone] Brijesh Alvarado, CROWN AND BRIDGE TECHNICIAN 03/18/2025 3:[address] [facility] [address] [address] Brijesh Alvarado, CROWN AND BRIDGE TECHNICIAN 03/23/2025 3:[address] [facility] [address] [address] Brijesh Alvarado, CROWN AND BRIDGE TECHNICIAN 03/25/2025 4:[address] [facility] [address] [address] Compa Haney, PT documented as of this [...] UPON REACH MET 10/13 #4 IMPROVE LEFT MATH INSTRUCTOR FROM 40 TO 60 POUNDS = [...] on filedocumented in this encounter Care Teams Instructional Technology Instructor Relationship Specialty Start Date End Date Dorothea Carey MD [address] [place] [address] , [address] [facility] Physician Associ D/B/A: [facility] RUBIN Rowley PCP - General Internal Medicine 08/15/21 documented as of this encounter
== END 2025-02-24 15:03 | disposition home or self-care (01) ==
LOC: HO.PMCPRC 14:29
PROVIDERS: PCP Internal Medicine; Visit Provider Anesthesiology
DX: M25.552 Pain in left hip (principal); M16.12 Unilateral primary osteoarthritis, left hip
CPT/HCPCS: 20610; 77002

== ENCOUNTER 2025-03-10 13:58 | Outpatient (AMB) | payer OTHER, SELFPAY ==
--- NOTE | 2025-03-10 14:00 | MHC.OFFVIS ---
Vital Signs 03/10/25 14:10 Height 5 ft 4 in Weight 200 lb BMI 34.3 BP 179/88 H Blood Pressure Location Lt brachial Position Sitting Pulse 65 Pulse Source Pulse Oximeter Pulse Oximetry (%) 98 Oxygen Delivery Method Room Air Intake Visit Reasons: LEFT INTRA-ARTICULAR HIP INJECTION Intake Note: Pain today 3/10 Customer Operations Associate Required: Yes Customer Operations Associate Language: Pattern Puncher Name: family Accompanied by: Family/Other Allergies No Known Allergies [No Known Allergies*] Allergy (Verified 03/10/25 14:11) HPI Comments Details: The patient is a 39-year-old female presenting with pain management and follow-up after a recent left intra-articular steroidal hip injection on 02/24/[address] Padilla. She reports hip injection resulted in significant improvement in mobility, making it easier for her to walk. However, she continues to experience persistent pain localized in the lower back area in the projection of bilateral sacroiliac joint areas with positive provocative testing, worse on the left. The patient reports the pain intensity as a 3/10 currently, with occasional exacerbations. Her previous history of pain management included successful 100% pain relief from sacroiliac joint injections administered in November 2023. However, subsequent efforts to manage her pain through transforaminal injections failed to produce significant results. While the hip injection provided temporary relief for the hip-related discomfort, the low back pain has returned to previous levels. The patient's pain worsens in the lower back when engaging in activities such as household tasks, suggesting the movement or activity could exacerbate her condition. Notably, she reports no current groin pain. The patient expresses interest in repeating SI joint injections with steroids, as the previous ones were beneficial to her condition. Denies any fever or chills, cold symptoms or cuff, dizziness, shortness of breath, chest pain, weakness, bladder or bowel dysfunction or saddle anesthesia. Past Procedures: 02/24/25: Left hip intra-articular steroid ngemewnqs-93-06% ognoing pain relief 08/15/24: Bilateral L5-S1 TFESI injection-0% pain relief 01/29/24: Bilateral Diagnostic L3 L4 DR L5 MBB-0% pain relief 11/06/23: Bilateral Diagnostic SIJ injections-100% ongoing pain relief PRIOR: Patient is a pleasant 38 year old Bruneian speaking female with history of fibromyalgia, arthritis, polyarthralgia and chronic neck, thoracic and lumbar pain presents today for initial evaluation for chronic mid and low back pain. She was followed by [facility] up until 09/13/2023. Patient was also seen by [facility] for back and hip pain. She reports upcoming surgery for neurogenic thoracic outlet syndrome with Dr. Meyers at [facility] early next year. Patient was also seen at [facility] for ankle pain, by Dr. De La O for hand pain and by Rheumatology for hand pain. Patient was referred to us by Dr. Natarajan at [facility] Physiatry for low back pain. She had underwent bilateral L3-L4-L5 medial branch blocks and interlaminar epidural injections at L5-S1 and completed physical and chiropractic therapies without much relief at [facility]. Patient reports back pain that radiates upward to her upper thoracic, between shoulder blades and down into her sacral regions bilaterally but not into her lower extremities. Patient also reports widespread body pain with multiple tender points of upper and lower extremities and torso which is consistent with fibromyalgia. Patient has been managing amitriptyline and Lyrica, and also tried gabapentin without relief. Per Physiatry notes, MRI 06/05/2022 reported no significant spinal stenosis, spondylosis L4-5 and L5-S1. EMG reported to be normal lower extremity. Pain negatively affects her daily functioning, mood, sleep and quality of life. Patient denies any fever, weight loss, abdominal or groin pain, weakness, bladder or bowel dysfunction or saddle anesthesia. Location Chronic pain in lower back and sacral, between shoulder blades, mid back Duration Chronic pain for > 3 years Characteristics of symptom or complaint Aching, spasms, numbness, tingling, dull, shooting, pulling, radiating Aggravating or associated factors Movements, walking, standing, cold weather Relieving factors Sitting, resting, heat therapy, Gabapentin/Lyrica, Ibuprofen, lidocaine Treatment PT, injections at [facility], chiropractic therapy-minimal relief [facility] Medical History Polyarthralgia Fibromyalgia High blood pressure Rash Lumbar pain Obese Surgical History H/O eye surgery S/P tendon repair History of local excision of skin lesion (08/03/22) S/P ligament repair History of hand surgery History of tubal ligation Family History Father No problems noted. Mother Diabetes Hypertension Paternal Aunt Breast cancer Family/Other Chronic mental illness Brother No problems noted. Brother No problems noted. Brother No problems noted. Sister No problems noted. Sister No problems noted. Son In good health Daughter In good health Social History Housing: Apartment Alcohol intake: current Alcohol intake frequency: holidays/special occasions only Alcohol type: wine and other Patient Tobacco Use Status: Never used Tobacco e-Cigarette/Vaping Use: Never Used Second Hand Smoke Exposure: No service: No Current occupational status: unemployed Cognitive needs: No Hearing needs: No Vision needs: Yes (Glasses) Female Reproductive History Menstrual Age of Menarche: 14 Review of Systems Const All systems reviewed & are unremarkable except as noted in HPI and below Physical Exam Vital Signs: Last Vital Signs Pulse 65 03/10/25 14:10 BP 179/88 H 03/10/25 14:10 Pulse Ox 98 03/10/25 14:10 Oxygen Delivery Method Room Air 03/10/25 14:10 BMI result Body Mass Index 34.3 General: Appears afebrile. Alert and oriented. Mood and affect appropriate. Follows and participates in conversation appropriately. Respiratory effort is unlabored. No cough. Able to transition from sit to stand unassisted. Ambulates with bilaterally normal heel strike and toe off. General: Yes no CVA tenderness Back/Spine/Pelvis Other: Limited thoracolumbar ROM due to pain. Lumbar flexion and extension reproduce moderate pain. Seated straight leg rise with dorsiflexion negative bilaterally. +2 patellar and +1 achilles reflexes bilaterally. Facet loading test positive bilaterally. Bienvenido sign positive bilaterally, Etienne?s, Gaenslen, and Stinchfield tests reproduces bilateral hip pain and low back pain, worse on the left. No groin pain with I/E hip rotations bilaterally. Multiple widespread TTPs 16/16 bilaterally, including upper and lower extremities. Back: no CVA tenderness Cervical Spine: cervical ROM normal, cervical muscular tenderness, pain with cervical ROM and No Cervical spine tenderness Thoracic/Lumbar Spine: thoracic and lumbar spine normal to inspection, No Thoracic/lumbar spine scar(s), Lasegue's sign negative, straight leg raise negative bilaterally, pain with thoraco-lumbar ROM, paraspinal muscle tenderness, thoraco-lumbar ROM limited, No thoracic spinal tenderness and lumbar spinal tenderness at L4 and at L5 Pelvis: buttock tenderness bilaterally Sacroiliac joints: bilaterally tender to palpation Extrem General: Yes capillary refill normal, Yes no clubbing, cyanosis or edema and Yes no calf tenderness Results Reviewed Results Reviewed: XR BILATERAL HIPS WITH AP PELVIS 09/24/24 CLINICAL INFORMATION: M53.3 - Sacrococcygeal disorders, not elsewhere classified. Pain, no known injury. FINDINGS: Normal mineralization. No fractures, dislocation, or suspicious bone lesions. Normal alignment of the bilateral hip joints. Femoral heads maintain normal contour. No evidence of AVN. Somewhat overriding acetabula are noted bilaterally, finding which can be associated with pincer-type ASHVIN. Sacrum and SI joints appear normal. Lower lumbar spine appears normal. Soft tissues appear normal. IMPRESSION: 1. No acute findings in the joints or SI joints. 2. Somewhat overriding posterior acetabula are noted bilaterally, finding which can be associated with pincer-type ASHVIN. Assessment & Plan Assessment & Plan (1) Lumbar spondylosis: Code(s): M47.816 - Spondylosis without myelopathy or radiculopathy, lumbar region Category: Medical (2) Bilateral hip pain: Code(s): M25.551 - Pain in right hip; M25.552 - Pain in left hip Category: Medical (3) Fibromyalgia: Code(s): M79.7 - Fibromyalgia Category: Medical (4) Sacroiliac joint pain: Code(s): M53.3 - Sacrococcygeal disorders, not elsewhere classified Category: Medical (5) Osteoarthritis of left hip: Code(s): M16.12 - Unilateral primary osteoarthritis, left hip Category: Medical Plan Patient is over 2 weeks status post left hip injection with good results and improved functioning and mobility. Recommending repeating bilateral SI joint injections but with steroids due to patient-reported benefits from previous interventions. The goal is to achieve a similar reduction in pain intensity despite no expectation of complete relief. Continue avoiding activities exacerbating pain while encouraging those that do not induce discomfort were also addressed. Encourage weight loss, adequate hydration, good posture and daily physical activity. Schedule bilateral sacroiliac joint steroid injections with local and fluoroscopy. Expectations, risks and benefits were reviewed. Patient is aware she will be contacted to schedule this procedure. All questions were answered and the patient is in agreement of plan. Follow-up after injections and sooner as needed. Patient was informed and verbally consented to the use of an ambient scribe for clinic note documentation during this visit. Coding Level of Care Code Est Pt Level 4 (70681) Complex EM visit Add On G2211 Diagnoses Lumbar spondylosis M47.816 Bilateral hip pain M25.551; M25.552 Fibromyalgia M79.7 Sacroiliac joint pain M53.3 Osteoarthritis of left hip M16.12
[2025-03-10 14:10] VITALS: BP 179/88; PULSE 65; O2SAT 98; BMI 34.3
--- OUTSIDE RECORDS SUMMARY | 2025-03-10 15:18 | XMS_ITS | Encounter Summary ---
Author Organization [facility] Address [address] [place] [address] Care Team Providers Care Compacting Machine Operator/Tender Name Role Phone Dorothea Carey MD Primary Care Provider [phone] Encounter Details Date Type Department Care Team (Late st Contact Info) Description 09/01/2024 3:00 PM EDT Hospital Encounter TH HISTORIC ENCOUNTERS EASTERN CONVERSION ONLY Nichelle De La O MD 175 [facility] [address] [place] [address] Social History Tobacco Use Types [...] Department Care Team (Late Contact Info) Description 03/11/2025 3:30 PM EDT Treatment [facility] [address] [phone] Brijesh Alvarado PTA 03/16/2025 3:30 PM EDT Treatment [facility] [address] [address] Brijesh Alvarado, SAND CUTTING MACHINE OPERATOR 03/18/2025 3:30 PM EDT Treatment [facility] [address] [phone] Brijesh Alvarado, SAND CUTTING MACHINE OPERATOR 03/23/2025 3:30 PM EDT Treatment [facility] [address] [address] Brijesh Alvarado, SAND CUTTING MACHINE OPERATOR 03/25/2025 4:00 PM EDT Treatment [facility] [address] [phone] Compa Haney, PT documented as of this [...] UPON REACH MET 10/13 #4 IMPROVE LEFT MOTION PICTURE PRINTER FROM 40 TO 60 POUNDS = 75 [...] on filedocumented in this encounter Care Teams Compacting Machine Operator/Tender Relationship Specialty Start Date End Date Dorothea Carey MD [address] [facility] , [address] [facility] Physician Associ D/B/A: [facility] RUBIN Rowley PCP - General Internal Medicine 08/15/21 documented as of this encounter
--- OUTSIDE RECORDS SUMMARY | 2025-03-10 15:18 | XMS_ITS | Encounter Summary ---
Author Organization [facility] Address [address] [place] [address] Care Team Providers Care Campus Recruiter Name Role Phone Dorothea Carey MD Primary Care Provider [phone] Reason for Visit * Consultation (Routine) - Authorized Specialty Diagnoses / Procedures Referred By Contviviana t Referred To Contact Physical Therapy Diagnoses Pain in left ankle and joints of left foot Sara Montoya, BRENT [address] [facility] [address] [place] [address] Phone: tel: fax: Referral ID Status Reason Start Date Expiration Date Visits Requested Visits Authorized [id number] Authorized Specialty Services Required 01/14/2025 01/14/2026 21 21 Encounter Details Date Type Department Care Team (Late st Contact Info) Description 03/05/2025 3:00 PM EDT Treatment [facility] Outpatient Rehabilitation [facility] 175 [facility] [address] [place] [address] Brijesh Alvarado PTA Pain in [...] Progress Notes * Brijesh Alvarado PTA - 03/05/2025 3:00 PM EDT [facility] - Outpatient PHYSICAL THERAPY DAILY TREATMENT NOTE - OP Date: 03/05/2025 Visit Number: [id number] Patient Name: Liliya Aguirre : 1985 Age: 39 y.o. Gender: female Diagnosis: ICD-10-CM ICD-9-CM 1. Pain in left ankle and joints of left foot M25.572 719.47 Date of Onset/Surgery: 01/15/2025 Referring Provider: Sara Montoya PA Insurance: Payor: Cashback [employer] PLAN / Plan: [employer] MEDICAID / Product Type: *No Product type* / Patient Identified by: Brijesh Alvarado PTA Language: Pt. 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 Medications: Current Outpatient Medications on File Prior [...] risk: No SUBJECTIVE Subjective Report: Patient reports she saw Orthopedic earlier today, was told to continue wearing ankle brace for support. Next f/u will be in 2 months. Chart Reviewed: Yes Pain: very little pain TREATMENT INTERVENTION: NuStep x 5 mins LE only L4 Slant Board Calf Stretching 3 x 30 sec hold B Heelraises SLS with L LE, R LE marching 20 reps Wobble board forward/back 20 reps Long sitting resisted with green theraband DF,PF,Inv,EV 20 reps each ASSESSMENT/Response to Treatment Good response with exercises, patient reporting feeling fatigue but no complaints of pain. Patient Education: Education provided: yes Education Provided To: Patient utilizing Explanation mode(s) of education Response to Education: Verbal Understanding PLAN POC Development/Review: No Change in the Plan of Care; Participants: Patient Interventions Time Entry: Modalities: Therapeutic procedures: Therapeutic Exercise Time Entry: 25 Total Treatment Time: 25 mins Documentation completed by Brijesh Alvarado PTA documented in this encounter Plan of Treatment Upcoming Encounters Date Type Department Care Team (Late st Contact Info) Description 03/11/2025 3:30 PM EDT Treatment [facility] [address] [address] Brijesh Alvarado PTA 03/16/2025 3:30 PM EDT Treatment [facility] [address] [address] Brijesh Alvarado PTA 03/18/2025 3:30 PM EDT Treatment [facility] [address] [phone] Brijesh Alvarado PTA 03/23/2025 3:30 PM EDT Treatment [facility] [address] [phone] Brijesh Alvarado PTA 03/25/2025 4:00 PM EDT Treatment [facility] [address] [address] Compa Haney, PT documented as of this [...] UPON REACH MET 10/13 #4 IMPROVE LEFT ATM MECHANIC FROM 40 TO 60 POUNDS = 75 [...] Primary documented in this encounter Care Teams Campus Recruiter Relationship Specialty Start Date End Date Dorothea Carey MD [address] [place] [address] , [address] [facility] Physician Associ D/B/A: [facility] In Internal Medicine RUBIN Rowley PCP - General Internal Medicine 08/15/21 documented as of this encounter
--- OUTSIDE RECORDS SUMMARY | 2025-03-10 15:18 | XMS_ITS | Clinical Summary ---
Author Organization Patient Business [facility] Address [address] [place] [address] Care Team Providers Care Head Charger Name Role Phone Dorothea Carey MD Primary Care Provider [phone] Allergies No known active allergies Medications amitriptyline [...] Encounters Date Type Department Care Team Description 03/05/2025 3:00 PM EDT Treatment [address] [phone] Brijesh Alvarado, ADEN Pain in left ankle and joints of left foot (Primary Dx) 03/03/2025 3:30 PM EDT Treatment [address] [address] Brijesh Alvarado, DIRECTOR TRADING Pain in left ankle and joints of left foot (Primary Dx); Tibialis posterior tendonitis, left 02/23/2025 3:30 PM EDT Treatment [address] [phone] Brijesh Alvarado, DIRECTOR TRADING Pain in left ankle and joints of left foot (Primary Dx) 02/17/2025 1:30 PM EDT Office Visit Orthopedic Surgery [address] [place] [phone] Nichelle De La O MD Joint locking (Primary Dx); Left hand pain 02/12/2025 3:30 PM EDT Treatment [address] [phone] Compa Haney, PT Pain in left ankle and joints of left foot (Primary Dx) 02/06/2025 11:00 AM EDT Treatment [address] [phone] Lluvia Donald, PT Pain in left ankle and joints of left foot (Primary Dx) 01/28/2025 3:30 PM EDT Treatment [address] [phone] Brijesh Alvarado, DIRECTOR TRADING Pain in left ankle and joints of left foot (Primary Dx); Tibialis posterior tendonitis, left 01/15/2025 5:00 PM EDT Evaluation [address] [phone] Compa Haney, PT Pain in left ankle and joints of left foot from Last 3 Months Surgical History Surgery Date Site/Laterality Comments ANKLE FRACTURE SURGERY Left PROCEDURE: [facility] OPEN TREATMENT MEDIAL MALLEOLUS FRACTURE OTHER SURGICAL HISTORY Left PROCEDURE: [facility] ARTHRS WRST EXC&/RPR TRIANG FIBROCART&/JOINT Social History [...] Info) Description 03/11/2025 3:30 PM EDT Treatment [facility] [address] [address] Brijesh Alvarado, DIRECTOR TRADING 03/16/2025 3:30 PM EDT Treatment [address] [phone] Brijesh Alvarado, DIRECTOR TRADING 03/18/2025 3:30 PM EDT Treatment [address] [address] Brijesh Alvarado, DIRECTOR TRADING 03/23/2025 3:30 PM EDT Treatment [address] [phone] Brijesh Alvarado, DIRECTOR TRADING 03/25/2025 4:00 PM EDT Treatment [address] [phone] Compa Haney, PT Health Maintenance Due Date [...] UPON REACH MET 10/13 #4 IMPROVE LEFT BURLAP BAG SEWER FROM 40 TO 60 POUNDS = 75 [...] Pt will be independent with HEP Insurance [facility] Care Teams Head Charger Relationship Specialty Start Date End Date Dorothea Carey MD [address] [place] [address] , [address] [facility] Physician Associ D/B/A: [facility] RUBIN Rowley PCP - General Internal Medicine 08/15/21
== END 2025-03-10 14:19 | disposition home or self-care (01) ==
LOC: HO.PMC 13:59
PROVIDERS: PCP Internal Medicine; Visit Provider Nurse Practitioner Family
DX: M47.816 Spondylosis without myelopathy or radiculopathy, lumbar region (principal); M25.551 Pain in right hip; M25.552 Pain in left hip; M79.7 Fibromyalgia; M53.3 Sacrococcygeal disorders, not elsewhere classified; M16.12 Unilateral primary osteoarthritis, left hip
CPT/HCPCS: 99214; G2211

== ENCOUNTER → 2025-03-10 13:58 | Outpatient (BNVA) | payer OTHER, SELFPAY | PROVIDERS: PCP Internal Medicine; Visit Provider Nurse Practitioner Family | DX: M25.551 Pain in right hip (principal); M25.552 Pain in left hip; M47.816 Spondylosis without myelopathy or radiculopathy, lumbar region; M79.7 Fibromyalgia; M53.3 Sacrococcygeal disorders, not elsewhere classified; M16.12 Unilateral primary osteoarthritis, left hip | CPT/HCPCS: 99212 ==

== ENCOUNTER 2025-03-24 14:05 | Outpatient (AMB) | payer OTHER, SELFPAY ==
--- NOTE | 2025-03-24 15:08 | AM.OFFWIN_ITS ---
Intake Vital Signs 03/24/25 15:15 Weight 202 lb BP 120/84 Blood Pressure Location Rt brachial Position Sitting Pulse 66 Pulse Source Pulse Oximeter Temp 98.3 F Temp Source Oral Intake Visit Reasons: EP Sore throat, diff hear, diff swallowing Intake Note: Patient here for sore throat, difficulty hearing and swallowing that has been present for about 1 week. Patient Tobacco Use Status: Never used Tobacco Allergies No Known Allergies [No Known Allergies*] Allergy (Verified 03/10/25 14:11) Do you need a note to return to daycare/school/sports/work: No HPI HPI Comments History of Present Illness Details This is a 39-year-old female with a past medical history of hypertension presenting for evaluation of sore throat, nasal congestion and ear pain L > R that she has had for the past 2 days. Patient denies having any fevers, chills, cough or shortness for breath and has not had any sick contacts. Patient is taking TheraFlu without relief of her discomfort. [facility] Medical History (Updated 03/24/25 @ 15:42 by Laila Glynn PA-C) Left otitis media Polyarthralgia Fibromyalgia High blood pressure Rash Lumbar pain Obese Surgical History H/O eye surgery S/P tendon repair History of local excision of skin lesion (08/03/22) S/P ligament repair History of hand surgery History of tubal ligation Family History Father No problems noted. Mother Diabetes Hypertension Paternal Aunt Breast cancer Family/Other Chronic mental illness Brother No problems noted. Brother No problems noted. Brother No problems noted. Sister No problems noted. Sister No problems noted. Son In good health Daughter In good health Social History Housing: Apartment Alcohol intake: current Alcohol intake frequency: holidays/special occasions only Alcohol type: wine and other Patient Tobacco Use Status: Never used Tobacco e-Cigarette/Vaping Use: Never Used Second Hand Smoke Exposure: No service: No Current occupational status: unemployed Cognitive needs: No Hearing needs: No Vision needs: Yes (Glasses) Female Reproductive History Menstrual Age of Menarche: 14 Review of Systems Const All systems reviewed & are unremarkable except as noted in HPI and below Reports as per HPI Eyes Reports no additional complaints ENT Reports no additional complaints, Denies change in voice, Denies dental pain, Reports otalgia, Reports nasal congestion, Denies odynophagia and Reports sore throat Card Reports no additional complaints Resp Reports no additional complaints GI Reports as per HPI, Reports no additional complaints and Denies odynophagia Reports no additional complaints Musc Reports no additional complaints Skin/Breast Reports system reviewed and no additional complaints, except as documented Neuro Reports no additional complaints Psych Reports no additional complaints Endo Reports no additional complaints Rome/Lymph Reports no additional complaints Aller/Immun Reports no additional complaints Physical Exam Vital Signs: Last Vital Signs Temp 98.3 F 03/24/25 15:15 Pulse 66 03/24/25 15:15 BP 120/84 03/24/25 15:15 Const General: cooperative, healthy appearing, comfortable, no acute distress, well developed, alert, awake and Physically active Nutritional Appearance: average body habitus Orientation/consciousness: patient oriented x3 Limitations: no limitations HEENT Head: Yes normal to inspection and Yes normocephalic Ears: hearing grossly normal bilaterally, external ears normal, TM's abnormal bilaterally, TM normal on the right, left TM abnormal (TM is erythematous with minimal fluid level noted) and EAC's normal General nose exam: Normal external nose present Face and sinus: Yes normal facial exam Mouth: Normal oral and palatal mucosa present and moist mucous membranes Throat: Yes posterior oropharynx normal (There is no edema, erythema or exudates of the posterior oropharynx) and Yes postnasal drainage Eyes General: appearance normal, both eyes and all related structures Neck Lymphatic: no lymphadenopathy noted Resp Effort & Inspection: normal respiratory effort, able to speak in complete sentences and not tachypneic Auscultation: clear to auscultation bilaterally Cardio Rate: regular rate Rhythm: regular rhythm Neuro General: patient oriented x3 Psych Appearance: grossly normal Mental Status: mental status grossly normal Insight: Good insight present (Psych) Judgement: Good judgement present (Psych) Results AMB Rapid Strep AMB Rapid Strep Negative Last Edit by RUT Clayton on 03/24/25 15:33 Results Reviewed Results Reviewed: Laboratory Last Values Strep Scn Rapid Clinic Negative 03/24/25 15:31 Rapid strep is negative. Assessment & Plan Assessment & Plan (1) Otitis media of left ear: Comment: Patient's rapid strep test is negative. Code(s): H66.92 - Otitis media, unspecified, left ear Qualifiers: Otitis media type: unspecified Qualified Code(s): H66.92 - Otitis media, unspecified, left ear Plan: Amoxicillin t.i.d. x7 days, ibuprofen or Tylenol as needed. Orders: Orders AMB Rapid Strep Screen Today Z13.9 - Encounter for screening, unspecified Medications: New amoxicillin 500 mg PO TID 21 caps 0RF Coding Level of Care Code Est Pt Level 3 (54212) Diagnoses Left otitis media, unspecified otitis media type H66.92 Otitis media type: unspecified Time Spent (min) 20
[2025-03-24 15:15] VITALS: BP 120/84; PULSE 66; TEMP 36.8
--- OUTSIDE RECORDS SUMMARY | 2025-03-24 15:30 | XMS_ITS | Encounter Summary ---
Author Organization [facility] Address [address] [place] [address] Care Team Providers Care Tabber Name Role Phone Dorothea Carey MD Primary Care Provider [phone] Reason for Visit * Reason Onset Date Comments Advice Only 03/18/2025 Encounter Details Date Type Department Care Team ([facility] st Contact Info) Description 03/18/2025 Telephone Orthopedic Surgery - [place] 250 175 [facility] 250 [place] [address] Nichelle De La O MD 175 [facility] [address] [place] [address] Advice Only Social History Tobacco Use Types Packs/Day Years [...] as of this encounter Progress Notes * Estelita Villasenorado - 03/20/2025 9:38 AM EDT Noted . Spoke with patient and advised she will hear soon by next week from msg below by . Patient understood and will wait to hear back. * Estelita Herrera - 03/18/2025 4:10 PM EDT Patient called in stating that when she saw on 02/17, to her understanding that she was going to get another referral for a hand specialist. I advised patient that per 's office note , notes were going to be sent to her neurologist to see if he knows someone in the community that has interest in the condition. And thatshe should reach out to her neurologist to inquire on it. No referral was placed. Unsure if was going to place referral? Patient is mexican speaking, I am able to translate. documented in this encounter Plan of Treatment Upcoming Encounters Date Type Department Care Team (Late st Contact Info) Description 03/25/2025 4:00 PM EDT Treatment [address] [address] Compa Haney, PT documented as of this [...] UPON REACH MET 10/13 #4 IMPROVE LEFT CALCINE FURNACE TENDER FROM 40 TO 60 POUNDS = 75 [...] on filedocumented in this encounter Care Teams Tabber Relationship Specialty Start Date End Date Dorothea Carey MD [address] [place] [address] , [address] [facility] Physician Associ D/B/A: [facility] RUBIN Rowley PCP - General Internal Medicine 08/15/21 documented as of this encounter
--- OUTSIDE RECORDS SUMMARY | 2025-03-24 15:30 | XMS_ITS | Clinical Summary ---
Author Organization Patient Business [facility] Address [address] [place] [address] Care Team Providers Care Hand Binder Stripper Name Role Phone Dorothea Carey MD Primary Care Provider [phone] Allergies No known active allergies Medications amitriptyline [...] Encounters Date Type Department Care Team Description 03/23/2025 3:30 PM EDT Treatment [facility] [address] [address] Tato Donald PTA Arrived 03/18/2025 3:30 PM EDT Treatment [facility] [address] [phone] Brijesh Alvarado PTA Tibialis posterior tendonitis, left (Primary Dx); Pain in left ankle and joints of left foot 03/18/2025 Telephone Orthopedic Surgery - [place] [address] [facility] [address] [place] [phone] Nichelle De La O MD Advice Only 03/16/2025 3:30 PM EDT Treatment [facility] [address] [phone] Brijesh Alvarado INDUSTRIAL COMMERCIAL GROUNDSKEEPER Pain in left ankle and joints of left foot (Primary Dx); Tibialis posterior tendonitis, left 03/05/2025 3:00 PM EDT Treatment [facility] [address] [address] Brijesh Alvarado, INDUSTRIAL COMMERCIAL GROUNDSKEEPER Pain in left ankle and joints of left foot (Primary Dx) 03/03/2025 3:30 PM EDT Treatment [address] [address] Brijesh Alvarado, INDUSTRIAL COMMERCIAL GROUNDSKEEPER Pain in left ankle and joints of left foot (Primary Dx); Tibialis posterior tendonitis, left 02/23/2025 3:30 PM EDT Treatment [address] [address] Brijesh Alvarado, INDUSTRIAL COMMERCIAL GROUNDSKEEPER Pain in left ankle and joints of left foot (Primary Dx) 02/17/2025 1:30 PM EDT Office Visit Orthopedic Surgery [address] [address] Nichelle De La O MD Joint locking (Primary Dx); Left hand pain 02/12/2025 3:30 PM EDT Treatment [address] [address] Compa Haney, PT Pain in left ankle and joints of left foot (Primary Dx) 02/06/2025 11:00 AM EDT Treatment [address] [address] Lluvia Donald, PT Pain in left ankle and joints of left foot (Primary Dx) 01/28/2025 3:30 PM EDT Treatment [address] [phone] Brijesh Alvarado, INDUSTRIAL COMMERCIAL GROUNDSKEEPER Pain in left ankle and joints of left foot (Primary Dx); Tibialis posterior tendonitis, left 01/15/2025 5:00 PM EDT Evaluation [address] [phone] Compa Haney, PT Pain in left ankle and joints of left foot from Last 3 Months Surgical History Surgery Date Site/Laterality Comments ANKLE FRACTURE SURGERY Left PROCEDURE: [place] OPEN TREATMENT MEDIAL MALLEOLUS FRACTURE OTHER SURGICAL HISTORY Left PROCEDURE: [place] ARTHRS WRST EXC&/RPR TRIANG FIBROCART&/JOINT Social History [...] Info) Description 03/25/2025 4:00 PM EDT Treatment [address] [address] Compa Haney, PT Health Maintenance Due Date [...] UPON REACH MET 10/13 #4 IMPROVE LEFT PRODUCT SAFETY ADMINISTRATOR FROM 40 TO 60 POUNDS = 75 [...] Pt will be independent with HEP Insurance [facility] Care Teams Hand Binder Stripper Relationship Specialty Start Date End Date Dorothea Carey MD 2 [facility] , [address] Physician Associ D/B/A: [facility] RUBIN Rowley PCP - General Internal Medicine 08/15/21
--- OUTSIDE RECORDS SUMMARY | 2025-03-24 15:30 | XMS_ITS | Encounter Summary ---
Author Organization [facility] Address [address] [place] [address] Care Team Providers Care Home And School Visitor Name Role Phone Dorothea Carey MD Primary Care Provider [phone] Reason for Visit * Consultation (Routine) - Authorized Specialty Diagnoses / Procedures Referred By Contviviana hughes Referred To Contact Physical Therapy Diagnoses Pain in left ankle and joints of left foot Sara Montoya, BRENT [address] [facility] [address] [place] [address] Phone: tel: fax: Referral ID Status Reason Start Date Expiration Date Visits Requested Visits Authorized [id number] Authorized Specialty Services Required 01/14/2025 01/14/2026 21 21 Encounter Details Date Type Department Care Team (Late st Contact Info) Description 03/23/2025 3:30 PM EDT Treatment [facility] 175 [facility] [address] [place] [address] Tato Donald, OUTDOOR FITNESS TRAINER Arrived Social History Tobacco Use Types Packs/Day Years [...] as of this encounter Progress Notes * Tato Donald PTA - 03/23/2025 3:30 PM EDT [facility] - Outpatient PHYSICAL THERAPY DAILY TREATMENT NOTE - OP Date: 03/23/2025 Visit Number: [id number] Patient Name: Liliya Aguirre : 1985 Age: 39 y.o. Gender: female Diagnosis: No diagnosis found. Date of Onset/Surgery: 01/15/2025 Referring Provider: Sara Montoya PA Insurance: Payor: [employer] PLAN / Plan: [employer] MEDICAID / Product Type: *No Product type* / Patient Identified by: Tato Donald PTA Language: Pt. speaks Persian as preferred language, however declines correctional supervisor treating OUTDOOR FITNESS TRAINER speaks language. Medications: Current Outpatient Medications on [...] none Fall risk: No SUBJECTIVE Subjective Report: video interpretor # [id number] ashley . Pt reports she isnt feeling to bad rightnow she just woke up Chart Reviewed: Yes Pain: pain at ankle joint with excessive flexion. Still bothering her with wb activity TREATMENT INTERVENTION: NuStep x 5 mins LE only L4 Slant Board Calf Stretching 3 x 30 sec hold B Heelraises 2 x 10 reps on bottom step Toe / heel walking 5 10 step back and forth difficulty maintaining heels elevated. Foot doming 20 reps x 5 sec hold each c/o cramping in foot Manual Therapy: STM L Ankle and foot and ROM ASSESSMENT/Response to Treatment Fair. Pt with difficulty maintaining heel elevated Patient Education: Education provided: yes Education Provided To: Patient utilizing Demonstration mode(s) of education Response to Education: Verbal Understanding PLAN POC Development/Review: No Change in the Plan of Care; Participants: Patient Interventions Time Entry: Modalities: Therapeutic procedures: Therapeutic Exercises 30 mins Total Treatment Time: 30 mins Documentation completed by Tato Donald PTA documented in this encounter Plan of Treatment Upcoming Encounters Date Type Department Care Team (Late st Contact Info) Description 03/25/2025 4:00 PM EDT Treatment [facility] [address] [place] [address] [place] [address] Compa Haney, PT documented as [...] UPON REACH MET 10/13 #4 IMPROVE LEFT DIRECTOR EMERGENCY DEPARTMENT FROM 40 TO 60 POUNDS = 75 [...] on filedocumented in this encounter Care Teams Home And School Visitor Relationship Specialty Start Date End Date Dorothea Carey MD [address] [place] [address] , [address] [facility] Physician Associ D/B/A: [facility] RUBIN Rowley PCP - General Internal Medicine 08/15/21 documented as of this encounter
--- OUTSIDE RECORDS SUMMARY | 2025-03-24 15:30 | XMS_ITS | Encounter Summary ---
Author Organization [facility] Address [address] [place] [address] Care Team Providers Care Billing Supervisor Name Role Phone Dorothea Carey MD Primary Care Provider [phone] Encounter Details Date Type Department Care Team (Late Contact Info) Description 09/01/2024 3:00 PM EDT Hospital Encounter TH HISTORIC ENCOUNTERS EASTERN CONVERSION ONLY Nichelle De La O MD 175 [facility] [address] [place] [address] Social History Tobacco Use Types [...] Department Care Team (Late Contact Info) Description 03/25/2025 4:00 PM EDT Treatment [facility] 175 [facility] 350 [place] [address] Compa Haney PT documented as of this encounter Goals [...] UPON REACH MET 10/13 #4 IMPROVE LEFT PHD INTERN FROM 40 TO 60 POUNDS = 75 [...] on filedocumented in this encounter Care Teams Billing Supervisor Relationship Specialty Start Date End Date Dorothea Carey MD [address] [place] [address] , [address] [facility] Physician Associ D/B/A: [facility] RUBIN Rowley PCP - General Internal Medicine 08/15/21 documented as of this encounter
== END 2025-03-24 16:12 | disposition home or self-care (01) ==
PROVIDERS: PCP Internal Medicine; Visit Provider Physician Assistant
DX: H66.92 Otitis media, unspecified, left ear (principal); Z13.9 Encounter for screening, unspecified

== ENCOUNTER → 2025-03-24 14:05 | Outpatient (BNVA) | payer OTHER, SELFPAY | PROVIDERS: PCP Internal Medicine; Visit Provider Physician Assistant | DX: H66.92 Otitis media, unspecified, left ear (principal) | CPT/HCPCS: 87880; 99212 ==

== ENCOUNTER 2025-04-06 13:58 | Outpatient (AMB) | payer MEDICARE, SELFPAY ==
--- NOTE | 2025-04-06 14:32 | MHC.OFFVIS ---
Vital Signs 04/06/25 14:33 Height 5 ft 4 in Weight 202 lb BMI 34.7 Intake Visit Reasons: New prob-Right Knee effusion Intake Note: Loli is a 39 year old female who presents today for a new problem visit with complains of right knee pain. Patient reports that she has had ongoing right knee pain since November of 2024 when she had surgery at [facility] on the left knee. Since this surgery she feels that she has been overusing the right knee causing increased pain. Denies previous treatments. She is currently a patient with Pain Management for complains of bilateral hip sexton and lower back pain. Right sided lower back pain that radiates down the right leg. Operator Catalyst Concentration Required: Yes Operator Catalyst Concentration Services: Operator Catalyst Concentration Offered & Declined (Daughter-In Law) Allergies No Known Allergies [No Known Allergies*] Allergy (Verified 04/06/25 14:49) HPI HPI New prob-Right Knee effusion: Details: Loli is a 39 year old female who presents today for a new problem visit with complains of right knee pain. Patient reports that she has had ongoing right knee pain since November of 2024 when she had surgery at [facility] on the left knee. Since this surgery she feels that she has been overusing the right knee causing increased pain. Denies previous treatments. She is currently a patient with Pain Management for complains of bilateral hip sexton and lower back pain. Right sided lower back pain that radiates down the right leg. [facility] Medical History (Updated 04/06/25 @ 16:12 by Todd Bassett MD) Left otitis media Polyarthralgia Fibromyalgia High blood pressure Rash Lumbar pain Obese Surgical History H/O eye surgery S/P tendon repair History of local excision of skin lesion (08/03/22) S/P ligament repair History of hand surgery History of tubal ligation Family History Father No problems noted. Mother Diabetes Hypertension Paternal Aunt Breast cancer Family/Other Chronic mental illness Brother No problems noted. Brother No problems noted. Brother No problems noted. Sister No problems noted. Sister No problems noted. Son In good health Daughter In good health Social History Housing: Apartment Alcohol intake: current Alcohol intake frequency: holidays/special occasions only Alcohol type: wine and other Patient Tobacco Use Status: Never used Tobacco e-Cigarette/Vaping Use: Never Used Second Hand Smoke Exposure: No service: No Current occupational status: unemployed Cognitive needs: No Hearing needs: No Vision needs: Yes (Glasses) Female Reproductive History Menstrual Age of Menarche: 14 Physical Exam Vital Signs: BMI result Body Mass Index 34.7 Extrem Other: On exam, Loli has a lateral patellar tilting bilaterally and tenderness to palpation along the iliotibial band as it crosses the knee joint. She has full range of motion bilaterally. She does have a 1+ effusion of the right knee. She is stable to varus and valgus stress and no tenderness to palpation along the joint line. Negative Caroline's. Results Reviewed Results Reviewed: I personally reviewed relevant radiographs. Effusion and otherwise unremarkable knee radiographs Assessment & Plan Assessment & Plan (1) Knee effusion, right: Code(s): M25.461 - Effusion, right knee Category: Medical Plan: This is a 39-year-old woman with a 3 month history of right knee effusion. It is not improving and continues to make her knee feel full and she feels like she is not walking normally. Her examination was notable for lateral patellar tilting. I recommend MRI of the right knee. In the meantime NSAIDs, ice and activity as tolerated. Orders: Orders MR knee RT wo con Today M25.461 - Effusion, right knee Coding Level of Care Code Est Pt Level 3 (31204) Diagnoses Knee effusion, right M25.461
[2025-04-06 14:33] VITALS: BMI 34.7
--- OUTSIDE RECORDS SUMMARY | 2025-04-06 15:14 | XMS_ITS | Encounter Summary ---
Author Organization [facility] Address [address] [place] [address] Care Team Providers Care Congressional Aide Name Role Phone Dorothea Carey MD Primary Care Provider [phone] Encounter Details Date Type Department Care Team (Late st Contact Info) Description 09/01/2024 3:00 PM EDT Hospital Encounter TH HISTORIC ENCOUNTERS EASTERN CONVERSION ONLY Nichelle De La O MD 175 [facility] 140 [place] [address] Social History Tobacco Use Types [...] Department Care Team (Late Contact Info) Description 04/14/2025 4:30 PM EDT Treatment [facility] [address] [phone] Brijesh Alvarado PTA 04/21/2025 3:30 PM EDT Treatment [facility] [address] [address] Brijesh Alvarado, CORNCOB PIPE MANUFACTURING SUPERVISOR 04/28/2025 3:00 PM EDT Treatment [facility] [address] [phone] Brijesh Alvarado, CORNCOB PIPE MANUFACTURING SUPERVISOR 05/05/2025 1:00 PM EDT Treatment [facility] [address] [address] Compa Haney, PT documented as of this encounter Goals Goal Patient Goal Type Associated Problems Recent Progress Patient-Stated? Author <enter goal here> General On track( 3:25 PM EST) Yes Brenda Arechiga, OT Note: I AM WEAK STGS 6 VISITS General On track( 3:25 PM EST) No Brenda Arechiga, BANDAR Note: #1 IMPROVE LEFT SUPINATION FROM 45 TO 60 DEGREES TO RECEIVE ITEMS INTO PALM MET 10/13 #2 IMPROVE LEFT WRIST EXTENSION FROM 45 TO 60 DEGREES WITH GOOD STRENGTH TO WEIGHTBEAR MET 10/13 #3 IMPROVE LEFT THUMB EXTENSION FROM 45 TO 55 DEGREES UPON REACH MET 10/13 #4 IMPROVE LEFT DIRECTOR OF CLINICAL APPLICATIONS FROM 40 TO 60 POUNDS = 75 PERCENT OF THR RIGHT / REMAINS 40 POUNDS #5 INCORPORATE ROM AND STRETCHING INTO DAILY REGIME MET PT LTGs General No Compa Haney, PT Note: Pt will ambulate x6 minutes with no left foot ankle pain - met Pt will ascend/descend 4 steps with reciprocal stepping pattern and no Left foot/ankle pain - met Pt will increase Left ankle AROM to WNL - met Pt will increase left ankle DF, InV and EV strength to 5/5 - not met Pt will complete 2 reps LLE Single-leg heel raise - met Pt will be independent with HEP documented as of this encounter Visit Diagnoses Not on filedocumented in this encounter Care Teams Congressional Aide Relationship Specialty Start Date End Date Dorothea Carey MD [address] [place] [address] , [address] [facility] Physician Associ D/B/A: [facility] RUBIN Rowley PCP - General Internal Medicine 08/15/21 documented as of this encounter
== END 2025-04-06 15:28 | disposition home or self-care (01) ==
LOC: HO.HOS 13:58
PROVIDERS: PCP Internal Medicine; Visit Provider Orthopaedic Surgery
DX: M25.461 Effusion, right knee (principal)
CPT/HCPCS: 99213

== ENCOUNTER → 2025-04-06 13:58 | Outpatient (BNVA) | payer MEDICARE, MEDICAID, SELFPAY | PROVIDERS: PCP Internal Medicine; Visit Provider Orthopaedic Surgery | DX: M25.461 Effusion, right knee (principal) | CPT/HCPCS: 99212 ==

== ENCOUNTER 2025-04-13 11:31 | Outpatient (REF) | payer MEDICARE, MEDICAID, SELFPAY ==
--- NOTE | ~2025-04-13 | MR_ITS ---
CLINICAL HISTORY: M25.461 - Effusion, right knee MR right knee without gadolinium Comparison: None Findings: Normal alignment without acute fracture or marrow infiltration. Small knee joint effusion with mild synovitis and questionable 3 mm posterior paramidline intra-articular body (series 8, image 60). Superficial fissure of the lateral patellar cartilage (series 8, image 8). Mild likely reactive edematous changes of the neighboring prefemoral fat pad. Subtle mild edematous changes in the suprapatellar fat pad. Mild proximal and distal patellar tendinosis. Intact quadriceps tendon. Mild prepatellar edema. Intact retinacula. Mild edematous changes in the deep anteromedial subcutaneous fat in the vicinity of the distal vastus medialis muscle. Neurovascular structures and muscle bulk are unremarkable. Mild adventitial bursitis deep to the distal iliotibial band. Query distal iliotibial band syndrome. Menisci, posterolateral and posteromedial corners, and MCL are unremarkable. Small contained Gill's cyst. Mild to moderate distal semimembranosus tendinosis. Partial thickness linear tear of the distal anterior ACL band measuring up to 1 x 9 mm (AP by [employer]) in the sagittal plane (series 10, image 14). PCL unremarkable. IMPRESSION: Query distal iliotibial band syndrome. Small knee joint effusion with mild synovitis and questionable 3 mm posterior paramidline intra-articular body. Partial thickness linear tear of the distal anterior ACL band. This document has been electronically signed by: Miranda Monsalve MD on 04/14/2025 13:11:11
--- OUTSIDE RECORDS SUMMARY | 2025-04-13 13:12 | XMS_ITS | Encounter Summary ---
Author Organization [facility] Address [address] [place] [address] Care Team Providers Care Cook Specialty Foreign Food Name Role Phone Dorothea Carey MD Primary Care Provider [phone] Encounter Details Date Type Department Care Team (Late st Contact Info) Description 09/01/2024 3:00 PM EDT Hospital Encounter TH HISTORIC ENCOUNTERS EASTERN CONVERSION ONLY Nichelle De La O MD 175 [facility] 140 [place] [address] Social History Tobacco Use Types [...] Info) Description 04/14/2025 4:30 PM EDT Treatment [facility] [address] [phone] Brijesh Alvarado PTA 04/21/2025 3:30 PM EDT Treatment [facility] [address] [phone] Brijesh Alvarado, LEGAL ARCHIVIST 04/28/2025 3:00 PM EDT Treatment [facility] [address] [phone] Brijesh Alvarado, LEGAL ARCHIVIST 05/05/2025 1:00 PM EDT Treatment [facility] [address] [phone] Compa Haney, PT documented as [...] UPON REACH MET 10/13 #4 IMPROVE LEFT OFFAL WORKER FROM 40 TO 60 POUNDS = 75 [...] on filedocumented in this encounter Care Teams Cook Specialty Foreign Food Relationship Specialty Start Date End Date Dorothea Carey MD [address] [place] [address] , [address] [facility] Physician Associ D/B/A: [facility] RUBIN Rowley PCP - General Internal Medicine 08/15/21 documented as of this encounter
== END 2025-04-13 11:32 | disposition home or self-care (01) ==
LOC: HO.MRI 11:31
PROVIDERS: PCP Internal Medicine; Visit Provider Orthopaedic Surgery
DX: M25.461 Effusion, right knee (principal)
CPT/HCPCS: 73721

== ENCOUNTER 2025-05-12 06:19 | Outpatient (REF) | payer MEDICARE, MEDICAID, SELFPAY ==
--- OUTSIDE RECORDS SUMMARY | 2024-09-01 15:00 | XMS_ITS | Encounter Summary ---
Author Organization [email or web address] Address [address] [place] [address] Care Team Providers Care At Home Independent Call Center Agent Name Role Phone Dorothea Carey MD Primary Care Provider [phone] Encounter Details Date Type Department Care Team (Late st Contact Info) Description 09/01/2024 3:00 PM EDT Hospital Encounter TH HISTORIC ENCOUNTERS [facility] ONLY Nichelle De La O MD 175 [facility] [address] [place] [address] Social History Tobacco Use Types [...] UPON REACH MET 10/13 #4 IMPROVE LEFT SUPERVISOR TYPESETTING FROM 40 TO 60 POUNDS = 75 [...] on filedocumented in this encounter Care Teams At Home Independent Call Center Agent Relationship Specialty Start Date End Date Dorothea Carey MD 2 [facility] , [address] [facility] Physician Associ D/B/A: [facility] Internal Medicine RUBIN Rowley PCP - General Internal Medicine 08/15/21 documented as of this encounter
--- NOTE | ~2025-05-12 | FL_ITS ---
EXAMINATION: FL GUIDANCE ONLY HISTORY: M16.11 - Unilateral primary osteoarthritis, right hip COMPARISON: None available. TECHNIQUE: Fluoroscopy time: 0.2 minutes. Cumulative Dose: 5.67 mGy. DAP: 0.0985 mGym2 Images: 2. FINDINGS: The endoscopic spot films of the right hip demonstrate a needle in place and contrast material in the joint space. FL/FL guidance in treatment room IMPRESSION: Fluoroscopy during procedure. Please see procedure report for additional information. Electronically signed by: Compa Julien MD 05/12/2025 02:22 PM EDT
== END 2025-05-12 06:20 | disposition home or self-care (01) ==
LOC: CF 06:19
PROVIDERS: Visit Provider Anesthesiology
DX: M16.11 Unilateral primary osteoarthritis, right hip (principal); M25.551 Pain in right hip
CPT/HCPCS: 20610; J2003; J2795; J3301; Q9967

== ENCOUNTER 2025-05-12 13:53 | Outpatient (AMB) | payer MEDICARE, MEDICAID, SELFPAY ==
--- OUTSIDE RECORDS SUMMARY | 2024-09-01 15:00 | XMS_ITS | Encounter Summary ---
Author Organization [employer] Address [address] [place] [address] Care Team Providers Care Airway Traffic Controller Name Role Phone Dorothea Carey MD Primary Care Provider [phone] Encounter Details Date Type Department Care Team (Late st Contact Info) Description 09/01/2024 3:00 PM EDT Hospital Encounter TH HISTORIC ENCOUNTERS [facility] ONLY Nichelle De La O MD 175 [facility] [address] [place] [address] Social History Tobacco Use Types [...] UPON REACH MET 10/13 #4 IMPROVE LEFT RESIDENT ASSISTANT FROM 40 TO 60 POUNDS = 75 [...] on filedocumented in this encounter Care Teams Airway Traffic Controller Relationship Specialty Start Date End Date Dorothea Carey MD 2 [facility] , [address] [facility] Physician Associ D/B/A: [facility] In Internal Medicine RUBIN Rowley PCP - General Internal Medicine 08/15/21 documented as of this encounter
--- NOTE | 2025-05-12 13:54 | A.OFFVIS_ITS ---
Vital Signs 05/12/25 13:58 05/12/25 14:20 Height 5 ft 4 in Weight 202 lb BMI 34.7 BP 140/82 H 133/82 Blood Pressure Location Lt radial Lt brachial Position Sitting Sitting Respiration 16 16 Pulse 84 82 Pulse Source Pulse Oximeter Pulse Oximeter Pulse Oximetry (%) 97 98 Oxygen Delivery Method Room Air Room Air Intake Visit Reasons: RIGHT INTRA-ARTICULAR HIP INJECTION Allergies No Known Allergies (No Known Allergies*) Allergy (Verified 04/06/25 14:49) COUNT INCLUDES THE [facility] Medical History (Updated 05/12/25 @ 14:26 by Estrada Padilla MD) Left otitis media Polyarthralgia Fibromyalgia High blood pressure Rash Lumbar pain Obese Surgical History H/O eye surgery S/P tendon repair History of local excision of skin lesion (08/03/22) S/P ligament repair History of hand surgery History of tubal ligation Family History Father No problems noted. Mother Diabetes Hypertension Paternal Aunt Breast cancer Family/Other Chronic mental illness Brother No problems noted. Brother No problems noted. Brother No problems noted. Sister No problems noted. Sister No problems noted. Son In good health Daughter In good health Social History Housing: Apartment Alcohol intake: current Alcohol intake frequency: holidays/special occasions only Alcohol type: wine and other Patient Tobacco Use Status: Never used Tobacco e-Cigarette/Vaping Use: Never Used Second Hand Smoke Exposure: No service: No Current occupational status: unemployed Cognitive needs: No Hearing needs: No Vision needs: Yes (Glasses) Female Reproductive History Menstrual Age of Menarche: 14 Physical Exam Vital Signs: Last Vital Signs Pulse 82 05/12/25 14:20 Resp 16 05/12/25 14:20 BP 133/82 05/12/25 14:20 Pulse Ox 98 05/12/25 14:20 Oxygen Delivery Method Room Air 05/12/25 14:20 BMI result Body Mass Index 34.7 Assessment & Plan Assessment & Plan (1) Right hip pain: Code(s): M25.551 - Pain in right hip Category: Medical (2) Osteoarthritis of right hip: Code(s): M16.11 - Unilateral primary osteoarthritis, right hip Category: Medical Plan Right intra-articular hip steroid injection. Patient came to the operating room after informed consent was thoroughly explained to the patient. She was positioned on the left lateral decubitus position on the operating table with the nondependent right t hip area exposed. Time-out was performed delineating name and date of of the patient, nature of the procedure side and site of the procedure. The patient's nondependent right hip was prepped with ChloraPrep and draped with sterile utility towels. C-arm was brought over the operating field and picture of the right hip joint was demonstrated on the screen. In the projection of the right trochanter 5 mm above the most superior point of right trochanter projection to the skin injection of the local anesthetic mixture of lidocaine 2% and ropivacaine 0.5% was performed forming a skin wheal. After that 22 gauge 5 in needle was inserted through the skin wheal and advanced to were the joint and the anterior posterior and lateral views intermittently. When the tip of the needle entered the silhouette of the joint injection of the contrast was performed demonstrating arthrogram. After that 4 cc of ropivacaine 0.5% mixed with Kenalog 40 mg was performed into the joint. The needle was removed sterile Band-Aid was applied. Patient tolerated procedure well. Orders: Orders: Orders FL guidance in treatment room Today M16.11 - Unilateral primary osteoarthritis, right hip Coding Level of Care Code Procedure Only Diagnoses Right hip pain M25.551 Osteoarthritis of right hip M16.11
[2025-05-12 13:58] VITALS: BP 140/82; PULSE 84; RESP 16; O2SAT 97; BMI 34.7
[2025-05-12 14:20] VITALS: BP 133/82; PULSE 82; RESP 16; O2SAT 98
== END 2025-05-12 14:20 | disposition home or self-care (01) ==
LOC: HO.PMCPRC 13:53
PROVIDERS: PCP Internal Medicine; Visit Provider Anesthesiology
DX: M25.551 Pain in right hip (principal); M16.11 Unilateral primary osteoarthritis, right hip
CPT/HCPCS: 20610; 77002

== ENCOUNTER 2025-06-05 13:51 | Outpatient (AMB) | payer MEDICARE, MEDICAID, SELFPAY ==
--- OUTSIDE RECORDS SUMMARY | 2025-06-05 13:54 | XMS_ITS | Clinical Summary ---
Author Organization [facility] Address [address] [place] [address] Care Team Providers Care Meeting Facilitator Name Role Phone Dorothea Carey MD Primary Care Provider [phone] Allergies No known active allergies Medications amitriptyline [...] Encounters Date Type Department Care Team Description 05/05/2025 1:00 PM EDT Treatment [facility] [address] [phone] Compa Haney, PT Pain in left ankle and joints of left foot (Primary Dx) 04/28/2025 3:00 PM EDT Treatment [facility] [address] [phone] Brijesh Alvarado, TECHNICAL AIDE Tibialis posterior tendonitis, left (Primary Dx) 04/21/2025 3:30 PM EDT Treatment [facility] [address] [phone] Brijesh Alvarado, TECHNICAL AIDE Tibialis posterior tendonitis, left (Primary Dx) 04/14/2025 4:30 PM EDT Treatment [facility] [address] [phone] Brijesh Alvarado, TECHNICAL AIDE Tibialis posterior tendonitis, left (Primary Dx) 03/25/2025 4:00 PM EDT Treatment [facility] [address] [phone] Compa Haney, PT Tibialis posterior tendonitis, left (Primary Dx) 03/23/2025 3:30 PM EDT Treatment [facility] [address] [phone] Tato Donald, TECHNICAL AIDE 03/18/2025 3:30 PM EDT Treatment [facility] [address] [phone] Brijesh Alvarado PTA Tibialis posterior tendonitis, left (Primary Dx); Pain in left ankle and joints of left foot 03/18/2025 [facility] [address] [phone] Nichelle De La O MD Advice Only 03/16/2025 3:30 PM EDT Treatment [facility] [address] [phone] Brijesh Alvarado PTA Pain in left ankle and joints of left foot (Primary Dx); Tibialis posterior tendonitis, left 03/05/2025 3:00 PM EDT Treatment [facility] [address] [phone] Brijesh Alvarado PTA Pain in left ankle and joints of left foot (Primary Dx) from Last 3 Months Surgical History Surgery Date Site/Laterality Comments ANKLE FRACTURE SURGERY Left PROCEDURE: NE OPEN TREATMENT MEDIAL MALLEOLUS FRACTURE OTHER SURGICAL HISTORY Left PROCEDURE: NE ARTHRS WRST EXC&/RPR TRIANG FIBROCART&/JOINT Social History [...] Care Team (Late st Contact Info) Description 06/26/2025 8:00 AM EDT Evaluation [address] [phone] Brenda Sam, LUIS Health Maintenance Due Date Last Done Comments Breast Cancer Screening 1984 DTaP,Tdap,and Td Vaccines (1 - Tdap) 2003 Hepatitis B Vaccines (1 of 3 - 19+ 3-dose series) 2003 Cervical Cancer Screening: P ap Smear 2005 HIV Screening 05/28/2022 Hepatitis C Screening 05/28/2022 Medicare Annual Wellness Visit 05/28/2022 Social Influencers of Health Screening 05/28/2022 COVID-19 Vaccine (1 - 2023-2 5 season) 2024 Depression Screening 11/05/2024 Influenza Vaccine (#1) 2025 HIB Vaccines Aged Out No longer [...] 5 Years) and At-Risk Patients (6 to 49 Years) Aged Out No longer eligible b [...] UPON REACH MET 10/13 #4 IMPROVE LEFT BILL DISTRIBUTOR FROM 40 TO 60 POUNDS = 75 [...] will be independent with HEP - met Insurance MEDICARE MEDICAID [facility] MEDICA[place] - [place] Care Teams Meeting Facilitator Relationship Specialty Start Date End Date Dorothea Carey MD [facility] , [facility] D[facility]B/A: [facility] RUBIN Rowley PCP - General Internal Medicine 08/15/21
--- OUTSIDE RECORDS SUMMARY | 2025-06-05 13:54 | XMS_ITS | Encounter Summary ---
Author Organization [facility] Address [address] [facility] [address] [place] [id number] Phone Care Team Providers Care Complex Director Name Role Phone Unknown, Unknown MD Primary Care Provider Kenya donnelly Pcp, Unknown Primary Care Provider Unavailabl e Reason for Visit * Reason Onset Date Comments Medication Refill 10/22/2024 Encounter Details Date Type Department Care Team (Late Contact Info) Description 10/22/2024 Refill [facility] [address] [place] [address] Cortney Coelho [address] [place] [address] [email or web address] Medication Refill Social History Tobacco Use Types Packs/Day Years Used Date Smoking Tobacco: Never Assessed Education Answer Date Recorded Are you interested in more education? Not on aida e 07/15/2024 Are you concerned about learning? Not on file 07/15/2024 No 07/15/2024 No 07/15/2024 Digital Access Answer Date Recorded No 07/15/2024 No 07/15/2024 Reliable internet access at home? Not on file 07/15/2024 Device with a working camera? Not on file Comments Unknown Sex and Gender Information Value Date Recorded Sex Assigned at Not on file Legal Sex Female 12:42 PM EDT Gender Identity Not on file Sexual Orientation Not on file documented as of this encounter Plan of Treatment Upcoming Encounters Date Type Department Care Team (Late Contact Info) Description 08/12/2025 1:10 PM EDT Procedure visit [facility] [place] [address] [place] [address] 08/12/2025 1:20 PM EDT Office Visit [facility] [address] [place] [address] Melba Meadows MD [address] [place] [id number] [email or web address] documented as of this encounter Visit Diagnoses Not on filedocumented in this encounter Care Teams Complex Director Relationship Specialty Start Date End Date Unknown, Unknown, PCP - General 07/14/24 12/14/24 Pcp, Unknown PCP - General 12/15/24 documented as of this encounter Additional Source Comments The information contained in this document represents components of the legal health record. It is not the complete legal health record.[facility]
--- NOTE | 2025-06-05 14:00 | A.OFFVIS_ITS ---
Vital Signs 06/05/25 14:01 06/05/25 14:05 Height 5 ft 4 in Weight 202 lb BMI 34.7 BP 189/109 H 188/116 H Blood Pressure Location Rt brachial Lt brachial Position Sitting Sitting Pulse 70 Pulse Source Pulse Oximeter Pulse Oximetry (%) 96 Oxygen Delivery Method Room Air Comment bp recheck Intake Visit Reasons: RIGHT INTRA-ARTICULAR HIP INJECTION Intake Note: Pain today 03/14 Pharmacy Stock Clerk Required: Yes Pharmacy Stock Clerk Language: Machine Deburrer Services: Pharmacy Stock Clerk Present Pharmacy Stock Clerk Name: Sapphire Accompanied by: Self / Same As Patient Allergies No Known Allergies (No Known Allergies*) Allergy (Verified 06/05/25 14:06) HPI Comments Details: The patient is a 39-year-old female to assess response to recent right hip injection and mid back pain. The patient underwent a right hip steroidal injection on May 12, guided by fluoroscopy, which provided approximately 90% pain relief with improved mobility. The patient reports persistent mid back pain that radiates to low back, which was previously addressed with diagnostic lumbar medial branch blocks last year, yielding no pain relief. Mid back pain present with upright positions, house chores like standing and washing dishes, or leaning backwards. She experiences numbness in her feet when sitting for extended periods, which she finds concerning. Previous back injections to address her radicular pain resulted in no pain relief. The patient has a history of scoliosis and fibromyalgia, which may contribute to her discomfort. She also reports neck pain, which she attributes to her sleeping position on her stomach. Patient also requests referral back to Rheumatology for multiple joint pain. Denies any recent cough, cold, infection, fever or any significant changes in medical history since last office visit. Past Procedures: 05/12/25: Right hip intra-articular steroid injection-90% pain relief 02/24/25: Left hip intra-articular steroid jrzqitlrw-13-11% pain relief 08/15/24: Bilateral L5-S1 TFESI injection-0% pain relief 01/29/24: Bilateral Diagnostic L3 L4 DR L5 MBB-0% pain relief 11/06/23: Bilateral Diagnostic SIJ injections-100% ongoing pain relief PRIOR: Patient is a pleasant 38 year old Kuwaiti speaking female with history of fibromyalgia, arthritis, polyarthralgia and chronic neck, thoracic and lumbar pain presents today for initial evaluation for chronic mid and low back pain. She was followed by [facility] up until 09/13/2023. Patient was also seen by [facility] for back and hip pain. She reports upcoming surgery for neurogenic thoracic outlet syndrome with Dr. Meyers at [facility] early next year. Patient was also seen at [facility] for ankle pain, by Dr. De La O for hand pain and by Rheumatology for hand pain. Patient was referred to us by Dr. Natarajan at [facility] for low back pain. She had underwent bilateral L3-L4-L5 medial branch blocks and interlaminar epidural injections at L5-S1 and completed physical and chiropractic therapies without much relief at [facility]. Patient reports back pain that radiates upward to her upper thoracic, between shoulder blades and down into her sacral regions bilaterally but not into her lower extremities. Patient also reports widespread body pain with multiple tender points of upper and lower extremities and torso which is consistent with fibromyalgia. Patient has been managing amitriptyline and Lyrica, and also tried gabapentin without relief. Per Physiatry notes, MRI 06/05/2022 reported no significant spinal stenosis, spondylosis L4-5 and L5-S1. EMG reported to be normal lower extremity. Pain negatively affects her daily functioning, mood, sleep and quality of life. Patient denies any fever, weight loss, abdominal or groin pain, weakness, bladder or bowel dysfunction or saddle anesthesia. Location Chronic pain in lower back and sacral, between shoulder blades, mid back Duration Chronic pain for > 3 years Characteristics of symptom or complaint Aching, spasms, numbness, tingling, dull, shooting, pulling, radiating Aggravating or associated factors Movements, walking, standing, cold weather Relieving factors Sitting, resting, heat therapy, Gabapentin/Lyrica, Ibuprofen, lidocaine Treatment PT, injections at [facility], chiropractic therapy-minimal relief [facility] Medical History Left otitis media Polyarthralgia Fibromyalgia High blood pressure Rash Lumbar pain Obese Surgical History H/O eye surgery S/P tendon repair History of local excision of skin lesion (08/03/22) S/P ligament repair History of hand surgery History of tubal ligation Family History Father No problems noted. Mother Diabetes Hypertension Paternal Aunt Breast cancer Family/Other Chronic mental illness Brother No problems noted. Brother No problems noted. Brother No problems noted. Sister No problems noted. Sister No problems noted. Son In good health Daughter In good health Social History Housing: Apartment Alcohol intake: current Alcohol intake frequency: holidays/special occasions only Alcohol type: wine and other Patient Tobacco Use Status: Never used Tobacco e-Cigarette/Vaping Use: Never Used Second Hand Smoke Exposure: No service: No Current occupational status: unemployed Cognitive needs: No Hearing needs: No Vision needs: Yes (Glasses) Female Reproductive History Menstrual Age of Menarche: 14 Review of Systems Const All systems reviewed & are unremarkable except as noted in HPI and below Physical Exam Vital Signs: Last Vital Signs Pulse 70 06/05/25 14:01 BP 188/116 H 06/05/25 14:05 Pulse Ox 96 06/05/25 14:01 Oxygen Delivery Method Room Air 06/05/25 14:01 BMI result Body Mass Index 34.7 General: Appears afebrile. Alert and oriented. Mood and affect appropriate. Follows and participates in conversation appropriately. Respiratory effort is unlabored. No cough. Able to transition from sit to stand unassisted. Ambulates with bilaterally normal heel strike and toe off. General: Yes no CVA tenderness Back/Spine/Pelvis Other: Limited thoracolumbar ROM due to pain. Lumbar extension reproduce moderate pain, flexion reproduces mild discomfort. Seated straight leg rise with dorsiflexion negative bilaterally. +2 patellar and +1 achilles reflexes bilaterally. Facet loading test positive bilaterally. Bienvenido sign positive bilaterally, Etienne?s, Gaenslen, and Stinchfield tests reproduces bilateral hip pain and low back pain, L>R. No groin pain with I/E hip rotations bilaterally. Multiple widespread TTPs 16/16 bilaterally, including upper and lower extremities. Back: no CVA tenderness Cervical Spine: cervical ROM normal, cervical muscular tenderness, pain with cervical ROM and No Cervical spine tenderness Thoracic/Lumbar Spine: thoracic and lumbar spine normal to inspection, No Thoracic/lumbar spine scar(s), Lasegue's sign negative, straight leg raise negative bilaterally, pain with thoraco-lumbar ROM, paraspinal muscle tenderness, thoraco-lumbar ROM limited, No thoracic spinal tenderness and lumbar spinal tenderness at L4 and at L5 Pelvis: buttock tenderness bilaterally Sacroiliac joints: bilaterally tender to palpation Results Reviewed Results Reviewed: XR BILATERAL HIPS WITH AP PELVIS 09/24/24 CLINICAL INFORMATION: M53.3 - Sacrococcygeal disorders, not elsewhere classified. Pain, no known injury. FINDINGS: Normal mineralization. No fractures, dislocation, or suspicious bone lesions. Normal alignment of the bilateral hip joints. Femoral heads maintain normal contour. No evidence of AVN. Somewhat overriding acetabula are noted bilaterally, finding which can be associated with pincer-type ASHVIN. Sacrum and SI joints appear normal. Lower lumbar spine appears normal. Soft tissues appear normal. IMPRESSION: 1. No acute findings in the joints or SI joints. 2. Somewhat overriding posterior acetabula are noted bilaterally, finding which can be associated with pincer-type ASHVIN. XR THORACOLUMBAR SPINE 01/10/22 FINDINGS: There is normal thoracic segmentation with 12 rib-bearing thoracic vertebrae of normal height and normal thoracic kyphosis. There is a borderline levocurvature upper thoracic spine. No thoracic vertebral body compression is present. There is no destructive process or paraspinal soft tissue swelling. No spondylolisthesis or disc narrowing or erosive changes. IMPRESSION: -Borderline levocurvature upper thoracic region. -No vertebral compression, spondylolisthesis, disc narrowing, destructive process. XR LUMBOSACRAL SPINE WITH OBLIQUES 10/09/23 CLINICAL INFORMATION: Low back pain COMPARISON: Lumbar spine radiograph from 06/13/2021 TECHNIQUE: 7 views of the lumbar spine FINDINGS: No acute visible fracture or dislocation. Slight lower lumbar spine facet arthropathy. Suggestion of L5-S1 neuroforaminal narrowing. Vertebral body heights and disc spaces are maintained. Posterior elements are intact. Paraspinal soft tissues are unremarkable. Visualized bowel gas is unremarkable. IMPRESSION: 1. No acute visible fracture or dislocation. 2. Slight lower lumbar spine facet arthropathy. 3. Suggestion of L5-S1 neuroforaminal narrowing. MR LUMBAR SPINE WITHOUT CONTRAST 12/20/24 CLINICAL INFORMATION: Low back pain. COMPARISON: Lumbar spine radiographs 10/09/2023. TECHNIQUE: MRI of the lumbar spine was obtained using routine sequences without contrast. FINDINGS: Transitional anatomy. For the purposes of this report there are articulating transverse processes bilaterally at L1 and S1 shares a rudimentary disc with S2. Please correlate with plain films prior to any percutaneous or surgical intervention. There is no bone marrow edema. There are no acute fractures. The vertebral body heights are maintained. The disc volumes are preserved and the discs remain well-hydrated. Conus terminates at the L1 level. Partially imaged fibroid uterus. L1-L2: Disc contour is normal. No central canal stenosis and no foraminal stenosis. L2-L3: Disc contour is normal. Mild bilateral facet arthropathy. No central canal stenosis and no foraminal stenosis. L3-L4: There is a small diffuse annular disc bulge and there is mild bilateral hypertrophic facet arthropathy. No central canal stenosis and no foraminal stenosis. L4-L5: There is a small diffuse annular disc bulge and there is mild bilateral facet arthropathy. There is no central canal stenosis. There is mild foraminal encroachment bilaterally. L5-S1: There is a diffuse annular disc bulge and there is moderate bilateral hypertrophic facet arthropathy. No central canal stenosis. Moderate to severe bilateral foraminal stenosis with mass effect on the exiting L5 nerve roots bilaterally. IMPRESSION: - At L5-S1, multifactorial degenerative changes result in moderate to severe bilateral foraminal stenosis with mass effect on the exiting L5 nerve roots bilaterally. Additional mild spondylitic changes as discussed in detail above. - There is transitional anatomy with articulating transverse processes bilaterally at L1 and a rudimentary disc at S1-S2. - Partially imaged fibroid uterus. Assessment & Plan Assessment & Plan (1) Polyarthralgia: Code(s): M25.50 - Pain in unspecified joint Category: Medical (2) Upper back pain: Code(s): M54.9 - Dorsalgia, unspecified Category: Medical (3) Cervical spine pain: Code(s): M54.2 - Cervicalgia Category: Medical (4) Lumbar spondylosis: Code(s): M47.816 - Spondylosis without myelopathy or radiculopathy, lumbar region Category: Medical (5) Sacroiliac joint pain: Code(s): M53.3 - Sacrococcygeal disorders, not elsewhere classified Category: Medical (6) Right hip pain: Code(s): M25.551 - Pain in right hip Category: Medical (7) Spondylosis of thoracolumbar spine: Code(s): M47.815 - Spondylosis without myelopathy or radiculopathy, thoracolumbar region Category: Medical Plan The plan includes considering thoracolumbar injections to address the mid back pain, as previous injections did not provide relief. Schedule bilateral diagnostic [id number] MBB with local and fluoroscopy. If she has significant relief from the diagnostic blocks for his axial low back pain, will consider either therapeutic injections, Sprint PNS or RFA depending on her preference. The patient will be referred back to a Corporate Auditor for further evaluation of possible joint-related issues. Additionally, maintaining an active lifestyle and managing weight are recommended to alleviate musculoskeletal discomfort. All questions and concerns have been answered and patient agreed with the plan. Follow up after injections and sooner as needed. Patient was informed and verbally consented to the use of an ambient scribe for clinic note documentation during this visit. Orders: Referrals Rheumatology Referral M25.50 - Pain in unspecified joint Coding Level of Care Code Est Pt Level 4 (08149) Complex EM visit Add On G2211 Diagnoses Polyarthralgia M25.50 Upper back pain M54.9 Cervical spine pain M54.2 Lumbar spondylosis M47.816 Sacroiliac joint pain M53.3 Right hip pain M25.551 Spondylosis of thoracolumbar spine M47.815
[2025-06-05 14:01] VITALS: BP 189/109; PULSE 70; O2SAT 96; BMI 34.7
[2025-06-05 14:05] VITALS: BP 188/116
== END 2025-06-05 14:25 | disposition home or self-care (01) ==
LOC: HO.PMC 13:51
PROVIDERS: PCP Internal Medicine; Visit Provider Nurse Practitioner Family
DX: M25.50 Pain in unspecified joint (principal); M54.9 Dorsalgia, unspecified; M54.2 Cervicalgia; M47.816 Spondylosis without myelopathy or radiculopathy, lumbar region; M53.3 Sacrococcygeal disorders, not elsewhere classified; M25.551 Pain in right hip; M47.815 Spondylosis without myelopathy or radiculopathy, thoracolumbar region
CPT/HCPCS: 99214; G2211

== ENCOUNTER → 2025-06-05 13:51 | Outpatient (BNVA) | payer MEDICARE, MEDICAID, SELFPAY | PROVIDERS: PCP Internal Medicine; Visit Provider Nurse Practitioner Family | DX: M54.2 Cervicalgia (principal); M47.816 Spondylosis without myelopathy or radiculopathy, lumbar region; M53.3 Sacrococcygeal disorders, not elsewhere classified; M25.551 Pain in right hip; M25.50 Pain in unspecified joint; M54.9 Dorsalgia, unspecified; M47.815 Spondylosis without myelopathy or radiculopathy, thoracolumbar region | CPT/HCPCS: 99212 ==

== ENCOUNTER 2025-06-08 13:29 | Outpatient (AMB) | payer MEDICARE, MEDICAID, SELFPAY ==
--- NOTE | 2025-06-08 13:35 | MHC.OFFVIS ---
Intake Visit Reasons: right knee MRI review Intake Note: Loli is a 39 year old female who presents today for an MRI review of the right knee. Hx of surgery at [facility] in Nov. Allergies No Known Allergies (No Known Allergies*) Allergy (Verified 06/05/25 14:06) HPI HPI right knee MRI review: Details: Loli is a 39 year old female who presents today for an MRI review of the right knee. Hx of surgery at [facility] in Nov. She has been feeling better. She states she has ?heaviness? in the right knee with extended ambulation. Otherwise she has no complaints. [facility] Medical History Left otitis media Polyarthralgia Fibromyalgia High blood pressure Rash Lumbar pain Obese Surgical History H/O eye surgery S/P tendon repair History of local excision of skin lesion (08/03/22) S/P ligament repair History of hand surgery History of tubal ligation Family History Father No problems noted. Mother Diabetes Hypertension Paternal Aunt Breast cancer Family/Other Chronic mental illness Brother No problems noted. Brother No problems noted. Brother No problems noted. Sister No problems noted. Sister No problems noted. Son In good health Daughter In good health Social History Housing: Apartment Alcohol intake: current Alcohol intake frequency: holidays/special occasions only Alcohol type: wine and other Patient Tobacco Use Status: Never used Tobacco e-Cigarette/Vaping Use: Never Used Second Hand Smoke Exposure: No service: No Current occupational status: unemployed Cognitive needs: No Hearing needs: No Vision needs: Yes (Glasses) Female Reproductive History Menstrual Age of Menarche: 14 Physical Exam Psych Other: Unremarkable right knee exam. Negative Johnie's. No effusion. Stable to varus and valgus stress. Full range of motion. Results Reviewed Results Reviewed: I personally reviewed the MR images. IMPRESSION: Query distal iliotibial band syndrome. Small knee joint effusion with mild synovitis and questionable 3 mm posterior paramidline intra-articular body. Partial thickness linear tear of the distal anterior ACL band. Assessment & Plan Assessment & Plan (1) Right knee pain: Code(s): M25.561 - Pain in right knee Category: Medical Plan: 39-year-old with polyarthralgia and right knee pain. MRI is unremarkable. She has no appreciable symptoms other than ?heaviness? with extended ambulation. If her knee gets worse she is happy to see me but at this time there was no intervention warranted. Coding Level of Care Code Est Pt Level 3 (31821) Diagnoses Right knee pain M25.561
--- OUTSIDE RECORDS SUMMARY | 2025-06-08 13:44 | XMS_ITS | Clinical Summary ---
Author Organization Patient Business Ser [facility] Address [address] [place] [address] Care Team Providers Care Ground Water Technician Name Role Phone Dorothea Carey MD Primary Care Provider [phone] Allergies No known active allergies Medications amitriptyline [...] Team Description 05/05/2025 1:00 PM EDT Treatment [facility] [address] [phone] Compa Haney, PT Pain in left ankle and joints of left foot (Primary Dx) 04/28/2025 3:00 PM EDT Treatment [facility] [address] [phone] Brijesh Alvarado, SILK TRIMMER Tibialis posterior tendonitis, left (Primary Dx) 04/21/2025 3:30 PM EDT Treatment [facility] [address] [phone] Brijesh Alvarado, SILK TRIMMER Tibialis posterior tendonitis, left (Primary Dx) 04/14/2025 4:30 PM EDT Treatment [facility] [address] [phone] Brijesh Alvarado, SILK TRIMMER Tibialis posterior tendonitis, left (Primary Dx) 03/25/2025 4:00 PM EDT Treatment [facility] [address] [phone] Compa Haney, PT Tibialis posterior tendonitis, left (Primary Dx) 03/23/2025 3:30 PM EDT Treatment [facility] [address] [phone] Tato Donald, SILK TRIMMER 03/18/2025 3:30 PM EDT Treatment [facility] [address] [phone] Brijesh Alvarado, ADEN Tibialis posterior tendonitis, left (Primary Dx); Pain in left ankle and joints of left foot 03/18/2025 [facility] [address] [facility] [address] [place] [phone] Nichelle De La O MD Advice Only 03/16/2025 3:30 PM EDT Treatment [facility] [address] [phone] Brijesh Alvarado, ADEN Pain in left ankle and joints of left foot (Primary Dx); Tibialis posterior tendonitis, left from Last 3 Months Surgical History Surgery Date Site/Laterality Comments ANKLE FRACTURE SURGERY Left PROCEDURE: [place] OPEN TREATMENT MEDIAL MALLEOLUS FRACTURE OTHER SURGICAL HISTORY Left PROCEDURE: [place] ARTHRS WRST EXC&/RPR TRIANG FIBROCART&/JOINT Social History [...] Info) Description 06/26/2025 8:00 AM EDT Evaluation [address] [phone] Brenda Sam, PT Health Maintenance Due Date Last Done [...] UPON REACH MET 10/13 #4 IMPROVE 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
--- OUTSIDE RECORDS SUMMARY | 2025-06-08 13:45 | XMS_ITS | Encounter Summary ---
Author Organization [facility] Address [email or web address] [facility] [address] [place] [phone] Phone Care Team Providers Care Equipment Processor Name Role Phone Unknown, Unknown MD Primary Care Provider Kenya donnelly Pcp, Unknown Primary Care Provider Unavailabl e Reason for Visit * Reason Onset Date Comments Medication Refill 10/22/2024 Encounter Details Date Type Department Care Team (Late Contact Info) Description 10/22/2024 Refill [facility] [address] [place] [address] Cortney Coelho I [address] [place] [address] [email or web address] Medication Refill Social History Tobacco Use Types [...] [facility] [place] [address] [place] [address] 08/12/2025 1:20 PM EDT Office Visit [facility] [address] [place] [address] Melba Meadows MD [address] [place] [id number] [email or web address]. [email or web address] documented as of this encounter Visit Diagnoses Not on filedocumented in this encounter Care Teams Equipment Processor Relationship Specialty Start Date End Date Unknown, Unknown, PCP - General 07/14/24 12/14/24 Pcp, Unknown PCP - General 12/15/24 documented as of this encounter Additional Source Comments The information contained in this document represents components of the legal health record. It is not the complete legal health record.[facility]
== END 2025-06-08 13:51 | disposition home or self-care (01) ==
LOC: HO.HOS 13:30
PROVIDERS: PCP Internal Medicine; Visit Provider Orthopaedic Surgery
DX: M25.561 Pain in right knee (principal)
CPT/HCPCS: 99213

== ENCOUNTER → 2025-06-08 13:29 | Outpatient (BNVA) | payer MEDICARE, MEDICAID, SELFPAY | PROVIDERS: PCP Internal Medicine; Visit Provider Orthopaedic Surgery | DX: M25.561 Pain in right knee (principal) | CPT/HCPCS: 99212 ==

== ENCOUNTER 2025-06-15 16:47 | Outpatient (AMB) | payer MEDICARE, MEDICAID, SELFPAY ==
[2025-06-15 16:48] VITALS: BP 150/80; PULSE 76; RESP 18; O2SAT 98; BMI 35.0
--- NOTE | 2025-06-15 16:48 | MHC.PC.OV ---
Vital Signs 06/15/25 16:48 Height 5 ft 4 in Weight 204 lb 2 oz BMI 35.0 BP 150/80 H Blood Pressure Location Lt brachial Position Sitting Respiration 18 Pulse 76 Pulse Source Pulse Oximeter Temp Source Temporal Artery Scan Pulse Oximetry (%) 98 Oxygen Delivery Method Room Air Intake Visit Reasons: Per Dr Zepeda Scaling Machine Operator Required: No Accompanied by: Friend Allergies No Known Allergies (No Known Allergies*) Allergy (Verified 06/15/25 17:17) Medication List - Last Reconciled 06/15/25 by Dorothea Carey MD acetaminophen 500 mg PO Q6H PRN 30 days amoxicillin 500 mg PO BID 7 days blood pressure monitor As directed cane As directed cyclosporine 0.05% (Restasis) drps ophthalmic (eye) Grab bar As directed [hand held showerhead As directed] lisinopril 10 mg PO DAILY 90 days sertraline 100 mg PO DAILY Shower Chair As directed tramadol 50 mg PO DAILY PRN 30 days Tobacco use date assessed: 06/15/25 Dental Screening Dental Screen Date: 06/15/25 Did you have a dental visit in the last 12 months?: No Did you have a dental problem in the last 6 months where you did not have access to dental care?: No Was dental information given to patient?: No HPI HPI Comments History of Present Illness Details The patient is a 39-year-old female presenting for a follow-up visit to manage her hypertension and discuss other ongoing health issues. Hypertension has been a persistent issue, with recent improvements noted, although the blood pressure remains slightly elevated. The patient is currently on lisinopril, which has been increased from 10 mg to 20 mg to better control her blood pressure. The patient has a history of degenerative disc disease and osteoarthritis, which contribute to her need for assistive devices such as a shower chair and grab bars for stability. She experiences difficulty with mobility and requires assistance with daily activities, including dressing and bathing. Nocturia and urinary incontinence are significant concerns, with the patient reporting frequent nighttime urination and urgency. She has been referred to a urologist for further evaluation of these symptoms. The patient has a history of a left ankle fracture, which was surgically repaired twice, most recently seven months ago. The left leg remains weaker than the right, affecting her balance and mobility. Spondylitic changes have been noted, and the patient is under the care of a foxing painter. [facility] Medical History (Updated 06/15/25 @ 17:29 by Dorothea Carey MD) Left otitis media Polyarthralgia Fibromyalgia High blood pressure Rash Lumbar pain Obese Surgical History H/O eye surgery S/P tendon repair History of local excision of skin lesion (08/03/22) S/P ligament repair History of hand surgery History of tubal ligation Family History Father No problems noted. Mother Diabetes Hypertension Paternal Aunt Breast cancer Family/Other Chronic mental illness Brother No problems noted. Brother No problems noted. Brother No problems noted. Sister No problems noted. Sister No problems noted. Son In good health Daughter In good health Social History Housing: Apartment Alcohol intake: current Alcohol intake frequency: holidays/special occasions only Alcohol type: wine and other Patient Tobacco Use Status: Never used Tobacco e-Cigarette/Vaping Use: Never Used Second Hand Smoke Exposure: No service: No Current occupational status: unemployed Cognitive needs: No Hearing needs: No Vision needs: Yes (Glasses) Female Reproductive History Menstrual Age of Menarche: 14 Questionnaire PHQ-9 Over the last 2 weeks, how often have you been bothered by any of the following problems? 1. Little interest or pleasure in doing things: several days 2. Feeling down, depressed, or hopeless: not at all 3. Trouble falling or staying asleep, or sleeping too much: not at all 4. Feeling tired or having little energy: not at all 5. Poor appetite or overeating: not at all 6. Feeling bad about yourself - or that you are a failure or have let yourself or your family down: not at all 7. Trouble concentrating on things, such as reading the newspaper or watching television: not at all 8. Moving or speaking so slowly that other people could have noticed. Or the opposite - being so fidgety or restless that you have been moving around a lot more than usual: not at all 9. Thoughts that you would be better off or of hurting yourself in some way: not at all Total score: 1 Depression Screening Interpretation: Negative Depression Screening Done: Yes 37763 - PHQ-9 Billing: Yes Source: Developed by Drs. Compa Berger, Patti Moore, Lucas Diaz and colleagues, with an educational stefania from [employer]. Thrive Questionnaire Date Thrive assessed: 06/15/25 I am a: Patient What is your living situation today?: I have a steady place to live Within the past 12 months, did the food you bought not last and you didn't have the money to get more?: Never true Within the past 12 months, did you worry whether your food would run out before you got money to buy more?: Never true Do you have trouble paying for medicines?: No Do you have trouble getting transportation to medical appointments?: No Do you have trouble paying your heating and electricity bill?: No Do you have trouble taking care of your child, family member or friend?: No Do you have trouble with day-to-day activities such as bathing, preparing meals, shopping, managing finances, etc.?: No Are you currently unemployed and looking for a job?: No Are you interested in more education?: No Please select the resources that you would like help with: None Currently or been in a relationship where the following occur: No concerns reported THRIVE Score: 0 AUDIT C Alcohol Use Questionnaire (AUDIT-C) 1. How often do you have a drink containing alcohol?: Monthly or less 2. How many drinks containing alcohol do you have on a typical day when you are drinking?: 1 or 2 3. How often do you have six or more drinks on one occasion?: Never Total Score: 1 Score Reviewed/Action Taken: No NANDO-7 AMB Questionnaire NANDO-7 Date NANDO - 7 assessed: 06/15/25 Feeling nervous, anxious, or on edge: 1 = Several days Not being able to stop or control worryin = Not at all Worrying too much about different things: 1 = Several days Trouble relaxin = Several days Being so restless that it is hard to sit still: 0 = Not at all Becoming easily annoyed or irritable: 1 = Several days Feeling afraid as if something awful might happen: 0 = Not at all Total NANDO-7 score (0-4 normal; 5-9 mild; 10-14 moderate; 15-21 severe): 4 Source: Developed by Drs. Compa Berger, Patti Moore, Lucas Diaz and colleagues, with an educational stefania from [employer]. NANDO-7 Assessment Billing NANDO-7 Assessment Tool: NANDO-7 Assessment 66344 Review of Systems Const All systems reviewed & are unremarkable except as noted in HPI and below Card Denies chest pain at rest, Denies chest pain with activity, Denies edema, Denies irregular heart rhythm, Denies claudication, Denies dyspnea, Denies dyspnea on exertion, Denies orthopnea, Denies paroxysmal nocturnal dyspnea and Denies slow heart rate Resp Denies cough, Denies dyspnea and Denies dyspnea on exertion GI Denies abdominal pain, Denies change in bowel habits, Denies excessive flatus, Denies nausea and Denies vomiting Denies urinary incontinence, Denies urinary hesitancy and Denies urinary urgency Musc Denies atrophy, Denies deformity, Reports arthralgias and Denies limited range of motion Physical exam (Primary Care) Vital Signs: Last Vital Signs Pulse 76 06/15/25 16:48 Resp 18 06/15/25 16:48 BP 150/80 H 06/15/25 16:48 Pulse Ox 98 06/15/25 16:48 Oxygen Delivery Method Room Air 06/15/25 16:48 BMI result Body Mass Index 35.0 BMI Assessment/Plan discussion: High BMI High, discussed plan: lifestyle, weight reduction, dietary and physical activity Tobacco/Smoking Status: Tobacco use Status Tobacco use date assessed 06/15/25 06/15/25 16:56 Patient Tobacco Use Status Never used Tobacco 06/15/25 16:56 e-Cigarette/Vaping Use Never Used 06/15/25 16:56 PHQ-9: PHQ-9 Score PHQ-9: Total score 1 06/15/25 17:21 Depression Screening Interpretation: Negative Thrive Assessment: Date of Thrive Assessment Date Thrive assessed 06/15/25 06/15/25 16:56 Currently or been in a relationship where the following occur: No concerns reported Const Limitations: ambulation with cane Resp Effort & Inspection: normal respiratory effort Auscultation: clear to auscultation bilaterally Cardio Jugular venous distension: no JVD Rate: regular rate Rhythm: regular rhythm Heart sounds: S1 normal heart sound present and S2 normal heart sound present Extrem Left upper extremity: shoulder/upper arm Details: tenderness and abnormal ROM Details: pain with active ROM Details: in ABduction, in extension, in internal rotation and external rotation- Coding Level of Care Code Est Pt Level 4 (49042) Complex EM visit Add On G2211 Diagnoses Mild major depression F32.0 Essential hypertension I10 Urge urinary incontinence N39.41 Osteoarthritis of left hip M16.12 Fibromyalgia M79.7 Lumbar radiculopathy M54.16 Additional Codes NANDO-7 Assessment Billing - NANDO-7 Assessment Tool: NANDO-7 Assessment 56460 ([id number]) PHQ-9 - 71147 - PHQ-9 Billing: Yes ([id number]) Time Spent (min) 25 Assessment & Plan Assessment & Plan (1) Mild major depression: Code(s): F32.0 - Major depressive disorder, single episode, mild Category: Medical (2) Essential hypertension: Code(s): I10 - Essential (primary) hypertension Category: Medical (3) Urge urinary incontinence: Code(s): N39.41 - Urge incontinence Category: Medical (4) Osteoarthritis of left hip: Code(s): M16.12 - Unilateral primary osteoarthritis, left hip Category: Medical (5) Fibromyalgia: Code(s): M79.7 - Fibromyalgia Category: Medical (6) Lumbar radiculopathy: Code(s): M54.16 - Radiculopathy, lumbar region Category: Medical Plan The patient's hypertension management includes increasing the lisinopril dosage to 20 mg and monitoring blood pressure in three weeks. For her degenerative disc disease and osteoarthritis, assistive devices such as a shower chair and grab bars have been recommended to aid in stability and mobility. The patient is referred to a urologist for further evaluation of nocturia and urinary incontinence, with a urinalysis and fasting labs planned to assess these symptoms. An electrocardiogram is also planned due to reported chest tightness and exertional dyspnea, to rule out any cardiac issues. The left ankle fracture, previously surgically repaired, will continue to be monitored, with emphasis on physical therapy to improve strength and balance. The patient is advised to continue using a cane for ambulation to prevent falls. Patient was informed and verbally consented to the use of an ambient scribe for clinic note documentation during this visit. Orders: Referrals Urology Referral N39.41 - Urge incontinence Medications: New [shower bar tub ledge] As directed 1 ea 0RF M16.11 - Unilateral primary osteoarthritis, right hip underpads (Bed Underpads) Use 4 bed underpads daily 100 ea 6RF N39.41 - Urge incontinence lisinopril 20 mg PO DAILY 90 tabs 1RF 90 days Discontinued lisinopril Discontinued Reason: Patient Completed Course 10 mg PO DAILY 90 days 90 tabs 1RF
--- OUTSIDE RECORDS SUMMARY | 2025-06-15 16:49 | XMS_ITS | Encounter Summary ---
Author Organization [facility] Address [address] [facility] [address] [place] [id number] Phone Care Team Providers Care Director Of Group Sales Name Role Phone Unknown, Unknown MD Primary Care Provider Kenya donnelly Pcp, Unknown Primary Care Provider Unavailabl e Reason for Visit * Reason Onset Date Comments Medication Refill 10/22/2024 Encounter Details Date Type Department Care Team (Late Contact Info) Description 10/22/2024 Refill [facility] [address] [place] [address] Cortney Coelho [address] [place] [address] [email or web address] Medication Refill Social History Tobacco Use [...] Procedure visit [facility] [place] [address] [place] [address] 08/12/2025 1:20 PM EDT Office Visit [facility] [address] [place] [address] Melba Meadows MD [address] [place] [id number] [email or web address] documented as of this encounter Visit Diagnoses Not on filedocumented in this encounter Care Teams Director Of Group Sales Relationship Specialty Start Date End Date Unknown, Unknown, PCP - General 07/14/24 12/14/24 Pcp, Unknown PCP - General 12/15/24 documented as of this encounter Additional Source Comments The information contained in this document represents components of the legal health record. It is not the complete legal health record.[facility]
== END 2025-06-15 17:33 | disposition home or self-care (01) ==
LOC: HO.HMCH 16:47
PROVIDERS: PCP Internal Medicine; Visit Provider Internal Medicine
DX: F32.0 Major depressive disorder, single episode, mild (principal); I10 Essential (primary) hypertension; N39.41 Urge incontinence; M16.12 Unilateral primary osteoarthritis, left hip; M79.7 Fibromyalgia; M54.16 Radiculopathy, lumbar region

== ENCOUNTER → 2025-06-15 16:47 | Outpatient (BNVA) | payer MEDICARE, MEDICAID, SELFPAY | PROVIDERS: PCP Internal Medicine; Visit Provider Internal Medicine | DX: F32.0 Major depressive disorder, single episode, mild (principal); I10 Essential (primary) hypertension; N39.41 Urge incontinence; M16.12 Unilateral primary osteoarthritis, left hip; M79.7 Fibromyalgia; M54.16 Radiculopathy, lumbar region | CPT/HCPCS: 96127; 99212 ==

== ENCOUNTER 2025-06-23 11:54 | Emergency (ER) | payer MEDICARE, MEDICAID, SELFPAY ==
--- NOTE | ~2025-06-23 | XR_ITS ---
EXAMINATION: XR CHEST CLINICAL INFORMATION: chest pain COMPARISON: July 20, 2024 TECHNIQUE: 2 views of the chest were obtained. FINDINGS: There is a piercing over the sternal region. Heart and mediastinal structures are within normal limits. Lungs are clear and well aerated. There is no pleural effusion. XR/XR chest 2V IMPRESSION: No acute disease. Electronically signed by: Santiago Toribio MD 06/23/2025 01:30 PM EDT
--- NOTE | 2025-06-23 11:58 | ECG_ITS ---
Test Reason : cp Blood Pressure : */* mmHG Vent. Rate : 75 BPM Atrial Rate : 75 BPM P-R Int : 156 ms QRS Dur : 80 ms QT Int : 392 ms P-R-T Axes : 50 11 23 degrees QTcB Int : 437 ms Normal sinus rhythm Normal ECG When compared with ECG of 20-Jul-2024 17:55, No significant change was found Referred By: Monica Maher Electronically Signed By: VERN SINGH MD
[2025-06-23 12:15] VITALS: BP 159/78; PULSE 85; RESP 18; TEMP 36.6; O2SAT 100; BMI 35.4
--- NOTE | 2025-06-23 12:20 | ED_ITS ---
HPI - Chest Pain General Chief Complaint: Chest Pain Stated Complaint: Chest pain Related Data Home Medications ?Medication ?Instructions ?Recorded ?Confirmed cyclosporine 0.05 % eye drops in a drp ophthalmic (eye ) 03/10/25 06/15/25 dropperette (Restasis) sertraline 100 mg tablet 100 mg PO DAILY 03/10/2509/29 Previous Rx's ?Medication ?Instructions ?Recorded blood pressure monitor #1 ea 05/22/22 cane #1 ea 09/22/24 hand held showerhead #1 ea 11/24/24 Shower Chair #1 ea 11/29/24 Grab bar #1 ea 02/09/25 acetaminophen 500 mg tablet 500 mg PO Q6H PRN fever 30 days 02/15/25 #120 tabs amoxicillin 500 mg capsule 500 mg PO BID 7 days #14 ca ps 04/13/25 lisinopril 20 mg tablet 20 mg PO DAILY 90 days #90 t abs 06/15/25 shower bar tub ledge #1 ea 06/15/25 underpads (Bed Underpads) #100 ea 06/15/25 tramadol 50 mg tablet 50 mg PO BID PRN pain 30 day s #60 06/24/25 tabs Allergies Allergy/AdvReac Type Severity Reaction Status Date / Time shrimp Allergy Anaphylaxis Verified 06/23/25 12:18 [facility] Past Medical History Medical History Left otitis media Polyarthralgia Fibromyalgia High blood pressure Rash Lumbar pain Obese Surgical History H/O eye surgery S/P tendon repair History of local excision of skin lesion (08/03/22) S/P ligament repair History of hand surgery History of tubal ligation Family History Family History Father No problems noted. Mother Diabetes Hypertension Paternal Aunt Breast cancer Family/Other Chronic mental illness Brother No problems noted. Brother No problems noted. Brother No problems noted. Sister No problems noted. Sister No problems noted. Son In good health Daughter In good health Social History Social History Housing: Apartment Alcohol intake: current Alcohol intake frequency: holidays/special occasions only Alcohol type: wine and other Patient Tobacco Use Status: Never used Tobacco e-Cigarette/Vaping Use: Never Used Second Hand Smoke Exposure: No service: No Current occupational status: unemployed Cognitive needs: No Hearing needs: No Vision needs: Yes (Glasses) Physical Exam 2 Vital Signs: Vital Signs: Last Vital Signs Temp 98 F 06/23/25 12:15 Pulse 85 06/23/25 12:15 Resp 18 06/23/25 12:15 BP 159/78 H 06/23/25 12:15 Pulse Ox 100 06/23/25 12:15 O2 Del Method Room Air 06/23/25 12:15 BMI result Body Mass Index 35.4 Course Course Course Narrative: This is a Rapid Medical Examination (RME) performed by Jahaira Maher PA-C in triage. Full HPI, ROS, assessment and treatment plan per primary provider in the Main ED. Hx: 39 yo F here w/ chest pain and URBINA x2 weeks. Plan: labs, ekg, cxr Reevaluation(s) Reevaluation #1: Patient left the emergency department before myself or any of the other clinicians could review or explain physical exam findings, test results, need or lack there of for additional testing, treatment options, or a treatment plan. Medical Decision Making Lab Data 06/23/25 12:40 06/23/25 12:40 Labs: Lab Results 06/23/25 Range/Units 12:40 WBC 9.0 (4.8-10.8) X10*3/uL RBC 4.26 (4.20-5.50) X10*6/uL Hgb 12.8 (12.0-16.0) g/dl Hct 39.0 (37.0-47.0) % MCV 91.5 (80.0-98.0) fL MCH 30.0 (27.0-33.0) pg MCHC 32.8 (31.0-35.0) g/dl RDW 13.1 (11.0-16.0) % Plt Count 265 (160-400) X10*3/uL MPV 9.6 (9.4-12.3) fL Immature Gran % (Auto) 0.2 (0.0-0.4) % Neut % (Auto) 68.2 (45-73) % Lymph % (Auto) 24.6 (20-40) % Lumpkin % (Auto) 4.7 (2-11) % Eos % (Auto) 1.9 (0-4) % Baso % (Auto) 0.4 (0-2) % Lymph # (Auto) 2.2 (1.2-4.9) X10*3/uL Lumpkin # (Auto) 0.4 (0.1-1.2) X10*3/uL Eos # (Auto) 0.2 (0.0-0.4) X10*3/uL Baso # (Auto) 0.0 (0.0-0.2) X10*3/uL Abs Immat Gran (auto) 0.02 (0.00-0.03) X10*3/uL Absolute Neuts (auto) 6.1 (2.0-8.3) x10*3/uL Absolute Nucleated RBC 0.000 (0.0-0.012) X10*3/uL Nucleated RBC % (auto) 0.0 (0.0-0.2) /100WBC Sodium 139 (135-145) mmol/L Potassium 3.9 (3.3-5.1) mmol/L Chloride 109 H (96-108) mmol/L Carbon Dioxide 23 (22-29) mmol/L Anion Gap 11 L (12-20) BUN 12 (9-16) mg/dL Creatinine 0.68 (0.5-1.4) mg/dL Estim Creat Clear Calc 117.6 Estimated GFR > 60 Random Glucose 81 (60-115) mg/dL Calcium 9.1 (8.4-10.2) mg/dL Magnesium 2.0 (1.6-2.6) mg/dL Total Bilirubin 0.6 (0.0-1.0) mg/dL AST 22 (5-31) U/L ALT 16 (0-31) U/L Alkaline Phosphatase 98 (39-117) U/L Troponin I High Sens < 2.7 (<3.5-17.0) ng/L Total Protein 7.1 (6.5-8.0) g/dL Albumin 4.3 (3.5-5.0) g/dL Lipase 17 (8-78) U/L Discharge Plan Discharge Clinical Impression: Chest pain Patient Disposition: Left W/O Completing Treatment Prescriptions: No Action (DME) blood pressure monitor Kit See Rx Instructions .Route Qty: 1 0RF Rx Instructions: As directed (DME) cane Device See Rx Instructions .Route Qty: 1 0RF Rx Instructions: As directed (DME) hand held showerhead See Rx Instructions .Route .MEDSUPPLY Qty: 1 0RF Rx Instructions: As directed (DME) Shower Chair Misc See Rx Instructions .Route Qty: 1 0RF Rx Instructions: As directed (DME) Grab bar Misc See Rx Instructions .Route Qty: 1 0RF Rx Instructions: As directed acetaminophen 500 mg tablet 500 mg PO Q6H PRN (Reason: fever) 30 Days Qty: 120 1RF amoxicillin 500 mg capsule 500 mg PO BID 7 Days Qty: 14 0RF tramadol 50 mg tablet 50 mg PO BID PRN (Reason: pain) 30 Days Qty: 60 0RF cyclosporine [Restasis] 0.05 % dropperette ophthalmic (eye) sertraline 100 mg tablet 100 mg PO DAILY (DME) shower bar tub ledge See Rx Instructions .Route .MEDSUPPLY Qty: 1 0RF Rx Instructions: As directed lisinopril 20 mg tablet 20 mg PO DAILY 90 Days Qty: 90 1RF (DME) underpads [Bed Underpads] Pad See Rx Instructions .Route Qty: 100 6RF Rx Instructions: Use 4 bed underpads daily Discharge Date/Time: 06/23/25 18:16
[2025-06-23 12:45] LABS: MANUAL DIFF FLAG NO
[2025-06-23 12:49] LABS: Hematocrit 39.0 % (37.0-47.0); Hemoglobin 12.8 g/dl (12.0-16.0); Imm Gran Abs Auto 0.02 X10*3/uL (0.00-0.03); Imm Gran Pct Auto 0.2 % (0.0-0.4); Lymphocytes Absolute Auto 2.2 X10*3/uL (1.2-4.9); Mean Corpuscular HGB Conc 32.8 g/dl (31.0-35.0); Mean Corpuscular Hemoglobin 30.0 pg (27.0-33.0); Mean Corpuscular Volume 91.5 fL (80.0-98.0); NRBC Abs Auto 0.000 X10*3/uL (0.0-0.012); NRBC Pct Auto 0.0 /100WBC (0.0-0.2); Platelet Count 265 X10*3/uL (160-400); Red Blood Count 4.26 X10*6/uL (4.20-5.50); White Blood Count 9.0 X10*3/uL (4.8-10.8)
[2025-06-23 13:02] LABS: Alanine Aminotransferase 16 U/L (0-31); Albumin Level 4.3 g/dL (3.5-5.0); Alkaline Phosphatase 98 U/L (39-117); Anion Gap 11 (12-20); Aspartate Amino Transferase 22 U/L (5-31); Blood Urea Nitrogen 12 mg/dL (9-16); Calcium 9.1 mg/dL (8.4-10.2); Carbon Dioxide 23 mmol/L (22-29); Chloride 109 mmol/L (96-108); Creatinine Clr Calc Pharmacy 117.6; Estimated Glomerular Filt Rate > 60; Lipase 17 U/L (8-78); Magnesium 2.0 mg/dL (1.6-2.6); Potassium 3.9 mmol/L (3.3-5.1); Sodium 139 mmol/L (135-145); Total Protein 7.1 g/dL (6.5-8.0)
[2025-06-23 13:10] LABS: Troponin-I High Sensitivity < 2.7 ng/L (<3.5-17.0)
--- OUTSIDE RECORDS SUMMARY | 2025-06-23 13:53 | XMS_ITS | Encounter Summary ---
Author Organization [facility] Address [address] [facility] [address] [place] [address] Phone Care Team Providers Care Iron Assorter Name Role Phone Unknown, Unknown MD Primary Care Provider Kenya donnelly Pcp, Unknown Primary Care Provider Unavailabl e Reason for Visit * Reason Onset Date Comments Medication Refill 10/22/2024 Encounter Details Date Type Department Care Team (Late Contact Info) Description 10/22/2024 Refill [facility] [address] [place] [address] Cortney Coelho [address] [place] [address] [email or web address] Medication Refill Social History Tobacco Use [...] Procedure visit [facility] [place] [address] [place] [address] 08/12/2025 1:20 PM EDT Office Visit [facility] [address] [place] [address] Melba Meadows MD [address] [place] [phone] [email or web address] documented as of this encounter Visit Diagnoses Not on filedocumented in this encounter Care Teams Iron Assorter Relationship Specialty Start Date End Date Unknown, Unknown, PCP - General 07/14/24 12/14/24 Pcp, Unknown PCP - General 12/15/24 documented as of this encounter Additional Source Comments The information contained in this document represents components of the legal health record. It is not the complete legal health record.[facility]
--- OUTSIDE RECORDS SUMMARY | 2025-06-23 13:53 | XMS_ITS | Clinical Summary ---
Author Organization Patient Business Ser [facility] Address [address] [place] [address] Care Team Providers Care Flower Grower Name Role Phone Dorothea Carey MD Primary [...] Team Description 05/05/2025 1:00 PM EDT Treatment [facility] [address] [phone] Compa Haney, PT Pain in left ankle and joints of left foot (Primary Dx) 04/28/2025 3:00 PM EDT Treatment [facility] [address] [phone] Brijesh Alvarado, ARC WELDER APPRENTICE Tibialis posterior tendonitis, left (Primary Dx) 04/21/2025 3:30 PM EDT Treatment [facility] [address] [phone] Brijesh Alvarado, ARC WELDER APPRENTICE Tibialis posterior tendonitis, left (Primary Dx) 04/14/2025 4:30 PM EDT Treatment [facility] [address] [phone] Brijesh Alvarado, ARC WELDER APPRENTICE Tibialis posterior tendonitis, left (Primary Dx) 03/25/2025 4:00 PM EDT Treatment [address] [phone] Compa Haney, PT Tibialis posterior tendonitis, left (Primary Dx) 03/23/2025 3:30 PM EDT Treatment [address] [phone] Tato Donald, ARC WELDER APPRENTICE from Last 3 Months Surgical History Surgery Date Site/Laterality Comments ANKLE FRACTURE SURGERY Left PROCEDURE: [place] OPEN TREATMENT MEDIAL MALLEOLUS FRACTURE OTHER SURGICAL HISTORY Left PROCEDURE: [place] ARTHRS WRST EXC&/RPR TRIANG FIBROCART&/JOINT Social History [...] Info) Description 06/26/2025 8:00 AM EDT Evaluation [address] [phone] Brenda Sam, LUIS Health Maintenance [...] Vaccine ( - 2023-2 5 season) 2024 Depression Screening [...] REACH MET 10/13 #4 IMPROVE LEFT DAIRY QUALITY ASSURANCE OFFICER FROM 40 TO 60 POUNDS = 75 [...] - met Insurance MEDICARE MEDICAID - [place] [facility] MEDICARE Care Teams Flower Grower Relationship Specialty Start Date End Date Dorothea Carey MD [address] [facility] [address] [facility] D/B/A: [facility] RUBIN Rowley PCP - General Internal Medicine 08/15/21
== END 2025-06-23 18:16 | disposition left against medical advice (07) ==
PROVIDERS: Physician Assistant Medical; Emergency Provider Emergency Medicine; PCP Internal Medicine
DX: R07.9 Chest pain, unspecified (principal)
CPT/HCPCS: 36415; 71046; 80053; 83690; 83735; 84484; 85025; 93005; 99283

== ENCOUNTER → 2025-06-23 11:58 | Outpatient (BNV) | payer MEDICARE, MEDICAID, SELFPAY | PROVIDERS: Emergency Provider Emergency Medicine; PCP Internal Medicine; Visit Provider Internal Medicine Cardiovascular Disease | DX: R07.9 Chest pain, unspecified (principal) | CPT/HCPCS: 93010 ==

== ENCOUNTER → 2025-06-23 12:21 | Outpatient (BNV) | payer MEDICARE, MEDICAID, SELFPAY | PROVIDERS: PCP Internal Medicine; Visit Provider Radiology Diagnostic Radiology | DX: R07.9 Chest pain, unspecified (principal) | CPT/HCPCS: 71046 ==

== ENCOUNTER 2025-07-02 13:03 | Outpatient (AMB) | payer MEDICARE, MEDICAID, SELFPAY ==
--- OUTSIDE RECORDS SUMMARY | 2024-09-01 15:00 | XMS_ITS | Encounter Summary ---
Author Organization [facility] Address [address] [place] [address] Care Team Providers Care High School French Teacher Name Role Phone Dorothea Carey MD Primary Care Provider [phone] Encounter Details Date Type Department Care Team (Late st Contact Info) Description 09/01/2024 3:00 PM EDT Hospital Encounter TH HISTORIC ENCOUNTERS [facility] ONLY Nichelle De La O MD [address] [place] [phone] Social History Tobacco Use Types Packs/Day Years [...] Care Team (Late st Contact Info) Description 07/14/2025 3:30 PM EDT Treatment [address] [phone] Rory Saleh, GENETICIST 07/16/2025 2:30 PM EDT Treatment [facility] [address] [phone] Brenda Sam, PT 07/20/2025 2:30 PM EDT Treatment [facility] [address] [phone] Brijesh Alvarado, GENETICIST 07/22/2025 3:30 PM EDT Treatment [facility] [address] [phone] Tato Donald, GENETICIST 07/27/2025 2:30 PM EDT Treatment [facility] [address] [phone] Jenny Brijesh, GENETICIST 07/29/2025 2:30 PM EDT Treatment [address] [phone] Brijesh Alvarado, GENETICIST 08/05/2025 1:30 PM EDT Treatment [address] [phone] Brenda Sam, PT documented as of this [...] UPON REACH MET 10/13 #4 IMPROVE LEFT [employer]CES COMMUNICATIONS SERGEANT FROM 40 TO 60 POUNDS = 75 [...] on filedocumented in this encounter Care Teams High School French Teacher Relationship Specialty Start Date End Date Dorothea Carey MD 2 [facility] , [address] [facility] Physician Associ D/B/A: [facility] RUBIN Rowley PCP - General Internal Medicine 08/15/21 documented as of this encounter
--- OUTSIDE RECORDS SUMMARY | 2025-07-01 15:30 | XMS_ITS | Encounter Summary ---
Author Organization [facility] Address [address] [place] [address] Care Team Providers Care Tinsmith Helper Name Role Phone Dorothea Carey MD Primary Care Provider [phone] Reason for Visit * Consultation (Routine) - Authorized Specialty Diagnoses / Procedures Referred By Wan t Referred To Contact Physical Therapy Diagnoses Other fracture of left lower leg, initial encounter for closed fracture Sara Montoya, BRENT [address] [facility] [address] [place] [address] Phone: tel: fax: Referral ID Status Reason Start Date Expiration Date Visits Requested Visits Authorized [id number] Authorized Specialty Services Required 05/28/2025 05/28/2026 12 12 Encounter Details Date Type Department Care Team (Late st Contact Info) Description 07/01/2025 3:30 PM EDT Treatment [facility] Out[facility] [address] [facility] [address] [place] [phone] Tato Donald, BARLEY STEEPER Other fracture of left lower leg, initial encounter for closed fracture (Primary Dx) Social History Tobacco Use Types [...] Progress Notes * Tato Donald PTA - 07/01/2025 3:30 PM EDT [facility] - Outpatient PHYSICAL THERAPY DAILY TREATMENT NOTE - OP Date: 07/01/2025 Visit Number: [id number] Patient Name: Liliya Aguirre : 1985 Age: 39 y.o. Gender: female Diagnosis: ICD-10-CM ICD-9-CM 1. Other fracture of left lower leg, initial encounter for closed fracture S82.892A 823.80 Date of Onset/Surgery: 06/26/2025 Referring Provider: Sara Montoya PA Insurance: Payor: UNITED HE[employer]CARE MEDICARE / Plan: AARP MEDICARE COMPLETE / Product Type: *No Product type* / Patient Identified by: Tato Donald PTA Language: Citizen Of [place] Medications: Current Outpatient Medications on File Prior [...] none Fall risk: No SUBJECTIVE Subjective Report: pt cont with pain in her left ankle Chart Reviewed: Yes Pain 4/10 left ankle OBJECTIVE TREATMENT INTERVENTION: Nu step x 5 min Slant board 3 x 20 sec hold Wobblw board DF/PF/EV/INV x 15 each Anterior lunge onto bosu ball x 15 (B) Heel/toe raises x 20 (L) Ankle DF/PF/EV/INV x 15 with orange tband Passive (L) ankle RPM ASSESSMENT/Response to Treatment Good progress as able Patient Education: Education provided: Yes Education Provided To: Patient utilizing Demonstration mode(s) of education Response to Education: Verbal Understanding PLAN POC Development/Review: No Change in the Plan of Care; Participants: Patient Total Treatment Time: 30 Modalities: Therapeutic procedures: Documentation completed by Tato Donald PTA documented in this encounter Plan of Treatment Upcoming Encounters Date Type Department Care Team (Late st Contact Info) Description 07/14/2025 3:[address] [facility] [address] [phone] Rory Saleh, BARLEY STEEPER 07/16/2025 2:[address] [facility] [address] [phone] Brenda Sam, PT 07/20/2025 2:30 PM EDT Treatment [address] [phone] Brijesh Alvarado, BARLEY STEEPER 07/22/2025 3:30 PM EDT Treatment [address] [phone] Tato Donald, BARLEY STEEPER 07/27/2025 2:30 PM EDT Treatment [address] [phone] Brijesh Alvarado, BARLEY STEEPER 07/29/2025 2:[address] [facility] [address] [phone] Brijesh Alvarado, BARLEY STEEPER 08/05/2025 1:30 PM EDT Treatment [address] [phone] Brenda Sam, PT documented as of this [...] UPON REACH MET 10/13 #4 IMPROVE LEFT FOOD SERVICES COORDINATOR FROM 40 TO 60 POUNDS = 75 [...] as of this encounter Visit Diagnoses Diagnosis Other fracture of left lower leg, initial encounter for closed fracture- Primary documented in this encounter Care Teams Tinsmith Helper Relationship Specialty Start Date End Date Dorothea Carey MD [address] [place] [address] , [address] [facility] RUBIN Rowley PCP - General Internal Medicine 08/15/21 documented as of this encounter
--- NOTE | 2025-07-02 13:11 | A.OFFVIS_ITS ---
Vital Signs 07/02/25 13:15 Height 5 ft 4 in Weight 200 lb BMI 34.3 BP 176/82 H Blood Pressure Location Rt brachial Position Sitting Pulse 63 Pulse Source Pulse Oximeter Pulse Oximetry (%) 99 Oxygen Delivery Method Room Air Intake Visit Reasons: RIGHT KNEE PAIN Intake Note: Pain today 3/10 Multiplex Operator Required: Yes Multiplex Operator Language: [employer] Services: Multiplex Operator Present Multiplex Operator Name: Chencho # [id number] Accompanied by: Self / Same As Patient Allergies shrimp Allergy (Verified 07/02/25 13:16) Anaphylaxis HPI Comments Details: The patient is a 39-year-old female presenting with persistent right knee pain and swelling. The issue began after she moved to a new residence in January, where she frequently climbs stairs, placing additional weight on her right knee. Initially, the pain seemed to improve but then returned with increased swelling and heaviness in the knee. An MRI was performed through Orthopedic office, which showed a small knee effusion and a partial thickness tear of the ACL. The Orthopedic surgeon, Dr. Bassett, determined that surgery was not necessary at this time and recommended monitoring the condition and follow up with our office. Patient denies knee bracing, NSAIDs, elevation or starting physical therapy. She has been treating knee pain with Tylenol and using a cane for mobility support any pain relief. Denies any recent cough, cold, infection, fever or any other significant changes in medical history since last office visit. - Onset: Began after moving to a new residence with frequent stair climbing in January 2025. - Quality: Described as heaviness and swelling in the knee. - Location: Right knee, anterior aspect with medial and lateral joint line tenderness - Exacerbating factors: Climbing stairs and weight-bearing activities. - Relieving factors: None with Tylenol, using cane - Affect: Pain impacts mobility and daily activities, particularly stair climbing. - Analgesia: Celebrex prescribed for pain and swelling - Adverse Effects: None reported from current medications. - Activities of Daily Living: Pain limits ability to climb stairs and perform weight-bearing activities. - Aberrant Drug Related Behaviors: None reported. [facility] Medical History Left otitis media Polyarthralgia Fibromyalgia High blood pressure Rash Lumbar pain Obese Surgical History H/O eye surgery S/P tendon repair History of local excision of skin lesion (08/03/22) S/P ligament repair History of hand surgery History of tubal ligation Family History Father No problems noted. Mother Diabetes Hypertension Paternal Aunt Breast cancer Family/Other Chronic mental illness Brother No problems noted. Brother No problems noted. Brother No problems noted. Sister No problems noted. Sister No problems noted. Son In good health Daughter In good health Social History Housing: Apartment Alcohol intake: current Alcohol intake frequency: holidays/special occasions only Alcohol type: wine and other Patient Tobacco Use Status: Never used Tobacco e-Cigarette/Vaping Use: Never Used Second Hand Smoke Exposure: No service: No Current occupational status: unemployed Cognitive needs: No Hearing needs: No Vision needs: Yes (Glasses) Female Reproductive History Menstrual Age of Menarche: 14 Review of Systems Const All systems reviewed & are unremarkable except as noted in HPI and below Physical Exam Vital Signs: Last Vital Signs Pulse 63 07/02/25 13:15 BP 176/82 H 07/02/25 13:15 Pulse Ox 99 07/02/25 13:15 Oxygen Delivery Method Room Air 07/02/25 13:15 BMI result Body Mass Index 34.3 General: Appears afebrile. Alert and oriented. Mood and affect appropriate. Follows and participates in conversation appropriately. Respiratory effort is unlabored. No cough. Able to transition from sit to stand unassisted. Uses cane with ambulation. Ambulates with antalgic gait, with mild limping due to pain. Extrem Right lower extremity: knee (Limited ROM due to pain. Increased pain with pivot turn.) Details: normal to inspection, tenderness Location: of the patella, of the medial joint line, of the lateral joint line and of the proximal tibia, swelling (anterior aspects, mild) and crepitus; no deformity and no unusual warmth Results Reviewed Results Reviewed: MR knee RT wo con 04/13/25 CLINICAL HISTORY: M25.461 - Effusion, right knee MR right knee without gadolinium Comparison: None Findings: Normal alignment without acute fracture or marrow infiltration. Small knee joint effusion with mild synovitis and questionable 3 mm posterior paramidline intra-articular body (series 8, image 60). Superficial fissure of the lateral patellar cartilage (series 8, image 8). Mild likely reactive edematous changes of the neighboring prefemoral fat pad. Subtle mild edematous changes in the suprapatellar fat pad. Mild proximal and distal patellar tendinosis. Intact quadriceps tendon. Mild prepatellar edema. Intact retinacula. Mild edematous changes in the deep anteromedial subcutaneous fat in the vicinity of the distal vastus medialis muscle. Neurovascular structures and muscle bulk are unremarkable. Mild adventitial bursitis deep to the distal iliotibial band. Query distal iliotibial band syndrome. Menisci, posterolateral and posteromedial corners, and MCL are unremarkable. Small contained Gill's cyst. Mild to moderate distal semimembranosus tendinosis. Partial thickness linear tear of the distal anterior ACL band measuring up to 1 x 9 mm (AP by ccdimensions) in the sagittal plane (series 10, image 14). PCL unremarkable. IMPRESSION: Query distal iliotibial band syndrome. Small knee joint effusion with mild synovitis and questionable 3 mm posterior paramidline intra-articular body. Partial thickness linear tear of the distal anterior ACL band. Assessment & Plan Assessment & Plan (1) Knee effusion, right: Code(s): M25.461 - Effusion, right knee Category: Medical (2) Partial tear of anterior cruciate ligament of knee: Code(s): S83.519A - Sprain of anterior cruciate ligament of unspecified knee, initial encounter Category: Medical (3) Right knee pain: Code(s): M25.561 - Pain in right knee Category: Medical Plan The plan for right knee pain with mild effusion and partial thickness tear of the ACL includes conservative management with rest, ice, compression, and elevation (RICE). A knee brace will be provided to support the joint, and physical therapy is recommended to improve function and reduce swelling. Nonsteroidal anti-inflammatory drugs (NSAIDs) such as Celebrex are prescribed to manage pain and inflammation. The partial thickness tear of the ACL will be managed conservatively as surgery is not indicated at this time per [facility] Orth[facility]. The patient is advised to use a knee brace and engage in physical therapy to strengthen the surrounding muscles and improve stability. Follow-up with the Orthopedic surgeon is recommended if symptoms worsen or do not improve with conservative measures. All questions and concerns have been answered and patient agreed with the treatment plan. Follow up after PT and sooner as needed. Patient was informed and verbally consented to the use of an ambient scribe for clinic note documentation during this visit. Orders: Orders PT Evaluation and Treatment Today M25.461 - Effusion, right knee, M25.561 - Pain in right knee, S83.519A - Sprain of anterior cruciate ligament of unspecified knee, initial encounter Medications: New celecoxib (Celebrex) 200 mg PO BID PRN 60 caps 0RF pain M25.461 - Effusion, right knee, S83.519A - Sprain of anterior cruciate ligament of unspecified knee, initial encounter leg brace (Knee Brace Large-XLarge) As directed 1 ea 0RF knee pain, knee support M25.461 - Effusion, right knee, M25.561 - Pain in right knee, S83.519A - Sprain of anterior cruciate ligament of unspecified knee, initial encounter Coding Level of Care Code Est Pt Level 4 (67848) Complex EM visit Add On G2211 Diagnoses Knee effusion, right M25.461 Partial tear of anterior cruciate ligament of knee S83.519A Right knee pain M25.561
[2025-07-02 13:15] VITALS: BP 176/82; PULSE 63; O2SAT 99; BMI 34.3
--- OUTSIDE RECORDS SUMMARY | 2025-07-02 13:43 | XMS_ITS | Encounter Summary ---
Author Organization [facility] Address [address] [place] [address] Phone Care Team Providers Care House Repairer Name Role Phone Pcp, Unknown Primary Care Provider Unavailabl e Encounter Details Date Type Department Care Team (Late st Contact Info) Description 05/26/2025 Telephone [facility] [address] [facility] [address] [place] [address] Nathalie Islas, [address] [address] [email or web address] Social History Tobacco Use Types Packs/Day Years Used Date Smoking Tobacco: Never Smokeless Tobacco: Never Alcohol Use Standard Drinks/Week Comments Not Currently 0 (1 standard drink = 0.6 oz pur e alcohol) Education Answer Date Recorded Are you interested [...] as of this encounter Progress Notes * Dylan Reese - 05/26/2025 11:41 AM EDT Sean Islas, Ms. Aguirre states that she is experiencing issues with her contact lens and would like to see you, unfortunately I cannot find any soon availability, kindly assist documented in this encounter Plan of Treatment Upcoming Encounters Date Type Department Care Team (Late st Contact Info) Description 08/12/2025 1:10 PM EDT Procedure visit [facility] [address] [place] [address] 08/12/2025 1:20 PM EDT Office Visit [facility] [address] [place] [address] Melba Meadows MD [address] [place] [address] [email or web address] documented as of this encounter Visit Diagnoses Not on filedocumented in this encounter Care Teams House Repairer Relationship Specialty Start Date End Date Pcp, Unknown PCP - General 12/15/24 documented as of this encounter Additional Source Comments The information contained in this document represents components of the legal health record. It is not the complete legal health record.[facility]
--- OUTSIDE RECORDS SUMMARY | 2025-07-02 13:43 | XMS_ITS | Clinical Summary ---
Author Organization [facility] Address [address] [place] [address] Care Team Providers Care Kitchen Utility Associate Name Role Phone Dorothea Carey MD Primary Care Provider [phone] Allergies No known active allergies Medications amitriptyline [...] Encounters Date Type Department Care Team Description 07/01/2025 3:30 PM EDT Treatment [facility] [address] [phone] Tato Donald, PROFESSIONAL GOLF TOURNAMENT PLAYER Other fracture of left lower leg, initial encounter for closed fracture (Primary Dx) 05/05/2025 1:00 PM EDT Treatment [facility] [address] [address] Compa Haney, PT Pain in left ankle and joints of left foot (Primary Dx) 04/28/2025 3:00 PM EDT Treatment [facility] [address] [phone] Brijesh Alvarado, ADEN Tibialis posterior tendonitis, left (Primary Dx) 04/21/2025 3:30 PM EDT Treatment [facility] [address] [phone] Brijesh Alvarado, ADEN Tibialis posterior tendonitis, left (Primary Dx) 04/14/2025 4:30 PM EDT Treatment [address] [phone] Brijesh Alvarado, ADEN Tibialis posterior tendonitis, left (Primary Dx) from Last 3 Months Surgical [...] Info) Description 07/14/2025 3:30 PM EDT Treatment [address] [phone] Rory Saleh, PROFESSIONAL GOLF TOURNAMENT PLAYER 07/16/2025 2:30 PM EDT Treatment [address] [phone] Brenda Sma, PT 07/20/2025 2:30 PM EDT Treatment [address] [phone] Brijesh Alvarado, PROFESSIONAL GOLF TOURNAMENT PLAYER 07/22/2025 3:30 PM EDT Treatment [facility] [address] [phone] Tato Donald, PROFESSIONAL GOLF TOURNAMENT PLAYER 07/27/2025 2:30 PM EDT Treatment [facility] [address] [phone] Brijesh Alvarado, PROFESSIONAL GOLF TOURNAMENT PLAYER 07/29/2025 2:30 PM EDT Treatment [facility] [address] [phone] Brijesh Alvarado, PROFESSIONAL GOLF TOURNAMENT PLAYER 08/05/2025 1:30 PM EDT Treatment [facility] [address] [phone] Brenda Sam, PT Health Maintenance Due Date Last Done Comments Breast Cancer Screening 1984 Hepatitis B Vaccines (1 of 3 - 19+ 3-dose series) 2003 Cervical Cancer Screening: P ap Smear 2005 HIV Screening 05/28/2022 Hepatitis C Screening 05/28/2022 Medicare Annual Wellness Visit 05/28/2022 Social Influencers of Health Screening 05/28/2022 COVID-19 Vaccine (3 - 2023-2 5 season) 2024 06/10/2021, 05/13/2021 Depression Screening 11/05/2024 Influenza Vaccine (#1) 2025 , 10/09/2019, 09/25/2018 DTaP,Tdap,and Td Vaccines (2 - Td or Tdap) 05/22/2028 05/22/2018 HIB Vaccines Aged Out No longer eligi [...] age to complete this topic Pneumococcal Vaccine: Pediatrics (0 to 5 Years) and At-Risk Patients (6 to 49 Years) Aged Out No longer eligible b ased on patient's age to complete this topic RSV Immunization Patients Under 20 months Aged Out No longer eligible [...] UPON REACH MET 10/13 #4 IMPROVE LEFT REIMBURSEMENT MANAGER FROM 40 TO 60 POUNDS = [...] - met Insurance MEDICARE MEDICAID - [place] UNITED [employer] MEDICARE Care Teams Kitchen Utility Associate Relationship Specialty Start Date End Date Dorothea Carey MD [address] [place] [address] , [address] [facility] [place], [place] PCP - General Internal Medicine 08/15/21
--- OUTSIDE RECORDS SUMMARY | 2025-07-02 13:43 | XMS_ITS | Encounter Summary ---
Author Organization [facility] Address [address] [facility] [address] [place] [address] Phone Care Team Providers Care Pediatrics Teacher Name Role Phone Unknown, Unknown MD Primary Care Provider Kenya donnelly Pcp, Unknown Primary Care Provider Unavailabl e Reason for Visit * Reason Onset Date Comments Medication Refill 10/22/2024 Encounter Details Date Type Department Care Team (Late Contact Info) Description 10/22/2024 Refill [facility] [place] [address] [place] [address] Cortney Coelho [address] [place] [address] [email or web address] Medication Refill Social History Tobacco Use Types [...] Procedure visit [facility] [place] [address] [place] [address] 08/12/2025 1:20 PM EDT Office Visit [facility] [address] [place] [address] Melba Meadows MD [address] [place] [address] [email or web address] documented as of this encounter Visit Diagnoses Not on filedocumented in this encounter Care Teams Pediatrics Teacher Relationship Specialty Start Date End Date Unknown, Unknown, PCP - General 07/14/24 12/14/24 Pcp, Unknown PCP - General 12/15/24 documented as of this encounter Additional Source Comments The information contained in this document represents components of the legal health record. It is not the complete legal health record.[facility]
--- OUTSIDE RECORDS SUMMARY | 2025-07-02 13:43 | XMS_ITS | Clinical Summary ---
Author Organization [facility] Address [address] [address] Phone Care Team Providers Care Charge Auditor Name Role Phone Pcp, Unknown Primary Care Provider Unavailabl e Allergies No known active allergies Medications cyclobenzaprine (FLEXERIL) 10 MG tablet TAKE 1 TABLET BY MOUTH EVERY DAY AT BEDTIME NEEDED FOR MUSLCE SPASM 4 Active gabapentin (NEURONTIN) 400 MG capsule Take 400 mg by mouth 3 (three) times a day. 4 Active ibuprofen (ADVIL,MOTRIN) 800 MG tablet TAKE 1 TABLET ORALLY EVERY 8 HOURS NEEDED FOR PAIN FOR 30 DAYS 4 Active lidocaine (LIDODERM) 5 % PLACE 1 PATCH TOPICALLY AND WEAR FOR UP TO 12 HOURS DAILY NEEDED FOR PAIN 4 Active lisinopril (PRINIVIL,ZESTR IL) 5 MG tablet Take 1 tablet by mouth every morning. 4 Active naproxen (NAPROSYN) 500 MG tablet TAKE 1 TABLET BY MOUTH TWICE A DAY FOR 7 DAYS NEEDED FOR PAIN 4 Active sertraline (ZOLOFT) 50 MG tablet 4 Active traZODone (DESYREL) 50 MG tablet 4 Active HYDROcodone-humberto taminophen (NORCO) 5-325 mg per tablet Take 1 tablet by mouth every 6 (six) hours as needed for pain (specific location in comments). Partial fill ok Post procedure. 5 tablet 4 Active LORazepam (ATIVAN) 1 MG tablet Take 1 tablet (1 mg total) by mouth as needed for anxiety. Take 1 tablet by mouth 20 minutes prior surgery 1 tablet 4 Active prednisoLONE acetate (PRED FORTE) 1 % ophthalmic suspension Place 1 drop into the left eye 4 (four) times a day. 5 mL 3 4 Active Additional Information Patient not taking.Reported on 02/10/2025 prednisoLONE acetate (PRED FORTE) 1 % ophthalmic suspension Place 1 drop into the left eye 4 (four) times a day. Post procedure. Generic ok 5 mL 2 4 Active Additional Information Patient not taking.Reported on 02/10/2025 moxifloxacin (VIGAMOX) 0.5 % ophthalmic solution Place 1 drop into the left eye 4 (four) times a day. 5 mL 1 4 Active Additional Information Patient not taking.Reported on 02/10/2025 erythromycin (ROMYCIN) ophthalmic ointment Place 0.5 inches into the left eye nightly at bedtime. 3.5 g 3 4 Active Additional Information Patient not taking.Reported on 02/10/2025 sodium chloride 0.9 % nebulizer solution Take 3 mL by nebulization 3 (three) times a day. Ok to use for filling and rinsing contact lenses 90 mL 12 5 Active cycloSPORINE (RESTASIS) 0.05 % suspensionIndic ations:Dry eyes Place 1 drop into each eye 2 (two) times a day. 60 each 6 5 Active Active Problems No known active problems Encounters Date Type Department Care Team Description 05/26/2025 Telephone [facility]ASH [facility] [address] [facility] [address] [place] [address] Nathalie Islas OD from Last 3 Months Social History Tobacco Use Types Packs/Day Years Used Date Smoking Tobacco: Never Smokeless Tobacco: Never Tobacco Cessation:Counseling Given: Not Answered Alcohol Use Standard Drinks/Week Comments Not Currently [...] on file Sexual Orientation Not on file Plan of Treatment Upcoming Encounters Date Type Department Care Team (Late st Contact Info) Description 08/12/2025 1:10 PM EDT Procedure visit [facility] OPHTHALMOLOGY [facility]ING [place] [address] [place] [address] 08/12/2025 1:20 PM EDT Office Visit [facility] [place] [address] [place] [address] Melba Meadows MD [address] [place] [address] [email or web address] Maintenance Due Date Last Done Comments Adult Td,Tdap Booster 1984 CREATININE LEVEL 1984 POTASSIUM LEVEL 1984 DEPRESSION SCREENING 1996 HEPATITIS C SCREENING 2002 HIV ONE-TIME SCREENING (18-6 5 YEARS) 2002 PAP SMEAR 2005 COVID-19 VACCINE ( - 2023-2 5 season) 2024 MAMMOGRAM 2024 INFLUENZA VACCINE (#1) 2025 SMOKING STATUS SCREENING (On ce After 26 Yrs) Completed 10/28/2024 HEPATITIS A VACCINES Aged Out No long er eligible based on patient's age to complete this topic HIB VACCINES Aged Out No longer eligi ble based on patient's age to complete this topic MENINGOCOCCAL VACCINES (ACWY) Aged Out No longer eligible based on patient's age to complete this topic MENINGOCOCCAL VACCINES (B) Aged Out N o longer eligible based on patient's age to complete this topic PNEUMOCOCCAL VACCINES (0-49 years) Aged Out No longer eligible based on patient's age to complete this topic Medical Devices Not on file Insurance [facility] [place] [address] [facility] [place] [address] [facility] Care Teams Charge Auditor Relationship Specialty Start Date End Date Pcp, Unknown PCP - General 12/15/24 Additional Source Comments The information contained in this document represents components of the legal health record. It is not the complete legal health record.[facility]
== END 2025-07-02 13:36 | disposition home or self-care (01) ==
LOC: HO.PMC 13:04
PROVIDERS: PCP Internal Medicine; Visit Provider Nurse Practitioner Family
DX: M25.461 Effusion, right knee (principal); S83.519A Sprain of anterior cruciate ligament of unspecified knee, initial encounter; M25.561 Pain in right knee
CPT/HCPCS: 99214; G2211

== ENCOUNTER → 2025-07-02 13:03 | Outpatient (BNVA) | payer MEDICARE, MEDICAID, SELFPAY | PROVIDERS: PCP Internal Medicine; Visit Provider Nurse Practitioner Family | DX: S83.511A Sprain of anterior cruciate ligament of right knee, initial encounter (principal); M25.461 Effusion, right knee; M25.561 Pain in right knee; Z01.30 Encounter for examination of blood pressure without abnormal findings | CPT/HCPCS: 99211; 99212 ==

== ENCOUNTER 2025-07-14 06:20 | Outpatient (REF) | payer MEDICARE, MEDICAID, SELFPAY ==
--- OUTSIDE RECORDS SUMMARY | 2024-09-01 15:00 | XMS_ITS | Encounter Summary ---
Author Organization [facility] Address [address] [place] [address] Care Team Providers Care Media Consultant Name Role Phone Dorothea Carey MD Primary Care Provider [phone] Encounter Details Date Type Department Care Team (Late st Contact Info) Description 09/01/2024 3:00 PM EDT Hospital Encounter TH HISTORIC ENCOUNTERS [facility] ONLY Nichelle De La O MD 175 [facility] 140 [place] [address] Social History Tobacco Use Types [...] Department Care Team (Late Contact Info) Description 07/14/2025 3:30 PM EDT Treatment [facility] [address] [phone] Rory Saleh PTA 07/16/2025 2:30 PM EDT Treatment [facility] [address] [phone] Brenda Sam, PT 07/20/2025 2:30 PM EDT Treatment [facility] [address] [phone] Brijesh Alvarado, MINE ADMINISTRATOR SUPERVISOR 07/22/2025 3:30 PM EDT Treatment [facility] [address] [phone] Tato Donald, MINE ADMINISTRATOR SUPERVISOR 07/27/2025 2:30 PM EDT Treatment [facility] [address] [phone] Brijesh Alvarado, MINE ADMINISTRATOR SUPERVISOR 07/29/2025 2:30 PM EDT Treatment [facility] [address] [phone] Brijesh Alvarado, MINE ADMINISTRATOR SUPERVISOR 08/05/2025 1:30 PM EDT Treatment [facility] [address] [phone] Brenda Sam, PT documented as of this encounter Goals Goal Patient Goal Type Associated Problems Recent Progress Patient-Stated? Author <enter goal here> General On track( 3:25 PM EST) Yes Brenda Arechiga OT Note: I AM WEAK STGS 6 VISITS General On track( 3:25 PM EST) No Brenda Arechiga OT Note: #1 IMPROVE LEFT SUPINATION FROM 45 TO 60 DEGREES TO RECEIVE ITEMS INTO PALM MET 10/13 #2 IMPROVE LEFT WRIST EXTENSION FROM 45 TO 60 DEGREES WITH GOOD STRENGTH TO WEIGHTBEAR MET 10/13 #3 IMPROVE LEFT THUMB EXTENSION FROM 45 TO 55 DEGREES UPON REACH MET 10/13 #4 IMPROVE LEFT WELDER 2ND SHIFT FROM 40 TO 60 POUNDS = 75 [...] on filedocumented in this encounter Care Teams Media Consultant Relationship Specialty Start Date End Date Dorothea Carey MD [address] [place] [address] , [address] [facility] Physician Associ D/B/A: [facility] RUBIN Rowley PCP - General Internal Medicine 08/15/21 documented as of this encounter
--- NOTE | ~2025-07-14 | FL_ITS ---
EXAMINATION: FL GUIDANCE ONLY HISTORY: M53.3 - Sacrococcygeal disorders, not elsewhere classified COMPARISON: None available. TECHNIQUE: Fluoroscopy time: 0.2 minutes. Cumulative Dose: 4.09 mGy. DAP: 0.0550 mGym2 Images: 4. FINDINGS: Fluoroscopic spot films of the pelvis demonstrate needles and contrast material in the regions of the bilateral sacroiliac joints. FL/FL guidance in treatment room IMPRESSION: Fluoroscopy during procedure. Please see procedure report for additional information. Electronically signed by: Compa Julien MD 07/14/2025 02:00 PM EDT
--- OUTSIDE RECORDS SUMMARY | 2025-07-14 06:22 | XMS_ITS | Encounter Summary ---
Author Organization [facility] Address [address] [employer] [facility] [address] [place] [address] Phone Care Team Providers Care Staff Services Manager Name Role Phone Unknown, Unknown MD Primary Care Provider Kenya donnelly Pcp, Unknown Primary Care Provider Unavailabl e Reason for Visit * Reason Onset Date Comments Medication Refill 10/22/2024 Encounter Details Date Type Department Care Team (Late Contact Info) Description 10/22/2024 Refill [facility] REFRACTIVE [place] [address] [place] [address] Cortney Coelho I [address] [place] [address] [email or web address] [...] Department Care Team (Late Contact Info) Description 07/30/2025 2:30 PM EDT Office Visit [facility]OM[facility] [place] [address] [place] [address] Nathalie Islas, OD [address] [place] [address] [email or web address] 08/12/2025 1:10 PM EDT Procedure [facility] [address] [place] [address] 08/12/2025 1:20 PM EDT Office [facility] [address] [place] [address] Melba Meadows MD [address] [place] [address] Sasha [email or web address] 09/08/2025 3:00 PM EST Office [facility] [address] [place] [address] Nathalie Islas, OD [address] [place] [address] [email or web address] documented as of this encounter Visit Diagnoses Not on filedocumented in this encounter Care Teams Staff Services Manager Relationship Specialty Start Date End Date Unknown, Unknown, PCP - General 07/14/24 12/14/24 Pcp, Unknown PCP - General 12/15/24 documented as of this encounter Additional Source Comments The information contained in this document represents components of the legal health record. It is not the complete legal health record.[facility]
--- OUTSIDE RECORDS SUMMARY | 2025-07-14 06:22 | XMS_ITS | Clinical Summary ---
Author Organization Patient Business Ser [facility] Address [address] [place] [address] Care Team Providers Care New Account Interviewer Name Role Phone Dorothea Carey MD Primary Care Provider [phone] Allergies No known active allergies Medications amitriptyline [...] Team Description 07/01/2025 3:30 PM EDT Treatment [address] [phone] Tato Donald, HAT BLOCKING MACHINE OPERATOR Other fracture of left lower leg, initial encounter for closed fracture (Primary Dx) 05/05/2025 1:00 PM EDT Treatment [facility] [address] [phone] Compa Haney, PT Pain in left ankle and joints of left foot (Primary Dx) 04/28/2025 3:00 PM EDT Treatment [facility] [address] [phone] Brijesh Alvarado, ADEN Tibialis posterior tendonitis, left (Primary Dx) 04/21/2025 3:30 PM EDT Treatment [facility] [address] [phone] Brijesh Alvarado, ADEN Tibialis posterior tendonitis, left (Primary Dx) 04/14/2025 4:30 PM EDT Treatment [address] [phone] Brijesh Alvarado, ADEN Tibialis posterior tendonitis, left (Primary Dx) from Last 3 Months Surgical History Surgery Date Site/Laterality Comments ANKLE FRACTURE SURGERY Left PROCEDURE: HI OPEN TREATMENT MEDIAL MALLEOLUS FRACTURE OTHER SURGICAL HISTORY Left PROCEDURE: HI ARTHRS WRST EXC&/RPR TRIANG FIBROCART&/JOINT Social History [...] Info) Description 07/14/2025 3:30 PM EDT Treatment [address] [phone] Rory Saleh, HAT BLOCKING MACHINE OPERATOR 07/16/2025 2:30 PM EDT Treatment [address] [phone] Brenda Sam, PT 07/20/2025 2:30 PM EDT Treatment [address] [phone] Brijesh Alvarado, HAT BLOCKING MACHINE OPERATOR 07/22/2025 3:30 PM EDT Treatment [facility] [address] [phone] Tato Donald, HAT BLOCKING MACHINE OPERATOR 07/27/2025 2:30 PM EDT Treatment [facility] [address] [phone] Brijesh Alvarado, HAT BLOCKING MACHINE OPERATOR 07/29/2025 2:30 PM EDT Treatment [facility] [address] [phone] Brijesh Alvarado, HAT BLOCKING MACHINE OPERATOR 08/05/2025 1:30 PM EDT Treatment 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
--- OUTSIDE RECORDS SUMMARY | 2025-07-14 06:22 | XMS_ITS | Encounter Summary ---
Author Organization [facility] Address [address] [place] [address] Phone Care Team Providers Care Order Entry Administrator Name Role Phone Pcp, Unknown Primary Care Provider Unavailabl e Encounter Details Date Type Department Care Team (Late st Contact Info) Description 05/26/2025 Telephone [facility] [address] [facility] [address] [place] [address] Nathalie Islas, [address] [address] [email or web address] Social History Tobacco Use Types Packs/Day Years [...] Care Team (Late st Contact Info) Description 07/30/2025 2:30 PM EDT Office [facility] [address] [place] [address] Nathalie Islas, OD [address] [place] [address] [email or web address] 08/12/2025 1:10 PM EDT Procedure visit [facility] OPHTHALMOLOGY [facility] [place] [address] [place] [address] 08/12/2025 1:20 PM EDT Office Visit [facility] [address] [place] [address] Melba Meadows MD [address] [place] [address] Sasha [email or web address] 09/08/2025 3:00 PM EST Office Visit [facility] [address] [place] [address] Nathalie Islas, OD [address] [place] [address] [email or web address] documented as of this encounter Visit Diagnoses Not on filedocumented in this encounter Care Teams Order Entry Administrator Relationship Specialty Start Date End Date Pcp, Unknown PCP - General 12/15/24 documented as of this encounter Additional Source Comments The information contained in this document represents components of the legal health record. It is not the complete legal health record.[facility]
--- OUTSIDE RECORDS SUMMARY | 2025-07-14 06:22 | XMS_ITS | Clinical Summary ---
Author Organization [facility] Address [address] [address] Phone Care Team Providers Care Horticultural Farmer Name Role Phone Pcp, Unknown Primary Care Provider Unavailabl e Allergies No known active allergies Medications cyclobenzaprin e (FLEXERIL) 10 MG tablet TAKE 1 TABLET [...] DAILY NEEDED FOR PAIN 4 Active lisinopril (PRINIVIL,ZEST RIL) 5 MG tablet Take 1 tablet by mouth every morning. 4 Active naproxen (NAPROSYN) 500 MG tablet TAKE 1 TABLET BY MOUTH TWICE A DAY FOR 7 DAYS NEEDED FOR PAIN 4 Active sertraline (ZOLOFT) 50 MG tablet 4 Active traZODone (DESYREL) 50 MG tablet 4 Active HYDROcodone-ac etaminophen (NORCO) 5-325 mg per tablet Take 1 [...] lenses 90 mL 12 5 Active cycloSPORINE (VEVYE) 0.1 % solution Place 1 drop into each eye 2 (two) times a day. Separate other eye products by at least 15 minutes. 2 mL 2 5 Active cycloSPORINE (RESTASIS) 0.05 % suspensionIndi cations:Dry eyes Place 1 drop into each eye 2 (two) times a day. 60 each 6 5 025 Discontin ued(No longer taking) Active Problems No known active problems Encounters Date Type Department Care Team Description 07/07/2025 10:30 AM EDT Office Visit [facility]OM[facility] [place] [address] [place] [address] Nathalie Islas, OD Dry eyes (Primary Dx); Unstable keratoconus of left eye; Keratoconus of right eye 05/26/2025 Telephone [facility] [address] [place] [address] Nathalie Islas, OD from Last 3 Months Social History Tobacco Use Types Packs/Day Years Used Date Smoking Tobacco: Never Smokeless Tobacco: Never Tobacco Cessation:Counseling Given: Not Answered Alcohol Use Standard Drinks/Week Comments Not Currently 0 (1 standard drink = 0.6 oz pur e alcohol) Education Answer Date Recorded Are you interested in more education? Not on aiad e 07/15/2024 Are you concerned about learning? [...] 2:30 PM EDT Office Visit [facility] OPTOMET[facility] [place] [address] [place] [address] Nathalie Islas, WENDIE [address] [place] [address] [email or web address] 08/12/2025 1:10 PM EDT Procedure [facility] [address] [facility] [place] [address] 08/12/2025 1:20 PM EDT Office [facility] [address] [place] [address] Melba Meadows MD [address] [place] [address] Sasha [email or web address] 09/08/2025 3:00 PM EST Office [facility] [address] [place] [address] Nathalie Islas, WENDIE [address] [place] [address] [email or web address] Health Maintenance Due Date Last Done Comments Adult Td,Tdap Booster 1984 CREATININE LEVEL 1984 POTASSIUM LEVEL 1984 DEPRESSION SCREENING 1996 HEPATITIS C SCREENING 2002 HIV ONE-TIME SCREENING (18-6 5 YEARS) 2002 PAP SMEAR 2005 MAMMOGRAM 2024 INFLUENZA VACCINE (#1) 2025 COVID-19 VACCINE (1 - 2023-2 5 season) 2025 SMOKING STATUS SCREENING (On ce After [...] topic Medical Devices Not on file Insurance [address] [place] [address] [facility] [address] [place] [address] [address] [place] [address] [address] ACO Care Teams Horticultural Farmer Relationship Specialty Start Date End Date Pcp, Unknown PCP - General 12/15/24 Additional Source Comments The information contained in this document represents components of the legal health record. It is not the complete legal health record.[facility]
== END 2025-07-14 06:21 | disposition home or self-care (01) ==
LOC: CF 06:20
PROVIDERS: Visit Provider Internal Medicine
DX: M53.3 Sacrococcygeal disorders, not elsewhere classified (principal)
CPT/HCPCS: 27096; J2003; J2795; J3301; Q9967

== ENCOUNTER 2025-07-14 12:52 | Outpatient (AMB) | payer MEDICARE, MEDICAID, SELFPAY ==
--- OUTSIDE RECORDS SUMMARY | 2024-09-01 15:00 | XMS_ITS | Encounter Summary ---
Author Organization [facility] Address [address] [place] [address] Care Team Providers Care Ditch Cleaner Name Role Phone Dorothea Carey MD Primary Care Provider [phone] Encounter Details Date Type Department Care Team (Late st Contact Info) Description 09/01/2024 3:00 PM EDT Hospital Encounter TH HISTORIC ENCOUNTERS [facility] ONLY Nichelle De La O MD 175 [facility] 140 [place] [address] Social History Tobacco Use Types [...] Info) Description 07/14/2025 3:30 PM EDT Treatment [facility] [address] [phone] Rory Saleh PTA 07/16/2025 2:30 PM EDT Treatment [facility] [address] [phone] Brenda Sam, PT 07/20/2025 2:30 PM EDT Treatment [facility] [address] [phone] Brijesh Alvarado, METER READER 07/22/2025 3:30 PM EDT Treatment [facility] [address] [phone] Tato Donald, METER READER 07/27/2025 2:30 PM EDT Treatment [facility] [address] [phone] Brijesh Alvarado, METER READER 07/29/2025 2:30 PM EDT Treatment [facility] [address] [phone] Brijesh Alvarado, METER READER 08/05/2025 1:30 PM EDT Treatment [facility] [address] [phone] Brenda Sam, PT documented as of this [...] UPON REACH MET 10/13 #4 IMPROVE LEFT INSTITUTIONAL AIDE FROM 40 TO 60 POUNDS = 75 [...] on filedocumented in this encounter Care Teams Ditch Cleaner Relationship Specialty Start Date End Date Dorothea Carey MD [address] [place] [address] , [address] [facility] Physician Associ D/B/A: [facility] RUBIN Rowley PCP - General Internal Medicine 08/15/21 documented as of this encounter
--- NOTE | 2025-07-14 12:58 | MHC.OFFVIS ---
Vital Signs 07/14/25 13:02 07/14/25 13:49 Height 5 ft 4 in Weight 200 lb BMI 34.3 BP 126/86 159/67 H Blood Pressure Location Lt brachial Lt brachial Position Sitting Sitting Respiration 20 20 Pulse 80 83 Pulse Source Pulse Oximeter Pulse Oximeter Pulse Oximetry (%) 100 100 Oxygen Delivery Method Room Air Room Air Intake Visit Reasons: BILATERAL SIJ STEROID INJECTIONS Wire Rope Sales Representative Required: Yes Wire Rope Sales Representative Services: Wire Rope Sales Representative Present Wire Rope Sales Representative Name: family Allergies shrimp Allergy (Verified 07/02/25 13:16) Anaphylaxis [facility] Medical History Left otitis media Polyarthralgia Fibromyalgia High blood pressure Rash Lumbar pain Obese Surgical History H/O eye surgery S/P tendon repair History of local excision of skin lesion (08/03/22) S/P ligament repair History of hand surgery History of tubal ligation Family History Father No problems noted. Mother Diabetes Hypertension Paternal Aunt Breast cancer Family/Other Chronic mental illness Brother No problems noted. Brother No problems noted. Brother No problems noted. Sister No problems noted. Sister No problems noted. Son In good health Daughter In good health Social History Housing: Apartment Alcohol intake: current Alcohol intake frequency: holidays/special occasions only Alcohol type: wine and other Patient Tobacco Use Status: Never used Tobacco e-Cigarette/Vaping Use: Never Used Second Hand Smoke Exposure: No service: No Current occupational status: unemployed Cognitive needs: No Hearing needs: No Vision needs: Yes (Glasses) Female Reproductive History Menstrual Age of Menarche: 14 Physical Exam Vital Signs: Last Vital Signs Pulse 83 07/14/25 13:49 Resp 20 07/14/25 13:49 BP 159/67 H 07/14/25 13:49 Pulse Ox 100 07/14/25 13:49 Oxygen Delivery Method Room Air 07/14/25 13:49 BMI result Body Mass Index 34.3 Assessment & Plan Assessment & Plan (1) Sacroiliac joint pain: Code(s): M53.3 - Sacrococcygeal disorders, not elsewhere classified Category: Medical Plan Bilateral therapeutic Sacroiliac joint injection. Informed consent was explained thoroughly to the patient.? All questions about benefits and risks for the procedure were answered. Patient came to the operating room and was positioned prone on the operating table with the pillow under the abdomen.? The lower back and buttocks of the patient were prepped with ChloraPrep prepped and draped with sterile utility towels.? Sterilely draped C-arm was brought over the operating field and sq picture of patient's pelvis was demonstrated on the screen.? For each joint tilting C-arm contralateral to the site of the joint the most posterior portion of the joints was superimposed with anterior silhouette of the joint.? Skin was injected in the projection of the joint slightly medial to the location of the joint with 25 gauge 1/2 inch needle using local lidocaine 2% mixed with ropivacaine 0.5% one to one. After that 22 gauge 3 and 1/2 inch needle was driven to the right and left joint in tunnel vision fashion.? When needle entered the joint capsule injection of the contrast was performed demonstrating intra-articular and minimally periarticular spread of the contrast.? After that 5 cc. of ropivacaine 0.5% mixed with Kenalog 40 mg was injected into each joint. (the patient is diabetic and does not have blood sugar machine at home.)? Total dose of Kenalog was 80 mg. Upon completion of the injections the needles were removed, Band-Aids were applied.? Upon completion of the injection patient was taken outside of the operating room to the recovery room where recovered uneventfully. Orders: Orders FL guidance in treatment room 07/14/25 M53.3 - Sacrococcygeal disorders, not elsewhere classified Coding Level of Care Code Procedure Only Diagnoses Sacroiliac joint pain M53.3
[2025-07-14 13:02] VITALS: BP 126/86; PULSE 80; RESP 20; O2SAT 100; BMI 34.3
[2025-07-14 13:49] VITALS: BP 159/67; PULSE 83; RESP 20; O2SAT 100
--- OUTSIDE RECORDS SUMMARY | 2025-07-14 15:13 | XMS_ITS | Clinical Summary ---
Author Organization [facility] Address [address] [address] Phone Care Team Providers Care Vp Organizational Development Name Role Phone Pcp, Unknown Primary Care [...] EDT Office Visit [facility] [place] [address] [place] [address] Nathalie Islas, OD Dry eyes (Primary Dx); Unstable keratoconus of left eye; Keratoconus of right eye 05/26/2025 Telephone [facility] [address] [place] [address] Nathalie Islas, OD from Last [...] 2:30 PM EDT Office Visit [facility] [place] [address] [place] [address] Nathalie Islas, WENDIE [address] [place] [address] [email or web address] 08/12/2025 1:10 PM EDT Procedure visit [facility] [address] [place] [address] 08/12/2025 1:20 PM EDT Office [facility] [address] [place] [address] Melba Meadows MD [address] [place] [address] Sasha [email or web address] 09/08/2025 3:00 PM EST Office [facility] [address] [place] [address] Nathalie Islas, WENDIE [address] [place] [address] [email or web address] Health Maintenance Due Date Last Done Comments [...] topic Medical Devices Not on [place] [address] [place] [address] [facility] [place] [address] [place] [address] [place] [address] [place] [address] [place] [address] [place] [address] [place] [place] [address] ACO Care Teams Vp Organizational Development Relationship Specialty Start Date End Date Pcp, Unknown PCP - General 12/15/24 Additional Source Comments The information contained in this document represents components of the legal health record. It is not the complete legal health record.[facility]
--- OUTSIDE RECORDS SUMMARY | 2025-07-14 15:13 | XMS_ITS | Encounter Summary ---
Author Organization [facility] Address [address] [facility] [address] [place] [address] Phone Care Team Providers Care Shoe Sticks Repairer Name Role Phone Unknown, Unknown MD Primary Care Provider Kenya donnelly Pcp, Unknown Primary Care Provider Unavailabl e Reason for Visit * Reason Onset Date Comments Medication Refill 10/22/2024 Encounter Details Date Type Department Care Team (Late Contact Info) Description 10/22/2024 Refill [facility] [place] [address] [place] [address] Cortney Coelho I [address] [place] [address] [email or web address] Medication Refill Social History Tobacco Use Types [...] EDT Office Visit [facility] [place] [address] [place] [address] Nathalie Islas, OD [address] [place] [address] [email or web address] 08/12/2025 1:10 PM EDT Procedure visit [facility] [address] [place] [address] 08/12/2025 1:20 PM EDT Office [facility] [address] [place] [address] Melba Meadows MD [address] [place] [address] Sasha [email or web address] 09/08/2025 3:00 PM EST Office [facility] [address] [place] [address] Nathalie Islas, OD [address] [place] [address] [email or web address] documented as of this encounter Visit Diagnoses Not on filedocumented in this encounter Care Teams Shoe Sticks Repairer Relationship Specialty Start Date End Date Unknown, Unknown, PCP - General 07/14/24 12/14/24 Pcp, Unknown PCP - General 12/15/24 documented as of this encounter Additional Source Comments The information contained in this document represents components of the legal health record. It is not the complete legal health record.[facility]
--- OUTSIDE RECORDS SUMMARY | 2025-07-14 15:13 | XMS_ITS | Clinical Summary ---
Author Organization Patient Business Ser [facility] Address [address] [place] [address] Care Team Providers Care Train Inspector Name Role Phone Dorothea Carey MD Primary [...] Team Description 07/01/2025 3:30 PM EDT Treatment [address] [phone] Tato Donald, REGISTER IN CHANCERY Other fracture of left lower leg, initial encounter for closed fracture (Primary Dx) 05/05/2025 1:00 PM EDT Treatment [facility] [address] [phone] Compa Haney, PT Pain in left ankle and joints of left foot (Primary Dx) 04/28/2025 3:00 PM EDT Treatment [facility] [address] [phone] Brijesh Alvarado, ADEN Tibialis posterior tendonitis, left (Primary Dx) 04/21/2025 3:30 PM EDT Treatment [facility] [address] [phone] Brijesh Alvarado, ADEN Tibialis posterior tendonitis, left (Primary Dx) 04/14/2025 4:30 PM EDT Treatment [address] [address] Brijesh Alvarado, ADEN Tibialis posterior tendonitis, left (Primary Dx) from Last 3 Months Surgical History Surgery Date Site/Laterality Comments ANKLE FRACTURE SURGERY Left PROCEDURE: AR OPEN TREATMENT MEDIAL MALLEOLUS FRACTURE OTHER SURGICAL HISTORY Left PROCEDURE: AR ARTHRS WRST EXC&/RPR TRIANG FIBROCART&/JOINT Social History [...] Info) Description 07/14/2025 3:30 PM EDT Treatment [address] [phone] Rory Saleh, REGISTER IN CHANCERY 07/16/2025 2:30 PM EDT Treatment [address] [phone] Brenda Sam, PT 07/20/2025 2:30 PM EDT Treatment [address] [phone] Brijesh Alvarado, REGISTER IN CHANCERY 07/22/2025 3:30 PM EDT Treatment [facility] [address] [phone] Tato Donald, REGISTER IN CHANCERY 07/27/2025 2:30 PM EDT Treatment [facility] [address] [phone] Brijesh Alvarado, REGISTER IN CHANCERY 07/29/2025 2:30 PM EDT Treatment [facility] [address] [phone] Brijesh Alvarado, REGISTER IN CHANCERY 08/05/2025 1:30 PM EDT Treatment [facility] [address] [phone] Brenda Sam, PT Health Maintenance Due Date [...] UPON REACH MET 10/13 #4 IMPROVE LEFT LICENSING WORKER FROM 40 TO 60 POUNDS = [...] - [place] [employer] MEDICARE Care Teams Train Inspector Relationship Specialty Start Date End Date Dorothea Carey MD [address] [place] [address] , [address] [facility] D/B/A: [facility] [place] PCP - General Internal Medicine 08/15/21
--- OUTSIDE RECORDS SUMMARY | 2025-07-14 15:13 | XMS_ITS | Encounter Summary ---
Author Organization [facility] Address [address] [place] [address] Phone Care Team Providers Care Hair Colorist Name Role Phone Pcp, Unknown Primary Care Provider Unavailabl e Encounter Details Date Type Department Care Team (Late st Contact Info) Description 05/26/2025 Telephone [facility] [address] [facility] [address] [place] [address] Nathalie Islas, [address] [address] [email or web address] Social History Tobacco Use Types Packs/Day Years [...] [facility] [address] [place] [address] Nathalie Islas, OD [address] [place] [address] [email or web address] 08/12/2025 1:10 PM EDT Procedure visit [facility] OPHTHALMOLOG[facility] [place] [address] [place] [address] 08/12/2025 1:20 PM EDT Office [facility] [address] [place] [address] Melba Meadows MD [address] [place] [address] Sasha [email or web address] 09/08/2025 3:00 PM EST Office Visit [facility] [address] [place] [address] Nathalie Islas, OD [address] [place] [address] [email or web address] documented as of this encounter Visit Diagnoses Not on filedocumented in this encounter Care Teams Hair Colorist Relationship Specialty Start Date End Date Pcp, Unknown PCP - General 12/15/24 documented as of this encounter Additional Source Comments The information contained in this document represents components of the legal health record. It is not the complete legal health record.[facility]
== END 2025-07-14 13:49 | disposition home or self-care (01) ==
LOC: HO.PMCPRC 12:52
PROVIDERS: PCP Internal Medicine; Visit Provider Anesthesiology
DX: M53.3 Sacrococcygeal disorders, not elsewhere classified (principal)
CPT/HCPCS: 27096

== ENCOUNTER 2025-08-11 06:16 | Outpatient (REF) | payer MEDICARE, MEDICAID, SELFPAY ==
--- OUTSIDE RECORDS SUMMARY | 2024-09-01 15:00 | XMS_ITS | Encounter Summary ---
Author Organization [facility] Address [address] [place] [address] Care Team Providers Care Workday Financials Consultant Name Role Phone Dorothea Carey MD Primary Care Provider [phone] Encounter Details Date Type Department Care Team (Late st Contact Info) Description 09/01/2024 3:00 PM EDT Hospital Encounter TH HISTORIC ENCOUNTERS [facility] ONLY Nichelle De La O MD [address] [place] [phone] Social History Tobacco Use Types Packs/Day [...] Care Team (Late st Contact Info) Description 08/20/2025 5:00 PM EDT Treatment [address] [phone] Brenda Sam PT 08/25/2025 4:00 PM EDT Treatment [address] [phone] Reed Price, MOISTURE MACHINE TENDER 08/27/2025 3:30 PM EDT Treatment [facility] [address] [address] Reed Price, MOISTURE MACHINE TENDER 09/03/2025 4:00 PM EDT Treatment [facility] [address] [address] Brenda Sam, PT documented as of this encounter Goals [...] UPON REACH MET 10/13 #4 IMPROVE LEFT AUDITING MANAGER FROM 40 TO 60 POUNDS = 75 [...] on filedocumented in this encounter Care Teams Workday Financials Consultant Relationship Specialty Start Date End Date Dorothea Carey MD [address] [place] [address] , [address] [facility] Physician Associ D/B/A: [facility] RUBIN Rowley PCP - General Internal Medicine 08/15/21 documented as of this encounter
--- NOTE | ~2025-08-11 | FL_ITS ---
EXAMINATION: FL GUIDANCE ONLY HISTORY: M47.815 - Spondylosis without myelopathy or radiculopathy, thoracolumbar... COMPARISON: None available. TECHNIQUE: Fluoroscopy time: 34.1 seconds. Cumulative Dose: 8.28 mGy. Images: 12. FINDINGS: Fluoroscopic spot films of the thoracolumbar junction demonstrate needles and contrast material in the regions of the bilateral T10, T11, and T12 costovertebral junctions. FL/FL guidance in treatment room IMPRESSION: Fluoroscopy during procedure. Please see procedure report for additional information. Electronically signed by: Compa Julien MD 08/11/2025 01:07 PM EDT
--- OUTSIDE RECORDS SUMMARY | 2025-08-11 06:18 | XMS_ITS | Encounter Summary ---
Author Organization [facility] Address [address] [place] [address] Phone Care Team Providers Care Patient Care Manager Name Role Phone Pcp, Unknown Primary Care Provider Unavailabl e Dorothea Domínguez MD Primary Care Provid er Encounter Details Date Type Department Care Team (Late st Contact Info) Description 05/26/2025 Telephone [facility] [address] [facility] [address] [place] [address] Nathalie Islas, OD [address] [place] [address] [email or web address] Social History Tobacco Use Types Packs/Day [...] of this encounter Progress Notes * Dylan Reese. - 05/26/2025 11:[address] Islas, Ms. Aguirre states that she is experiencing issues with her contact lens and would like to see you, unfortunately I cannot find any soon availability, kindly assist documented in this encounter Plan of Treatment Upcoming Encounters Date Type Department Care Team (Late st Contact Info) Description 08/12/2025 1:10 PM EDT Procedure visit [facility] [address] [place] [address] 08/12/2025 1:20 PM EDT Office [facility] [address] [place] [address] Melba Meadows MD [address] [facility], [address] [place] [address] Sasha [email or web address] 09/08/2025 3:00 PM EST Office Visit [facility] [place] [address] [place] [address] Nathalie Islas, WENDIE [address] [place] [address] [email or web address] documented as of this encounter Visit Diagnoses Not on filedocumented in this encounter Care Teams Patient Care Manager Relationship Specialty Start Date End Date Pcp, Unknown PCP - General 12/15/24 07/14/25 Dorothea Domínguez MD [address] [place] [address] PCP - General Internal Medicine 07/15/25 documented as of this encounter Additional Source Comments The information contained in this document represents components of the legal health record. It is not the complete legal health record.[facility]
--- OUTSIDE RECORDS SUMMARY | 2025-08-11 06:18 | XMS_ITS | Encounter Summary ---
Author Organization [facility] Address [address] [place] [address] Phone Care Team Providers Care Project Geophysicist Name Role Phone Unknown, Unknown Primary Care Provider Kenya donnelly Pcp, Unknown Primary Care Provider Dorothea Garcia MD Primary Care Provid er Reason for Visit * Reason Onset Date Comments Medication Refill 10/22/2024 Encounter Details Date Type Department Care Team (Late st Contact Info) Description 10/22/2024 Refill [facility] [place] [address] [place] [address] Cortney Coelho I [address] [place] [address] [email or web address] Medication Refill Social History Tobacco Use [...] PM EDT Procedure visit [facility]ALMOLOG[facility] [place] [address] [place] [address] 08/12/2025 1:20 PM EDT Office Visit [facility] [address] [place] [address] Melba Meadows MD [address] [facility], [address] [place] [address] Melba_Lior [email or web address] 09/08/2025 3:00 PM EST Office Visit [facility] [place] [address] [place] [address] Nathalie Islas, OD [address] [place] [address] [email or web address] documented as of this encounter Visit Diagnoses Not on filedocumented in this encounter Care Teams Project Geophysicist Relationship Specialty Start Date End Date Unknown, Unknown, MD PCP - General 07/14/24 12/14/24 Pcp, Unknown PCP - General 12/15/24 07/14/25 Dorothea Domínguez MD [address] [place] [address] PCP - General Internal Medicine 07/15/25 documented as of this encounter Additional Source Comments The information contained in this document represents components of the legal health record. It is not the complete legal health record.[facility]
--- OUTSIDE RECORDS SUMMARY | 2025-08-11 06:18 | XMS_ITS | Clinical Summary ---
Author Organization Patient Business Ser [facility] Address [address] [place] [address] Care Team Providers Care Monitor Worker Name Role Phone Dorothea Carey MD Primary Care Provider [phone] Allergies No known active allergies Medications amitriptyline [...] Encounters Date Type Department Care Team Description 08/05/2025 1:30 PM EDT Treatment [address] [phone] Brenda Sam, LUIS Other fracture of left lower leg, initial encounter for closed fracture (Primary Dx) 07/27/2025 2:30 PM EDT Treatment [address] [phone] Brijesh Alvarado PTA Other fracture of left lower leg, initial encounter for closed fracture (Primary Dx) 07/22/2025 3:30 PM EDT Treatment [address] [phone] Tato Donald PTA Other fracture of left lower leg, initial encounter for closed fracture (Primary Dx) 07/01/2025 3:30 PM EDT Treatment [address] [phone] Donald, Tato J, CASINO RUNNER Other fracture of left lower leg, initial encounter for closed fracture (Primary Dx) from Last 3 Months Surgical History Surgery Date Site/Laterality Comments ANKLE FRACTURE SURGERY Left PROCEDURE: MT OPEN TREATMENT MEDIAL MALLEOLUS FRACTURE OTHER SURGICAL HISTORY Left PROCEDURE: MT ARTHRS WRST EXC&/RPR TRIANG FIBROCART&/JOINT Social History [...] Info) Description 08/20/2025 5:00 PM EDT Treatment [facility] [address] [phone] Brenda Sam, PT 08/25/2025 4:00 PM EDT Treatment [facility] [address] [phone] Reed Price, CASINO RUNNER 08/27/2025 3:30 PM EDT Treatment [facility] [address] [phone] Reed Price, CASINO RUNNER 09/03/2025 4:00 PM EDT Treatment [facility] [address] [phone] Brenda Sam, PT Health Maintenance Due Date Last Done Comments Breast Cancer Screening 1984 Hepatitis B Vaccines (1 of 3 - 19+ 3-dose series) 2003 Cervical Cancer Screening: P ap Smear 2005 HPV Vaccines (1 - 3-dose SCD M series) 2011 HIV Screening 05/28/2022 Hepatitis C Screening 05/28/2022 Medicare Annual Wellness Visit 05/28/2022 Social Influencers of Health Screening 05/28/2022 Depression Screening 11/05/2024 COVID-19 Vaccine (3 - 2024-2 6 season) 2025 06/10/2021, 05/13/2021 Influenza Vaccine (#1) 2025 , 10/09/2019, 09/25/2018 DTaP,Tdap,and Td Vaccines (2 - Td or Tdap) 05/22/2028 05/22/2018 RSV Immunization Adult Patients (1 - 1-dose 75+ series) 2059 HIB Vaccines Aged Out No longer eligi [...] UPON REACH MET 10/13 #4 IMPROVE LEFT ORE BUYER FROM 40 TO 60 POUNDS = 75 [...] MEDICARE MEDICAID - [place] [address] Care Teams Monitor Worker Relationship Specialty Start Date End Date Dorothea Carey MD [address] [facility] , [address] [facility] D/B/A: [facility] RUBIN Rowley PCP - General Internal Medicine 08/15/21
--- OUTSIDE RECORDS SUMMARY | 2025-08-11 06:18 | XMS_ITS | Encounter Summary ---
Author Organization [facility] Address [address] [place] [address] Phone Care Team Providers Care Sleep Lab Technologist Name Role Phone Dorothea Domínguez MD Primary Care Provid er Encounter Details Date Type Department Care Team (Late st Contact Info) Description 07/15/2025 Telephone [facility] [address] [place] [address] Unknown, Unknown, Social History Tobacco Use Types Packs/Day Years [...] [place]ING [place] [address] [place] [address] 08/12/2025 1:20 PM EDT [facility] [address] [facility] [address] [place] [address] Melba Meadows MD [address] [facility], [address] [place] [address] Melba_Lior [email or web address] 09/08/2025 3:00 PM EST Office [facility] [address] [facility] [address] [place] [address] Nathalie Islas, [address] [address] [email or web address] documented as of this encounter Visit Diagnoses Not on filedocumented in this encounter Care Teams Sleep Lab Technologist Relationship Specialty Start Date End Date Dorothea Domínguez MD [address] [place] [address] PCP - General Internal Medicine 07/15/25 documented as of this encounter Additional Source Comments The information contained in this document represents components of the legal health record. It is not the complete legal health record.[facility]
--- OUTSIDE RECORDS SUMMARY | 2025-08-11 06:18 | XMS_ITS | Clinical Summary ---
Author Organization [facility] Address [address] [facility] [address] [place] [address] Phone Care Team Providers Care Echo Vascular Technologist Name Role Phone Dorothea Domínguez MD Primary Care Provid er Allergies No known active allergies Medications cyclobenzaprine [...] 15 minutes. 2 mL 2 5 Active lifitegrast (XIIDRA) 5 % ophthalmic solution Place 1 drop into each eye 2 (two) times a day. 20 each 10 5 Active Active Problems No known active problems Encounters Date Type Department Care Team Description 07/30/2025 2:30 PM EDT Office Visit [facility] OPT[facility] [address] [place] [address] Nathalie Islas, WENDIE Dry eyes (Primary Dx); Unstable keratoconus of left eye; Keratoconus of right eye; Regular astigmatism of right eye 07/17/2025 Orders Only [facility] Opt[facility] [address] [address] Nathalie Islas OD 07/15/2025 Telephone [facility] [address] [place] [address] Unknown, Tiana, 07/07/2025 10:30 AM EDT Office Visit [facility] [place] [address] [place] [address] Nathalie Islas, OD Dry eyes (Primary Dx); Unstable keratoconus of left eye; Keratoconus of right eye 05/26/2025 Telephone [facility] [address] [place] [address] Nathalie Islas, OD from Last 3 Months [...] PM EDT Procedure visit [facility]THALMOLOG[facility] [place] [address] [place] [address] 08/12/2025 1:20 PM EDT Office Visit [facility] [address] [place] [address] Melba Meadows MD [address] [facility], [address] [place] [address] Sasha [email or web address] EDUARDO 09/08/2025 3:00 PM EST Office Visit [facility] [place] [address] [facility] [address] [place] [address] Nathalie Islas OD [address] [place] [address] [email or web address] Health Maintenance Due Date Last Done Comments Adult Td,Tdap Booster 1984 CREATININE LEVEL 1984 POTASSIUM LEVEL 1984 DEPRESSION SCREENING 1996 HEPATITIS C SCREENING 2002 HIV ONE-TIME SCREENING (18-6 5 YEARS) 2002 PAP SMEAR 2005 MAMMOGRAM 2024 INFLUENZA VACCINE (#1) 2025 COVID-19 VACCINE ( - 2024-2 6 season) 2025 SMOKING STATUS SCREENING (On ce [...] topic Medical Devices Not on file Insurance [facility] A[facility] MEDICARE REPLACEMENT [place] MED[place] A & B RUBIN Rowley [id number] [facility] MEDICARE REPLACEMENT [place] MEDIC[place] PART A & B RUBIN Rowley [id number] [facility] MEDICARE REPLACEMENT [facility] MEDICARE PART A [place] [address] [facility] MEDICARE REPLACEMENT [facility] MEDICARE PART A [place] [address] [facility] MEDICARE REPLACEMENT [place] MEDICARE PART A & B RUBIN Rowley [id number] [facility] MEDICARE REPLACEMENT [place] MEDICARE PART A & B Care Teams Echo Vascular Technologist Relationship Specialty Start Date End Date Dorothea Domínguez MD [address] [place] [address] PCP - General Internal Medicine 07/15/25 Additional Source Comments The information contained in this document represents components of the legal health record. It is not the complete legal health record.[facility]
== END 2025-08-11 06:17 | disposition home or self-care (01) ==
LOC: CF 06:16
PROVIDERS: Visit Provider Anesthesiology
DX: M47.815 Spondylosis without myelopathy or radiculopathy, thoracolumbar region (principal)
CPT/HCPCS: 64490; 64491; J2003; J2795; Q9967

== ENCOUNTER 2025-08-11 09:31 | Outpatient (AMB) | payer MEDICARE, MEDICAID, SELFPAY ==
[2025-08-11 09:38] VITALS: BP 165/84; PULSE 62; RESP 16; O2SAT 100
--- NOTE | 2025-08-11 09:38 | A.OFFVIS_ITS ---
Vital Signs 08/11/25 09:38 BP 165/84 H Blood Pressure Location Lt brachial Position Sitting Respiration 16 Pulse 62 Pulse Source Pulse Oximeter Pulse Oximetry (%) 100 Oxygen Delivery Method Room Air Intake Visit Reasons: Bilateral Diagnostic B84-[id number] MBB Information Systems Supervisor Required: Yes Information Systems Supervisor Services: Information Systems Supervisor Offered & Declined Information Systems Supervisor Name: prefers daughter to translate Allergies shrimp Allergy (Verified 08/11/25 09:38) Anaphylaxis Medication List - Last Reconciled 08/11/25 by Esha Ocampo LPN acetaminophen 500 mg PO Q6H PRN 30 days blood pressure monitor As directed cane As directed celecoxib (Celebrex) 200 mg PO BID PRN clotrimazole 1% 1 appl topical BID 2 weeks cyclosporine 0.05% (Restasis) drps ophthalmic (eye) Grab bar As directed [hand held showerhead As directed] leg brace (Knee Brace Large-XLarge) As directed lisinopril 20 mg PO DAILY 90 days sertraline 100 mg PO DAILY [shower bar tub ledge As directed] Shower Chair As directed sodium chloride 0.9% mL inhalation TID tramadol 50 mg PO BID PRN 30 days underpads (Bed Underpads) Use 4 bed underpads daily PFSH Medical History Left otitis media Polyarthralgia Fibromyalgia High blood pressure Rash Lumbar pain Obese Surgical History H/O eye surgery S/P tendon repair History of local excision of skin lesion (08/03/22) S/P ligament repair History of hand surgery History of tubal ligation Family History Father No problems noted. Mother Diabetes Hypertension Paternal Aunt Breast cancer Family/Other Chronic mental illness Brother No problems noted. Brother No problems noted. Brother No problems noted. Sister No problems noted. Sister No problems noted. Son In good health Daughter In good health Social History Housing: Apartment Alcohol intake: current Alcohol intake frequency: holidays/special occasions only Alcohol type: wine and other Patient Tobacco Use Status: Never used Tobacco e-Cigarette/Vaping Use: Never Used Second Hand Smoke Exposure: No service: No Current occupational status: unemployed Cognitive needs: No Hearing needs: No Vision needs: Yes (Glasses) Female Reproductive History Menstrual Age of Menarche: 14 Physical Exam Vital Signs: Last Vital Signs Pulse 62 08/11/25 09:38 Resp 16 08/11/25 09:38 BP 165/84 H 08/11/25 09:38 Pulse Ox 100 08/11/25 09:38 Oxygen Delivery Method Room Air 08/11/25 09:38 Assessment & Plan Assessment & Plan (1) Spondylosis of thoracic region without myelopathy or radiculopathy: Code(s): M47.814 - Spondylosis without myelopathy or radiculopathy, thoracic region Category: Medical Plan Diagnostic medial branch block thoracic 910 and 11 bilateral.? ? ?Informed consent was explained to the patient. All questions were explained and? answered.? The patient was taken inside the operating room where she was positioned prone on the operating table. Time-out was performed delineating correct site, side, the nature of the procedure, patient's allergy, . All operating room staff was participating in OR time-out procedure. ? ? The mid back was prepped with ChloraPrep and draped with sterile utility towels.? C-arm was brought over the operating field and sq picture of lower thoracic spine vertebras were delineated on the screen.? Palpation of the painful area performed under the fluoroscopy demonstrated most painful vertebra to be T11. Decision was made to do diagnostic T9-T10- T11 bilateral medial branch block Point of interest were delineated as most superior and lateral points of the transverse process of the above-mentioned vertebra.? The projection of the point of interest to the skin were injected with the small amount of local anesthetic lidocaine 2% mixed with ropivacaine 0.5% 1-1 approximately 1 cc.? After that 22 gauge 3.5 inch spinal needle was driven sequentially to the points of interest in tunnel vision fashion. After needles gently contacted the bone at the point of interests the needle was injected with small amount of the contrast.? The injection of the contrast did not demonstrate any intravascular or intrathecal spread of the contrast.? After that injection of the? ropivacaine 0.5%-1cc was performed at each needle location.?After that the needles were removed and Bandaids were applied. Orders: Orders FL guidance in treatment room Today M47.815 - Spondylosis without myelopathy or radiculopathy, thoracolumbar region Coding Level of Care Code Procedure Only Diagnoses Spondylosis of thoracic region without myelopathy or radiculopathy M47.814
== END 2025-08-11 10:17 | disposition home or self-care (01) ==
LOC: HO.PMCPRC 09:31
PROVIDERS: PCP Internal Medicine; Visit Provider Anesthesiology
DX: M47.814 Spondylosis without myelopathy or radiculopathy, thoracic region (principal)
CPT/HCPCS: 64490; 64491

== ENCOUNTER 2025-08-13 09:55 | Outpatient (AMB) | payer MEDICARE, MEDICAID, SELFPAY ==
--- NOTE | 2025-08-13 09:57 | MHC.OFFVIS ---
Vital Signs 08/13/25 10:01 Height 5 ft 4 in BP 179/95 H Blood Pressure Location Lt brachial Position Sitting Pulse 66 Pulse Source Pulse Oximeter Pulse Oximetry (%) 98 Oxygen Delivery Method Room Air Intake Visit Reasons: S/P Bilateral Diagnostic [id number] MBB Intake Note: Pain today 04/14 Grain Cleaner Required: Yes Grain Cleaner Language: Applications Development Analyst Services: Grain Cleaner Offered & Declined Accompanied by: Family/Other Allergies shrimp Allergy (Verified 08/13/25 10:02) Anaphylaxis HPI Comments Details: The patient is a 40-year-old female presenting with chronic pain management concerns, primarily involving the sacroiliac joint and mid back regions. She has previously undergone diagnostic sacroiliac joint injections, which initially provided complete pain relief but most recent therapeutic injections only resulted in 50% relief with ongoing symptoms of radiating back pain into her posterior and anterior lower extremities. The patient also reports mid back pain, for which diagnostic medial branch block injections were performed at the T9, T10, and T11 levels, targeting the most painful areas. The mid back pain was initially relieved by diagnostic injections, but the relief was mild and short-lived, lasting only six hours. The patient was advised to remain active post-injection to assess the effectiveness of the procedure, but significant pain persisted, indicating limited benefit from the injections. Patient reports her mid back pain radiates into her flanks and into her ribcage and upper abdomen, right worse than left side. Pain is constant and described as tightness, pulling, radiating, burning and aching. Additionally, the patient has a history of sciatica, for which previous interventions provided no significant pain relief. Denies any recent cough, cold, infection, fever, chest pain or pressure, dizziness, shortness of breaths, abdominal, hip or groin pain or any significant changes in medical history since last office visit. - Affect: Pain significantly impacts daily activities, sleep and mood, causing distress. - Analgesia: Current medications include Tylenol, Celebrex, and tramadol, with limited pain relief reported. - Adverse Effects: Reports of temporary dizziness and numbness post-injection. - Activities of Daily Living: Pain interferes with daily tasks, requiring modifications to routine activities. - Aberrant Drug Related Behaviors: No aberrant behaviors reported. Past Procedures: 08/11/25: Bilateral Diagnostic T9-T10-T11 MBB-40% pain relief 07/14/25: Bilateral Therapeutic SIJ injections-50% pain relief 05/12/25: Right hip intra-articular steroid injection-90% pain relief 02/24/25: Left hip intra-articular steroid [id number]-[id number]% pain relief 08/15/24: Bilateral L5-S1 TFESI injection-0% pain relief 01/29/24: Bilateral Diagnostic L3 L4 DR L5 MBB-0% pain relief 11/06/23: Bilateral Diagnostic SIJ injections-100% ongoing pain relief PRIOR: Patient is a pleasant 38 year old Thai speaking female with history of fibromyalgia, arthritis, polyarthralgia and chronic neck, thoracic and lumbar pain presents today for initial evaluation for chronic mid and low back pain. She was followed by [facility] up until 09/13/2023. Patient was also seen by [facility] for back and hip pain. She reports upcoming surgery for neurogenic thoracic outlet syndrome with Dr. Meyers at [facility] next year. Patient was also seen at [facility] for ankle pain, by Dr. De La O for hand pain and by Rheumatology for hand pain. Patient was referred to us by Dr. Natarajan at [facility] for low back pain. She had underwent bilateral L3-L4-L5 medial branch blocks and interlaminar epidural injections at L5-S1 and completed physical and chiropractic therapies without much relief at [facility]. Patient reports back pain that radiates upward to her upper thoracic, between shoulder blades and down into her sacral regions bilaterally but not into her lower extremities. Patient also reports widespread body pain with multiple tender points of upper and lower extremities and torso which is consistent with fibromyalgia. Patient has been managing amitriptyline and Lyrica, and also tried gabapentin without relief. Per Physiatry notes, MRI 06/05/2022 reported no significant spinal stenosis, spondylosis L4-5 and L5-S1. EMG reported to be normal lower extremity. Pain negatively affects her daily functioning, mood, sleep and quality of life. Patient denies any fever, weight loss, abdominal or groin pain, weakness, bladder or bowel dysfunction or saddle anesthesia. Location Chronic pain in lower back and sacral, between shoulder blades, mid back Duration Chronic pain for > 3 years Characteristics of symptom or complaint Aching, spasms, numbness, tingling, dull, shooting, pulling, radiating Aggravating or associated factors Movements, walking, standing, cold weather Relieving factors Sitting, resting, heat therapy, Gabapentin/Lyrica, Ibuprofen, lidocaine Treatment PT, injections at [facility], chiropractic therapy-minimal relief [facility] Medical History Left otitis media Polyarthralgia Fibromyalgia High blood pressure Rash Lumbar pain Obese Surgical History H/O eye surgery S/P tendon repair History of local excision of skin lesion (08/03/22) S/P ligament repair History of hand surgery History of tubal ligation Family History Father No problems noted. Mother Diabetes Hypertension Paternal Aunt Breast cancer Family/Other Chronic mental illness Brother No problems noted. Brother No problems noted. Brother No problems noted. Sister No problems noted. Sister No problems noted. Son In good health Daughter In good health Social History Housing: Apartment Alcohol intake: current Alcohol intake frequency: holidays/special occasions only Alcohol type: wine and other Patient Tobacco Use Status: Never used Tobacco e-Cigarette/Vaping Use: Never Used Second Hand Smoke Exposure: No service: No Current occupational status: unemployed Cognitive needs: No Hearing needs: No Vision needs: Yes (Glasses) Female Reproductive History Menstrual Age of Menarche: 14 Review of Systems Const All systems reviewed & are unremarkable except as noted in HPI and below Physical Exam Vital Signs: Last Vital Signs Pulse 66 08/13/25 10:01 BP 179/95 H 08/13/25 10:01 Pulse Ox 98 08/13/25 10:01 Oxygen Delivery Method Room Air 08/13/25 10:01 General: Appears afebrile. Alert and oriented. Mood and affect appropriate. Follows and participates in conversation appropriately. Respiratory effort is unlabored. No cough. Able to transition from sit to stand unassisted. Ambulates with cane, mildly antalgic gait, no limping. Ambulates with bilaterally normal heel strike and toe off. General: Yes no CVA tenderness Back/Spine/Pelvis Other: Limited thoracolumbar ROM due to pain. Lumbar extension reproduce moderate pain, flexion reproduces mild to moderate discomfort. Seated straight leg rise with dorsiflexion negative bilaterally. +2 patellar and +1 achilles reflexes bilaterally. Facet loading test positive bilaterally. Bienvenido sign positive bilaterally, Etienne?s, Gaenslen, and Stinchfield tests positive bilaterally. No groin pain with I/E hip rotations bilaterally. Multiple widespread TTPs 16/16 bilaterally, including upper and lower extremities. Back: no CVA tenderness Cervical Spine: cervical ROM normal, cervical muscular tenderness, pain with cervical ROM and No Cervical spine tenderness Thoracic/Lumbar Spine: thoracic and lumbar spine normal to inspection, No Thoracic/lumbar spine scar(s), Lasegue's sign negative, straight leg raise negative bilaterally, pain with thoraco-lumbar ROM, paraspinal muscle tenderness, thoraco-lumbar ROM limited, thoracic spinal tenderness (lower thoracic) and lumbar spinal tenderness at L4 and at L5 Pelvis: buttock tenderness bilaterally Sacroiliac joints: bilaterally tender to palpation Extrem General: Yes capillary refill normal, Yes no clubbing, cyanosis or edema and Yes no calf tenderness Results Reviewed Results Reviewed: XR BILATERAL HIPS WITH AP PELVIS 09/24/24 CLINICAL INFORMATION: M53.3 - Sacrococcygeal disorders, not elsewhere classified. Pain, no known injury. FINDINGS: Normal mineralization. No fractures, dislocation, or suspicious bone lesions. Normal alignment of the bilateral hip joints. Femoral heads maintain normal contour. No evidence of AVN. Somewhat overriding acetabula are noted bilaterally, finding which can be associated with pincer-type ASHVIN. Sacrum and SI joints appear normal. Lower lumbar spine appears normal. Soft tissues appear normal. IMPRESSION: 1. No acute findings in the joints or SI joints. 2. Somewhat overriding posterior acetabula are noted bilaterally, finding which can be associated with pincer-type ASHVIN. XR THORACOLUMBAR SPINE 01/10/22 FINDINGS: There is normal thoracic segmentation with 12 rib-bearing thoracic vertebrae of normal height and normal thoracic kyphosis. There is a borderline levocurvature upper thoracic spine. No thoracic vertebral body compression is present. There is no destructive process or paraspinal soft tissue swelling. No spondylolisthesis or disc narrowing or erosive changes. IMPRESSION: -Borderline levocurvature upper thoracic region. -No vertebral compression, spondylolisthesis, disc narrowing, destructive process. XR LUMBOSACRAL SPINE WITH OBLIQUES 10/09/23 CLINICAL INFORMATION: Low back pain COMPARISON: Lumbar spine radiograph from 06/13/2021 TECHNIQUE: 7 views of the lumbar spine FINDINGS: No acute visible fracture or dislocation. Slight lower lumbar spine facet arthropathy. Suggestion of L5-S1 neuroforaminal narrowing. Vertebral body heights and disc spaces are maintained. Posterior elements are intact. Paraspinal soft tissues are unremarkable. Visualized bowel gas is unremarkable. IMPRESSION: 1. No acute visible fracture or dislocation. 2. Slight lower lumbar spine facet arthropathy. 3. Suggestion of L5-S1 neuroforaminal narrowing. MR LUMBAR SPINE WITHOUT CONTRAST 12/20/24 CLINICAL INFORMATION: Low back pain. COMPARISON: Lumbar spine radiographs 10/09/2023. TECHNIQUE: MRI of the lumbar spine was obtained using routine sequences without contrast. FINDINGS: Transitional anatomy. For the purposes of this report there are articulating transverse processes bilaterally at L1 and S1 shares a rudimentary disc with S2. Please correlate with plain films prior to any percutaneous or surgical intervention. There is no bone marrow edema. There are no acute fractures. The vertebral body heights are maintained. The disc volumes are preserved and the discs remain well-hydrated. Conus terminates at the L1 level. Partially imaged fibroid uterus. L1-L2: Disc contour is normal. No central canal stenosis and no foraminal stenosis. L2-L3: Disc contour is normal. Mild bilateral facet arthropathy. No central canal stenosis and no foraminal stenosis. L3-L4: There is a small diffuse annular disc bulge and there is mild bilateral hypertrophic facet arthropathy. No central canal stenosis and no foraminal stenosis. L4-L5: There is a small diffuse annular disc bulge and there is mild bilateral facet arthropathy. There is no central canal stenosis. There is mild foraminal encroachment bilaterally. L5-S1: There is a diffuse annular disc bulge and there is moderate bilateral hypertrophic facet arthropathy. No central canal stenosis. Moderate to severe bilateral foraminal stenosis with mass effect on the exiting L5 nerve roots bilaterally. IMPRESSION: - At L5-S1, multifactorial degenerative changes result in moderate to severe bilateral foraminal stenosis with mass effect on the exiting L5 nerve roots bilaterally. Additional mild spondylitic changes as discussed in detail above. - There is transitional anatomy with articulating transverse processes bilaterally at L1 and a rudimentary disc at S1-S2. - Partially imaged fibroid uterus. Assessment & Plan Assessment & Plan (1) Thoracic spine pain: Code(s): M54.6 - Pain in thoracic spine Category: Medical (2) Chronic back pain: Code(s): M54.9 - Dorsalgia, unspecified; G89.29 - Other chronic pain Category: Medical Qualifiers: Back pain laterality: bilateral Back pain location: low back pain Sciatica presence: without sciatica Qualified Code(s): M54.50 - Low back pain, unspecified; G89.29 - Other chronic pain (3) Fibromyalgia: Code(s): M79.7 - Fibromyalgia Category: Medical (4) Muscle spasm of back: Code(s): M62.830 - Muscle spasm of back Category: Medical (5) Spondylosis of thoracolumbar spine: Code(s): M47.815 - Spondylosis without myelopathy or radiculopathy, thoracolumbar region Category: Medical (6) Thoracic radiculopathy: Code(s): M54.14 - Radiculopathy, thoracic region Category: Medical Plan The plan includes discontinuing sacroiliac joint injections due to insufficient pain relief and exploring alternative pain management strategies. An MRI of thoracic spine is planned to further evaluate the source of radicular mid back pain and guide future treatment options. The patient is advised to continue current medications, including Tylenol, Celebrex, and tramadol, and to incorporate muscle relaxants as needed, avoiding concurrent use with tramadol. Lifestyle modifications such as maintaining an active routine, weight management, adequate hydration, good posture and dietary adjustments are recommended to support overall health and potentially alleviate pain. Follow-up will be scheduled post-MRI to discuss results and adjust the treatment plan accordingly. Patient was informed and verbally consented to the use of an ambient scribe for clinic note documentation during this visit. Orders: Orders MR thoracic spine wo con Today M47.815 - Spondylosis without myelopathy or radiculopathy, thoracolumbar region, M54.14 - Radiculopathy, thoracic region, M54.6 - Pain in thoracic spine Medications: New tizanidine 4 mg PO BID PRN 60 tabs 0RF muscle spasticity G89.29 - Other chronic pain, M54.50 - Low back pain, unspecified, M54.6 - Pain in thoracic spine, M62.830 - Muscle spasm of back, M79.7 - Fibromyalgia Coding Level of Care Code Est Pt Level 4 (18140) Complex EM visit Add On G2211 Diagnoses Thoracic spine pain M54.6 Chronic bilateral low back pain without sciatica M54.50; G89.29 Back pain laterality: bilateral Back pain location: low back pain Sciatica presence: without sciatica Fibromyalgia M79.7 Muscle spasm of back M62.830 Spondylosis of thoracolumbar spine M47.815 Thoracic radiculopathy M54.14
[2025-08-13 10:01] VITALS: BP 179/95; PULSE 66; O2SAT 98
== END 2025-08-13 10:34 | disposition home or self-care (01) ==
LOC: HO.PMC 09:56
PROVIDERS: PCP Internal Medicine; Visit Provider Nurse Practitioner Family
DX: M54.6 Pain in thoracic spine (principal); M54.50 Low back pain, unspecified; G89.29 Other chronic pain; M79.7 Fibromyalgia; M62.830 Muscle spasm of back; M47.815 Spondylosis without myelopathy or radiculopathy, thoracolumbar region; M54.14 Radiculopathy, thoracic region
CPT/HCPCS: 99214; G2211

== ENCOUNTER → 2025-08-13 09:55 | Outpatient (BNVA) | payer MEDICARE, MEDICAID, SELFPAY | PROVIDERS: PCP Internal Medicine; Visit Provider Nurse Practitioner Family | DX: M54.6 Pain in thoracic spine (principal); M54.50 Low back pain, unspecified; G89.29 Other chronic pain; M79.7 Fibromyalgia; M47.815 Spondylosis without myelopathy or radiculopathy, thoracolumbar region; M62.830 Muscle spasm of back; M54.14 Radiculopathy, thoracic region | CPT/HCPCS: 99212 ==

== ENCOUNTER 2025-08-21 14:38 | Outpatient (AMB) | payer MEDICARE, MEDICAID, SELFPAY ==
--- OUTSIDE RECORDS SUMMARY | 2024-09-01 15:00 | XMS_ITS | Encounter Summary ---
Author Organization [facility] Address [address] [place] [address] Care Team Providers Care Oil Change Technician Name Role Phone Dorothea Carey MD Primary Care Provider [phone] Encounter Details Date Type Department Care Team (Late st Contact Info) Description 09/01/2024 3:00 PM EDT Hospital Encounter TH HISTORIC ENCOUNTERS [facility] ONLY Nichelle De La O MD [address] [place] [phone] Social History Tobacco Use Types Packs/Day [...] Care Team (Late st Contact Info) Description 08/25/2025 4:00 PM EDT Treatment [address] [phone] Reed Price, SKIRT TRIMMER 08/27/2025 3:30 PM EDT Treatment [facility] [address] [phone] Albert Reed Halle, SKIRT TRIMMER 09/03/2025 4:00 PM EDT Treatment [facility] 175 [facility] [address] [place] [address] Brenda Sam, PT documented as of this [...] UPON REACH MET 10/13 #4 IMPROVE LEFT GLASS CHECKER FROM 40 TO 60 POUNDS = 75 [...] on filedocumented in this encounter Care Teams Oil Change Technician Relationship Specialty Start Date End Date Dorothea Carey MD [address] [place] [address] , [facility] 101 [facility] Physician Associ D/B/A: [facility] RUBIN Rowley PCP - General Internal Medicine 08/15/21 documented as of this encounter
--- NOTE | 2025-08-21 14:56 | MHC.OFFVIS ---
Vital Signs 08/21/25 15:06 Height 5 ft 4 in Weight 206 lb 2.115 oz BMI 35.4 BP 134/80 Blood Pressure Location Lt brachial Position Sitting Pulse 76 Pulse Source Pulse Oximeter Pulse Oximetry (%) 97 Oxygen Delivery Method Room Air Intake Visit Reasons: joint pain Intake Note: Patient presents for joint pain follow up. Research Project Manager Required: Yes Research Project Manager Language: Shaving Machine Operator Services: Research Project Manager Present Research Project Manager Name: Darell [id number] Information Interpreted: non-clinical & clinical Allergies shrimp Allergy (Verified 08/21/25 15:02) Anaphylaxis tizanidine Adverse Reaction (Intermediate, Verified 08/21/25 15:02) Chest Pain Medication List - Last Reconciled 08/21/25 by Kiah Shaw MD blood pressure monitor As directed cane As directed celecoxib (Celebrex) 200 mg PO BID PRN clotrimazole 1% 1 appl topical BID 2 weeks Grab bar As directed [hand held showerhead As directed] leg brace (Knee Brace Large-XLarge) As directed lifitegrast 5% (Xiidra) 1 drp ophthalmic (eye) BID lisinopril 20 mg PO DAILY 90 days methocarbamol 500 mg PO BEDTIME PRN 10 days sertraline 50 mg PO DAILY [shower bar tub ledge As directed] Shower Chair As directed tramadol 50 mg PO BID PRN 30 days underpads (Bed Underpads) Use 4 bed underpads daily HPI Comments Details: Patient is a 40-year-old female with hypertension, depression, spondylosis of the spine (lumbar and thoracic), osteoarthritis and fibromyalgia here today for follow up Interval History: Patient last seen 03/29/[address] Kimble - Not on any rheum medications - Returns for follow-up after completion of her blood work. She continues to have left hand stiffness especially with grabbing heavy objects. After grabbing heavy object her hands contracted and stiff. Rarely her left ring finger locks up. She was evaluated by Dr. De La O in 12/28 and had steroid injection for left carpal tunnel without much improvement. She feels the same otherwise - comprehensive serology for underlying autoimmune rheumatic disease is negative with normal inflammatory markers - Hand MRI ordered Today - Not on any rheum medications - patient complaining of whole-body pain consistent with bone type pain - numbness and tingling going down her hand unable to hold things with her hands - stiffness - right knee pain Rheumatologic History: Initial Hx: this is a 37-year-old female with past medical history of spinal degenerative disc disease s/p multiple injections were presents for evaluation of bilateral hand stiffness. The condition started about 3 years ago. Patient states that when she grabs onto objects her hands become stuck in flexion and it takes her a while to get them to straighten. She stated that this has become worse over the last few months. She states this now happens even with light objects. Symptoms are worse on the left hand. 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 She denies any morning stiffness. She continues to have neck and low back pain. Denies any pain swelling or stiffness of her feet. Denies any skin rashes. No history of DVT/PE. States that her 5th fingers change color to [place] in the cold but not to white or blue. Current Rheumatology Medication(s): [facility] Medical History Left otitis media Polyarthralgia Fibromyalgia High blood pressure Rash Lumbar pain Obese Surgical History H/O eye surgery S/P tendon repair History of local excision of skin lesion (08/03/22) S/P ligament repair History of hand surgery History of tubal ligation Family History Father No problems noted. Mother Diabetes Hypertension Paternal Aunt Breast cancer Family/Other Chronic mental illness Brother No problems noted. Brother No problems noted. Brother No problems noted. Sister No problems noted. Sister No problems noted. Son In good health Daughter In good health Social History Housing: Apartment Alcohol intake: current Alcohol intake frequency: holidays/special occasions only Alcohol type: wine and other Patient Tobacco Use Status: Never used Tobacco e-Cigarette/Vaping Use: Never Used Second Hand Smoke Exposure: No service: No Current occupational status: unemployed Cognitive needs: No Hearing needs: No Vision needs: Yes (Glasses) Female Reproductive History Menstrual Age of Menarche: 14 Review of Systems Const Details: Review of Systems Constitutional: Denies fever, chills, weight loss ENT: Denies vision changes, eye pain or eye redness, dental caries, dry mouth GI: Denies nausea, vomiting, diarrhea, abdominal pain, change in BM Pulm: Denies SOB, URBINA, hemoptysis, wheezing Cards: Denies chest pain, palpitations Skin: Denies Raynaud's, rash, nail changes, photosensitivity, CLOTH PRINTING UTILITY WORKER: Denies headaches, weakness, recurrent falls MSK: as per HPI All other systems reviewed and are unremarkable except noted above Physical Exam Exam Exam: Vital signs reviewed Physical Examination CONSTITUITIONAL Patient alert and cooperative. Well appearing and in no apparent painful distress MSK Hands Right Hand: Able to make a fist. No swelling or tenderness to palpation of the MCPs, PIPs or DIPs. Left Hand: Able to make a fist. No swelling or tenderness to palpation of the MCPs, PIPs or DIPs. Negative Tinnels test Wrists Right Wrist: Full ROM to flexion and extension. No swelling or TTP Left Wrist: Full ROM to flexion and extension. No swelling or TTP Elbows Right Elbow: Full ROM. No swelling or TTP. No TTP of the medial epicondyle. No TTP of the lateral epicondyle Left Elbow: Full ROM. No swelling or TTP. No TTP of the medial epicondyle. No TTP of the lateral epicondyle Shoulders Right shoulder: No swelling noted. No TTP of the AC joint. No TTP of the subacromial bursa. No TTP of the posterior shoulder Left shoulder: No swelling noted. No TTP of the AC joint. No TTP of the subacromial bursa. No TTP of the posterior shoulder Knees Right knee: In brace. No swelling noted. TTP of the knee joint line. No TTP of pes anserine bursa Left knee: Full ROM. No swelling noted. No TTP of the knee joint line. No TTP of pes anserine bursa. Ankles Right ankle: Good ankle dorsiflexion and plantar flexion. No swelling. No TTP of the ankle joint Left ankle: Good ankle dorsiflexion and plantar flexion. No swelling. No TTP of the ankle joint Feet Right foot: Negative squeeze test Left foot: Negative squeeze test Tender points? Tenderness to palpation of the bilateral trapezius, supraspinatus, anterior costochondral junctions, bilateral suboccipital muscle insertions SKIN No rashes Vital Signs: Last Vital Signs Pulse 76 08/21/25 15:06 BP 134/80 08/21/25 15:06 Pulse Ox 97 08/21/25 15:06 Oxygen Delivery Method Room Air 08/21/25 15:06 BMI result Body Mass Index 35.4 Results Reviewed Results Reviewed: Laboratory Tests 09/03/23 06/23/25 10:06 12:40 WBC 9.0 RBC 4.26 Hgb 12.8 Hct 39.0 Plt Count 265 ESR 6 Sodium 139 Potassium 3.9 Chloride 109 H Carbon Dioxide 23 BUN 12 Creatinine 0.68 AST 22 ALT 16 Laboratory Tests 12/04/22 09/03/23 10:11 10:06 Rheumatoid Factor < 13.0 Cycl Citrul Peptide IgG <16 SS-A/Ro Antibody <1.0 NEG SS-B/La Antibody <1.0 NEG Sm (Muse) Antibody <1.0 NEG SM/TELLER SUPERVISOR IgG Antibody <1.0 NEG Scl-70 Scleroderma Ab <1.0 NEG Double Strand DNA Ab <1 Anti-ds DNA (Crithidia) Negative Centromere B Antibody <1.0 NEG Complement C3 140 Complement C4 40 MR Left Hand 06/2023 FINDINGS: Subcutaneous soft tissues: Normal. Muscles Ligaments and capsular structures: Normal. Bone/joints: Normal. Neurovascular structures: IMPRESSION: Normal MRI of the left hand. MR Right Knee 04/2025 Findings: Normal alignment without acute fracture or marrow infiltration. Small knee joint effusion with mild synovitis and questionable 3 mm posterior paramidline intra-articular body (series 8, image 60). Superficial fissure of the lateral patellar cartilage (series 8, image 8). Mild likely reactive edematous changes of the neighboring prefemoral fat pad. Subtle mild edematous changes in the suprapatellar fat pad. Mild proximal and distal patellar tendinosis. Intact quadriceps tendon. Mild prepatellar edema. Intact retinacula. Mild edematous changes in the deep anteromedial subcutaneous fat in the vicinity of the distal vastus medialis muscle. Neurovascular structures and muscle bulk are unremarkable. Mild adventitial bursitis deep to the distal iliotibial band. Query distal iliotibial band syndrome. Menisci, posterolateral and posteromedial corners, and MCL are unremarkable. Small contained Gill's cyst. Mild to moderate distal semimembranosus tendinosis. Partial thickness linear tear of the distal anterior ACL band measuring up to 1 x 9 mm (AP by ccdimensions) in the sagittal plane (series 10, image 14). PCL unremarkable. IMPRESSION: Query distal iliotibial band syndrome. Small knee joint effusion with mild synovitis and questionable 3 mm posterior paramidline intra-articular body. Partial thickness linear tear of the distal anterior ACL band. Assessment & Plan Assessment & Plan (1) Fibromyalgia: Code(s): M79.7 - Fibromyalgia Category: Medical Plan: #Fibromylagia Patient is a 40-year-old female here today for follow up. Has several complaints. Complaints consistent with fibromyalgia. Exam also consistent with fibromyalgia. Had a very long discussion with patient and family member present with her about the diagnosis of fibromyalgia and the limited treatment options that exist. Given her mild synovitis noted on her right knee MRI I think it warrants repeat checking of her RF and CCP. I do not at this time think she has rheumatoid arthritis or any underlying autoimmune disease that requires immunosuppression. She has tried and failed gabapentin, pregabalin. Not taking muscle relaxers. Recommended D- Ribose as a supplement which has been helpful for patient has been fibromyalgia. Not a candidate for naltrexone because she is currently on tramadol Plan - EMG upper extremity - D-Ribose 2800mg daily - Labs: RF, CCP - RTC 6 months Plan This is my first visit with the patient. I spent 45 minutes reviewing the record and labs, taking a history, examining the patient, explaining fibromyalgia, answering questions, discussing the treatment plan, ordering diagnostic work up and documenting in the medical record Orders: Orders NE electromyogram (EMG) Today G56.93 - Unspecified mononeuropathy of bilateral upper limbs, M79.7 - Fibromyalgia NE nerve conduction velocity Today G56.93 - Unspecified mononeuropathy of bilateral upper limbs, M79.7 - Fibromyalgia Cyclic Citrullinated Peptide Today M25.50 - Pain in unspecified joint Rheumatoid Factor Today M25.50 - Pain in unspecified joint Coding Level of Care Code Est Pt Level 5 (64413) Complex EM visit Add On G2211 Diagnoses Fibromyalgia M79.7
[2025-08-21 15:06] VITALS: BP 134/80; PULSE 76; O2SAT 97; BMI 35.4
--- OUTSIDE RECORDS SUMMARY | 2025-08-21 17:08 | XMS_ITS | Encounter Summary ---
Author Organization [facility] Address [address] [place] [address] Phone Care Team Providers Care Flower Picker Name Role Phone Unknown, Unknown Primary Care Provider Kenya donnelly Pcp, Unknown Primary Care Provider Dorothea Garcia MD Primary Care Provid er Reason for Visit * Reason Onset Date Comments Medication Refill 10/22/2024 Encounter Details Date Type Department Care Team (Late st Contact Info) Description 10/22/2024 Refill [facility] [place] [address] [place] [address] Cortney Coelho [address] [place] [address] [email or web address] Medication Refill Social History Tobacco Use [...] Care Team (Late st Contact Info) Description 09/08/2025 3:00 PM EST Office Visit [facility] [address] [place] [address] Nathalie Islas, [address] [address] [email or web address] documented as of this encounter Visit Diagnoses Not on filedocumented in this encounter Care Teams Flower Picker Relationship Specialty Start Date End Date Unknown, Unknown, MD PCP - General 07/14/24 12/14/24 Pcp, Unknown PCP - General 12/15/24 07/14/25 Dorothea Domínguez MD [address] [place] [address] PCP - General Internal Medicine 07/15/25 documented as of this encounter Additional Source Comments The information contained in this document represents components of the legal health record. It is not the complete legal health record.[facility]
--- OUTSIDE RECORDS SUMMARY | 2025-08-21 17:08 | XMS_ITS | Clinical Summary ---
Author Organization [facility] Address [address] [place] [address] Phone Care Team Providers Care Entry Level Receptionist Name Role Phone Dorothea Domínguez MD Primary [...] 2:30 PM EDT Office Visit [facility] [address] [place] [address] Nathalie Islas, WENDIE Dry eyes (Primary Dx); Unstable keratoconus of left eye; Keratoconus of right eye; Regular astigmatism of right eye 07/17/2025 Orders Only [facility] [address] [address] Nathalie Islas WENDIE 07/15/2025 Telephone [facility] [address] [place] [address] Unknown, Tiana, 07/07/2025 10:30 AM EDT [facility] [address] [place] [address] Nathalie Islas, OD Dry eyes (Primary Dx); Unstable keratoconus of left eye; Keratoconus of right eye 05/26/2025 Telephone [facility] [address] [place] [address] Nathalie Islas, OD from Last 3 Months [...] 3:00 PM EST Office Visit [facility] [place] [address] [place] [address] Nathalie Islas, OD [address] [place], [place] [id number] [email or web address] Health Maintenance Due Date Last Done Comments [...] topic Medical [place] [id number] [facility] MEDICARE REPLACEMENT [facility] MEDICARE PART A & [place] [id number] [facility] MEDIC[facility] REPLACEMENT [facility] MEDICARE PART A & [place] [id number] [facility]PLACEMENT [facility] MEDICARE PART A [place] [id number] [facility]PLACEMENT [place] MEDICARE PART A & B [facility]PLACEMENT [place] MEDIC[place] PART A & [place] [address] [facility] MEDICARE REPLACEMENT [facility] MEDICARE PART A & B Care Teams Entry Level Receptionist Relationship Specialty Start Date End Date Dorothea Domínguez MD [address] [place] [address] PCP - General Internal Medicine 07/15/25 Additional Source Comments The information contained in this document represents components of the legal health record. It is not the complete legal health record.[facility]
--- OUTSIDE RECORDS SUMMARY | 2025-08-21 17:08 | XMS_ITS | Clinical Summary ---
Author Organization Patient Business Ser [facility] Address [address] [place] [address] Care Team Providers Care Machine Adjuster Leader Case Trim Name Role Phone Dorothea Carey MD Primary Care Provider [phone] Allergies No known active allergies Medications amitriptyline [...] Team Description 08/05/2025 1:30 PM EDT Treatment [address] [address] Brenda Sam, LUIS Other fracture of left lower leg, initial encounter for closed fracture (Primary Dx) 07/27/2025 2:30 PM EDT Treatment [address] [address] Brijesh Alvarado PTA Other fracture of left lower leg, initial encounter for closed fracture (Primary Dx) 07/22/2025 3:30 PM EDT Treatment [address] [address] Tato Donald PTA Other fracture of left lower leg, initial encounter for closed fracture (Primary Dx) 07/01/2025 3:30 PM EDT Treatment [address] [address] Donald, Tato J, NURSING HOME DIRECTOR Other fracture of left lower leg, initial encounter for closed fracture (Primary Dx) from Last 3 Months Surgical History Surgery Date Site/Laterality Comments ANKLE FRACTURE SURGERY Left PROCEDURE: [place] OPEN TREATMENT MEDIAL MALLEOLUS FRACTURE OTHER SURGICAL HISTORY Left PROCEDURE: [place] ARTHRS WRST EXC&/RPR TRIANG FIBROCART&/JOINT Social History [...] Info) Description 08/25/2025 4:00 PM EDT Treatment [address] [address] Reed Price, NURSING HOME DIRECTOR 08/27/2025 3:30 PM EDT Treatment [address] [address] Reed Price, NURSING HOME DIRECTOR 09/03/2025 4:00 PM EDT Treatment [address] [address] Brenda Sam, LUIS Health Maintenance Due Date [...] UPON REACH MET 10/13 #4 IMPROVE LEFT CORRESPONDENCE REPRESENTATIVE FROM 40 TO 60 POUNDS = 75 [...] - met Insurance MEDICARE MEDICAID - [facility] MEDICARE Care Teams Machine Adjuster Leader Case Trim Relationship Specialty Start Date End Date Dorothea Caery MD [address] [facility] [address] [facility] D/B/A: [facility] RUBIN [place] PCP - General Internal Medicine 08/15/21
--- OUTSIDE RECORDS SUMMARY | 2025-08-21 17:08 | XMS_ITS | Encounter Summary ---
Author Organization [facility] Address [address] [place] [address] Phone Care Team Providers Care Sustainability Consultant Name Role Phone Pcp, Unknown Primary Care Provider Unavailabl e Dorothea Domínguez MD Primary Care Provid er Encounter Details Date Type Department Care Team (Late st Contact Info) Description 05/26/2025 Telephone [facility] [address] [facility] [address] [place] [address] Nathalie Islas, OD [address] [place] [address] [email or web address] Social History Tobacco Use Types Packs/Day [...] 3:00 PM EST Office Visit [facility] [place] [address] [place] [address] Nathalie Islas, WENDIE [address] [place] [address] [email or web address] documented as of this encounter Visit Diagnoses Not on filedocumented in this encounter Care Teams Sustainability Consultant Relationship Specialty Start Date End Date Pcp, Unknown PCP - General 12/15/24 07/14/25 Dorothea Domínguez MD [address] [place] [address] PCP - General Internal Medicine 07/15/25 documented as of this encounter Additional Source Comments The information contained in this document represents components of the legal health record. It is not the complete legal health record.[facility]
--- OUTSIDE RECORDS SUMMARY | 2025-08-21 17:09 | XMS_ITS | Encounter Summary ---
Author Organization [facility] Address [address] [place] [address] Phone Care Team Providers Care Mangle Tender Name Role Phone Dorothea Domínguez MD Primary Care Provid er Encounter Details Date Type Department Care Team (Late st Contact Info) Description 07/15/2025 Telephone [facility] [address] [place] [address] Unknown, Unknown, Social History Tobacco Use Types [...] 3:00 PM EST Office Visit [facility] [place] [address] [place] [address] Nathalie Islas, OD [address] [place] [address] [email or web address] documented as of this encounter Visit Diagnoses Not on filedocumented in this encounter Care Teams Mangle Tender Relationship Specialty Start Date End Date Dorothea Domínguez MD [address] [place] [address] PCP - General Internal Medicine 07/15/25 documented as of this encounter Additional Source Comments The information contained in this document represents components of the legal health record. It is not the complete legal health record.[facility]
== END 2025-08-21 15:58 | disposition home or self-care (01) ==
LOC: HO.RHES 14:39
PROVIDERS: PCP Internal Medicine; Visit Provider Student in an Organized Health Care Education/Training Program
DX: M79.7 Fibromyalgia (principal)
CPT/HCPCS: 99215; G2211

== ENCOUNTER 2025-08-21 14:38 | Outpatient (REF) | payer MEDICARE, MEDICAID, SELFPAY | END 2025-08-21 14:39 | disposition home or self-care (01) | LOC: HO.HKASLDS 14:38 | PROVIDERS: PCP Internal Medicine; Visit Provider Student in an Organized Health Care Education/Training Program | DX: M79.7 Fibromyalgia (principal); M25.50 Pain in unspecified joint | CPT/HCPCS: 36415; 86200; 86431; 99212 ==

== ENCOUNTER → 2025-08-28 18:44 | Outpatient (BNV) | payer MEDICARE, MEDICAID, SELFPAY | PROVIDERS: PCP Internal Medicine; Visit Provider Radiology Diagnostic Radiology | DX: M54.6 Pain in thoracic spine (principal); K76.9 Liver disease, unspecified | CPT/HCPCS: 72146 ==

== ENCOUNTER 2025-08-28 18:45 | Outpatient (REF) | payer MEDICARE, MEDICAID, SELFPAY ==
--- OUTSIDE RECORDS SUMMARY | 2024-09-01 15:00 | XMS_ITS | Encounter Summary ---
Author Organization [facility] Address [address] [place] [address] Care Team Providers Care Record Maker Name Role Phone Dorothea Carey MD Primary Care Provider [phone] Encounter Details Date Type Department Care Team (Late st Contact Info) Description 09/01/2024 3:00 PM EDT Hospital Encounter TH HISTORIC ENCOUNTERS [facility] ONLY Nichelle De La O MD [address] [place] [phone] Social History Tobacco Use Types Packs/Day [...] Info) Description 09/03/2025 4:00 PM EDT Treatment [address] [phone] Brenda Sam PT documented as of this [...] UPON REACH MET 10/13 #4 IMPROVE LEFT VARNISHING MACHINE OPERATOR FROM 40 TO 60 POUNDS = 75 [...] on filedocumented in this encounter Care Teams Record Maker Relationship Specialty Start Date End Date Dorothea Carey MD [address] [place] [address] , [address] [facility] Physician Associ D/B/A: [facility] In Internal Medicine RUBIN Rowley PCP - General Internal Medicine 08/15/21 documented as of this encounter
--- OUTSIDE RECORDS SUMMARY | 2025-08-25 16:00 | XMS_ITS | Encounter Summary ---
Author Organization [facility] Address [address] [place] [address] Care Team Providers Care Mortgage Advisor Name Role Phone Dorothea Carey MD Primary Care Provider [phone] Reason for Visit * Consultation (Routine) - Authorized Specialty Diagnoses / Procedures Referred By Contviviana t Referred To Contact Physical Therapy Diagnoses Other fracture of left lower leg, initial encounter for closed fracture Sara Montoya, BRENT [address] [place] [address] Phone: tel: fax: Referral ID Status Reason Start Date Expiration Date Visits Requested Visits Authorized [id number] Authorized Specialty Services Required 05/28/2025 05/28/2026 12 12 Encounter Details Date Type Department Care Team (Late st Contact Info) Description 08/25/2025 4:00 PM EDT Treatment [facility] Outpatient [facility] [address] [place] [address] Reed Price, COMMUTER PILOT Pain in left ankle and joints of [...] as of this encounter Progress Notes * Reed Price PTA - 08/25/2025 4:00 PM EDT [facility] - Outpatient PHYSICAL THERAPY DAILY TREATMENT NOTE - OP Date: 08/25/2025 Visit Number: 5 Patient Name: Liliya Aguirre : 1985 Age: 40 y.o. Gender: female Diagnosis: ICD-10-CM ICD-9-CM 1. Pain in left ankle and joints of left foot M25.572 719.47 Date of Onset/Surgery: 06/26/2025 Referring Provider: Sara Montoya PA Insurance: Payor: [employer] MEDICARE / Plan: AARP MEDICARE COMPLETE / Product Type: *No Product type* / Patient Identified by: Reed Priec PTA Language: Vietnamese Medications: Current Outpatient Medications on File Prior to Visit Medication Sig Dispense Refill amitriptyline (ELAVIL) 10 mg tablet Take 1 tablet (10 mg total) by mouth at bedtime. cyclobenzaprine (FLEXERIL) 10 mg tablet TAKE 1 TABLET BY MOUTH EVERY DAY AT BEDTIME NEEDED FOR MUSLCE SPASM No current facility-administered medications on file prior to visit. Allergies: has no known allergies. Precautions: none Fall risk: No SUBJECTIVE Subjective Report: left ankle sore with a lot of dorsiflexion Chart Reviewed: Yes Pain 4/10 left ankle TREATMENT INTERVENTION: Nu step x 5 min lv 5 Slant board 3 x 20 sec hold Wobblw board DF/PF/EV/INV x 20 each Anterior lunge onto bosu ball x 15 (B) Heel/toe raises x 20 5 SEC HOLDS MRE ankle df/evr/inv x20 ea SIT-STANDS X10 ASSESSMENT/Response to Treatment Good progress as able Patient Education: Education provided: Yes Education Provided To: Patient utilizing Demonstration mode(s) of education Response to Education: Verbal Understanding PLAN POC Development/Review: No Change in the Plan of Care; Participants: Patient Total Treatment Time: 30 Therapeutic procedures: Therapeutic Exercise Time Entry: 30 Documentation completed by Reed Price PTA documented in this encounter Plan of Treatment Upcoming Encounters Date Type Department Care Team (Late st Contact Info) Description 09/03/2025 4:00 PM EDT Treatment [facility] [address] [address] Brenda Sam, PT documented as of [...] UPON REACH MET 10/13 #4 IMPROVE LEFT TRAINING EXECUTIVE FROM 40 TO 60 POUNDS = 75 [...] Primary documented in this encounter Care Teams Mortgage Advisor Relationship Specialty Start Date End Date Dorothea Carey MD [address] [place] [address] , [address] [facility] Physician Associ D/B/A: [facility] [place] PCP - General Internal Medicine 08/15/21 documented as of this encounter
--- NOTE | ~2025-08-28 | MR_ITS ---
EXAMINATION: MR THORACIC SPINE WITHOUT CONTRAST CLINICAL INFORMATION: M 54.6. Pain in thoracic spine. COMPARISON: None available. TECHNIQUE: MRI of the thoracic spine was obtained using routine sequences without contrast. FINDINGS: No bone marrow STIR signal abnormality. Normal alignment. No gross volume loss of the vertebral bodies. Thoracic spinal cord caliber and signal is normal. No central spinal canal stenosis or cord compression from T1 to T12. Conus medullaris demonstrates normal signal and and sent intervertebral disc T12-L1. There is a 9.7 mm fluid signal characteristic ovoid shaped signal in the left anterior lateral prevertebral compartment of T6 level only seen on the sagittal sequences. There is a 9 mm fluid signal characteristic lesion in the periphery of the posterior right hepatic lobe. The descending thoracic aorta and suprarenal abdominal aorta demonstrates normal diameter. MR/MR thoracic spine wo con IMPRESSION: No acute fracture or listhesis. No cord compression, herniated disc, cord edema and or myelopathy. Subcentimeter cystic lesion, right hepatic lobe. Electronically signed by: Terence Pritchard MD 08/31/2025 09:01 AM EDT
--- OUTSIDE RECORDS SUMMARY | 2025-08-28 19:18 | XMS_ITS | Encounter Summary ---
Author Organization [facility] Address [address] [place] [address] Phone Care Team Providers Care Auto Winder Name Role Phone Dorothea Domínguez MD Primary Care Provid er Encounter Details Date Type Department Care Team (Late st Contact Info) Description 07/15/2025 Telephone [facility] [address] [place] [address] Unknown, Unknown, Social History Tobacco Use Types [...] OPTOMET[facility] [place] [address] [place] [address] Nathalie Islas, OD [address] [place] [phone] [email or web address] documented as of this encounter Visit Diagnoses Not on filedocumented in this encounter Care Teams Auto Winder Relationship Specialty Start Date End Date Dorothea Domínguez MD [address] [place] [address] PCP - General Internal Medicine 07/15/25 documented as of this encounter Additional Source Comments The information contained in this document represents components of the legal health record. It is not the complete legal health record.[facility]
--- OUTSIDE RECORDS SUMMARY | 2025-08-28 19:18 | XMS_ITS | Clinical Summary ---
Author Organization Patient Business Ser [facility] Address [address] [place] [address] Care Team Providers Care Optometry Assistant Name Role Phone Dorothea Carey MD Primary Care Provider [phone] Allergies No known active allergies Medications amitriptyline [...] Encounters Date Type Department Care Team Description 08/25/2025 4:00 PM EDT Treatment [address] [phone] Reed Price, ANNEALING FURNACE OPERATOR Pain in left ankle and joints of left foot (Primary Dx) 08/05/2025 1:30 PM EDT Treatment [address] [address] Brenda Sam, PT Other fracture of left lower leg, initial encounter for closed fracture (Primary Dx) 07/27/2025 2:30 PM EDT Treatment [facility] [address] [address] Brijesh Alvarado, ANNEALING FURNACE OPERATOR Other fracture of left lower leg, initial encounter for closed fracture (Primary Dx) 07/22/2025 3:30 PM EDT Treatment [facility] [address] [address] Tato Donald, ANNEALING FURNACE OPERATOR Other fracture of left lower leg, initial encounter for closed fracture (Primary Dx) 07/01/2025 3:30 PM EDT Treatment [address] [phone] Tato Donald PTA Other fracture of left lower leg, initial encounter for closed fracture (Primary Dx) from Last 3 Months Surgical History Surgery Date Site/Laterality Comments ANKLE FRACTURE SURGERY Left PROCEDURE: LA OPEN TREATMENT MEDIAL MALLEOLUS FRACTURE OTHER SURGICAL HISTORY Left PROCEDURE: [place] ARTHRS WRST EXC&/RPR TRIANG FIBROCART&/JOINT Social History [...] Info) Description 09/03/2025 4:00 PM EDT Treatment [address] [phone] Brenda Sam, PT Health Maintenance Due Date [...] 2025 06/10/2021, 05/13/2021 Influenza Vaccine (#1) 2025 2, 10/09/2019, 09/25/2018 DTaP,Tdap,and Td Vaccines (2 - [...] UPON REACH MET 10/13 #4 IMPROVE LEFT JIGMAKER FROM 40 TO 60 POUNDS = 75 [...] - met Insurance MEDICARE MEDICAID - [place] [facility] MEDICARE Care Teams Optometry Assistant Relationship Specialty Start Date End Date Dorothea Carey MD 2 [facility] , [address] Physician Associ D/B/A: [place] Lopezatimiguel angel In Internal Medicine RUBIN Rowley PCP - General Internal Medicine 08/15/21
--- OUTSIDE RECORDS SUMMARY | 2025-08-28 19:18 | XMS_ITS | Clinical Summary ---
Author Organization [facility] Address [address] [facility] [address] [address] [place] [address] Phone Care Team Providers Care Survey Analyst Name Role Phone Dorothea Domínguez MD Primary [...] 2:30 PM EDT Office Visit [facility] [address] [place] [address] Nathalie Islas, WENDIE Dry eyes (Primary Dx); Unstable keratoconus of left eye; Keratoconus of right eye; Regular astigmatism of right eye 07/17/2025 Orders Only [facility] [address] [address] Nathalie Islas OD 07/15/2025 [facility] [address] [place] [address] Unknown, Tiana, 07/07/2025 10:30 AM EDT Office Visit [facility] [place] [address] [place] [address] Nathalie Islas OD Dry eyes (Primary Dx); Unstable keratoconus of left eye; Keratoconus of right eye from Last 3 Months Social History Tobacco [...] 3:00 PM EST [facility] [address] [place] [address] Nathalie Islas OD [address] [place], [place] [id number] [email or web address] Health Maintenance Due Date Last Done [...] topic Medical [place] [id number] [facility] MEDICARE [facility]PLACEMENT [facility] MEDICARE PART A & [place] [address] [facility] MEDICARE PART A & [place] [address] [facility] REPLACEMENT [place] MEDICARE PART A & B [facility] PART A & B RUBIN [place] [id number] [facility] [place]ICARE PART A & B RUBIN [place] [id number] [facility] MEDICARE RE[facility]EMENT [facility] MEDICARE PART A & B Care Teams Survey Analyst Relationship Specialty Start Date End Date Dorothea Domínguez MD [address] [place] [address] PCP - General Internal Medicine 07/15/25 Additional Source Comments The information contained in this document represents components of the legal health record. It is not the complete legal health record.[facility]
--- OUTSIDE RECORDS SUMMARY | 2025-08-28 19:18 | XMS_ITS | Encounter Summary ---
Author Organization [facility] Address [address] [place] [address] Phone Care Team Providers Care Insole Tape Stitcher Uco Name Role Phone Pcp, Unknown Primary Care Provider Unavailabl e Dorothea Domínguez MD Primary Care Provid er Encounter Details Date Type Department Care Team (Late st Contact Info) Description 05/26/2025 Telephone [facility] [address] [facility] [address] [place] [address] Nathalie Islas, OD [address] [place] [address] [email or web address] Social History Tobacco Use Types Packs/Day Years [...] 3:00 PM EST Office Visit [facility] [address] [place] [address] Nathalie Islas, WENDIE [address] [place] [id number] [email or web address] documented as of this encounter Visit Diagnoses Not on filedocumented in this encounter Care Teams Insole Tape Stitcher Uco Relationship Specialty Start Date End Date Pcp, Unknown PCP - General 12/15/24 07/14/25 Dorothea Domínguez MD [address] [place] [address] PCP - General Internal Medicine 07/15/25 documented as of this encounter Additional Source Comments The information contained in this document represents components of the legal health record. It is not the complete legal health record.[facility]
--- OUTSIDE RECORDS SUMMARY | 2025-08-28 19:18 | XMS_ITS | Encounter Summary ---
Author Organization [facility] Address [address] [place] [address] Phone Care Team Providers Care Store Product Demonstrator Name Role Phone Unknown, Unknown Primary Care Provider Kenya donnelly Pcp, Unknown Primary Care Provider Dorothea Garcia MD Primary Care Provid er Reason for Visit * Reason Onset Date Comments Medication Refill 10/22/2024 Encounter Details Date Type Department Care Team (Late st Contact Info) Description 10/22/2024 Refill [facility] [place] [address] [place] [address] Cortney Coelho I [address] [place] [address] [email or web address] Medication Refill Social History Tobacco [...] 3:00 PM EST Office Visit [facility] [place] [address] [facility] [address] [place] [address] Nathalie Islas, [address] [address] [email or web address] documented as of this encounter Visit Diagnoses Not on filedocumented in this encounter Care Teams Store Product Demonstrator Relationship Specialty Start Date End Date Unknown, Unknown, MD PCP - General 07/14/24 12/14/24 Pcp, Unknown PCP - General 12/15/24 07/14/25 Dorothea Domínguez MD [address] [place] [id number] PCP - General Internal Medicine 07/15/25 documented as of this encounter Additional Source Comments The information contained in this document represents components of the legal health record. It is not the complete legal health record.[facility]
== END 2025-08-28 18:46 | disposition home or self-care (01) ==
LOC: HO.MRI 18:45
PROVIDERS: PCP Internal Medicine; Visit Provider Nurse Practitioner Family
DX: M54.6 Pain in thoracic spine (principal); M47.815 Spondylosis without myelopathy or radiculopathy, thoracolumbar region; M54.14 Radiculopathy, thoracic region
CPT/HCPCS: 72146

== ENCOUNTER 2025-09-03 08:01 | Outpatient (AMB) | payer MEDICARE, MEDICAID, SELFPAY ==
--- OUTSIDE RECORDS SUMMARY | 2024-09-01 15:00 | XMS_ITS | Encounter Summary ---
Author Organization [facility] Address [address] [place] [address] Care Team Providers Care Crown Attacher Name Role Phone Dorothea Carey MD Primary Care Provider [phone] Encounter Details Date Type Department Care Team (Late st Contact Info) Description 09/01/2024 3:00 PM EDT Hospital Encounter TH HISTORIC ENCOUNTERS [facility] ONLY Nichelle De La O MD [address] [place] [phone] Social History Tobacco Use Types Packs/Day [...] Encounters Date Type Department Care Team (Late Contact Info) Description 09/03/2025 4:00 PM EDT Treatment [address] [address] Brenda Sam PT documented as of this encounter Goals Goal Patient Goal Type Associated Problems Recent Progress Patient-Stated? Author <enter goal here> General On track( 024 3:25 PM EST) Yes Brenda Arechiga, OT Note: I AM WEAK STGS 6 VISITS General On track( 024 3:25 PM EST) No Brenda Arechiga, OT Note: #1 IMPROVE LEFT SUPINATION FROM 45 TO 60 DEGREES TO RECEIVE ITEMS INTO PALM MET 10/13 #2 IMPROVE LEFT WRIST EXTENSION FROM 45 TO 60 DEGREES WITH GOOD STRENGTH TO WEIGHTBEAR MET 10/13 #3 IMPROVE LEFT THUMB EXTENSION FROM 45 TO 55 DEGREES UPON REACH MET 10/13 #4 IMPROVE LEFT DAIRY LAB TECHNICIAN FROM 40 TO 60 POUNDS = 75 [...] on filedocumented in this encounter Care Teams Crown Attacher Relationship Specialty Start Date End Date Dorothea Carey MD [address] [place] [address] , [address] [facility] D/B/A: [facility] RUBIN Rowley PCP - General Internal Medicine 08/15/21 documented as of this encounter
--- NOTE | 2025-09-03 08:02 | MHC.OFFVIS ---
Vital Signs 09/03/25 08:07 Height 5 ft 4 in Weight 206 lb BMI 35.4 BP 174/99 H Blood Pressure Location Lt brachial Position Sitting Pulse 68 Pulse Source Pulse Oximeter Pulse Oximetry (%) 99 Oxygen Delivery Method Room Air Intake Visit Reasons: MRI FOLLOW UP Intake Note: Pain today 0/10 Inseamer Required: Yes Inseamer Name: Krunal #[id number] Thai# [id number] Information Interpreted: non-clinical & clinical Accompanied by: Self / Same As Patient Allergies shrimp Allergy (Verified 09/03/25 08:08) Anaphylaxis tizanidine Adverse Reaction (Intermediate, Verified 09/03/25 08:08) Chest Pain HPI Comments Details: The patient is a 40-year-old female presenting with a review of MRI results related to pain management. The MRI of the thoracic spine was performed to investigate chronic upper back pain, and the results were normal, indicating no nerve impingement. An incidental finding from the MRI revealed a 9.7 mm cystic lesion on the right hepatic lobe. The patient was advised to follow up with her primary care physician for further evaluation, which may include additional testing or referral to a protective officer. The patient reports experiencing pain in the upper abdomen, particularly around the rib cages on both sides, which interferes with her ability to sleep on her stomach. She also notes that the pain is exacerbated by cold weather and is associated with her fibromyalgia diagnosis. Denies any recent cough, cold, infection, fever, nausea, vomiting, bleeding or any significant changes in medical history since last office visit. - Onset and Timing: Pain is present in the upper abdomen, particularly around the rib cages. - Quality and Character: Pain is exacerbated by cold weather and is associated with fibromyalgia. - Primary Location: Upper abdomen, around the rib cages. - Interference: Pain interferes with the ability to sleep on the stomach. - Affect: Pain impacts the patient's ability to sleep and is exacerbated by cold weather. - Analgesia: NSAIDs and muscle relaxants provide minimal relief - Adverse Effects: No adverse effects from pain medications reported. - Activities of Daily Living: Pain interferes with sleeping positions. - Aberrant Drug Related Behaviors: No aberrant behaviors reported. PRIOR: The patient is a 40-year-old female presenting with chronic pain management concerns, primarily involving the sacroiliac joint and mid back regions. She has previously undergone diagnostic sacroiliac joint injections, which initially provided complete pain relief but most recent therapeutic injections only resulted in 50% relief with ongoing symptoms of radiating back pain into her posterior and anterior lower extremities. The patient also reports mid back pain, for which diagnostic medial branch block injections were performed at the T9, T10, and T11 levels, targeting the most painful areas. The mid back pain was initially relieved by diagnostic injections, but the relief was mild and short-lived, lasting only six hours. The patient was advised to remain active post-injection to assess the effectiveness of the procedure, but significant pain persisted, indicating limited benefit from the injections. Patient reports her mid back pain radiates into her flanks and into her ribcage and upper abdomen, right worse than left side. Pain is constant and described as tightness, pulling, radiating, burning and aching. Additionally, the patient has a history of sciatica, for which previous interventions provided no significant pain relief. Denies any recent cough, cold, infection, fever, chest pain or pressure, dizziness, shortness of breaths, abdominal, hip or groin pain or any significant changes in medical history since last office visit. - Affect: Pain significantly impacts daily activities, sleep and mood, causing distress. - Analgesia: Current medications include Tylenol, Celebrex, and tramadol, with limited pain relief reported. - Adverse Effects: Reports of temporary dizziness and numbness post-injection. - Activities of Daily Living: Pain interferes with daily tasks, requiring modifications to routine activities. - Aberrant Drug Related Behaviors: No aberrant behaviors reported. Past Procedures: 08/11/25: Bilateral Diagnostic T9-T10-T11 MBB-40% pain relief 07/14/25: Bilateral Therapeutic SIJ injections-50% pain relief 05/12/25: Right hip intra-articular steroid injection-90% pain relief 02/24/25: Left hip intra-articular steroid [id number]-78-44% pain relief 08/15/24: Bilateral L5-S1 TFESI injection-0% pain relief 01/29/24: Bilateral Diagnostic L3 L4 DR L5 MBB-0% pain relief 11/06/23: Bilateral Diagnostic SIJ injections-100% ongoing pain relief PRIOR: Patient is a pleasant 38 year old Maltese speaking female with history of fibromyalgia, arthritis, polyarthralgia and chronic neck, thoracic and lumbar pain presents today for initial evaluation for chronic mid and low back pain. She was followed by [facility] up until 09/13/2023. Patient was also seen by [facility] for back and hip pain. She reports upcoming surgery for neurogenic thoracic outlet syndrome with Dr. Meyers at [facility] early next year. Patient was also seen at [facility] for ankle pain, by Dr. De La O for hand pain and by Rheumatology for hand pain. Patient was referred to us by Dr. Natarajan at [facility] Physiatry for low back pain. She had underwent bilateral L3-L4-L5 medial branch blocks and interlaminar epidural injections at L5-S1 and completed physical and chiropractic therapies without much relief at [facility]. Patient reports back pain that radiates upward to her upper thoracic, between shoulder blades and down into her sacral regions bilaterally but not into her lower extremities. Patient also reports widespread body pain with multiple tender points of upper and lower extremities and torso which is consistent with fibromyalgia. Patient has been managing amitriptyline and Lyrica, and also tried gabapentin without relief. Per Physiatry notes, MRI 06/05/2022 reported no significant spinal stenosis, spondylosis L4-5 and L5-S1. EMG reported to be normal lower extremity. Pain negatively affects her daily functioning, mood, sleep and quality of life. Patient denies any fever, weight loss, abdominal or groin pain, weakness, bladder or bowel dysfunction or saddle anesthesia. Location Chronic pain in lower back and sacral, between shoulder blades, mid back Duration Chronic pain for > 3 years Characteristics of symptom or complaint Aching, spasms, numbness, tingling, dull, shooting, pulling, radiating Aggravating or associated factors Movements, walking, standing, cold weather Relieving factors Sitting, resting, heat therapy, Gabapentin/Lyrica, Ibuprofen, lidocaine Treatment PT, injections at [facility], chiropractic therapy-minimal relief [facility] Medical History Left otitis media Polyarthralgia Fibromyalgia High blood pressure Rash Lumbar pain Obese Surgical History H/O eye surgery S/P tendon repair History of local excision of skin lesion (08/03/22) S/P ligament repair History of hand surgery History of tubal ligation Family History Father No problems noted. Mother Diabetes Hypertension Paternal Aunt Breast cancer Family/Other Chronic mental illness Brother No problems noted. Brother No problems noted. Brother No problems noted. Sister No problems noted. Sister No problems noted. Son In good health Daughter In good health Social History Housing: Apartment Alcohol intake: current Alcohol intake frequency: holidays/special occasions only Alcohol type: wine and other Patient Tobacco Use Status: Never used Tobacco e-Cigarette/Vaping Use: Never Used Second Hand Smoke Exposure: No service: No Current occupational status: unemployed Cognitive needs: No Hearing needs: No Vision needs: Yes (Glasses) Female Reproductive History Menstrual Age of Menarche: 14 Review of Systems Const All systems reviewed & are unremarkable except as noted in HPI and below Physical Exam Vital Signs: Last Vital Signs Pulse 68 09/03/25 08:07 BP 174/99 H 09/03/25 08:07 Pulse Ox 99 09/03/25 08:07 Oxygen Delivery Method Room Air 09/03/25 08:07 BMI result Body Mass Index 35.4 General: Appears afebrile. No acute distress. Alert and oriented. Mood and affect appropriate. Follows and participates in conversation appropriately. Respiratory effort is unlabored. No cough. Able to transition from sit to stand unassisted. Ambulates with bilaterally normal heel strike and toe off. GI Inspection: Yes normal to inspection and Yes obesity Palpation (GI): Soft to palpation, Tenderness to palpation present (GI) in the LUQ and in the RUQ and no guarding General: Yes no CVA tenderness Back/Spine/Pelvis Other: Limited thoracolumbar ROM due to pain. Lumbar extension and flexion reproduces mild pain. Multiple widespread TTPs 16/16 bilaterally, including upper and lower extremities. Back: no CVA tenderness Cervical Spine: cervical ROM normal and No Cervical spine tenderness Thoracic/Lumbar Spine: thoracic and lumbar spine normal to inspection, No Thoracic/lumbar spine scar(s), Lasegue's sign negative, straight leg raise negative bilaterally, pain with thoraco-lumbar ROM, paraspinal muscle tenderness, thoraco-lumbar ROM limited, No thoracic spinal tenderness and No lumbar spinal tenderness Sacroiliac joints: bilaterally tender to palpation (mild TTP) Extrem General: Yes capillary refill normal, Yes no clubbing, cyanosis or edema and Yes no calf tenderness Results Reviewed Results Reviewed: MR THORACIC SPINE WITHOUT CONTRAST 08/28/25 CLINICAL INFORMATION: M 54.6. Pain in thoracic spine. COMPARISON: None available. TECHNIQUE: MRI of the thoracic spine was obtained using routine sequences without contrast. FINDINGS: No bone marrow STIR signal abnormality. Normal alignment. No gross volume loss of the vertebral bodies. Thoracic spinal cord caliber and signal is normal. No central spinal canal stenosis or cord compression from T1 to T12. Conus medullaris demonstrates normal signal and and sent intervertebral disc T12-L1. There is a 9.7 mm fluid signal characteristic ovoid shaped signal in the left anterior lateral prevertebral compartment of T6 level only seen on the sagittal sequences. There is a 9 mm fluid signal characteristic lesion in the periphery of the posterior right hepatic lobe. The descending thoracic aorta and suprarenal abdominal aorta demonstrates normal diameter. IMPRESSION: No acute fracture or listhesis. No cord compression, herniated disc, cord edema and or myelopathy. Subcentimeter cystic lesion, right hepatic lobe. Assessment & Plan Assessment & Plan (1) Liver lesion, right lobe: Code(s): K76.9 - Liver disease, unspecified Category: Medical (2) Bilateral upper abdominal pain: Code(s): R10.11 - Right upper quadrant pain; R10.12 - Left upper quadrant pain Category: Medical (3) Upper back pain: Code(s): M54.9 - Dorsalgia, unspecified Category: Medical (4) Thoracic spine pain: Code(s): M54.6 - Pain in thoracic spine Category: Medical (5) Muscle spasm of back: Code(s): M62.830 - Muscle spasm of back Category: Medical (6) Fibromyalgia: Code(s): M79.7 - Fibromyalgia Category: Medical Plan The patient was advised to follow up with her primary care physician regarding the incidental finding of a cystic lesion of right hepatic lobe. Otherwise, thoracic MRI were normal, no neural impingement. Patient had minimal pain relief with diagnostic thoracic MBBs. Further evaluation may include additional testing or referral to a protective officer for specialized care. GI referral placed per patient request. All questions and concerns have been answered and patient agreed with the treatment plan. Follow up as needed. Patient was informed and verbally consented to the use of an ambient scribe for clinic note documentation during this visit. Orders: Referrals Gastroenterology Referral K76.9 - Liver disease, unspecified, R10.11 - Right upper quadrant pain, R10.12 - Left upper quadrant pain Coding Level of Care Code Est Pt Level 4 (31576) Complex EM visit Add On G2211 Diagnoses Liver lesion, right lobe K76.9 Bilateral upper abdominal pain R10.11; R10.12 Upper back pain M54.9 Thoracic spine pain M54.6 Muscle spasm of back M62.830 Fibromyalgia M79.7
[2025-09-03 08:07] VITALS: BP 174/99; PULSE 68; O2SAT 99; BMI 35.4
--- OUTSIDE RECORDS SUMMARY | 2025-09-03 08:11 | XMS_ITS | Encounter Summary ---
Author Organization [facility] Address [address] [place] [address] Phone Care Team Providers Care A&P Technician Name Role Phone Unknown, Unknown Primary Care Provider Kenya donnelly Pcp, Unknown Primary Care Provider Dorothea Garcia MD Primary Care Provid er Reason for Visit * Reason Onset Date Comments Medication Refill 10/22/2024 Encounter Details Date Type Department Care Team (Late st Contact Info) Description 10/22/2024 Refill [facility] [place] [address] [place] [address] Cortney Coelho [address] [place] [address] [email or web address] [email or web address] Medication Refill Social History Tobacco [...] 3:00 PM EST Office Visit [facility] [place] [address] [facility] [address] [place] [address] Nathalie Islas, [address] [address] [email or web address] documented as of this encounter Visit Diagnoses Not on filedocumented in this encounter Care Teams A&P Technician Relationship Specialty Start Date End Date Unknown, Unknown, MD PCP - General 07/14/24 12/14/24 Pcp, Unknown PCP - General 12/15/24 07/14/25 Dorothea Domínguez MD [address] [place] [id number] PCP - General Internal Medicine 07/15/25 documented as of this encounter Additional Source Comments The information contained in this document represents components of the legal health record. It is not the complete legal health record.[facility]
--- OUTSIDE RECORDS SUMMARY | 2025-09-03 08:12 | XMS_ITS | Encounter Summary ---
Author Organization [facility] Address [address] [place] [address] Phone Care Team Providers Care Mat Gauger Name Role Phone Dorothea Domínguez MD Primary Care Provid er Encounter Details Date Type Department Care Team (Late st Contact Info) Description 07/15/2025 Telephone [facility] [place] [address] [place] [address] Unknown, Unknown, Social History Tobacco Use Types [...] [facility] [place] [address] [place] [address] Nathalie Islas, OD [address] [place] [address] [email or web address] documented as of this encounter Visit Diagnoses Not on filedocumented in this encounter Care Teams Mat Gauger Relationship Specialty Start Date End Date Dorothea Domínguez MD [address] [place] [address] PCP - General Internal Medicine 07/15/25 documented as of this encounter Additional Source Comments The information contained in this document represents components of the legal health record. It is not the complete legal health record.[facility]
--- OUTSIDE RECORDS SUMMARY | 2025-09-03 08:12 | XMS_ITS | Clinical Summary ---
Author Organization [facility] Address [address] [place] [address] Care Team Providers Care Staffing Rn Name Role Phone Dorothea Carey MD Primary Care Provider [phone] Allergies No known active allergies Medications amitriptyline [...] Team Description 08/25/2025 4:00 PM EDT Treatment [address] [address] Reed Price, SHACTOR Pain in left ankle and joints of left foot (Primary Dx) 08/05/2025 1:30 PM EDT Treatment [address] [address] Brenda Sam, PT Other fracture of left lower leg, initial encounter for closed fracture (Primary Dx) 07/27/2025 2:30 PM EDT Treatment [facility] [address] [address] Brijesh Alvarado, SHACTOR Other fracture of left lower leg, initial encounter for closed fracture (Primary Dx) 07/22/2025 3:30 PM EDT Treatment [facility] [address] [address] Tato Donald, SHACTOR Other fracture of left lower leg, initial encounter for closed fracture (Primary Dx) 07/01/2025 3:30 PM EDT Treatment [address] [phone] Tato Donald PTA Other fracture of left lower leg, initial encounter for closed fracture (Primary Dx) from Last 3 Months Surgical History Surgery Date Site/Laterality Comments ANKLE FRACTURE SURGERY Left PROCEDURE: [place] OPEN TREATMENT MEDIAL MALLEOLUS FRACTURE OTHER SURGICAL HISTORY Left PROCEDURE: [place] ARTH[place] WRST EXC&/RPR TRIANG FIBROCART&/JOINT Social History [...] Info) Description 09/03/2025 4:00 PM EDT Treatment [address] [address] Brenda Sam, PT Health Maintenance Due Date [...] UPON REACH MET 10/13 #4 IMPROVE LEFT RODEO RIDER FROM 40 TO 60 POUNDS = 75 [...] - met Insurance MEDICARE MEDICAID - [place] [facility] MEDICARE Care Teams Staffing Rn Relationship Specialty Start Date End Date Dorothea Carey MD 2 [facility] , [address] Physician Associ D/B/A: [place] Lopezatimiguel angel In Internal Medicine RUBIN [place] PCP - General Internal Medicine 08/15/21
--- OUTSIDE RECORDS SUMMARY | 2025-09-03 08:12 | XMS_ITS | Clinical Summary ---
Author Organization [facility] Address [address] [facility] [address] [place] [address] Phone Care Team Providers Care Laboratory Equipment Cleaner Name Role Phone Dorothea Domínguez MD Primary [...] 2:30 PM EDT Office Visit [facility] [address] [place] [address] Nathalie Islas, WENDIE Dry eyes (Primary Dx); Unstable keratoconus of left eye; Keratoconus of right eye; Regular astigmatism of right eye 07/17/2025 Orders Only [facility] [address] [address] Nathalie Islas OD 07/15/2025 [facility] [address] [place] [address] Unknown, Tiana, 07/07/2025 10:30 AM EDT Office Visit [facility] [place] [address] [place] [address] Nathalie Islas OD Dry eyes (Primary Dx); [...] 3:00 PM EST Office [facility] [address] [place] [address] Nathalie Islas OD [address] [place], [place] [id number] [email or web address] Health Maintenance Due Date Last Done [...] Medical Devices [place] [id number] [facility] MEDICARE REPLACEMENT [facility] MEDICARE PART [place] [address] [facility] MEDICARE REPLACEMENT [facility] MEDICARE PART A & B Member Subscriber Plan / Payer ( fective 2025-Present) Name:Liliya Aguirre Member ID:[id number] Relation to Subscriber:Self Name:Liliya Aguirre Subscriber ID:[id number] Payer ID:[id number] Group ID:Not on file Type:Medicare Address: [employer] [address] [place] [address] [place] [address] [facility] MEDICARE REPLACEMENT [place] MEDICARE PART A & B [facility] MEDICARE REPLAC[place] MED[place] PART A & B RUBIN [place] [id number] [facility] MEDICARE REPLAC[place] MEDICARE PART A & B RUBIN Rowley [id number] [facility] MEDICARE REPLACEMENT [facility] MEDICARE PART A & B Care Teams Laboratory Equipment Cleaner Relationship Specialty Start Date End Date Dorothea Domínguez MD [address] [place] [address] PCP - General Internal Medicine 07/15/25 Additional Source Comments The information contained in this document represents components of the legal health record. It is not the complete legal health record.[facility]
== END 2025-09-03 08:35 | disposition home or self-care (01) ==
LOC: HO.PMC 08:02
PROVIDERS: PCP Internal Medicine; Visit Provider Nurse Practitioner Family
DX: K76.9 Liver disease, unspecified (principal); R10.11 Right upper quadrant pain; R10.12 Left upper quadrant pain; M54.9 Dorsalgia, unspecified; M54.6 Pain in thoracic spine; M62.830 Muscle spasm of back; M79.7 Fibromyalgia
CPT/HCPCS: 99214; G2211

== ENCOUNTER → 2025-09-03 08:01 | Outpatient (BNVA) | payer MEDICARE, MEDICAID, SELFPAY | PROVIDERS: PCP Internal Medicine; Visit Provider Nurse Practitioner Family | DX: K76.9 Liver disease, unspecified (principal); M54.9 Dorsalgia, unspecified; M54.6 Pain in thoracic spine; M62.830 Muscle spasm of back; M79.7 Fibromyalgia; R10.11 Right upper quadrant pain; R10.12 Left upper quadrant pain | CPT/HCPCS: 99212 ==

== ENCOUNTER 2025-09-07 14:53 | Outpatient (AMB) | payer MEDICARE, MEDICAID, SELFPAY ==
--- OUTSIDE RECORDS SUMMARY | 2024-09-01 14:00 | XMS_ITS | Encounter Summary ---
Author Organization [employer] Address [address] [place] [address] Care Team Providers Care Key Entry Operator Name Role Phone Dorothea Carey MD Primary Care Provider [phone] Encounter Details Date Type Department Care Team (Late st Contact Info) Description 09/01/2024 3:00 PM EDT Hospital Encounter TH HISTORIC ENCOUNTERS [facility] ONLY Nichelle De La O MD [address] [place] [phone] Social History Tobacco Use Types Packs/Day Years Used Date Smoking Tobacco: Never Smokeless Tobacco: Never Alcohol Use Standard Drinks/Week Comments Yes 0 (1 standard drink = 0.6 oz pur e alcohol) Comments Unknown Sex and Gender Information Value Date Recorded Sex Assigned at Not on file Legal Sex Female 5:43 PM EDT Gender Identity Not on file Sexual Orientation Not on file documented as of this encounter Plan of Treatment Not on file documented as of this encounter Goals Goal Patient Goal Type Associated Problems Recent Progress Patient-Stated? Author <enter goal here> General On track( 3:25 PM EST) Yes Brenda Arechiga OT Note: I AM WEAK STGS 6 VISITS General On track( 3:25 PM EST) No Arechiga, Brenda A, OT Note: #1 IMPROVE LEFT SUPINATION FROM 45 TO 60 DEGREES TO RECEIVE ITEMS INTO PALM MET 10/13 #2 IMPROVE LEFT WRIST EXTENSION FROM 45 TO 60 DEGREES WITH GOOD STRENGTH TO WEIGHTBEAR MET 10/13 #3 IMPROVE LEFT THUMB EXTENSION FROM 45 TO 55 DEGREES UPON REACH MET 10/13 #4 IMPROVE LEFT LEAD MECHANICAL ENGINEER FROM 40 TO 60 POUNDS = 75 PERCENT OF THR RIGHT / REMAINS 40 POUNDS #5 INCORPORATE ROM AND STRETCHING INTO DAILY REGIME MET PT LTGs General No Compa Haney, PT Note: Pt will ambulate x6 minutes with no left foot ankle pain - not met Pt will ascend/descend 4 steps with reciprocal stepping pattern and no Left foot/ankle pain - not met Pt will increase Left ankle AROM to WNL - met Pt will increase left ankle DF, InV and EV strength to 5/5 - met Pt will complete 2 reps LLE Single-leg heel raise - met Pt will be independent with HEP - met documented as of this encounter Visit Diagnoses Not on filedocumented in this encounter Care Teams Key Entry Operator Relationship Specialty Start Date End Date Dorothea Carey MD 2 [facility] , [address] [employer] [facility] D/B/A: [facility] RUBIN Rowley PCP - General Internal Medicine 08/15/21 documented as of this encounter
--- NOTE | 2025-09-07 15:04 | MHC.OFFVIS ---
Intake Visit Reasons: Urge incontinence Intake Note: New patient presents today for initial visit for urge incontinence Urology Medication:None Blood Thinner:None Antibiotic Allergies:None PVR:0ml Allergies shrimp Allergy (Verified 09/07/25 15:04) Anaphylaxis tizanidine Adverse Reaction (Intermediate, Verified 09/07/25 15:04) Chest Pain HPI Comments Details: 09/07/25--Cierra is here as a new patient evaluation for urinary incontinence. In review of her chart she has history of fibromyalgia with lower back pain she is followed by pain management with a diagnosis of lumbar radiculopathy lumbar degenerative disc disease and sacroiliac joint pain. History of Present Illness The patient is a 40-year-old female presenting with urinary incontinence. She experiences frequent nocturia, waking up three to five times per night, and urgency during the day. No prior medication has been used for this condition. The patient has a history of fibromyalgia with chronic lower back pain. She is managed by pain management for lumbar radiculopathy, lumbar degenerative disc disease, and sacroiliac joint pain. Her caffeine consumption, including soda and coffee, which may worsen her bladder symptoms. A reduction in caffeine intake is recommended to alleviate symptoms. Results - Urinalysis: No signs of infection, presence of blood likely due to menstruation Plan Urgency/Nocturia/Urinary Incontinence - Solifenacin 10 mg prescribed to manage bladder spasms. - Renal/Bladder ultrasound ordered to investigate underlying issues. - Caffeine intake reduction advised to decrease bladder trigger. - Follow-up scheduled in 14 weeks to assess treatment response and review US results. [facility] Medical History Left otitis media Polyarthralgia Fibromyalgia High blood pressure Rash Lumbar pain Obese Surgical History H/O eye surgery S/P tendon repair History of local excision of skin lesion (08/03/22) S/P ligament repair History of hand surgery History of tubal ligation Family History Father No problems noted. Mother Diabetes Hypertension Paternal Aunt Breast cancer Family/Other Chronic mental illness Brother No problems noted. Brother No problems noted. Brother No problems noted. Sister No problems noted. Sister No problems noted. Son In good health Daughter In good health Social History Housing: Apartment Alcohol intake: current Alcohol intake frequency: holidays/special occasions only Alcohol type: wine and other Patient Tobacco Use Status: Never used Tobacco e-Cigarette/Vaping Use: Never Used Second Hand Smoke Exposure: No service: No Current occupational status: unemployed Cognitive needs: No Hearing needs: No Vision needs: Yes (Glasses) Female Reproductive History Menstrual Age of Menarche: 14 Review of Systems Const All systems reviewed & are unremarkable except as noted in HPI and below Reports no additional complaints Eyes Reports no additional complaints ENT Reports no additional complaints Card Reports no additional complaints Resp Reports no additional complaints GI Reports no additional complaints Reports as per HPI Musc Reports no additional complaints Skin/Breast Reports system reviewed and no additional complaints, except as documented Neuro Reports no additional complaints Psych Reports no additional complaints Endo Reports no additional complaints Rome/Lymph Reports no additional complaints Aller/Immun Reports no additional complaints Physical Exam Const General: cooperative, healthy appearing and no acute distress Nutritional Appearance: overweight Orientation/consciousness: patient oriented x3 HEENT Head: Yes normal to inspection, Yes normocephalic and Yes atraumatic Eyes Conjunctivae: conjunctivae normal Neck Neck: Yes normal visual inspection and Yes trachea midline Chest Chest palpation & inspection: normal inspection of the chest Resp Effort & Inspection: normal respiratory effort GI Inspection: Yes normal to inspection Palpation (GI): Soft to palpation Neuro General: patient oriented x3 Psych Appearance: grossly normal Assessment & Plan Assessment & Plan (1) Urinary urgency: Code(s): R39.15 - Urgency of urination Category: Medical (2) Nocturia more than twice per night: Code(s): R35.1 - Nocturia Category: Medical (3) Urinary incontinence: Code(s): R32 - Unspecified urinary incontinence Category: Medical Plan Plan Urgency/Nocturia/Urinary Incontinence - Solifenacin 10 mg prescribed to manage bladder spasms. - Renal/Bladder ultrasound ordered to investigate underlying issues. - Caffeine intake reduction advised to decrease bladder trigger. - Follow-up scheduled in 14 weeks to assess treatment response and review US results. Orders: Orders US retroperitoneal comp Today R39.15 - Urgency of urination Medications: New solifenacin (Vesicare) 10 mg PO DAILY 30 tabs 3RF Patient Instructions: The patient had an opportunity to ask questions regarding treatment plan. The patient expressed understanding and agreement with the above treatment plan. The patient is aware they should contact our office by phone for worsening of their current condition or the appearance of new symptoms. Compliance is encouraged with any medications and followup testing that is ordered. It is a privilege to be allowed the opportunity to participate in the urologic care of your patient. If you have any questions or concerns regarding treatment for the above conditions please do not hesitate to contact me. The office telephone contact is [phone]. This note is constructed in part using voice recognition software. While every effort has been made to ensure accuracy p 3 armament/ordnance ima technician errors may have been included. Yours sincerely, Josef Blair MD Scribe Plan - Not visible on output: Patient was informed and verbally consented to the use of an ambient scribe for clinic note documentation during this visit. Coding Level of Care Code New Pt Level 4 (45048) Diagnoses Urinary urgency R39.15 Nocturia more than twice per night R35.1 Urinary incontinence R32
--- OUTSIDE RECORDS SUMMARY | 2025-09-07 16:21 | XMS_ITS | Clinical Summary ---
Author Organization [facility] Address [address] [facility] [address] [place] [address] Phone Care Team Providers Care Steamboat Captain Name Role Phone Dorothea Domínguez MD Primary [...] 2:30 PM EDT Office Visit [facility] [address] [place] [address] Nathalie Islas, WENDIE Dry eyes (Primary Dx); Unstable keratoconus of left eye; Keratoconus of right eye; Regular astigmatism of right eye 07/17/2025 Orders Only [facility] [address] [address] Nathalie Islas OD 07/15/2025 Telephone [facility] [address] [place] [address] Unknown, Tiana, 07/07/2025 10:30 AM EDT Office Visit [facility] [place] [address] [place] [address] Nathalie Islas OD Dry eyes (Primary Dx); [...] 3:00 PM EST [facility] [address] [place] [address] Nathalie Islas OD [address] [place], [place] [address] [email or web address] Health Maintenance Due Date Last [...] Medical Devices [place] [id number] [facility] MEDICARE REPLACEMENT [facility] MEDICARE PART [place] [address] [facility] MEDICARE REPLACEMENT [facility] MEDICARE PART A & B Member Subscriber Plan / Payer ( fective 2025-Present) Name:Liliya Aguirre Member ID:[id number] Relation to Subscriber:Self Name:Liliya Aguirre Subscriber ID:[id number] Payer ID:[id number] Group ID:Not on file Type:Medicare Address: [employer] [address] [place] [address] [place] [address] [facility] MEDICARE REPLACEMENT [place] MEDICARE PART A & B [facility] MEDICARE REPLACEMENT [place] MEDICARE PART A & B RUBIN [place] [id number] [facility] MEDICARE REPLACEMENT [place] MEDICARE PART A & B RUBIN [place] [address] [facility] MEDICARE REPLACEMENT [facility] MEDICARE PART A & B Care Teams Steamboat Captain Relationship Specialty Start Date End Date Dorothea Domínguez MD [address] [place] [address] PCP - General Internal Medicine 07/15/25 Additional Source Comments The information contained in this document represents components of the legal health record. It is not the complete legal health record.[facility]
--- OUTSIDE RECORDS SUMMARY | 2025-09-07 16:21 | XMS_ITS | Encounter Summary ---
Author Organization [employer] Address [address] [place] [address] Care Team Providers Care Extension Division Director Name Role Phone Dorothea Carey MD Primary Care Provider [phone] Encounter Details Date Type Department Care Team (Late st Contact Info) Description 09/03/2025 Telephone [facility] [address] [address] Brenda Sam, PT Social History Tobacco Use Types Packs/Day Years [...] UPON REACH MET 10/13 #4 IMPROVE LEFT SUGAR MIXER FROM 40 TO 60 POUNDS = 75 [...] on filedocumented in this encounter Care Teams Extension Division Director Relationship Specialty Start Date End Date Dorothea Carey MD [address] [place] [address] , [address] [facility] Physician Associ D/B/A: [place] [facility] Internal [facility] RUBIN [place] PCP - General Internal Medicine 08/15/21 documented as of this encounter
--- OUTSIDE RECORDS SUMMARY | 2025-09-07 16:21 | XMS_ITS | Encounter Summary ---
Author Organization [facility] Address [address] [place] [address] Phone Care Team Providers Care Automobile Salesman Name Role Phone Unknown, Unknown Primary Care Provider Kenya donnelly Pcp, Unknown Primary Care Provider Dorothea Garcia MD Primary Care Provid er Reason for Visit * Reason Onset Date Comments Medication Refill 10/22/2024 Encounter Details Date Type Department Care Team (Late st Contact Info) Description 10/22/2024 Refill [facility] [place] [address] [place] [address] Cortney Coelho [address] [place] [address] [email or web address] Medication Refill Social History Tobacco Use [...] 3:00 PM EST Office Visit [facility] [place] [address] [place] [address] Nathalie Islas, [address] [address] [email or web address] documented as of this encounter Visit Diagnoses Not on filedocumented in this encounter Care Teams Automobile Salesman Relationship Specialty Start Date End Date Unknown, Unknown, MD PCP - General 07/14/24 12/14/24 Pcp, Unknown PCP - General 12/15/24 07/14/25 Dorothea Domínguez MD [address] [place] [address] PCP - General Internal Medicine 07/15/25 documented as of this encounter Additional Source Comments The information contained in this document represents components of the legal health record. It is not the complete legal health record.[facility]
--- OUTSIDE RECORDS SUMMARY | 2025-09-07 16:21 | XMS_ITS | Clinical Summary ---
Author Organization Patient Business Ser [facility] Address [address] [place] [address] Care Team Providers Care Route Specialist Name Role Phone Dorothea Carey MD Primary Care Provider [phone] Allergies No known active allergies Medications amitriptyline [...] Encounters Date Type Department Care Team Description 09/03/2025 Telephone [facility] [address] [phone] Brenda Sam, LUIS 08/25/2025 4:00 PM EDT Treatment [address] [phone] Reed Price, EMPLOYEE HEALTH NURSE Pain in left ankle and joints of left foot (Primary Dx) 08/05/2025 1:30 PM EDT Treatment [facility] [address] [address] Brenda Sam, PT Other fracture of left lower leg, initial encounter for closed fracture (Primary Dx) 07/27/2025 2:30 PM EDT Treatment [facility] [address] [address] Brijesh Alvarado, EMPLOYEE HEALTH NURSE Other fracture of left lower leg, initial encounter for closed fracture (Primary Dx) 07/22/2025 3:30 PM EDT Treatment [facility] [address] [address] Tato Donald PTA Other fracture of left lower leg, initial encounter for closed fracture (Primary Dx) 07/01/2025 3:30 PM EDT Treatment [facility] [address] [address] Tato Donald PTA Other fracture of left lower leg, initial encounter for closed fracture (Primary Dx) from Last 3 Months Surgical History Surgery Date Site/Laterality Comments ANKLE FRACTURE SURGERY Left PROCEDURE: [place] OPEN TREATMENT MEDIAL MALLEOLUS FRACTURE OTHER SURGICAL HISTORY Left PROCEDURE: [place] ARTH[place] WRST EXC&/RPR TRIANG FIBROCART&/JOINT Social History [...] 02/17/2025 1:36 PM EDT Plan of Treatment Health Maintenance Due Date [...] UPON REACH MET 10/13 #4 IMPROVE LEFT INSULATION BOARD BACK TENDER FROM 40 TO 60 POUNDS = [...] - met Insurance MEDICARE MEDICAID - [place] [facility] MEDICARE Care Teams Route Specialist Relationship Specialty Start Date End Date Dorothea Carey MD 2 [facility] , [address] [facility] Physician Associ D/B/A: [place] Lopezatimiguel angel In Internal Medicine RUBIN [place] PCP - General Internal Medicine 08/15/21
--- OUTSIDE RECORDS SUMMARY | 2025-09-07 16:21 | XMS_ITS | Encounter Summary ---
Author Organization [facility] Address [address] [place] [address] Phone Care Team Providers Care Digital Sales Director Name Role Phone Dorothea Domínguez MD Primary Care Provid er Encounter Details Date Type Department Care Team (Late st Contact Info) Description 07/15/2025 Telephone [facility] [address] [place] [address] Unknown, Unknown, Social History Tobacco Use Types [...] [facility] [place] [address] [place] [address] Nathalie Islas, OD [address] [place] [address] [email or web address] [email or web address] documented as of this encounter Visit Diagnoses Not on filedocumented in this encounter Care Teams Digital Sales Director Relationship Specialty Start Date End Date Dorothea Domínguez MD [address] [place] [address] PCP - General Internal Medicine 07/15/25 documented as of this encounter Additional Source Comments The information contained in this document represents components of the legal health record. It is not the complete legal health record.[facility]
== END 2025-09-07 15:37 | disposition home or self-care (01) ==
LOC: HO.HUSH 14:53
PROVIDERS: PCP Internal Medicine; Visit Provider Urology
DX: R39.15 Urgency of urination (principal); R35.1 Nocturia; R32 Unspecified urinary incontinence
CPT/HCPCS: 99204

== ENCOUNTER → 2025-09-07 14:53 | Outpatient (BNVA) | payer MEDICARE, MEDICAID, SELFPAY | PROVIDERS: PCP Internal Medicine; Visit Provider Urology | DX: R39.15 Urgency of urination (principal); R35.1 Nocturia; R32 Unspecified urinary incontinence | CPT/HCPCS: 51798; 81003; 99202 ==

== ENCOUNTER → 2025-10-26 09:08 | Outpatient (REF) | payer MEDICARE, MEDICAID, SELFPAY ==
--- OUTSIDE RECORDS SUMMARY | 2024-09-01 14:00 | XMS_ITS | Encounter Summary ---
Author Organization [facility] Address [address] [place] [address] Care Team Providers Care Sales Floor Manager Name Role Phone Dorothea Carey MD Primary Care Provider [phone] Encounter Details Date Type Department Care Team (Late st Contact Info) Description 09/01/2024 3:00 PM EDT Hospital Encounter TH HISTORIC ENCOUNTERS [facility] ONLY Nichelle De La O MD 175 [facility] [address] [place] [address] Social History Tobacco Use Types Packs/Day Years [...] as of this encounter Plan of Treatment Upcoming Encounters Date Type Department Care Team (Late st Contact Info) Description 10/27/2025 1:30 PM EST Treatment [facility] [address] [phone] Brijesh Alvarado PTA 11/03/2025 1:30 PM EST Treatment [facility] [address] [phone] Jenny, Lee, REFRIGERATOR CABINETMAKER 11/06/2025 1:30 PM EST Treatment [facility] [address] [phone] JennyBrijesh farmer, REFRIGERATOR CABINETMAKER 11/10/2025 2:00 PM EST Treatment [facility] [address] [phone] Jenny, Brijesh, REFRIGERATOR CABINETMAKER 11/12/2025 1:30 PM EST Treatment [facility] [address] [phone] Jenny, Lee, REFRIGERATOR CABINETMAKER 11/19/2025 1:00 PM EST Treatment [address] [phone] Gabriel Matthews, PT documented as of this encounter Goals Goal Patient Goal Type Associated Problems Recent Progress Patient-Stated? Author <enter goal here> General On track( 3:25 PM EST) Yes Brenda Arechiga, OT Note: I AM WEAK STGS 6 VISITS General On track( 3:25 PM EST) No Brenda Arechiga, OT Note: #1 IMPROVE LEFT SUPINATION FROM 45 TO 60 DEGREES TO RECEIVE ITEMS INTO PALM MET 10/13 #2 IMPROVE LEFT WRIST EXTENSION FROM 45 TO 60 DEGREES WITH GOOD STRENGTH TO WEIGHTBEAR MET 10/13 #3 IMPROVE LEFT THUMB EXTENSION FROM 45 TO 55 DEGREES UPON REACH MET 10/13 #4 IMPROVE LEFT GAS OR WATER METER INSTALLER FROM 40 TO 60 POUNDS = 75 [...] on filedocumented in this encounter Care Teams Sales Floor Manager Relationship Specialty Start Date End Date Dorothea Carey MD [address] [place] [address] , [address] [facility] D/B/A: [facility] RUBIN Rowley PCP - General Internal Medicine 08/15/21 documented as of this encounter
--- OUTSIDE RECORDS SUMMARY | 2025-10-21 13:20 | XMS_ITS | Encounter Summary ---
Author Organization Here@ [employer] [facility] Address [address] [facility] [address] [place] [address] Phone Care Team Providers Care Decision Support Analyst Name Role Phone Dorothea Domínguez MD Primary Care Provid er Reason for Visit * Reason Comments Keratoconus * Consultation (Routine) - Authorized Specialty Diagnoses / Procedures Referred By Wan hughes Referred To Contact Ophthalmology Diagnoses Return in about 6 months (around 08/12/2025) for pentacam [facility] Procedures ESTABLISHED Dorothea Domínguez MD [address] [place] [address] Phone: tel: fax: [facility] [address] [facility] [address] [place] [address] Phone: tel: fax: Referral ID Status Reason Start Date Expiration Date V isits Requested Visits Authorized [id number] Authorized 08/12/2025 08/12/2026 99 99 Encounter Details Date Type Department Care Team (Late st Contact Info) Description 10/21/2025 1:20 PM EST Office Visit [facility] [address] [facility] [address] [place] [address] Melba Meadows MD [address] [facility], [address] [place] [address] [email or web address] Keratoconus of both eyes (Primary Dx); Irregular astigmatism of left eye Social History Tobacco Use Types Packs/Day Years [...] as of this encounter Progress Notes * Melba Meadows MD - 10/21/2025 1:20 PM EST Referred by Dr. Lockwood Minimal eye rubbing 1 year decreased vision Wears glasses No CTLs Assessment: 1. 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 Irregular astigmatism of both eyes Kendall 09/08/24 Kmax 45.7 OD D 3.34 OD Central corneal thickness 498 OD Kmax 52.3 OS D 8.67 OS Central corneal thickness 473 OS s/p corneal collagen crosslinking OS 10/22/24 - doing well Kendall 02/10/25 Kmax 45.7 OD, stable kendall Kmax 51.9 OS, improvement in curvature s/p corneal collagen crosslinking OS Kendall 10/21/25 - wore CTLs both eyes today Kmax 45.3 OD Kmax 50.7 OS Mild flattening both eyes but likely from CTL wear 4. Dry eyes both eyes Using xiidra BID both eyes and tears Plan: Feels more blurred vision with CTL OS x [address] Islas 07/30/25 was 20/40, today 20/300 10/21/25 OS, OD overall stable Mac optical coherence tomography flat OS Optic nerve exam WNL Some blur may be from dryness C/w xiidra BID both eyes Use tears throughout the day Pentacams stable both eyes, no signs of progression No eye rubbing From fruste keratoconus OD, monitor carefully, low threshold to corneal collagen crosslinking, stable Recommend CTL re-fit both eyes to see if changes need to be made to improve vision F/u 6 months pentacam [facility] IOP CTL holiday 3 days prior Melba Meadows MD documented in this encounter Plan of Treatment Upcoming Encounters Date Type Department Care Team (Late st Contact Info) Description 11/18/2025 2:00 PM EST [facility] 1 [place] [address] Vira Sprague, OD [address] [address] [email or web address] 04/21/2026 1:10 PM EDT Office Visit [facility] [address] [facility] [address] [place] [address] Vira Sprague, OD [address] [address] [email or web address] Melba Rinaldi MD [address] [facility], [address] [place] [address] Asya [email or web address] 08/17/2026 3:30 PM EDT Office Visit [facility] [address] [facility] [address] [place] [address] Nathalie Islas, OD [email or web address] documented as of this encounter Procedures Procedure Name Priority Date/Time Associated Diagnosis Comments OCT, RETINA - OU - BOTH EYES Routine 10/21/2025 2:21 PM EST Keratoconus of both eyes CORNEAL TOPOGRAPHY - OU - BOTH EYES Routine 10/21/2025 2:00 PM EST Keratoconus of both eyes documented in this encounter Results * OCT, RETINA - OU - BOTH EYES - (10/21/2025 2:21 PM EST) Narrative MICHALE - 10/21/2025 2:21 PM EST Right Eye Quality was good. Findings include normal foveal contour. Left Eye Quality was good. Findings include normal foveal contour. Melba Meadows MD OPHTHALMOLOGY IMAGING F inal Result MICHAEL * Corneal Topography - OU - Both Eyes (10/21/2025 2:00 PM EST) Anatomical Region Laterality Modality Head Optical Coherenc e Tomography Narrative 10/21/2025 2:00 PM EST Kmax 45.3 OD Kmax 50.7 OS Mild flattening both eyes but likely from CTL wear Melba Meadows MD OPHTHALMOLOGY IMAGING F inal Result documented in this encounter Visit Diagnoses Diagnosis Keratoconus of both eyes- Primary Irregular astigmatism of left eye documented in this encounter Care Teams Decision Support Analyst Relationship Specialty Start Date End Date Dorothea Domínguez MD [address] [place] [address] PCP - General Internal Medicine 07/15/25 documented as of this encounter Additional Source Comments The information contained in this document represents components of the legal health record. It is not the complete legal health record.[facility]
--- OUTSIDE RECORDS SUMMARY | 2025-10-23 11:30 | XMS_ITS | Encounter Summary ---
Author Organization [employer] Address [address] [place] [address] Care Team Providers Care Cartridge Loader Name Role Phone Dorothea Carey MD Primary Care Provider [phone] Reason for Visit * Consultation (Routine) - Authorized Specialty Diagnoses / Procedures Referred By Wan hughes Referred To Contact Physical Therapy Diagnoses Pain in right knee Sprain of anterior cruciate ligament of unspecified knee, initial encounter Effusion, right knee Yari Malcolm [address] [address] Phone: tel: Referral ID Status Reason Start Date Expiration Date Visits Requested Visits Authorized [id number] Authorized Specialty Services Required 08/28/2026 9 9 Encounter Details Date Type Department Care Team (Late st Contact Info) Description 10/23/2025 11:30 AM EST Treatment [facility] [address] [phone] Brijesh Alvarado PTA Sprain of anterior cruciate ligament of unspecified knee, initial encounter (Primary Dx); Effusion, right knee; Right knee pain, unspecified chronicity Social History Tobacco Use Types Packs/Day Years [...] Progress Notes * Brijesh Alvarado PTA - 10/23/2025 11:30 AM EST [facility] - Outpatient PHYSICAL THERAPY DAILY TREATMENT NOTE - OP Date: 10/23/2025 Visit Number: [id number] Patient Name: Liliya Aguirre : 1985 Age: 40 y.o. Gender: female Diagnosis: ICD-10-CM ICD-9-CM 1. Sprain of anterior cruciate ligament of unspecified knee, initial encounter S83.519A 844.2 2. Effusion, right knee M25.461 719.06 3. Right knee pain, unspecified chronicity M25.561 719.46 Date of Onset/Surgery: Multiple active episodes found Referring Provider: Yari Malcolm FNP Insurance: Payor: [employer] MEDICARE / Plan: AARP MEDICARE COMPLETE / Product Type: *No Product type* / Patient Identified by: Brijesh Alvarado PTA Language: Pt. speaks Ukrainian as preferred language, however declines manufacturing recruiter treating SUPERVISOR ROUGH END speaks language. Medications: Medications Ordered Prior to Encounter[1] Allergies: has no known allergies. Precautions: none Fall risk: No SUBJECTIVE Subjective Report: Patient reports no changes. Chart Reviewed: Yes Pain: pain can reach up to 8/10, this morning not too bad because she just woke up. Patient pain level 6-7/10 post exercises. Patient reporting pain in hip with exercises. TREATMENT INTERVENTION: Nustep x 5 mins L5 with brace donned HL hip add with ball 5 sec hold x 20 reps HL knee ext with isometric hold of ball between knees 20 reps SAQ with ER to engage VMO with LE on blue bolster 20 reps SL hip abd 5 sec 10 reps wotj c/o pain Seated hip add 10 reps 5 sec hold Seated knee ext with hip add against ball between knees. ASSESSMENT/Response to Treatment Fair patient reports pain hip joint post exercises. Patient Education: Education provided: yes Education Provided To: Patient utilizing Explanation and Demonstration mode(s) of education Response to Education: Verbal Understanding PLAN POC Development/Review: No Change in the Plan of Care; Participants: Patient Interventions Time Entry: Modalities: Therapeutic procedures: Therapeutic Exercise Time Entry: 30 Total Treatment Time: 30 mins Documentation completed by Brijesh Alvarado PTA [1] Current Outpatient Medications on File Prior to Visit Medication Sig Dispense Refill amitriptyline (ELAVIL) 10 mg tablet Take 1 tablet (10 mg total) by mouth at bedtime. cyclobenzaprine (FLEXERIL) 10 mg tablet TAKE 1 TABLET BY MOUTH EVERY DAY AT BEDTIME NEEDED FOR MUSLCE SPASM No current facility-administered medications on file prior to visit. documented in this encounter Plan of Treatment Upcoming Encounters Date Type Department Care Team (Late st Contact Info) Description 10/27/2025 1:30 PM EST Treatment [address] [phone] Brijesh Alvarado PTA 11/03/2025 1:30 PM EST Treatment [address] [address] Brijesh Alvarado PTA 11/06/2025 1:30 PM EST Treatment [address] [phone] Brijesh Alvarado PTA 11/10/2025 2:00 PM EST Treatment [address] [phone] Brijesh Alvarado PTA 11/12/2025 1:30 PM EST Treatment [address] [phone] Brijesh Alvarado PTA 11/19/2025 1:00 PM EST Treatment [address] [phone] Gabriel Matthews, PT documented as of this encounter Goals Goal Patient Goal Type Associated Problems Recent Progress Patient-Stated? Author <enter goal here> General On track( 024 3:25 PM EST) Yes Brenda Arechiga, OT Note: I AM WEAK STGS 6 VISITS General On track( 024 3:25 PM EST) No Brenda Arechiga OT Note: #1 IMPROVE LEFT SUPINATION FROM 45 TO 60 DEGREES TO RECEIVE ITEMS INTO PALM MET 10/13 #2 IMPROVE LEFT WRIST EXTENSION FROM 45 TO 60 DEGREES WITH GOOD STRENGTH TO WEIGHTBEAR MET 10/13 #3 IMPROVE LEFT THUMB EXTENSION FROM 45 TO 55 DEGREES UPON REACH MET 10/13 #4 IMPROVE LEFT WELL LOGGING OPERATOR MUD ANALYSIS FROM 40 TO 60 POUNDS = 75 [...] as of this encounter Visit Diagnoses Diagnosis Sprain of anterior cruciate ligament of unspecified knee, initial encounter- Primary Effusion, right knee Right knee pain, unspecified chronicity documented in this encounter Care Teams Cartridge Loader Relationship Specialty Start Date End Date Dorothea Carey MD [address] [place] [address] , [address] [facility] Physician Associ D/B/A: [facility] In Internal Medicine RUBIN Rowley PCP - General Internal Medicine 08/15/21 documented as of this encounter
--- NOTE | ~2025-10-26 | NM_ITS ---
Lexiscan Myocardial perfusion study Indication: Chest pain to evaluate for myocardial ischemia Technique: The patient was brought in for a Lexiscan perfusion study on 10/26/2025 and was injected 0.4 mg of Lexiscan intravenously. Within a minute of this injection 30 mCi of sestamibi was given intravenously. Images were obtained using the SPECT gamma camera interlaced with the gating device. Images were obtained in supine position. Resting perfusion study was performed on 10/27/2025. Patient was administered 30 mCi of sestamibi intravenously at rest. Images were then obtained in supine position. Images were processed with the software and compared side to side in short axis, horizontal long axis and vertical long axis views. Images obtained without without CT attenuation. Total DLP 100 mGy-cm. Findings: Both stress and rest perfusion study was suboptimal due to intense subdiaphragmatic uptake interfering with inferior wall uptake but also patient with breast attenuation noted The stress perfusion study showed nonattenuated images show overall thinning of and time myocardium with mildly reduced uptake in the apex and the basal lateral wall of the LV myocardium. Remainder of the LV myocardium is normally perfused. Attenuated corrected images show mildly reduced uptake in the apex otherwise diffusely reduced uptake in all the other segments which is most likely due to extracardiac attenuation from intense subdiaphragmatic uptake. The gated study shows normal LV systolic function with calculated LVEF of 56%. LV cavity is normal in size. The gated study shows normal systolic wall thickening and contraction of segments. Resting study shows both attenuated as well as nonattenuated corrected images show normal uptake of radiotracer in all segments of the LV myocardium. Gating at rest reveals normal wall motion with ejection fraction at 60%. The findings are consistent with possible small reversible defect of the apex cannot be entirely ruled out. Although difficult to assess due to extracardiac uptake interfering with inferior wall uptake. Equivocal for possible small mild intensity apical ischemia. NM/NM cardiolite stress test Impression: 1. Myocardial perfusion imaging study shows [equivocal for small area of mild intensity apical ischemia 2. Gated LVEF is 56% 3. Transient ischemic dilatation not present Nondiagnostic for ischemia on EKG. Electronically signed by: Ang Dejesus MD 10/27/2025 05:10 PM [facility] [place]
--- NOTE | 2025-10-26 09:11 | CA_ITS ---
Acquisition Time: 2025-10-26 09:59:05 Total Exercise Time: 00:02:00 Test Indications: cp, htn Medications: SEE H&P Protocol: LEXISCAN Max HR: 155 BPM 86% of Pred: 179 BPM Max BP: 120/72 mmHG Max Work Load: 1.0 METS Pharmacological stress test with Lexiscan while pt swings her legs in chair, with reports of 6/10 right sided chest pressure, SOB and dizziness, with isolated PVCs, with normotensive response to injection. Nondiagnostic EKG for ischemia. In recovery, pt treated with IVP Aminophylline 75 mg to reverse Lexiscan after which pt slowly feeling back to baseline. Nuclear images pending. Test reviewed with Dr. Dejesus. Referred By: Dorothea Carey Electronically Signed By: Aj Foote
--- OUTSIDE RECORDS SUMMARY | 2025-10-26 10:04 | XMS_ITS | Encounter Summary ---
Author Organization [facility] Address [address] [place] [address] Phone Care Team Providers Care Head Charrer Name Role Phone Unknown, Unknown Primary Care Provider Kenya donnelly Pcp, Unknown Primary Care Provider Dorothea Garcia MD Primary Care Provid er Reason for Visit * Reason Onset Date Comments Medication Refill 10/22/2024 Encounter Details Date Type Department Care Team (Late st Contact Info) Description 10/22/2024 Refill [facility] Eye and Ear Refractive Surgery [address] [place] [address] Cortney Coelho I [address] [place] [address] [email or web address] Medication Refill Social History Tobacco Use Types [...] [facility] 1 [place] [address] Vira Sprague, OD 1 [facility], [address] [address] [email or web address] 04/21/2026 1:10 PM EDT Office Visit [facility] [address] [facility] [address] [place] [address] Celestine Vira, OD 1 [facility], [address] [address] [email or web address] Melba Rinaldi MD [address] [facility], [address] [place] [address] Asya [email or web address] 08/17/2026 3:30 PM EDT Office Visit [facility] [address] [facility] [address] [place] [address] Nathalie Islas OD [email or web address] documented as of this encounter Visit Diagnoses Not on filedocumented in this encounter Care Teams Head Charrer Relationship Specialty Start Date End Date Unknown, Unknown, MD PCP - General 07/14/24 12/14/24 Pcp, Unknown PCP - General 12/15/24 07/14/25 Dorothea Domínguez MD [address] [place] [address] PCP - General Internal Medicine 07/15/25 documented as of this encounter Additional Source Comments The information contained in this document represents components of the legal health record. It is not the complete legal health record.[facility]
--- OUTSIDE RECORDS SUMMARY | 2025-10-26 10:04 | XMS_ITS | Clinical Summary ---
Author Organization [employer] [facility] Address [address] [place] [address] Care Team Providers Care Ciaio Lumite Injector Name Role Phone Dorothea Carey MD Primary Care Provider [phone] Allergies No known active allergies Medications amitriptyline [...] Encounters Date Type Department Care Team Description 10/23/2025 11:30 AM EST Treatment [address] [phone] Brijesh Alvarado, ADEN Sprain of anterior cruciate ligament of unspecified knee, initial encounter (Primary Dx); Effusion, right knee; Right knee pain, unspecified chronicity 10/12/2025 9:30 AM EST Evaluation [address] [address] Gabriel Matthews, PT Sprain of anterior cruciate ligament of unspecified knee, initial encounter (Primary Dx); Pain in right knee; Effusion, right knee; Right knee pain, unspecified chronicity 10/12/2025 Plan of Care Documentation [address] [address] 09/03/[address] [address] Brenda Sam, PT 08/25/2025 4:00 PM EDT Treatment [address] [phone] Reed Price, CLOCK AND WATCH HANDS PAINTER Pain in left ankle and joints of left foot (Primary Dx) 08/05/2025 1:30 PM EDT Treatment [address] [phone] Brenda Sam, PT Other fracture of left lower leg, initial encounter for closed fracture (Primary Dx) 07/27/2025 2:30 PM EDT Treatment [address] [phone] Brijesh Alvarado, ADEN Other fracture of left lower leg, initial encounter for closed fracture (Primary Dx) from Last 3 Months Surgical History Surgery Date Site/Laterality Comments ANKLE FRACTURE SURGERY Left PROCEDURE: OR OPEN TREATMENT MEDIAL MALLEOLUS FRACTURE OTHER SURGICAL HISTORY Left PROCEDURE: OR ARTHRS WRST EXC&/RPR TRIANG FIBROCART&/JOINT Social History [...] on file Sexual Orientation Not on file Last Filed Vital Signs Vital Sign Reading [...] Info) Description 10/27/2025 1:30 PM EST Treatment [address] [phone] Brijesh Alvarado, CLOCK AND WATCH HANDS PAINTER 11/03/2025 1:30 PM EST Treatment [facility] [address] [address] Brijesh Alvarado, CLOCK AND WATCH HANDS PAINTER 11/06/2025 1:30 PM EST Treatment [facility] [address] [address] Brijesh Alvarado, CLOCK AND WATCH HANDS PAINTER 11/10/2025 2:00 PM EST Treatment [facility] [address] [address] Brijesh Alvarado, CLOCK AND WATCH HANDS PAINTER 11/12/2025 1:30 PM EST Treatment [address] [address] Brijesh Alvarado, CLOCK AND WATCH HANDS PAINTER 11/19/2025 1:00 PM EST Treatment [address] [phone] Gabriel Matthews, PT Health Maintenance Due Date Last Done Comments Breast Cancer Screening 1984 Hepatitis B Vaccines (1 of 3 - 19+ 3-dose series) 2003 Cervical Cancer Screening: P ap Smear 2005 HPV Vaccines (1 - 3-dose SCD M series) 2011 Cholesterol Screening (Lipid Panel) 05/28/2022 HIV Screening 05/28/2022 Hepatitis C Screening 05/28/2022 Medicare Annual Wellness Visit 05/28/2022 Social Influencers of Health Screening 05/28/2022 Depression Screening 11/05/2024 COVID-19 Vaccine (3 - 2024-2 6 season) 2025 06/10/2021, 05/13/2021 Influenza Vaccine (#1) 2025 , 10/09/2019, 09/25/2018 Hypertension/CHF/CAD Annual BMP Blood Test 10/23/2025 DTaP,Tdap,and Td Vaccines (2 - Td or [...] UPON REACH MET 10/13 #4 IMPROVE LEFT RABBLE FURNACE TENDER FROM 40 TO 60 POUNDS [...] - [place] [employer] MEDICARE Care Teams Ciaio Lumite Injector Relationship Specialty Start Date End Date Dorothea Carey MD [address] [place] [address] , [address] Physician Associ D/B/A: [facility] [place], [place] PCP - General Internal Medicine 08/15/21
--- OUTSIDE RECORDS SUMMARY | 2025-10-26 10:05 | XMS_ITS | Clinical Summary ---
Author Organization [facility] Address [address] [facility] [address] [place] [address] Phone Care Team Providers Care Pullboat Engineer Name Role Phone Dorothea Domínguez MD Primary [...] Encounters Date Type Department Care Team Description 10/21/2025 1:20 PM EST Office Visit [facility] [address] [facility] [address] [place] [address] Melba Meadows MD Keratoconus of both eyes (Primary Dx); Irregular astigmatism of left eye 10/13/2025 Telephone [facility] [address] [facility] [address] [place] [address] Melba Meadows MD 10/08/2025 Telephone [facility] [address] [facility] [address] [place] [address] Melba Meadows MD 07/30/2025 2:30 PM EDT Office Visit [facility] [address] [facility] [address] [place] [address] Nathalie Islas, OD Dry eyes (Primary Dx); Unstable keratoconus of left eye; Keratoconus of right eye; Regular astigmatism of right eye from Last 3 Months [...] [facility] 1 [place] [address] Vira Sprague, OD [address] [address] [email or web address] 04/21/2026 1:10 PM EDT Office Visit [facility] [address] [facility] [address] [place] [address] Vira Sprague, OD [address] [address] [email or web address]. Melba Rinaldi MD [address] [facility], [address] [place] [address] Asya [email or web address] 08/17/2026 3:30 PM EDT Office Visit [facility] [address] [facility] [address] [place] [address] Nathalie Islas OD [email or web address] Health Maintenance Due Date Last Done Comments Adult Td,Tdap Booster 1984 CREATININE LEVEL 1984 POTASSIUM LEVEL 1984 DEPRESSION SCREENING 1996 HEPATITIS C SCREENING 2002 HIV ONE-TIME SCREENING (18-6 5 YEARS) 2002 PAP SMEAR 2005 MAMMOGRAM 2024 INFLUENZA VACCINE (#1) 2025 COVID-19 VACCINE ( - 2024-2 6 season) 2025 SMOKING STATUS SCREENING (On ce After 26 Yrs) Completed 10/21/2025 HEPATITIS A VACCINES Aged Out No long [...] this topic Medical Devices Not on file Procedures Procedure Name Priority Date/Time Associated Diagnosis Comments OCT, RETINA - OU - BOTH EYES Routine 10/21/2025 2:21 PM EST Keratoconus of both eyes CORNEAL TOPOGRAPHY - OU - BOTH EYES Routine 10/21/2025 2:00 PM EST Keratoconus of both eyes from Last 3 Months Results * OCT, RETINA - OU - BOTH EYES - (10/21/2025 2:21 PM EST) Narrative MICHAEL - 10/21/2025 2:21 PM EST Right Eye [...] Meadows MD OPHTHALMOLOGY IMAGING F inal Result from Last 3 Months Insurance RUBIN Rowley [id number] [facility] MEDICARE REPL[facility]EMENT [facility] PART A & B RUBIN Row[id number] [facility] MEDIC[facility] REPL[facility] MEDICARE PART A & [place] [id number] [facility] REPLACEMENT [facility] MEDICARE PART A & [place] [id number] [facility] MEDICARE REPLACEMENT [place] MEDICARE PART A & B [facility] MEDIC[facility] RE[facility] & B RUBIN Rowley [id number] [facility] MEDICARE REPL[facility]EMENT [facility] MEDICARE PART A & B Care Teams Pullboat Engineer Relationship Specialty Start Date End Date Dorothea Domínguez MD [address] [place] [address] PCP - General Internal Medicine 07/15/25 Additional Source Comments The information contained in this document represents components of the legal health record. It is not the complete legal health record.[facility]
--- OUTSIDE RECORDS SUMMARY | 2025-10-26 10:05 | XMS_ITS | Encounter Summary ---
Author Organization [employer] [facility] Address [address] [place] [address] Phone Care Team Providers Care Pull Worker Name Role Phone Dorothea Domínguez MD Primary Care Provid er Encounter Details Date Type Department Care Team (Late st Contact Info) Description 07/15/2025 Telephone [facility] [address] [facility] [address] [place] [address] Unknown, Unknown, Social History Tobacco Use Types [...] [facility] 1 [place] [address] Fatimah Spraguehleen, OD 1 [facility], [address] [address] [email or web address] 04/21/2026 1:10 PM EDT Office Visit [facility] Cor[facility] Service [address] [facility] [address] [place] [address] Celestine Vira, OD 1 [facility], [address] [address] [email or web address] Melba Rinaldi MD [address] [facility], [address] [place] [address] Asya [email or web address] 08/17/2026 3:30 PM EDT Office Visit [facility] [address] [facility] [address] [place] [address] Nathalie Islas, WENDIE [email or web address] documented as of this encounter Visit Diagnoses Not on filedocumented in this encounter Care Teams Pull Worker Relationship Specialty Start Date End Date Dorothea Domínguez MD [address] [place] [address] PCP - General Internal Medicine 07/15/25 documented as of this encounter Additional Source Comments The information contained in this document represents components of the legal health record. It is not the complete legal health record.[facility]
== END ==
LOC: HO.CARD 09:08
PROVIDERS: PCP Internal Medicine; Visit Provider Internal Medicine
DX: R07.9 Chest pain, unspecified (principal)
CPT/HCPCS: 78452; 93017; A9500; J0280; J2785

== ENCOUNTER → 2025-10-26 09:11 | Outpatient (BNV) | payer MEDICARE, MEDICAID, SELFPAY | PROVIDERS: PCP Internal Medicine | DX: I24.89 Other forms of acute ischemic heart disease (principal) | CPT/HCPCS: 78452; 93016; 93018 ==